=== PATIENT | female | born 2000 | race Caucasian/White ===

== ENCOUNTER → 2022-08-07 | Outpatient (CLI) | payer OTHER, SELFPAY ==
--- NOTE | 2022-08-07 11:47 | RAD_ITS ---
STUDY: X-RAY CHEST REASON FOR EXAM: Female, 22 years old. Shortness of breath. TECHNIQUE: Frontal and lateral views of the chest. COMPARISON: None. FINDINGS: The lungs are clear and expanded. There is no demonstrated pleural abnormality. Normal size heart. Normal mediastinum and gregorio. Normal visualized pulmonary arteries. Normal visualized aortic arch and descending thoracic aorta. Normal visualized thoracic spine. Normal visualized ribs, clavicles, and shoulders. There is no demonstrated abnormality of the visualized soft tissue structures of the upper abdomen. RAD/Chest PA and Lateral IMPRESSION: Normal x-ray examination of the chest. Electronically Signed: Prabhakar Bergeron, at 12:26 EST ,
[2022-08-07 15:29] LABS: Absolute Lymphocyte Count 1.36 X10^3/uL (0.83-4.51); Absolute Neutrophil Count 2.9 X10^3/uL (2.0-7.7); Basophil# 0.05 X10^3/uL; Eosinophils% 1.9 % (0-5); Hematocrit 46.9 % (37-47); Hemoglobin 15.6 g/dL (12.0-15.0); Lymphocyte # 1.36 X10^3/ul (0.83-4.51); Lymphocyte % 26.1 % (19-41); Mean Corp Hgb Conc 33.3 g/dL (32-36); Mean Corpuscular Hgb 30.6 pg (27.0-32.0); Monocyte# 0.77 X10^3/uL; Monocyte% 14.8 % (0-10); NRBC Flagged by Analyzer 0 % (0-5); Neutrophil # 2.93 X10^3/uL (2.7-7.7); Platelet Count 274 K/mm3 (150-450); RBC Distribution Width CV 12.3 % (11.6-14.6); RBC Distribution Width SD 42.1 fl (35.1-43.9); White Blood Count 5.2 K/mm3 (4.4-11.0)
[2022-08-07 15:46] LABS: Vitamin B12 961 pg/mL (211-911); Vitamin D,25 Hydroxy 38.2 ng/mL
[2022-08-07 16:02] LABS: ALB/GLOB Ratio 1.2 RATIO (0.9-2.4); AST(SGOT) 13 U/L (15-37); Alanine Aminotransfer ALT/SGPT 16 U/L (13-56); Alkaline Phosphatase 45 U/L (45-117); Anion Gap 9 (5-15); BUN 9 mg/dL (7-18); Calcium,Total 8.9 mg/dL (8.5-10.1); Chloride 104 mmol/L (98-107); Creatinine, Serum 0.75 mg/dL (0.55-1.02); EST Glomerular Filtration Rate 101 mL/min (>60); Est Glom Filt Rate - Afr Amer 122 mL/min (>60); Globulin 3.4 g/dL (2.2-4.2); Glucose 75 mg/dL (74-106); Potassium 3.4 mmol/L (3.5-5.1); Protein, Total 7.4 g/dL (6.4-8.2); Sodium Level 139 mmol/L (136-145); T4 Free Direct 0.84 ng/dL (0.76-1.46); Thyroid Stim Hormone (TSH) 3.02 uIU/mL (0.358-3.74)
[2022-08-08 10:42] LABS: Ferritin 60 ng/mL (8-252); Iron 34 ug/dL (50-170); Iron Binding Capacity,Total 363 ug/dL (250-450); PERCENT IRON SATURATION 9.4 % (15.0-55.0)
[2022-08-09 11:11] LABS: Transferrin 266 mg/dL (192-364)
== END | disposition home or self-care (01) ==
LOC: MTLAB 11:45
PROVIDERS: PCP Family Medicine; Referring Provider Family Medicine; Visit Provider Family Medicine
DX: R06.02 Shortness of breath (principal); R53.83 Other fatigue; D75.1 Secondary polycythemia
CPT/HCPCS: 36415; 71046; 80053; 82306; 82607; 82728; 83540; 83550; 84439; 84443; 84466; 85025

== ENCOUNTER → 2024-08-13 | Outpatient (CLI) | payer BC, SELFPAY ==
[2024-08-13 12:23] LABS: Basophil# 0.04 X10^3/uL; Basophil% 0.4 % (0-1); Eosinophil# 0.06 X10^3/uL; Eosinophils% 0.6 % (0-5); Hematocrit 42.5 % (37-47); Hemoglobin 15.1 g/dL (12.0-15.0); Lymphocyte % 18.8 % (19-41); Mean Corp Hgb Conc 35.5 g/dL (32-36); Mean Corpuscular Hgb 30.8 pg (27.0-32.0); Mean Corpuscular Volume 86.7 fL (81-99); Mean Platelet Vol. 9.5 fl (6.2-12.0); Monocyte# 0.64 X10^3/uL; Monocyte% 6.7 % (0-10); NRBC Flagged by Analyzer 0 % (0-5); Neutrophil # 6.97 X10^3/uL (2.7-7.7); Neutrophil % 73.1 % (47-70); Platelet Count 320 K/mm3 (150-450); RBC Distribution Width CV 11.4 % (11.6-14.6); RBC Distribution Width SD 35.9 fl (35.1-43.9); White Blood Count 9.6 K/mm3 (4.4-11.0)
[2024-08-13 13:31] LABS: HIV - WCH Non-Reactive (Nonreactive); Hepatitis B Surface Antigen Non-Reactive (Nonreactive); Hepatitis C Antibody Non-Reactive (Nonreactive); Rubella IgG Reactive (Nonreactive); Syphilis Antibodies Non-reactive
[2024-08-16 21:07] LABS: Chlamydia By Nucleic Acid AMP Negative (Negative); Gonococcus By Nucleic Acid AMP Negative (Negative)
== END | disposition home or self-care (01) ==
LOC: BWCLAB 12:07
PROVIDERS: PCP Family Medicine; Referring Provider Registered Nurse; Visit Provider Registered Nurse
DX: Z34.90 Encounter for supervision of normal pregnancy, unspecified, unspecified trimester (principal)
CPT/HCPCS: 36415; 85025; 86703; 86762; 86780; 86803; 86850; 86900; 86901; 87086; 87340; 87491; 87591

== ENCOUNTER 2024-12-23 10:08 | Emergency (ER) | payer BC, SELFPAY ==
[2024-12-23 10:09] VITALS: BP 136/91; PULSE 110; RESP 22; TEMP 36.5; O2SAT 100; BMI 25.3
--- NOTE | 2024-12-23 10:32 | VDLE_ITS ---
Reason For Study Reason For Study: Left leg pain RIGHT LEFT CFV is compressible, spontaneous, phasic, competent GSV is normal. and demonstrates normal augmentation. Acute deep vein thrombosis is noted in the EIV, CFV Procedure and ProfundaV. It is dilated and NONCOMPRESSIBLE. This is a venous duplex using B-mode, color flow and Roulex flow noted throughout the remainder of the left spectral Doppler. leg. Exam performed portable in ED. FV is compressible, spontaneous, phasic, competent and A preliminary report was called and/or faxed to . demonstrates normal augmentation. Lukas. POP V is compressible, spontaneous, phasic, competent and demonstrates normal augmentation. T/P Trunk is compressible. PTV is compressible. LT PerV is compressible. VL/Venous Duplex US, Unilateral Interpretation Summary Acute deep vein thrombosis left external iliac vein, common femoral vein, profu nda femoral vein. Slow flow visualized within other visualized veins. Ordering Physician: Stanley Gaytan Referring Physician: Wyatt Blue Performed By: Bhavani Camacho RVT
--- NOTE | 2024-12-23 10:43 | EX.ED.DYSGE1 ---
HPI History of Present Illness Chief Complaint: Lower Extremity Injury Narrative Narrative: Chief complaint and HPI: Left groin pain. 24-year-old female who is and 27 weeks presents for evaluation of left groin pain. Patient states last week she developed pain in her left groin. She states the pain worsens with ambulation. Associated symptom is occasionally numbness in the left leg with ambulation. States this started around the same time of the pain. She follows with [facility]. She states she saw them in the office in which they did a UA that was negative for UTI. She states concern was for round ligament pain versus DVT. They ordered an outpatient ultrasound for concern of DVT. They cannot perform the study until mid December therefore patient was sent to the emergency department for ultrasound. Has been taking Tylenol for the pain with little relief. She denies any fever, chills, chest pain, shortness of breath, abdominal pain, nausea, vomiting, dysuria, diarrhea, constipation, vaginal bleeding. She states that she has had good movement. Denies any back pain. Denies weakness, urinary retention, stool or urinary incontinence, saddle anesthesia. Review of systems: See HPI Medications: As listed on the chart Allergies: As listed on the chart PFSH: Per chart Vital signs: As listed on the chart. Reviewed. Physical exam: Gen: A&O x3, NAD Head: Normocephalic, atraumatic Eyes: No sclera icterus, conjunctiva clear, PERRL, EOMI ENT: Moist mucous membranes Neck: Trachea midline, No JVD, full range of motion CV: RRR, no murmurs, no peripheral edema Resp: Lungs CTA BL, no w/r/c GI: Gravid uterus, abd soft, non-tender, no r/r/g : No CVA tenderness Musc: Full ROM, no deformity, strength +5/5 in all extremities, femoral/DP/PT pulses +2 bilaterally, back nontender to palpation, negative Homans' sign, no saddle paresthesia, no signs of cellulitis or swelling Skin: Warm, dry, intact Neuro: Alert, oriented, grossly intact, sensation intact, no focal deficits Psych: Cooperative, appropriate mood and affect PFS PFS Home Medications ?Medication ?Instructions ?Recorded ?Last Taken ?Type Saccharomyces boulardii 250 mg 250 mg PO BID 08/16/22 Unknown History capsule (Daily Probiotic (S. boulardii)) diphenhydramine HCl 25 mg capsule 25 mg PO QHS PRN 07/30/24 Unknown History (Benadryl) docosahexaenoic acid 200 mg mg PO 07/30/24 Unknown History capsule ( DHA) enoxaparin 60 mg/0.6 mL 60 mg (0.6 mL) subcut Q12H 30 days 12/23/24 Unknown Rx subcutaneous syringe (Lovenox) #36 mL Allergy/AdvReac Type Severity Reaction Status Date / Time No Known Allergies Allergy Verified 12/23/24 10:09 Family History Father Hypertension Arthritis Grandfather Diabetes Grandfather Kidney disease Surgical History History of tonsillectomy Social History adopted: No household members: spouse current occupational status: employed current occupation: [employer] in [place] current occupational exposures/hazards: No pets and animals: Yes ( taking care litter box ) pets and animals: cat(s) and dog(s) history of recent travel: Yes ( - May ) out of state: Yes out of country: No sexually active: Yes Smoking Status: Never smoker alcohol intake: current alcohol intake frequency: holidays/special occasions only details: Not while substance use type: does not use well-balanced diet: daily or most days caffeine: Yes Type: coffee eating out: 1-3 times/week during the past year weight has: remained stable what type of physical activity do you participate in: walking, running and weight training frequency: 5-6 times per week duration: 30-45 minutes/day wander/orthodoxy: Yazidism seatbelt use: always do you feel safe at home: Yes additional social history: : [employer] at [employer] EXAM Physical Exam Const Vital Signs: 12/23/24 10:09 12/23/24 11:05 12/23/24 14:25 Temperature 97.7 F L 98.2 F Temperature Source Temporal Pulse Rate 110 H 97 97 Respiratory Rate 22 H 18 18 Blood Pressure 136/91 H 110/73 114/63 Blood Pressure Mean 106 85 80 Pulse Ox 100 100 98 Oxygen Delivery Method Room Air Room Air MDM MDM MDM Narrative Medical decision making narrative: 24-year-old female who is and 27 weeks presents for evaluation of left groin pain. Differential diagnosis includes but is not limited to sciatica, DVT, round ligament pain. On presentation, patient is mildly hypertensive, mildly tachycardic, and mildly tachypneic. I suspect that this is secondary to pain with the ambulation however will continue to monitor vital signs. She is denying any chest pain or shortness of breath. Tylenol ordered for pain. Ultrasound of the left lower extremity obtained. Patient has acute DVT thrombosis in the left external iliac vein, common femoral vein, and deep femoral vein. No DVT distally. Patient is therefore I am unable to obtain CT abdomen pelvis to visualize further into the iliac veins in the pelvis. Given patient's previous vitals of tachycardia and tachypnea I re-spoke to the patient about her symptoms as concern with proximal DVT are PE. She currently denies any chest pain or shortness of breath however she states that she does periodically get short of breath with ambulation. At this point in time, I cannot rule out PE. Extensive discussion was had with the patient as well as her significant other about the risks and benefits to CTA chest to assess for PE during . Patient consented to exam. NS bolus ordered to help with contrast load. Will add on laboratory workup. I currently do not have vascular on consult however I did get a hold of the vascular ICU STAFF NURSE as my concern is for proximal DVT in . Recommendation is for Lovenox weight-based 1 mg/kg twice daily however she will further discuss the patient with Dr. Saenz to make sure that further workup or management is not needed such as ECOS. CBC with mild leukocytosis of 11.3. This can be normal in . Patient has anemia of 11.2. Again this can be seen in . Platelet count unremarkable. CMP unremarkable. Troponin unremarkable. BNP unremarkable. CTA chest negative for PE. Vascular surgery recontacted me after ICU STAFF NURSE spoke with Dr. Saenz. Recommendation is still to continue Lovenox twice daily and follow-up outpatient in their office. No need for admission or further management. I spoke with SECURITY POLICE OFFICER surgeon for [facility]. She was updated of the plan and management. She agrees with Lovenox. She would like me to do weight based on her current weight here in the emergency department. Patient was given first dose of Lovenox here in the emergency department. She will be discharged home on Lovenox twice daily. Follow-up with SECURITY POLICE OFFICER and vascular surgery. heart sounds are 137. Patient is not endorsing any abdominal pain. Patient was updated on all the results and the plan. She confirmed understanding. Patient and mother had multiple questions and these were answered. Patient's grandmother arrived later in the room requesting to speak with me, she was upset that the patient is not being admitted to the hospital. I explained t her as well as the patient again that I talked to the vascular surgeon as well as the SECURITY POLICE OFFICER and that plan will be for discharge home. I again answered any questions that they had. Everyone confirmed understanding of the plan. Patient stable to discharge home. Impression: 1. Proximal left lower extremity DVT 2. Second trimester Lab Data Labs: Laboratory Results - last 24 hr 12/23/24 11:30 WBC 11.3 H RBC 3.58 L Hgb 11.2 L Hct 32.2 L MCV 89.9 MCH 31.3 MCHC 34.8 RDW Std Deviation 41.5 RDW Coeff of Robby 12.6 Plt Count 237 MPV 10.3 Immature Gran % (Auto) 0.700 Neut % (Auto) 77.8 H Lymph % (Auto) 12.8 L [place]air % (Auto) 7.8 Eos % (Auto) 0.5 Baso % (Auto) 0.4 Absolute Neuts (auto) 8.8 H Absolute Lymphs (auto) 1.45 Nucleated RBC % 0 Sodium 136 Potassium 3.8 Chloride 104 Carbon Dioxide 21.7 Anion Gap 10 BUN 6 Creatinine 0.54 L Estim Creat Clear Calc 143.02 Est GFR (MDRD) Non-Af 130 BUN/Creatinine Ratio 11.9 Glucose 82 Calcium 8.8 Total Bilirubin 0.25 AST 14 ALT 7 Alkaline Phosphatase 76 Troponin T High Sens < 6 NT pro BNP II 74 Total Protein 6.3 Albumin 3.4 L Globulin 2.9 Albumin/Globulin Ratio 1.2 Radiography Diagnostic Testing: Clinical Impression(s) from Imaging Studies Venous Doppler Study 12/23/24 10:32 Interpretation Summary Acute deep vein thrombosis left external iliac vein, common femoral vein, profunda femoral vein. Slow flow visualized within other visualized veins. Ordering Physician: Stanley Gaytan Referring Physician: Wyatt Blue Performed By: Bhavani Camacho RVT Chest CTA 12/23/24 11:35 IMPRESSION: No evidence of pulmonary embolism. Normal exam. Reading Location: [facility] Discharge Plan Triage Chief Complaint: Lower Extremity Injury ED Provider: Stanley Gaytan Dx/Rx/DC Orders Clinical Impression: Deep vein thrombosis, lower left extremity Instructions: DVT Complications, DVT Dc, DVT Tx Prescriptions: New enoxaparin [Lovenox] 60 mg/0.6 mL syringe 60 mg subcut Q12H 30 Days Qty: 36 0RF No Action Saccharomyces boulardii [Daily Probiotic (S. boulardii)] 250 mg capsule 250 mg PO BID diphenhydramine HCl [Benadryl] 25 mg capsule 25 mg PO QHS PRN DHA 200 mg capsule PO Stand Alone Forms: ED Work / School Excuse Primary Care Provider: Wyatt Blue Referrals: Vamsi Saenz MD [Med Staff - Active Staff] - 3-5 Days Kareen Sands DO [Med Staff - Active Staff] - 3-5 Days Activity Restrictions/Additional Instructions: Follow-up with your SECURITY POLICE OFFICER as well as vascular surgery. Return back to the ED if symptoms change or worsen. Lovenox is a blood thinner it increases spontaneous bleeding as well as bleeding with falls. You received your first this evening. Lovenox injection here in the emergency department. Take your next injection this evening. Print Language: Hebrew Disposition Disposition: Home, Self Care Discharge Date/Time: 12/23/24 14:36
[2024-12-23] MEDS: Acetaminophen 500 MG Tablet 1000 MG PO (10:51)
[2024-12-23 11:05] VITALS: BP 110/73; PULSE 97; RESP 18; O2SAT 100
[2024-12-23] MEDS: 0.9% Normal Saline (1000mL) 1,000 ML 1000 ML IV (11:30)
--- NOTE | 2024-12-23 11:35 | CT_ITS ---
PROCEDURE: CTA CHEST W/WO CONTRAST 12/23/2024 REASON FOR EXAM: PE, WITH KNOWN PROXIMAL LEG DVT TECHNIQUE: CTA imaging of the chest without and with intravenous contrast. Coronal and Sagittal reconstruction series were provided. 3D, 3D post processing, 3D reconstructions, Maximum intensity projection (MIPs) Volume rendering and Shaded surface rendering was provided. CONTRAST: Isovue 370 VOLUME: 75 mL IV One or more dose reduction techniques were used (e.g., Automated exposure control, adjustment of the mA and/or kV according to patient size, use of iterative reconstruction technique). RADIATION DOSE SUMMARY: CTDlvol: 9.955 mGy DLP: 247.16 mGycm COMPARISON: None FINDINGS: Heart: Normal size. No right ventricular strain. Pulmonary Vessels: Unremarkable. No pulmonary embolism. Arch Vessels: Normal configuration. Lungs are clear. No pleural effusions. Limited images of the upper abdomen demonstrate no acute process. Other Findings: CT/CTA Chest W/WO Contrast IMPRESSION: No evidence of pulmonary embolism. Normal exam. Reading Location: [facility]
[2024-12-23 12:14] LABS: Troponin T High Sensitivity < 6 ng/L (<=14)
[2024-12-23 12:20] LABS: ALB/GLOB Ratio 1.2 RATIO (0.9-2.4); AST(SGOT) 14 U/L (<=31); Alanine Aminotransfer ALT/SGPT 7 U/L (<=34); Albumin, Serum 3.4 g/dL (3.5-5.0); Alkaline Phosphatase 76 U/L (35-104); Anion Gap 10 (5-15); BUN 6 mg/dL (4-19); BUN/Creat Ratio 11.9 RATIO (10-20); Calcium,Total 8.8 mg/dL (7.6-11.0); Carbon Dioxide 21.7 mmol/L (21.0-32.0); Chloride 104 mmol/L (98-108); Creatinine, Serum 0.54 mg/dL (0.70-1.20); EST Glomerular Filtration Rate 130 (>60); Estimated Creatinine Clearance 143.02 ml/min (50-250); Globulin 2.9 g/dL (2.2-4.2); Glucose 82 mg/dL (70-99); Potassium 3.8 mmol/L (3.3-5.1); Pro- Brain NATRIURETIC PEPTIDE 74 pg/mL (<=450); Protein, Total 6.3 g/dL (5.9-8.4); Sodium Level 136 mmol/L (133-145); Total Bilirubin 0.25 mg/dL (0.00-1.30)
[2024-12-23 12:36] LABS: Absolute Lymphocyte Count 1.45 X10^3/uL (0.83-4.51); Absolute Neutrophil Count 8.8 X10^3/uL (2.0-7.7); Basophil# 0.04 X10^3/uL; Basophil% 0.4 % (0-1); Eosinophil# 0.06 X10^3/uL; Eosinophils% 0.5 % (0-5); Hematocrit 32.2 % (37-47); Hemoglobin 11.2 g/dL (12.0-15.0); Lymphocyte # 1.45 X10^3/ul (0.83-4.51); Lymphocyte % 12.8 % (19-41); Mean Corp Hgb Conc 34.8 g/dL (32-36); Mean Corpuscular Hgb 31.3 pg (27.0-32.0); Mean Corpuscular Volume 89.9 fL (81-99); Mean Platelet Vol. 10.3 fl (6.2-12.0); Monocyte# 0.88 X10^3/uL; Monocyte% 7.8 % (0-10); NRBC Flagged by Analyzer 0 % (0-5); Neutrophil % 77.8 % (47-70); Platelet Count 237 K/mm3 (150-450); RBC Distribution Width CV 12.6 % (11.6-14.6); RBC Distribution Width SD 41.5 fl (35.1-43.9); Red Blood Count 3.58 M/mm3 (4.2-5.4); White Blood Count 11.3 K/mm3 (4.4-11.0)
--- NOTE | 2024-12-23 13:46 | ED.RN ---
patients family members upset patient is not being admitted for DVT. per family patient is doing lovenox injections and would like her care to be at another hospital. Family calling multiple family members requesting their experiences at other hospitals. family upset vascular doctor or OBGYN has not seen patient in ED. Family is concerned she is not safe to go home. Dr. Johnson notified of comments made by family
[2024-12-23] MEDS: Enoxaparin 100 MG/ML Syringe 60 MG SC (13:53)
[2024-12-23 14:25] VITALS: BP 114/63; PULSE 97; RESP 18; TEMP 36.8; O2SAT 98
== END 2024-12-23 14:36 | disposition home or self-care (01) ==
PROVIDERS: Emergency Provider Surgery; PCP Family Medicine; Visit Provider Surgery
DX: O22.32 Deep phlebothrombosis in pregnancy, second trimester (principal); I82.422 Acute embolism and thrombosis of left iliac vein; I82.412 Acute embolism and thrombosis of left femoral vein; Z3A.27 27 weeks gestation of pregnancy
CPT/HCPCS: 71275; 80048; 80053; 83880; 84484; 85025; 93971; 96360; 96361; 96372; 99283; Q9967; A4216

== ENCOUNTER → 2024-12-29 | Outpatient (CLI) | payer BC, SELFPAY ==
[2024-12-29 17:11] LABS: Absolute Lymphocyte Count 1.55 X10^3/uL (0.83-4.51); Absolute Neutrophil Count 6.4 X10^3/uL (2.0-7.7); Basophil# 0.04 X10^3/uL; Basophil% 0.5 % (0-1); Eosinophil# 0.14 X10^3/uL; Eosinophils% 1.6 % (0-5); Hematocrit 34.9 % (37-47); Lymphocyte # 1.55 X10^3/ul (0.83-4.51); Lymphocyte % 17.7 % (19-41); Mean Corp Hgb Conc 34.4 g/dL (32-36); Mean Corpuscular Volume 90.2 fL (81-99); Mean Platelet Vol. 9.9 fl (6.2-12.0); Monocyte# 0.53 X10^3/uL; Monocyte% 6.1 % (0-10); NRBC Flagged by Analyzer 0 % (0-5); Neutrophil # 6.44 X10^3/uL (2.7-7.7); Neutrophil % 73.4 % (47-70); Platelet Count 393 K/mm3 (150-450); RBC Distribution Width CV 12.1 % (11.6-14.6); RBC Distribution Width SD 39.8 fl (35.1-43.9); Red Blood Count 3.87 M/mm3 (4.2-5.4); White Blood Count 8.8 K/mm3 (4.4-11.0)
[2024-12-29 18:45] LABS: Glucose Challenge Gest 1H 50g 152 mg/dL (70-140); HIV Nonreactive (Nonreactive); Syphilis Antibodies Nonreactive (Nonreactive)
== END | disposition home or self-care (01) ==
PROVIDERS: Advanced Practice Midwife; PCP Family Medicine; Referring Provider Obstetrics & Gynecology; Visit Provider Obstetrics & Gynecology
DX: Z34.90 Encounter for supervision of normal pregnancy, unspecified, unspecified trimester (principal)
CPT/HCPCS: 36415; 82950; 85025; 86703; 86780

== ENCOUNTER → 2025-01-03 | Outpatient (CLI) | payer BC, SELFPAY ==
[2025-01-03 10:20] LABS: Glucose GTT-Gestation. Fasting 80 mg/dL (<105)
[2025-01-03 13:45] LABS: Glucose GTT-Gestational 2 Hr 168 mg/dL (<165)
[2025-01-03 13:48] LABS: Glucose GTT-Gestational 1 Hr 160 mg/dL (<190)
[2025-01-03 14:24] LABS: Glucose GTT-Gestational 3 Hr 128 L (<145)
== END | disposition home or self-care (01) ==
LOC: LAB 09:49
PROVIDERS: PCP Family Medicine; Referring Provider Advanced Practice Midwife; Visit Provider Advanced Practice Midwife
DX: Z13.1 Encounter for screening for diabetes mellitus (principal)
CPT/HCPCS: 36415; 82951; 82952

== ENCOUNTER → 2025-01-25 | Outpatient (CLI) | payer BC, SELFPAY ==
--- NOTE | 2025-01-25 08:07 | VDLE_ITS ---
Reason For Study Reason For Study: left leg pain RIGHT LEFT CFV is compressible, spontaneous, phasic, competent GSV is normal. and demonstrates normal augmentation. Acute deep vein thrombosis is noted in the EIV, CFV Procedure and ProfundaV. It is partially NONCOMPRESSIBLE with This is a venous duplex using B-mode, color flow and minimal venous flow noted. spectral Doppler. FV is compressible, spontaneous, phasic, competent Exam performed in department. and demonstrates normal augmentation. Compared to 12/23/2024. POP V is compressible, spontaneous, phasic, competent A preliminary report was called and/or faxed to and demonstrates normal augmentation. Wade [employer]. T/P Trunk is compressible. PTV is compressible. LT PerV is compressible. VL/Venous Duplex US, Unilateral Interpretation Summary Acute deep vein thrombosis is noted in the left external iliac vein, common fem oral vein, profunda vein. Ordering Physician: Tara Olvera Referring Physician: Wyatt Blue Performed By: Bhavani Camacho RVT
== END | disposition home or self-care (01) ==
PROVIDERS: PCP Family Medicine; Referring Provider Nurse Practitioner Women's Health; Visit Provider Nurse Practitioner Women's Health
DX: R10.32 Left lower quadrant pain (principal); M79.605 Pain in left leg
CPT/HCPCS: 93971

== ENCOUNTER → 2025-02-02 | Outpatient (CLI) | payer BC, SELFPAY ==
--- NOTE | 2025-02-02 13:18 | US_ITS ---
PROCEDURE: OB LIMITED WITH BIOMETRICS 02/02/2025 REASON FOR EXAM: GROWTH TECHNIQUE: High resolution obstetric ultrasound performed using a 2D transducer. Standard views obtained, including biometry, anatomy survey, and Doppler studies. COMPARISON: None FINDINGS LMP: June 18, 2024. Number: 1 Position: Vertex Placental Position: Anterior and not low-lying Placental Abnormalities: None DIMENSIONS: Biparietal Diameter: 8.3 cm: 33 weeks and 2 days: 60 percentile/ Head Circumference: 30.1 cm: 33 weeks and 2 days: 29 percentile/ Abdominal Circumference: 30.3 cm: 34 weeks and 2 days: 88 percentile/ Femur Length: 6.2 cm: 32 weeks and 1 day: 24 percentile/ ESTIMATED WEIGHT: 2229 g plus/-234 g ESTIMATED WEIGHT PERCENTILE (24+ weeks): 68 ESTIMATED GESTATIONAL AGE: Baseline: 32 weeks and 5 days By Ultrasound: 33 weeks and 1 day ESTIMATED DATE OF DELIVERY: Baseline: March 25, 2025 By Ultrasound: March 22, 2024 BIOPHYSICAL ASSESSMENT: Amniotic Fluid Volume: 6.3 cm Amniotic Fluid Index: 16.9 (8-24 cm normal range) Cardiac Motion: 133 beats per minute (average) Trunk and Limb Motion: Present. MATERNAL ANATOMY: Adnexa: Neither maternal ovary is successfully identified. US/OB Limited With Biometrics IMPRESSION: Single live intrauterine gestation with a mean gestational age of 33 weeks and 1 day. Reading Location: [id number]
== END | disposition home or self-care (01) ==
PROVIDERS: PCP Family Medicine; Referring Provider Nurse Practitioner Women's Health; Visit Provider Nurse Practitioner Women's Health
DX: O22.33 Deep phlebothrombosis in pregnancy, third trimester (principal); I82.409 Acute embolism and thrombosis of unspecified deep veins of unspecified lower extremity; Z3A.33 33 weeks gestation of pregnancy
CPT/HCPCS: 76816

== ENCOUNTER → 2025-02-17 | Outpatient (CLI) | payer BC, SELFPAY ==
--- NOTE | 2025-02-17 09:37 | VDLE_ITS ---
Reason For Study Reason For Study: Right leg pain RIGHT LEFT GSV is normal. CFV is partially compressible, venous flow noted with CFV is compressible, spontaneous, phasic, competent augmentation. Compared to 01/25/2025. and demonstrates normal augmentation. FV is compressible, spontaneous, phasic, competent and demonstrates normal augmentation. POP V is compressible, spontaneous, phasic, competent and demonstrates normal augmentation. T/P Trunk is compressible. PTV is compressible. RT PerV is compressible. Procedure This is a venous duplex using B-mode, color flow and spectral Doppler. Exam performed in department. A preliminary report was called and/or faxed to Dr. Sands. VL/Venous Duplex US, Unilateral Interpretation Summary Deep veins of the right lower extremity are patent and compressible segmentally . There is no evidence of right lower extremity deep vein thrombosis. Valvular competence appears intact within the p roximal deep venous system on the right . The right great saphenous vein appears patent and compressible segmentally. The left common femoral vein is patent and compressible . Ordering Physician: Kareen Sands Referring Physician: Wyatt Blue Performed By: Bhavani Camacho RVT
== END | disposition home or self-care (01) ==
PROVIDERS: PCP Family Medicine; Referring Provider Obstetrics & Gynecology; Visit Provider Obstetrics & Gynecology
DX: M79.661 Pain in right lower leg (principal); I82.422 Acute embolism and thrombosis of left iliac vein
CPT/HCPCS: 93971

== ENCOUNTER → 2025-03-03 | Outpatient (CLI) | payer BC, SELFPAY | END | disposition home or self-care (01) | LOC: LABSPEC 11:59 | PROVIDERS: PCP Family Medicine; Visit Provider Advanced Practice Midwife | DX: O09.93 Supervision of high risk pregnancy, unspecified, third trimester (principal); Z3A.00 Weeks of gestation of pregnancy not specified | CPT/HCPCS: 87081 ==

== ENCOUNTER → 2025-03-04 | Outpatient (CLI) | payer BC, SELFPAY ==
--- NOTE | 2025-03-04 13:20 | US_ITS ---
PROCEDURE: OB LIMITED WITH BIOMETRICS 03/04/2025 REASON FOR EXAM: GROWTH TECHNIQUE: OB LIMITED WITH BIOMETRICS COMPARISON: February 02, 2025. FINDINGS Number: 1 Position: Vertex Placental Position: Anterior and not low-lying Placental Abnormalities: No evidence of previa. DIMENSIONS: Biparietal Diameter: 8.9 cm: 35 weeks and 6 days: 34 percentile/ Head Circumference: 32.2 cm: 36 weeks and 2 days: 13 percentile./ Abdominal Circumference: 33.1 cm: 37 weeks and 0 days: 64 percentile/ Femur Length: 6.9 cm: 35 weeks and 3 days: 13 percentile/ ESTIMATED WEIGHT: 2957 g plus/-444 g ESTIMATED WEIGHT PERCENTILE (24+ weeks): 43rd ESTIMATED GESTATIONAL AGE: Baseline: 37 weeks and 0 days By Ultrasound: 36 weeks and 2 days ESTIMATED DATE OF DELIVERY: Baseline: March 25, 2025 By Ultrasound: March 30, 2025 BIOPHYSICAL ASSESSMENT: Amniotic Fluid Volume: 4.9 Amniotic Fluid Index: 17.8 (8-24 cm normal range) Cardiac Motion: 133 beats per minute (average) Trunk and Limb Motion: Present. MATERNAL ANATOMY: Adnexa: Neither maternal ovary is successfully identified. US/OB Limited With Biometrics IMPRESSION: Single live intrauterine gestation with a mean gestational age of 37 weeks and 3 days. The measurements obtained today fall within the normal expected range. Reading Location: [place] [id number]
--- NOTE | 2025-03-04 13:29 | VDLE_ITS ---
Reason For Study Reason For Study: Left leg swelling RIGHT LEFT CFV is compressible, spontaneous, phasic, competent GSV is normal. and demonstrates normal augmentation. EIV normal venous flow. Procedure CFV is partially compressible with bright This is a venous duplex using B-mode, color flow and intraluminal echoes consistent with Chronic DVT. spectral Doppler. Normal venous flow. Exam performed in department. ProfundaV is partially compressible. Compared to 01/25/2025 and 02/17/2025. FV is compressible, spontaneous, phasic, competent and demonstrates normal augmentation. POP V is compressible, spontaneous, phasic, competent and demonstrates normal augmentation. T/P Trunk is compressible. PTV is compressible. LT PerV is compressible. VL/Venous Duplex US, Unilateral Interpretation Summary Chronic deep vein thrombosis noted in the left common femoral vein, profunda ve in. Ordering Physician: Mitali Joseph Referring Physician: Wyatt Blue Performed By: Bhavani Camacho RVT
== END | disposition home or self-care (01) ==
LOC: US 13:12
PROVIDERS: PCP Family Medicine; Referring Provider Physician Assistant; Visit Provider Physician Assistant
DX: O22.33 Deep phlebothrombosis in pregnancy, third trimester (principal); I82.422 Acute embolism and thrombosis of left iliac vein; Z3A.31 31 weeks gestation of pregnancy
CPT/HCPCS: 76816; 93971

== ENCOUNTER 2025-03-17 19:12 | Inpatient (IN) | payer BC, SELFPAY ==
[2025-03-17 19:09] VITALS: BMI 26.9
[2025-03-17 19:20] VITALS: BP 124/79; PULSE 92
[2025-03-17 19:21] VITALS: PULSE 92; RESP 16; TEMP 36.7; O2SAT 99
[2025-03-17 19:48] LABS: Absolute Lymphocyte Count 2.53 X10^3/uL (0.83-4.51); Absolute Neutrophil Count 7.7 X10^3/uL (2.0-7.7); Basophil# 0.05 X10^3/uL; Basophil% 0.5 % (0-1); Eosinophil# 0.08 X10^3/uL; Eosinophils% 0.7 % (0-5); Hematocrit 39.7 % (37-47); Hemoglobin 14.2 g/dL (12.0-15.0); Lymphocyte # 2.53 X10^3/ul (0.83-4.51); Lymphocyte % 22.9 % (19-41); Mean Corp Hgb Conc 35.8 g/dL (32-36); Mean Corpuscular Hgb 31.5 pg (27.0-32.0); Mean Platelet Vol. 11.4 fl (6.2-12.0); Monocyte# 0.68 X10^3/uL; Monocyte% 6.2 % (0-10); NRBC Flagged by Analyzer 0 % (0-5); Neutrophil # 7.65 X10^3/uL (2.7-7.7); Neutrophil % 69.2 % (47-70); Platelet Count 196 K/mm3 (150-450); RBC Distribution Width CV 13.1 % (11.6-14.6); RBC Distribution Width SD 41.5 fl (35.1-43.9); Red Blood Count 4.51 M/mm3 (4.2-5.4)
[2025-03-17] MEDS: Lactated Ringers 1,000 ML 50 ML IV (20:00)
[2025-03-17] MEDS: miSOPROStol 25 MCG TABLET VAGINAL (20:30)
[2025-03-17 20:33] VITALS: BP 129/76; PULSE 75; RESP 16; TEMP 36.8; O2SAT 97
[2025-03-17 20:38] LABS: Syphilis Antibodies Nonreactive (Nonreactive)
--- OUTSIDE RECORDS SUMMARY | 2025-03-17 22:11 | XMS RPT_ITS | CCD ---
Author Organization [facility] ion [facility] CliniSyne Care Team Providers Care Rfid Technician Name Role Phone Andra Adkins Unavailable Unavailable Andra Adkins Unavailable Unavailable TONE MORALES Attending UnavaANDRA Valdez Primary Care Unavailable Andra Adkins Primary Care Provider ANDRA ADKINS Primary Care Unavailable JESSICA CORTEZ Attending Unavail able ANDRA ADKINS Attending Unavailable ANDRA ADKINS Primary Care Unavailable Andra Adkins MD Primary Care Provider ALANNA BLUE Primary Care Unavailable NATHEN SPICER Attending Unavailable KAREEN HALEY Referring Unavailab Dr. Alanna Bailey MD Primary Care Provider Dr. Alanna Blue MD Referring Provider Dr. Kareen Sands DO Attending Provider Dr. Rosy Albert MD Attending Provider Sarah Blackwood CNM Attending Provider [phone] Tara Shepherd Attending Provider [phone] Dr. Stanley Gaytan DO Emergency Provider Dr. Stanley Gaytan DO Attending Provider Dr. Vamsi Saenz MD Attending Provider Dr. Stanley Gaytan DO Referring Provider Dr. Kareen Sands DO Referring Provider Sarah Blackwood CNM Referring Provider [phone] Su NAVAS, Dr. Alanna Charles Primary Care Provider [phone] Su NAVAS, Dr. Alanna Charles Referring Provider Cinda Salvador DO, Dr. Mathur Attending Provider Mitali Thomas Attending Provider 1([facility])-[phone] [employer] PROGRAMMING INSTRUCTOR-C, Tara Referring Provider Su NAVAS, Dr. Alanna Charles Primary Care Provider Su NAVAS, Dr. Alanna Charles Referring Provider Dr. Kareen Sands DO Attending Provider Amrit NAVAS, Dr. Loyd Espana Attending Provider Su NAVAS, Dr. Alanna Charles Primary Care Provider Su NAVAS, Dr. Alanna Charles Referring Provider Roosevelt NAVAS, Dr. Gallegos Attending Provider Wade PROGRAMMING INSTRUCTOR-C, Tara Other Provider Jake MARLEY, Mitali Referring Provider 1([facility])-[phone] Cinda Salvador DO, Dr. Mathur Other Provider [phone] Alanna Blue Primary Care Unavailable [employer] PROGRAMMING INSTRUCTOR, Tara Attending Unavailable [employer] PROGRAMMING INSTRUCTOR, Tara Referring Unavailable Kareen Sands Attending Unavailabl e Gitae Kareen Salvador Referring Unavailabl e Schpatricia, Alanna E Primary Care Unavailable Joseph, Mitali Attending Unavailable Joseph, Mitali Referring Unavailable SchAlanna gomez Primary Care Unavailable [employer] PROGRAMMING INSTRUCTOR, Tara Consulting Unavailable Kareen Sands Consulting Unavailabl e Stanley Gaytan Attending Unavailabl e Su, Alanna E Primary Care Unavailable Kareen Sands Referring Unavailabl e Vande Kareen Salvador Attending Unavailabl e Su, Alanna E Primary Care Unavailable VandKareen Pablo Consulting Unavailabl e Mitali Joseph Attending Unavailable Joseph, Mitali Referring Unavailable Schpatricia, Alanna E Primary Care Unavailable Schinner, Alanna E Primary Care Unavailable Wade PROGRAMMING INSTRUCTOR, Tara Attending Unavailable [employer]well PROGRAMMING INSTRUCTOR, Tara Referring Unavailable Schinner, Alanna E Primary Care Unavailable Rosy Albert Attending Unavailable Rosy Albert Referring Unavailable Rosy Albert Admitting Unavailable Schinner, Alanna E Referring Unavailable Rosy Albert Attending Unavailable Schinner, Alanna E Primary Care Unavailable Kareen Sands Attending Unavailabl e Schinner, Alanna E Referring Unavailable Schinner, Alanna E Primary Care Unavailable Schinner, Alanna E Referring Unavailable Sarah Blackwood Attending Unavailable Schinner, Alanna E Primary Care Unavailable Schinner, Alanna E Referring Unavailable Rosy Albert Attending Unavailable Schinner, Alanna E Primary Care Unavailable Schinner, Alanna E Primary Care Unavailable Schinner, Alanna E Referring Unavailable [employer] PROGRAMMING INSTRUCTOR, Tara Attending Unavailable Kareen Sands Attending Unavailabl e Schinner, Alanna E Referring Unavailable Schinner, Alanna E Primary Care Unavailable Schinner, Alanna E Referring Unavailable Sarah Blackwood Attending Unavailable Schinner, Alanna E Primary Care Unavailable Schinner, Alanna E Referring Unavailable Sarah Blackwood Attending Unavailable Schinner, Alanna E Primary Care Unavailable Kareen Sands Attending Unavailabl e Schinner, Alanna E Referring Unavailable Schinner, Alanna E Primary Care Unavailable Schinner, Alanna E Primary Care Unavailable Sarah Blackwood Attending Unavailable Sarah Blackwood Referring Unavailable Vamsi Saenz Attending Unavailable Stanley Gaytan Referring Unavailabl e Schinner, Alanna E Primary Care Unavailable Vamsi Saenz Attending Unavailable Mitali Joseph Referring Unavailable Schinner, Alanna E Primary Care Unavailable Vamsi Saenz Attending Unavailable Schinner, Alanna E Primary Care Unavailable Wade PROGRAMMING INSTRUCTORTara Referring Unavailable Mayra Martinez Attending Unavailable Schinner, Alanna E Primary Care Unavailable Sarah Blackwood Attending Unavailable Schinner, Alanna E Primary Care Unavailable Kareen Sands Attending Unavailabl e Schinner, Alanna E Referring Unavailable Schinner, Alanna E Primary Care Unavailable Jasmin Moody Attending Unavailable Jasmin Moody Referring Unavailable Schinner, Alanna E Primary Care Unavailable Schinner, Alanna E Referring Unavailable Rosy Albert Attending Unavailable Schinner, Alanna E Primary Care Unavailable Kareen Sands Attending Unavaillogan e Schinner, Alanna E Referring Unavailable Schinner, Alanna E Primary Care Unavailable Schinner, Alanna E Referring Unavailable Schinner, Alanna E Primary Care Unavailable Sarah Blackwood Attending Unavailable Jasmin Moody Attending Unavailable Schinner, Alanna E Referring Unavailable Schinner, Alanna E Primary Care Unavailable Schinner, Alanna E Referring Unavailable Schinner, Alanna E Primary Care Unavailable Mitali Joseph Attending Unavailable Rosy Albert Attending Unavailable Schinner, Alanna E Referring Unavailable Schinner, Alanna E Primary Care Unavailable Schinner, Alanna E Referring Unavailable Schinner, Alanna E Primary Care Unavailable Tara Olvera NP Attending Unavailable Schinner, Alanna E Referring Unavailable Schinner, Alanna E Primary Care Unavailable Tara Olvera NP Attending Unavailable Allergies Allergy Classification Reported Allergen(s) Allergy Type Date of Onset Reaction(s) Facility (1 source) azithromycin Drug Allergy 02-15-2012 Diarrhea [facility] Repository Medications Current Medications Medication Drug Class(es) Dates Sig (Normalized) Sig (Original) Breast Pump device (10 sources) Start: 02-03-2025 Breast Pump device Active 0 .Route 1 February 03, 2025 12:00am As directed calcium carbonate 625 mg / cholecalciferol 125 unt oral tablet (1 source) Vitamin D take 1 tablet by mouth twice daily at mealtime calcium-vitamin D (OS-DEEPA +D) 250-125 mg-unit Tab Take 1 tablet by mouth 2 (two) times a day with meals . 0 Active dextromethorphan hydrobromide 15 mg / guaiFENesin 400 mg / pseudoephedrine hydrochloride 60 mg oral tablet (1 source) alpha-Adrenergic Agonist, Uncompetitive A-kxyscm-T-aspartat e Receptor Antagonist, Sigma-1 Agonist Start: 09-06-2020 End: 09-16-2020 take 1 tablet by mouth four times daily as needed pseudoephedrine-DM- guaiFENesin 60-15-400 mg Tab Indications: COVID-19 Take 1 (one) tablet by mouth 4 (four) times a day as needed . 40 tablet 0 09/06/2020 09/16/2020 Active diphenhydrAMINE hydrochloride 25 mg oral capsule (15 sources) Histamine-1 Receptor Antagonist Start: 07-30-2024 take 1 capsule by mouth at bedtime as needed Diphenhydramine Hcl (Benadryl) 25 mg capsule Active 25 mg PO AT BEDTIME as needed July 30, 2024 1:00am docosahexaenoic acid 200 mg oral capsule (15 sources) Start: 07-30-2024 Docosahexaenoic Acid ( Dha) 200 mg capsule Active mg PO July 30, 2024 1:00am Ethinyl Estradiol / Norgestrel (1 source) Estrogen Start: 04-30-2021 End: 04-30-2022 take 1 tablet by mouth once daily norgestrel-ethinyl estradioL (LO/OVRAL) 0.3-30 mg-mcg per tablet Take 1 (one) tablet by mouth daily . 90 tablet 3 04/30/2021 04/30/2022 Active fluticasone propionate 0.05 mg/actuat metered dose nasal spray (2 sources) Corticosteroid Start: 09-06-2020 End: 09-06-2021 take 2 spray(s) nasal route once daily fluticasone propionate (FLONASE) 50 mcg/actuation nasal spray Indications: COVID-19 Instill 2 (two) sprays into each nostril daily . 16 g 0 09/06/2020 09/06/2021 Active L.acid/L.casei/B.bif/ B.jane/FOS (PROBIOTIC BLEND ORAL) (1 source) L.acid/L.casei/B .bi f/B.jane/FOS (PROBIOTIC BLEND ORAL) Take by mouth . 0 Active metroNIDAZOLE 0.0075 mg/mg vaginal gel (1 source) Nitroimidazole Antimicrobial Start: 08-11-2020 End: 08-16-2020 metroNIDAZOLE (METROGEL) 0.75 % vaginal gel Insert into the vagina nightly for 5 days . 70 g 0 08/11/2020 08/16/2020 Active saccharomyces boulardii 250 mg oral capsule (15 sources) Start: 08-16-2022 take 1 capsule by mouth twice daily Saccharomyces Boulardii (Daily Probiotic (S. Boulardii)) 250 mg capsule Active 250 mg PO TWICE A DAY August 16, 2022 1:00am zinc sulfate 220 mg oral capsule (1 source) zinc sulfate (ZINCATE) 50 mg zinc (220 mg) capsule Take 220 mg by mouth daily . 0 Active Completed/Discontinued Medications Medication Drug Class(es) Dates Sig (Normalized) Sig (Original) 0.4 ml enoxaparin sodium 100 mg/ml prefilled syringe (20 sources) Low Molecular Weight Heparin Start: 12-24-2024 End: 01-11-2025 Enoxaparin (Lovenox) 40 mg/0.4 mL syringe Discontinued 40 mg SC THREE TIMES A DAY 6 December 24, 2024 12:00am January 11, 2025 3:57pm Start: 12-23-2024 End: 12-24-2024 Enoxaparin (Lovenox) 60 mg/0 .6 mL syringe Discontinued 60 mg SC Q12H 36 30 December 23, 2024 5:41pm December 24, 2024 3:33pm Problems Active Problems Problem Classification Problem Date Documented Da te Episodic/Chronic Abdominal pain (20 sources) Left inguinal pain; Translations: [Left lower quadrant pain] Onset: 5 12-22-2024 Episodic Comment on above: doppler ordered Diabetes or abnormal glucose tolerance complicating ; childbirth; or the puerperium (20 sources) Abnormal glucose level; Translations: [Abnormal glucose complicating ] Onset: 5 01-03-2025 Episodic Comment on above: passed 3 hour Fever of unknown origin (1 source) Fever; Translations: [Fever in other diseases] Episodic Immunizations and screening for infectious disease (1 source) Encounter for immunization; Translations: [Encounter for immunization] Onset: 5 Episodic Menstrual disorders (3 sources) Dysmenorrhea; Translations: [Dysmenorrhea, unspecified] Onset: 0 08-11-2020 Chronic Nonmalignant breast conditions (1 source) Lesion of breast; Translations: [Unspecified lump in unspecified breast] Episodic Other complications of (20 sources) High risk ; Translations: [Supervision of high risk , unspecified, unspecified trimester] 12-29-2024 Episodic Comment on above: PRR , JUHI , aneesh Arango : Nabor Other complications of (1 source) Supervision of high risk , unspecified, third trimester; Translations: [Supervision of high risk , unspecified, third trimester] Onset: 5 Episodic Other complications of (1 source) Deep phlebothrombosis in , third trimester; Translations: [Deep phlebothrombosis in , third trimester] Onset: 5 Episodic Other connective tissue disease (1 source) Pain in right lower leg; Translations: [Pain in right lower leg] Onset: 5 Episodic Other connective tissue disease (1 source) Pain in left leg; Translations: [Pain in left leg] Onset: 5 Episodic Other connective tissue disease (1 source) Metatarsalgia of right foot; Translations: [Metatarsalgia of right foot] Other connective tissue disease (1 source) Pain in right foot; Translations: [Right foot pain] Other nutritional; endocrine; and metabolic disorders (2 sources) Overweight; Translations: [Overweight with body mass index (BMI) of 26 to 26.9 in adult] Onset: 0 08-11-2020 Chronic Other and delivery including normal (20 sources) Normal ; Translations: [Encounter for supervision of normal , unspecified, unspecified trimester] Onset: 5 12-22-2024 Episodic Comment on above: PRR , JUHI , boy Conchita : Nabor Discussed genetic/ca rrier testing declined genetic/car rier testing. nl anatomy. GBS neg Other screening for suspected conditions (not mental disorders or infectious disease) (1 source) Encounter for screening for diabetes mellitus; Translations: [Encounter for screening for diabetes mellitus] Onset: 5 Episodic Phlebitis; thrombophlebitis and thromboembolism (20 sources) Deep venous thrombosis of lower extremity; Translations: [Acute embolism and thrombosis of unspecified deep veins of left lower extremity] Onset: 5 12-23-2024 Episodic Comment on above: Lovenox, growth US q 4 weeks, weekly nsts after 32 delivery 39 Left groin: On loven ox. 32 & 36wk growth USWkly NST at 34wk Residual codes; unclassified (1 source) 38 weeks gestation of ; Translations: [38 weeks gestation of ] Onset: 5 Episodic Residual codes; unclassified (1 source) 35 weeks gestation of ; Translations: [35 weeks gestation of ] Onset: 5 Episodic Residual codes; unclassified (1 source) 34 weeks gestation of ; Translations: [34 weeks gestation of ] Onset: 5 Episodic Residual codes; unclassified (1 source) 31 weeks gestation of ; Translations: [31 weeks gestation of ] Onset: 5 Episodic Residual codes; unclassified (1 source) 26 weeks gestation of ; Translations: [26 weeks gestation of ] Onset: 5 Episodic Unclassified (1 source) COVID-19; Translations: [COVID-19] Past or Other Problems Problem Classification Problem Date Documented Da te Episodic/Chronic Other nutritional; endocrine; and metabolic disorders (1 source) Overweight in adulthood with body mass index of 25 or more but less than 30; Translations: [Overweight] Onset: 08-11-2020 Resolved: 04-24-2021 04-24-2021 Episodic Residual codes; unclassified (1 source) 24 weeks gestation of ; Translations: [24 weeks gestation of ] Onset: 12-03-2024 Episodic Residual codes; unclassified (1 source) 20 weeks gestation of ; Translations: [20 weeks gestation of ] Onset: 11-05-2024 Episodic Results Test Name Value Interpretation Reference Range Facility CBC W/Diff, Automatedon 06-2 Absolute Lymph 2.53 X10 3/uL Normal 0.83-4.51 [facility] Comment on above: Performed By: #### L 100.0100, BTS #### [facility] [address], [address] Absolute Neut 7.7 X10 3/uL Normal 2.0-7.7 [facility] Comment on above: Performed By: #### L 100.0100, BTS #### [facility] [address] [place], [address] Basophils/100 WBC (Bld) 0.5 % Normal 0-1 [facility] Comment on above: Performed By: #### L 100.0100, BTS #### [facility] [address] [place], [address] Eosinophils/100 WBC (Bld) 0.7 % Normal 0-5 [facility] Comment on above: Performed By: #### L 100.0100, BTS #### [facility] [address] [place], [address] Erythrocyte distribution width (RBC) [Ratio] 13.1 % Normal 11.6-14.6 [facility] Comment on above: Performed By: #### L 100.0100, BTS #### [facility] [address] [place], [address] Hematocrit (Bld) [Volume fraction] 39.7 % Normal 37-47 [facility] Comment on above: Performed By: #### L 100.0100, BTS #### [facility] [address] [place], [address] Hemoglobin (Bld) [Mass/Vol] 14.2 g/dL Normal 12.0-15.0 [facility] Comment on above: Performed By: #### L 100.0100, BTS #### [facility] [address] [place], [address] IG% 0.500 Normal 0.0-0.9 [facility] Comment on above: Result Comment: IG% - Immature Granulocytes (promyelocytes, myelocytes and metamyelocytes) > 1% indicates that a LEFT SHIFT is Present. Performed By: #### L 100.0100, BTS #### [facility] [address] [place], [address] Lymphocytes/100 WBC (Bld) 22.9 % Normal 19-41 [facility] Comment on above: Performed By: #### L 100.0100, BTS #### [facility] [address] [place], [address] MCH (RBC) [Entitic mass] 31.5 pg Normal 27.0-32.0 [facility] Comment on above: Performed By: #### L 100.0100, BTS #### [facility] [address] [place], [address] MCHC (RBC) [Mass/Vol] 35.8 g/dL Normal 32-[address] [facility] Comment on above: Performed By: #### L 100.0100, BTS #### [facility] [address] [place], [address] MCV (RBC) [Entitic vol] 88.0 fL Normal 81-99 [facility] Comment on above: Performed By: #### L 100.0100, BTS #### [facility] [address] [place], [address] Monocytes/100 WBC (Bld) 6.2 % Normal 0-10 [facility] Comment on above: Performed By: #### L 100.0100, BTS #### [facility] [address] [place], [address] Neutrophils/100 WBC (Bld) 69.2 % Normal 47-70 [facility] Comment on above: Performed By: #### L 100.0100, BTS #### [facility] [address] [place], [address] Nucleated RBC (Bld) [#/Vol] 0 10*3/uL Normal 0-5 [facility] Comment on above: Performed By: #### L 100.0100, BTS #### [facility] [address] [place], [address] Platelet mean volume (Bld) [Entitic vol] 11.4 fL Normal 6.2-12.0 [facility] Comment on above: Performed By: #### L 100.0100, BTS #### [facility] [address] [place], [address] Platelets (Bld) [#/Vol] 196 10*3/uL Normal 150-450 [facility] Comment on above: Performed By: #### L 100.0100, BTS #### [facility] [address] [place], [address] RBC (Bld) [#/Vol] 4.51 10*6/uL Normal 4.2-5.4 [facility] Comment on above: Performed By: #### L 100.0100, BTS #### [facility] [address] [place], [address] RDW SD 41.5 fl Normal 35.1-43.9 [facility] Comment on above: Performed By: #### L 100.0100, BTS #### [facility] [address] [place], [address] WBC (Bld) [#/Vol] 11.0 10*3/uL Normal 4.4-11.0 [facility] Comment on above: Performed By: #### L 100.0100, BTS #### [facility] [address] [place], [address] Actuarial Science Professor Office Visit Reporton 03-17-2025 Actuarial Science Professor Office Visit Report [facility] [address], [address] [place] [address] OFFICE VISIT Date of Service: 03/17/25 MR#: [id number] Acct: [id number] Name: ARMANDO CUENCA Rep #: [id number] : 2000 Provider: Dr. Rosy enriquez MD Age/Sex: 25/F Location: [facility] [place] Status: Signed Intake Vital Signs 12/24/24 15:07 03/10/25 10:37 03/17/25 09:52 03/17/25 09:54 Height 5 ft 3 in 5 ft 3 in 5 ft 3 in 5 ft 3 in Weight: 147 lb 8 oz BMI 26.1 BP 126/87 H Intake Visit Reasons: 39wk ob/nst Bumper Straightener Required: No Is patient in pain?: No Allergies No Known Allergies Allergy (Verified 03/17/25 09:52) Medications ???Medication ???Instructions ???Recorded ???Confirmed ???Type Saccharomyces boulardii 250 mg 250 mg PO BID 08/16/22 03/17/25 Hi story capsule (Daily Probiotic (S. boulardii)) diphenhydramine HCl 25 mg capsule 25 mg PO QHS PRN 07/30/24 5 History (Benadryl) docosahexaenoic acid 200 mg mg PO 07/30/24 03/17/25 History capsule ( DHA) enoxaparin 60 mg/0.6 mL 60 mg (0.6 mL) subcut Q12H 30 days 12/24/24 03/17/25 Rx subcutaneous syringe (Lovenox) #36 mL breast pump #1 ea 02/03/25 03/17/25 Rx Last Menstrual Period: 06/18/24 Zika: Zika virus screening: Negative : No PFSH PFSH Surgical History History of tonsillectomy Family History Father Hypertension Arthritis Grandfather Diabetes Grandfather Kidney disease Social History adopted: No household members: spouse current occupational status: employed 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 current occupational exposures/hazards: No pets and animals: Yes ( taking care litter box ) pets and animals: cat(s) and dog(s) history of recent travel: Yes ( - May ) out of state: Yes out of country: No sexually active: Yes Smoking Status: Never smoker alcohol intake: current alcohol intake frequency: holidays/special occasions only details: Not while substance use type: does not use well-balanced diet: daily or most days caffeine: Yes Type: coffee eating out: 1-3 times/week during the past year weight has: remained stable what type of physical activity do you participate in: walking, running and weight training frequency: 5-6 times per week duration: 30-45 minutes/day wander/sikh: Anglican seatbelt use: always do you feel safe at home: Yes additional social history: : [place] - 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 OB Visit JUHI Calculator Estimated Delivery Date Method Current WG Current Estimate 03/25/25 LMP (Certain) 38w 6d Expected Delivery Route/Plan Labor Preferences- CB/BF classes: yes labor support person: Nabor labor intervention preferences: [] pain management options preferred: open to epidural if requested cut cord/dad catch: cord : yes PP control planned: discussed discussed possible routes of delivery and associated risks: [] special requests: [] Specific Issue/Plans Covid status: [] Flu vaccine: declined Tdap vaccine: given Rhogam: na LARC form signed: yes Problem list reviewed and updated with the most current plan of care details and appropriate orders placed. Relevant counseling for the gestational age provided. Continue routine care and follow up unless otherwise noted in visit notes/problem list details Initial Weight: 129 lb Date -???-???-???-???-?? ?-???-???-???-???-? ??-???-???- EGA Weight BP Urine Prot -???-???-???-???-?? ?-???-???-???-???-? ??-???-???- Glucose FHR FuHt Pres Dilation -???-???-???-???-?? ?-???-???-???-???-? ??-???-???- Effaced St Visit Note 08/13/24 -???-???-???-???-?? ?-???-???-???-???-? ??-???-???- 8w 0d 129 lb 8 oz (+8 oz) 114/84 -???-???-???-???-?? ?-???-???-???-???-? ??-???-???- 175 -???-???-???-???-?? ?-???-???-???-???-? ??-???-???- LC 1.55 CRL con with LMP. declines nipt. 09/09/24 -???-???-???-???-?? ?-???-???-???-???-? ??-???-???- 11w 6d 133 lb 8 oz (+4 lb 8 oz) 119/73 Negative -???-???-???-???-?? ?-???-???-???-???-? ??-???-???- Negative 180 -???-???-???-???-?? ?-???-???-???-???-? ??-???-???- JV- no compl aints today. plan new ob labs today. bedside scan reassuring. 10/08/24 -???-???-???-???-?? ?-???-???-???-???-? ??-???-???- 16w 0d 136 lb 2 oz (+7 (more content not included)... Normal [facility] Syphilis Antibodieson 2024 Syphilis Abs Non-Reactive Normal Nonreactive [facility] Comment on above: Performed By: #### M 100.3400 #### [facility] [address] [place], [place], [address] Type AND Screenon 03-17-2025 Ab SCREEN GEL Negative Normal [facility] Comment on above: Order Comment: Labor Performed By: #### L 100.0100, BTS #### [facility] [address] [place], [place], [address] Laboratory - Chemistry and C hemistry - challengeOrdered By: Kareen Salvador on 03-10-2025 Glucose Ql (U) Negative [facility] - UrinalysisOrder ed By: Kareen Beanrosmery on 03-10-2025 Protein Ql (U) Negative [facility] Actuarial Science Professor Office Visit Reporton 03-10-2025 Actuarial Science Professor Office Visit Report [facility] [address], [address] [place] [address] OFFICE VISIT Date of Service: 03/10/25 MR#: [id number] Acct: [id number] Name: ARMANDO CUENCA Rep #: [id number] : 2000 Provider: Dr. Kareen Fowler DO Age/Sex: 25/F Location: [facility] [place] Status: Signed Intake Vital Signs 12/24/24 15:07 03/03/25 11:14 03/10/25 10:36 03/10/25 10:37 Height 5 ft 3 in 5 ft 3 in 5 ft 3 in 5 ft 3 in Weight: 147 lb 8 oz BMI 26.1 BP 129/84 H Intake Visit Reasons: 38wk ob/nst Bumper Straightener Required: No Is patient in pain?: No Allergies No Known Allergies Allergy (Verified 03/10/25 10:36) Medications ???Medication ???Instructions ???Recorded ???Confirmed ???Type Saccharomyces boulardii 250 mg 250 mg PO BID 08/16/22 03/10/25 Hi story capsule (Daily Probiotic (S. boulardii)) diphenhydramine HCl 25 mg capsule 25 mg PO QHS PRN 07/30/24 5 History (Benadryl) docosahexaenoic acid 200 mg mg PO 07/30/24 03/10/25 History capsule ( DHA) enoxaparin 60 mg/0.6 mL 60 mg (0.6 mL) subcut Q12H 30 days 12/24/24 03/10/25 Rx subcutaneous syringe (Lovenox) #36 mL breast pump #1 ea 02/03/25 03/10/25 Rx Last Menstrual Period: 06/18/24 Zika: Zika virus screening: Negative : No PFSH PFSH Surgical History History of tonsillectomy Family History Father Hypertension Arthritis Grandfather Diabetes Grandfather Kidney disease Social History adopted: No household members: spouse current occupational status: employed current occupation: [employer] current occupational exposures/hazards: No pets and animals: Yes ( taking care litter box ) pets and animals: cat(s) and dog(s) history of recent travel: Yes ( - May ) out of state: Yes out of country: No sexually active: Yes Smoking Status: Never smoker alcohol intake: current alcohol intake frequency: holidays/special occasions only details: Not while substance use type: does not use well-balanced diet: daily or most days caffeine: Yes Type: coffee eating out: 1-3 times/week during the past year weight has: remained stable what type of physical activity do you participate in: walking, running and weight training frequency: 5-6 times per week duration: 30-45 minutes/day wander/sikh: Anglican seatbelt use: always do you feel safe at home: Yes additional social history: : 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 OB Visit JUHI Calculator Estimated Delivery Date Method Current WG Current Estimate 03/25/25 LMP (Certain) 37w 6d Expected Delivery Route/Plan Labor Preferences- CB/BF classes: yes labor support person: Nabor labor intervention preferences: [] pain management options preferred: open to epidural if requested cut cord/dad catch: cord : yes PP control planned: discussed discussed possible routes of delivery and associated risks: [] special requests: [] Specific Issue/Plans Covid status: [] Flu vaccine: declined Tdap vaccine: given Rhogam: na LARC form signed: yes Problem list reviewed and updated with the most current plan of care details and appropriate orders placed. Relevant counseling for the gestational age provided. Continue routine care and follow up unless otherwise noted in visit notes/problem list details Initial Weight: 129 lb Date -???-???-???-???-?? ?-???-???-???-???-? ??-???-???- EGA Weight BP Urine Prot -???-???-???-???-?? ?-???-???-???-???-? ??-???-???- Glucose FHR FuHt Pres Dilation -???-???-???-???-?? ?-???-???-???-???-? ??-???-???- Effaced St Visit Note 08/13/24 -???-???-???-???-?? ?-???-???-???-???-? ??-???-???- 8w 0d 129 lb 8 oz (+8 oz) 114/84 -???-???-???-???-?? ?-???-???-???-???-? ??-???-???- 175 -???-???-???-???-?? ?-???-???-???-???-? ??-???-???- LC 1.55 CRL con with LMP. declines nipt. 09/09/24 -???-???-???-???-?? ?-???-???-???-???-? ??-???-???- 11w 6d 133 lb 8 oz (+4 lb 8 oz) 119/73 Negative -???-???-???-???-?? ?-???-???-???-???-? ??-???-???- Negative 180 -???-???-???-???-?? ?-???-???-???-???-? ??-???-???- JV- no compl aints today. plan new ob labs today. bedside scan reassuring. 10/08/24 -???-???-???-???-?? ?-???-???-???-???-? ??-???-???- 16w 0d 136 lb 2 oz ( (more content not included)... Normal [facility] Rule out Beta Strep (Grp. B) on 03-05-2025 DAWIT Group B Beta Streptococcus is not isolated. Normal [facility] Comment on above: Performed By: #### M [id number] #### [facility] [address]. [place], [place], [id number] OB Limited With Biometricson 03-04-2025 OB Limited With Biometrics [facility] Imaging Services [address] [place], [place] [address] OB Limited With Biometrics MR#: [id number] Acct: [id number] Name: ARMANDO CUENCA Rep #: [id number] : 2000 F 25 From: Nathan kaba MD PCP: Dr. Alanna Blue MD Status: [facility] Study: OB Limited With Biometrics Date of Exam: 03/04 Exam# [id number] Ordering Dr: Tara Olvera PROGRAMMING INSTRUCTOR PROGRAMMING INSTRUCTOR -C PROCEDURE: OB LIMITED WITH BIOMETRICS 03/04/2025 REASON FOR EXAM: GROWTH TECHNIQUE: OB LIMITED WITH BIOMETRICS COMPARISON: February 02, 2025. FINDINGS Number: 1 Position: Vertex Placental Position: Anterior and not low-lying Placental Abnormalities: No evidence of previa. DIMENSIONS: Biparietal Diameter: 8.9 cm: 35 weeks and 6 days: 34 percentile/ Head Circumference: 32.2 cm: 36 weeks and 2 days: 13 percentile./ Abdominal Circumference: 33.1 cm: 37 weeks and 0 days: 64 percentile/ Femur Length: 6.9 cm: 35 weeks and 3 days: 13 percentile/ ESTIMATED WEIGHT: 2957 g plus/-444 g ESTIMATED WEIGHT PERCENTILE (24+ weeks): 43rd ESTIMATED GESTATIONAL AGE: Baseline: 37 weeks and 0 days By Ultrasound: 36 weeks and 2 days ESTIMATED DATE OF DELIVERY: Baseline: March 25, 2025 By Ultrasound: March 30, 2025 BIOPHYSICAL ASSESSMENT: Amniotic Fluid Volume: 4.9 Amniotic Fluid Index: 17.8 (8-24 cm normal range) Cardiac Motion: 133 beats per minute (average) Trunk and Limb Motion: Present. MATERNAL ANATOMY: Adnexa: Neither maternal ovary is successfully identified. US/OB Limited With Biometrics IMPRESSION: Single live intrauterine gestation with a mean gestational age of 37 weeks and 3 days. The measurements obtained today fall within the normal expected range. Reading Location: [place] [address] CC: SARABJIT Olvera; Dr. Alanna Blue MD Milk Route Supervisor: Signed Normal [facility] Venous Duplex US, Unilateral on 03-04-2025 Venous Duplex US, Unilateral [facility] Cardi[facility] Services [address] [address] Venous Duplex US, Unilateral 03/04/25 1356 MR#: [id number] Acct: [id number] Name: ARMANDO CUENCA Rep #: [id number] : 2000 25 From: Vamsi Saenz MD Attending Dr: DONELL Gagnon Status: DEP CLI Ordering Dr: Mitali Joseph Date: 03/04/25 Location: US Sex: F C Admitted: Reason For Study Reason For Study: Left leg swelling RIGHT LEFT CFV is compressible, spontaneous, phasic, competent GSV is normal. and demonstrates normal augmentation. EIV normal venous flow. Procedure CFV is partially compressible with bright This is a venous duplex using B-mode, color flow and intraluminal echoes consistent with Chronic DVT. spectral Doppler. Normal venous flow. Exam performed in department. ProfundaV is partially compressible. Compared to 01/25/2025 and 02/17/2025. FV is compressible, spontaneous, phasic, competent and demonstrates normal augmentation. POP V is compressible, spontaneous, phasic, competent and demonstrates normal augmentation. T/P Trunk is compressible. PTV is compressible. LT PerV is compressible. VL/Venous Duplex US, Unilateral Interpretation Summary Chronic deep vein thrombosis noted in the left common femoral vein, profunda vein. __ Ordering Physician: Mitali Joseph Referring Physician: Alanna Blue Performed By: Bhavani Camacho RVT 03/14/25 1324 Date Vamsi Saenz MD CC: DONELL Gagnon; Dr. Alanna Blue MD Date Dictated: 03/04/25 1356 Date Transcribed: 03/14/25 1324 Milk Route Supervisor: Signed Normal [facility] - Chemistry and C hemistry - challengeOrdered By: Sarah Blackwood on 03-03-2025 Glucose Ql (U) Negative [facility] - UrinalysisOrder ed By: Sarah Blackwood on 03-03-2025 Protein Ql (U) Negative [facility] Screening beta-hemolytic Str eptococcus cultureOrdered By: Sarah Blackwood on 03-03-2025 Beta-hemolytic Streptococcus culture Group B Beta Streptococcus is not isolated. [facility] - Chemistry and C hemistry - challengeOrdered By: Rosy Albert on 02-24-2025 Glucose Ql (U) Negative [facility] - UrinalysisOrder ed By: Rosy Albert on 02-24-2025 Protein Ql (U) Negative [facility] Actuarial Science Professor Office Visit Reporton 02-24-2025 Actuarial Science Professor Office Visit Report [address], [address] [place] [address] OFFICE VISIT Date of Service: 02/24/25 MR#: [id number] Acct: [id number] Name: ARMANDO CUENCA Rep #: [id number] : 2000 Provider: Dr. Rosy enriquez MD Age/Sex: 24/F Location: [facility] [place] Status: Signed Intake Vital Signs 12/24/24 15:07 02/17/25 08:39 02/24/25 14:05 02/24/25 14:06 Height 5 ft 3 in 5 ft 3 in 5 ft 3 in 5 ft 3 in Weight: 146 lb BMI 25.8 BP 128/88 H Intake Visit Reasons: 36wk ob/nst Bumper Straightener Required: No Is patient in pain?: No Allergies No Known Allergies Allergy (Verified 02/24/25 14:04) Medications ???Medication ???Instructions ???Recorded ???Confirmed ???Type Saccharomyces boulardii 250 mg 250 mg PO BID 08/16/22 02/24/25 Hi story capsule (Daily Probiotic (S. boulardii)) diphenhydramine HCl 25 mg capsule 25 mg PO QHS PRN 07/30/24 5 History (Benadryl) docosahexaenoic acid 200 mg mg PO 07/30/24 02/24/25 History capsule ( DHA) enoxaparin 60 mg/0.6 mL 60 mg (0.6 mL) subcut Q12H 30 days 12/24/24 02/24/25 Rx subcutaneous syringe (Lovenox) #36 mL breast pump #1 ea 02/03/25 02/24/25 Rx Last Menstrual Period: 06/18/24 Zika: Zika virus screening: Negative : No PFSH PFSH Surgical History History of tonsillectomy Family History Father Hypertension Arthritis Grandfather Diabetes Grandfather Kidney disease Social History adopted: No household members: spouse current occupational status: employed 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 current occupational exposures/hazards: No pets and animals: Yes ( taking care litter box ) pets and animals: cat(s) and dog(s) history of recent travel: Yes ( - May ) out of state: Yes out of country: No sexually active: Yes Smoking Status: Never smoker alcohol intake: current alcohol intake frequency: holidays/special occasions only details: Not while substance use type: does not use well-balanced diet: daily or most days caffeine: Yes Type: coffee eating out: 1-3 times/week during the past year weight has: remained stable what type of physical activity do you participate in: walking, running and weight training frequency: 5-6 times per week duration: 30-45 minutes/day wander/sikh: Anglican seatbelt use: always do you feel safe at home: Yes additional social history: : 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 OB Visit JUHI Calculator Estimated Delivery Date Method Current WG Current Estimate 03/25/25 LMP (Certain) 35w 6d Expected Delivery Route/Plan Labor Preferences- CB/BF classes: yes labor support person: Nabor labor intervention preferences: [] pain management options preferred: open to epidural if requested cut cord/dad catch: cord : yes PP control planned: discussed discussed possible routes of delivery and associated risks: [] special requests: [] Specific Issue/Plans Covid status: [] Flu vaccine: declined Tdap vaccine: given Rhogam: na LARC form signed: yes Problem list reviewed and updated with the most current plan of care details and appropriate orders placed. Relevant counseling for the gestational age provided. Continue routine care and follow up unless otherwise noted in visit notes/problem list details Initial Weight: 129 lb Date -???-???-???-???-?? ?-???-???-???-???-? ??-???-???- EGA Weight BP Urine Prot -???-???-???-???-?? ?-???-???-???-???-? ??-???-???- Glucose FHR FuHt Pres Dilation -???-???-???-???-?? ?-???-???-???-???-? ??-???-???- Effaced St Visit Note 08/13/24 -???-???-???-???-?? ?-???-???-???-???-? ??-???-???- 8w 0d 129 lb 8 oz (+8 oz) 114/84 -???-???-???-???-?? ?-???-???-???-???-? ??-???-???- 175 -???-???-???-???-?? ?-???-???-???-???-? ??-???-???- LC 1.55 CRL con with LMP. declines nipt. 09/09/24 -???-???-???-???-?? ?-???-???-???-???-? ??-???-???- 11w 6d 133 lb 8 oz (+4 lb 8 oz) 119/73 Negative -???-???-???-???-?? ?-???-???-???-???-? ??-???-???- Negative 180 -???-???-???-???-?? ?-???-???-???-???-? ??-???-???- JV- no compl aints today. plan new ob labs today. bedside scan reassuring. 10/08/24 -???-???-???-???-?? ?-???-???-???-???-? ??-???-???- 16w 0d 136 lb 2 oz (+7 lb 2 (more content not included)... Normal [facility] - Chemistry and C hemistry - challengeOrdered By: Sarah Blackwood on 02-17-2025 Glucose Ql (U) Negative [facility] - UrinalysisOrder ed By: Sarah Blackwood on 02-17-2025 Protein Ql (U) Negative [facility] Actuarial Science Professor Office Visit Reporton 02-17-2025 Actuarial Science Professor Office Visit Report [facility] [address], [address] [place] [address] OFFICE VISIT Date of Service: 02/17/25 MR#: [id number] Acct: [id number] Name: ARMANDO CUENCA Rep #: [id number] : 2000 Provider: WILLY Haynes ams Age/Sex: 24/F Location: [facility] Status: Signed Intake Vital Signs 12/24/24 15:07 02/09/25 09:46 02/17/25 08:39 02/17/25 08:39 Height 5 ft 3 in 5 ft 3 in 5 ft 3 in 5 ft 3 in Weight: 145 lb 4 oz BMI 25.7 BP 125/79 H Intake Visit Reasons: 35wk NST ONLY Bumper Straightener Required: No Is patient in pain?: No Allergies No Known Allergies Allergy (Verified 02/17/25 08:39) Medications ???Medication ???Instructions ???Recorded ???Confirmed ???Type Saccharomyces boulardii 250 mg 250 mg PO BID 08/16/22 02/17/25 Hi story capsule (Daily Probiotic (S. boulardii)) diphenhydramine HCl 25 mg capsule 25 mg PO QHS PRN 07/30/24 5 History (Benadryl) docosahexaenoic acid 200 mg mg PO 07/30/24 02/17/25 History capsule ( DHA) enoxaparin 60 mg/0.6 mL 60 mg (0.6 mL) subcut Q12H 30 days 12/24/24 02/17/25 Rx subcutaneous syringe (Lovenox) #36 mL breast pump #1 ea 02/03/25 02/17/25 Rx Last Menstrual Period: 06/18/24 Zika: Zika virus screening: Negative : No PFSH PFSH Surgical History History of tonsillectomy Family History Father Hypertension Arthritis Grandfather Diabetes Grandfather Kidney disease Social History adopted: No household members: spouse current occupational status: employed current occupation: [employer] in [employer] current occupational exposures/hazards: No pets and animals: Yes ( taking care litter box ) pets and animals: cat(s) and dog(s) history of recent travel: Yes ( - May ) out of state: Yes out of country: No sexually active: Yes Smoking Status: Never smoker alcohol intake: current alcohol intake frequency: holidays/special occasions only details: Not while substance use type: does not use well-balanced diet: daily or most days caffeine: Yes Type: coffee eating out: 1-3 times/week during the past year weight has: remained stable what type of physical activity do you participate in: walking, running and weight training frequency: 5-6 times per week duration: 30-45 minutes/day wander/sikh: Anglican seatbelt use: always do you feel safe at home: Yes 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 OB Visit JUHI Calculator Estimated Delivery Date Method Current WG Current Estimate 03/25/25 LMP (Certain) 34w 6d Expected Delivery Route/Plan Labor Preferences- CB/BF classes: yes labor support person: Nabor labor intervention preferences: [] pain management options preferred: open to epidural if requested cut cord/dad catch: cord : yes PP control planned: discussed discussed possible routes of delivery and associated risks: [] special requests: [] Specific Issue/Plans Covid status: [] Flu vaccine: declined Tdap vaccine: given Rhogam: na LARC form signed: yes Problem list reviewed and updated with the most current plan of care details and appropriate orders placed. Relevant counseling for the gestational age provided. Continue routine care and follow up unless otherwise noted in visit notes/problem list details Initial Weight: 129 lb Date -???-???-???-???-?? ?-???-???-???-???-? ??-???-???- EGA Weight BP Urine Prot -???-???-???-???-?? ?-???-???-???-???-? ??-???-???- Glucose FHR FuHt Pres Dilation -???-???-???-???-?? ?-???-???-???-???-? ??-???-???- Effaced St Visit Note 08/13/24 -???-???-???-???-?? ?-???-???-???-???-? ??-???-???- 8w 0d 129 lb 8 oz (+8 oz) 114/84 -???-???-???-???-?? ?-???-???-???-???-? ??-???-???- 175 -???-???-???-???-?? ?-???-???-???-???-? ??-???-???- LC 1.55 CRL con with LMP. declines nipt. 09/09/24 -???-???-???-???-?? ?-???-???-???-???-? ??-???-???- 11w 6d 133 lb 8 oz (+4 lb 8 oz) 119/73 Negative -???-???-???-???-?? ?-???-???-???-???-? ??-???-???- Negative 180 -???-???-???-???-?? ?-???-???-???-???-? ??-???-???- JV- no compl aints today. plan new ob labs today. bedside scan reassuring. 10/08/24 -???-???-???-???-?? ?-???-???-???-???-? ??-???-???- 16w 0d 136 lb 2 oz (+7 lb (more content not included)... Normal [facility] Venous Duplex US, Unilateral on 02-17-2025 Venous Duplex US, Unilateral [facility] Cardiovascular Services [address] [place] [address] Venous Duplex US, Unilateral 02/17/25 0946 MR#: [id number] Acct: [id number] Name: ARMANDO CUENCA Rep #: [id number] : 2000 24 From: Loyd Marcus MD Attending Dr: Dr. Kareen Sands DO Statu s: REG CLI Ordering Dr: Kareen Sands DO Date: 5 Location: [facility] Sex: F C Admitted: Reason For Study Reason For Study: Right leg pain RIGHT LEFT GSV is normal. CFV is partially compressible, venous flow noted with CFV is compressible, spontaneous, phasic, competent augmentation. Compared to 01/25/2025. and demonstrates normal augmentation. FV is compressible, spontaneous, phasic, competent and demonstrates normal augmentation. POP V is compressible, spontaneous, phasic, competent and demonstrates normal augmentation. T/P Trunk is compressible. PTV is compressible. RT PerV is compressible. Procedure This is a venous duplex using B-mode, color flow and spectral Doppler. Exam performed in department. A preliminary report was called and/or faxed to Dr. Sands. VL/Venous Duplex US, Unilateral Interpretation Summary Deep veins of the right lower extremity are patent and compressible segmentally. There is no evidence of right lower extremity deep vein thrombosis. Valvular competence appears intact within the proximal deep venous system on the right . The right great saphenous vein appears patent and compressible segmentally. The left common femoral vein is patent and compressible . __ Ordering Physician: Kareen Sands Referring Physician: Alanna Blue Performed By: Bhavani Camacho RVT 02/17/252154 Date Loyd Marcus MD CC: Dr. Kareen Sands DO; Dr. Alanna Blue MD Date Dictated: 02/17/25945 Date Transcribed: 02/17/252154 Milk Route Supervisor: Signed Normal [facility] Venous duplex ultrasound rep ortOrdered By: Loyd Marcus on 02-17-2025 US Ve[facility] Cardiovascular Services [address] [place] [address] Venous Duplex US, Unilateral 02/17/25945 MR#: [id number] Acct: [id number] Name: ARMANDO CUENCA Rep #:[id number] : 2000 24 From: Loyd Marcus MD Attending Dr: Dr. Kareen Sands DO Status: REG CLI Ordering Dr: Kareen Sands DO D ate: 02/17/25 Location: [facility] Sex: F C Admitted: Reason For Study Reason For Study: Right leg pain RIGHT LEFT GSV is normal. CFV is partially compressible, venous flow noted with CFV is compressible, spontaneous, phasic, competent augmentation. Compared to 01/25/2025. and demonstrates normal augmentation. FV is compressible, spontaneous, phasic, competent and demonstrates normal augmentation. POP V is compressible, spontaneous, phasic, competent and demonstrates normal augmentation. T/P Trunk is compressible. PTV is compressible. RT PerV is compressible. Procedure This is a venous duplex using B-mode, color flow and spectral Doppler. Exam performed in department. A preliminary report was called and/or faxed to Dr. Sands. VL/Venous Duplex US, Unilateral Interpretation Summary Deep veins of the right lower extremity are patent and compressible segmentally.There is no evidence of right lower extremity deep vein thrombosis. Valvular competence appears intact within the proximal deep venous system on the right . The right great saphenous vein appears patent and compressible segmentally. The left common femoral vein is patent and compressible . __ Ordering Physician: Kareen Sands Referring Physician: Alanna Blue Performed By: Bhavani Camacho RVT 02/17/252154 Date _ Loyd Marcus MD CC: Dr. Kareen Sands, DO; Dr. Alanna Blue MD ~ Date Dictated: 02/17/25945 Date Transcribed: 02/17/252154 Milk Route Supervisor: Signed [facility] Other Laboratory - Chemistry and C hemistry - challengeOrdered By: Kareen Salvador on 02-09-2025 Glucose Ql (U) Negative [facility] - UrinalysisOrder ed By: Kareen Salvador on 02-09-2025 Protein Ql (U) Negative [facility] Actuarial Science Professor Office Visit Reporton 02-09-2025 Actuarial Science Professor Office Visit Report [facility] [address] [place] [address], [address] [place] [address] OFFICE VISIT Date of Service: 02/09/25 MR#: [id number] Acct: [id number] Name: ARMANDO CUENCA Rep #: [id number] : 2000 Provider: Dr. Kareen Fowler DO Age/Sex: 24/F Location: [facility] [place] Status: Signed Intake Vital Signs 12/24/24 15:07 02/03/25 08:37 02/09/25 09:46 02/09/25 09:46 Height 5 ft 3 in 5 ft 3 in 5 ft 3 in 5 ft 3 in Weight: 145 lb 2 oz 146 lb BMI 25.7 25.8 BP 109/73 132/80 H Intake Visit Reasons: 34wk ob/nst Bumper Straightener Required: No Is patient in pain?: No Allergies No Known Allergies Allergy (Verified 02/09/25 09:46) Medications ???Medication ???Instructions ???Recorded ???Confirmed ???Type Saccharomyces boulardii 250 mg 250 mg PO BID 08/16/22 02/09/25 Hi story capsule (Daily Probiotic (S. boulardii)) diphenhydramine HCl 25 mg capsule 25 mg PO QHS PRN 07/30/24 5 History (Benadryl) docosahexaenoic acid 200 mg mg PO 07/30/24 02/09/25 History capsule ( DHA) enoxaparin 60 mg/0.6 mL 60 mg (0.6 mL) subcut Q12H 30 days 12/24/24 02/09/25 Rx subcutaneous syringe (Lovenox) #36 mL breast pump #1 ea 02/03/25 02/09/25 Rx Last Menstrual Period: 06/18/24 Zika: Zika virus screening: Negative : No PFSH PFSH Surgical History History of tonsillectomy Family History Father Hypertension Arthritis Grandfather Diabetes Grandfather Kidney disease Social History adopted: No household members: spouse current occupational status: employed current occupation: [employer] current occupational exposures/hazards: No pets and animals: Yes ( taking care litter box ) pets and animals: cat(s) and dog(s) history of recent travel: Yes ( - May ) out of state: Yes out of country: No sexually active: Yes Smoking Status: Never smoker alcohol intake: current alcohol intake frequency: holidays/special occasions only details: Not while substance use type: does not use well-balanced diet: daily or most days caffeine: Yes Type: coffee eating out: 1-3 times/week during the past year weight has: remained stable what type of physical activity do you participate in: walking, running and weight training frequency: 5-6 times per week duration: 30-45 minutes/day wander/sikh: Anglican seatbelt use: always do you feel safe at home: Yes 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 OB Visit JUHI Calculator Estimated Delivery Date Method Current Current Estimate 03/25/25 LMP (Certain) 33w 5d Expected Delivery Route/Plan Labor Preferences- CB/BF classes: yes labor support person: Nabor labor intervention preferences: [] pain management options preferred: open to epidural if requested cut cord/dad catch: cord : yes PP control planned: discussed discussed possible routes of delivery and associated risks: [] special requests: [] Specific Issue/Plans Covid status: [] Flu vaccine: declined Tdap vaccine: given Rhogam: na LARC form signed: yes Problem list reviewed and updated with the most current plan of care details and appropriate orders placed. Relevant counseling for the gestational age provided. Continue routine care and follow up unless otherwise noted in visit notes/problem list details Initial Weight: 129 lb Date -???-???-???-???-?? ?-???-???-???-???-? ??-???-???- EGA Weight BP Urine Prot -???-???-???-???-?? ?-???-???-???-???-? ??-???-???- Glucose FHR FuHt Pres Dilation -???-???-???-???-?? ?-???-???-???-???-? ??-???-???- Effaced St Visit Note 08/13/24 -???-???-???-???-?? ?-???-???-???-???-? ??-???-???- 8w 0d 129 lb 8 oz (+8 oz) 114/84 -???-???-???-???-?? ?-???-???-???-???-? ??-???-???- 175 -???-???-???-???-?? ?-???-???-???-???-? ??-???-???- LC 1.55 CRL con with LMP. declines nipt. 09/09/24 -???-???-???-???-?? ?-???-???-???-???-? ??-???-???- 11w 6d 133 lb 8 oz (+4 lb 8 oz) 119/73 Negative -???-???-???-???-?? ?-???-???-???-???-? ??-???-???- Negative 180 -???-???-???-???-?? ?-???-???-???-???-? ??-???-???- JV- no compl aints today. plan new ob labs today. bedside scan reassuring. 10/08/24 -???-???-???-???-?? ?-???-???-???-???-? ??-???-???- 16w (more content not included)... Normal [facility] Laboratory - Chemistry and C hemistry - challengeOrdered By: Sarah Blackwood on 02-03-2025 Glucose Ql (U) Negative [facility] Laboratory - UrinalysisOrder ed By: Sarah Blackwood on 02-03-2025 Protein Ql (U) Negative [facility] Actuarial Science Professor Office Visit Reporton 02-03-2025 Actuarial Science Professor Office Visit Report [facility] [address], [address] [place] [address] OFFICE VISIT Date of Service: 02/03/25 MR#: [id number] Acct: [id number] Name: ARMANDO CUENCA Rep #: [id number] : 2000 Provider: WILLY Haynes ams Age/Sex: 24/F Location: [facility] [place] Status: Signed Intake Vital Signs 12/24/24 15:07 01/24/25 10:23 02/03/25 08:37 Height 5 ft 3 in 5 ft 3 in 5 ft 3 in Weight: 145 lb 2 oz BMI 25.7 BP 109/73 Intake Visit Reasons: 33wk NST ONLY Chief Complaint: 33 Week NST only Bumper Straightener Required: No Is patient in pain?: No Allergies No Known Allergies Allergy (Verified 02/03/25 08:36) Medications ???Medication ???Instructions ???Recorded ???Confirmed ???Type Saccharomyces boulardii 250 mg 250 mg PO BID 08/16/22 02/03/25 Hi story capsule (Daily Probiotic (S. boulardii)) diphenhydramine HCl 25 mg capsule 25 mg PO QHS PRN 07/30/24 5 History (Benadryl) docosahexaenoic acid 200 mg mg PO 07/30/24 02/03/25 History capsule ( DHA) enoxaparin 60 mg/0.6 mL 60 mg (0.6 mL) subcut Q12H 30 days 12/24/24 02/03/25 Rx subcutaneous syringe (Lovenox) #36 mL Last Menstrual Period: 06/18/24 Zika: Zika virus screening: Negative : No PFSH PFSH Surgical History History of tonsillectomy Family History Father Hypertension Arthritis Grandfather Diabetes Grandfather Kidney disease Social History adopted: No household members: spouse current occupational status: employed 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 current occupational exposures/hazards: No pets and animals: Yes ( taking care litter box ) pets and animals: cat(s) and dog(s) history of recent travel: Yes ( - May ) out of state: Yes out of country: No sexually active: Yes Smoking Status: Never smoker alcohol intake: current alcohol intake frequency: holidays/special occasions only details: Not while substance use type: does not use well-balanced diet: daily or most days caffeine: Yes Type: coffee eating out: 1-3 times/week during the past year weight has: remained stable what type of physical activity do you participate in: walking, running and weight training frequency: 5-6 times per week duration: 30-45 minutes/day wander/sikh: Anglican seatbelt use: always do you feel safe at home: Yes additional 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 OB Visit JUHI Calculator Estimated Delivery Date Method Current WG Current Estimate 03/25/25 LMP (Certain) 32w 6d Expected Delivery Route/Plan Labor Preferences- CB/BF classes: yes labor support person: Nabor labor intervention preferences: [] pain management options preferred: open to epidural if requested cut cord/dad catch: cord : yes PP control planned: discussed discussed possible routes of delivery and associated risks: [] special requests: [] Specific Issue/Plans Covid status: [] Flu vaccine: declined Tdap vaccine: given Rhogam: na LARC form signed: yes Problem list reviewed and updated with the most current plan of care details and appropriate orders placed. Relevant counseling for the gestational age provided. Continue routine care and follow up unless otherwise noted in visit notes/problem list details Initial Weight: 129 lb Date -???-???-???-???-?? ?-???-???-???-???-? ??-???-???- EGA Weight BP Urine Prot -???-???-???-???-?? ?-???-???-???-???-? ??-???-???- Glucose FHR FuHt Pres Dilation -???-???-???-???-?? ?-???-???-???-???-? ??-???-???- Effaced St Visit Note 08/13/24 -???-???-???-???-?? ?-???-???-???-???-? ??-???-???- 8w 0d 129 lb 8 oz (+8 oz) 114/84 -???-???-???-???-?? ?-???-???-???-???-? ??-???-???- 175 -???-???-???-???-?? ?-???-???-???-???-? ??-???-???- LC 1.55 CRL con with LMP. declines nipt. 09/09/24 -???-???-???-???-?? ?-???-???-???-???-? ??-???-???- 11w 6d 133 lb 8 oz (+4 lb 8 oz) 119/73 Negative -???-???-???-???-?? ?-???-???-???-???-? ??-???-???- Negative 180 -???-???-???-???-?? ?-???-???-???-???-? ??-???-???- JV- no compl aints today. plan new ob labs today. bedside scan reassuring. 10/08/24 -???-???-???-???-?? ?-???-???-???-???-? ??-???-???- 16w 0d 136 lb 2 oz (+7 lb 2 oz) 124/84 Negative -???-???- (more content not included)... Normal [facility] OB Limited With Biometricson 02-02-2025 OB Limited With Biometrics [facility] [address] [place] [id number] OB Limited With Biometrics MR#: [id number] Acct: [id number] Name: ARMANDO CUENCA Rep #: [id number] : 2000 F 24 From: Nathan kaba MD PCP: Dr. Alanna Blue MD Status: REG CLI Study: OB Limited With Biometrics Date of Exam: 02/02 Exam# [id number] Ordering Dr: Tara Olvera PROGRAMMING INSTRUCTOR PROGRAMMING INSTRUCTOR -C PROCEDURE: OB LIMITED WITH BIOMETRICS 02/02/2025 REASON FOR EXAM: GROWTH TECHNIQUE: High resolution obstetric ultrasound performed using a 2D transducer. Standard views obtained, including biometry, anatomy survey, and Doppler studies. COMPARISON: None FINDINGS LMP: June 18, 2024. Number: 1 Position: Vertex Placental Position: Anterior and not low-lying Placental Abnormalities: None DIMENSIONS: Biparietal Diameter: 8.3 cm: 33 weeks and 2 days: 60 percentile/ Head Circumference: 30.1 cm: 33 weeks and 2 days: 29 percentile/ Abdominal Circumference: 30.3 cm: 34 weeks and 2 days: 88 percentile/ Femur Length: 6.2 cm: 32 weeks and 1 day: 24 percentile/ ESTIMATED WEIGHT: 2229 g plus/-234 g ESTIMATED WEIGHT PERCENTILE (24+ weeks): 68 ESTIMATED GESTATIONAL AGE: Baseline: 32 weeks and 5 days By Ultrasound: 33 weeks and 1 day ESTIMATED DATE OF DELIVERY: Baseline: March 25, 2025 By Ultrasound: March 22, 2024 BIOPHYSICAL ASSESSMENT: Amniotic Fluid Volume: 6.3 cm Amniotic Fluid Index: 16.9 (8-24 cm normal range) Cardiac Motion: 133 beats per minute (average) Trunk and Limb Motion: Present. MATERNAL ANATOMY: Adnexa: Neither maternal ovary is successfully identified. US/OB Limited With Biometrics IMPRESSION: Single live intrauterine gestation with a mean gestational age of 33 weeks and 1 day. Reading Location: [id number] CC: SARABJIT Olvera; Dr. Alanna Blue MD Milk Route Supervisor: Signed Normal [facility] Venous Duplex US, Unilateral on 01-25-2025 Venous Duplex US, Unilateral [facility] [address] [place] [address] Venous Duplex US, Unilateral 01/25/25 0812 MR#: [id number] Acct: [id number] Name: ARMANDO CUENCA Rep #: [id number] : 2000 24 From: Vamsi Saenz MD Attending Dr: SARABJIT Richards Status: REG CLI Ordering Dr: Tara Olvera NP Date: 01/25/25 Location: [facility] Sex: F C Admitted: Reason For Study Reason For Study: left leg pain RIGHT LEFT CFV is compressible, spontaneous, phasic, competent GSV is normal. and demonstrates normal augmentation. Acute deep vein thrombosis is noted in the EIV, CFV Procedure and ProfundaV. It is partially NONCOMPRESSIBLE with This is a venous duplex using B-mode, color flow and minimal venous flow noted. spectral Doppler. FV is compressible, spontaneous, phasic, competent Exam performed in department. and demonstrates normal augmentation. Compared to 12/23/2024. POP V is compressible, spontaneous, phasic, competent A preliminary report was called and/or faxed to and demonstrates normal augmentation. Wade WHIPPLE. T/P Trunk is compressible. PTV is compressible. LT PerV is compressible. VL/Venous Duplex US, Unilateral Interpretation Summary Acute deep vein thrombosis is noted in the left external iliac vein, common femoral vein, profunda vein. __ Ordering Physician: Tara Olvera Referring Physician: Alanna Blue Performed By: Bhavani Camacho RVT 01/25/25 1010 Date Vamsi Saenz MD CC: PROGRAMMING INSTRUCTOR-C Tara Olvera; Dr. Alanna Blue MD Date Dictated: 01/25/25 0812 Date Transcribed: 01/25/25 1010 Milk Route Supervisor: Signed Normal [facility] Venous duplex ultrasound rep ortOrdered By: Vamsi Saenz on 01-25-2025 US Vein [facility] [address] [place] [address] Venous Duplex US, Unilateral 01/25/25 0812 MR#: [id number] Acct: [id number] Name: ARMANDO CUENCA Rep #:[id number] : 2000 24 From: Vamsi Thompson Attending Dr: SARABJIT Richards Status: REG CLI Ordering Dr: Tara Olvera NP PROGRAMMING INSTRUCTOR-C Da te: 01/25/25 Location: [facility] Sex: F C Admitted: Reason For Study Reason For Study: left leg pain RIGHT LEFT CFV is compressible, spontaneous, phasic, competent GSV is normal. and demonstrates normal augmentation. Acute deep vein thrombosis is noted in the EIV, CFV Procedure and ProfundaV.It is partially NONCOMPRESSIBLE with This is a venous duplex using B-mode, color flow and minimal venousflow noted. spectral Doppler. FV is compressible, spontaneous, phasic, competent Exam performed in department. and demonstrates normal augmentation. Compared to 12/23/2024. POP V is compressible, spontaneous, phasic, competent A preliminary report was called and/or faxed to and demonstrates normal augmentation. Wade WHIPPLE. T/P Trunk is compressible. PTV is compressible. LT PerV is compressible. VL/Venous Duplex US, Unilateral Interpretation Summary Acute deep vein thrombosis is noted in the left external iliac vein, common femoral vein, profunda vein. __ Ordering Physician: Tara Olvera Referring Physician: Alanna Blue Performed By: Bhavani Camacho RVT 01/25/25 1010 Date _ Vamsi Saenz MD CC: SARABJIT Olvera; Dr. Alanna Blue MD ~ Date Dictated: 01/25/25 0812 Date Transcribed: 01/25/25 1010 Milk Route Supervisor: Signed [facility] Work Phone: Laboratory - Chemistry and C hemistry - challengeOrdered By: Kareen Salvador on 01-24-2025 Glucose Ql (U) Negative [facility] Laboratory - UrinalysisOrder ed By: Kareen Salvador on 01-24-2025 Protein Ql (U) Negative [facility] Actuarial Science Professor Office Visit Reporton 01-24-2025 Actuarial Science Professor Office Visit Report [facility], [address] [place] [address] OFFICE VISIT Date of Service: 01/24/25 MR#: [id number] Acct: [id number] Name: ARMANDO CUENCA Rep #: [id number] : 2000 Provider: Dr. Kareen Fowler DO Age/Sex: 24/F Location: [facility] [place] Status: Signed Intake Vital Signs 12/03/24 15:56 12/24/24 15:07 01/11/25 15:43 01/24/25 10:20 01/24/25 10:23 Height 5 ft 3 in 5 ft 3 in 5 ft 3 in 5 ft 3 in 5 ft 3 in Weight: 143 lb 4 oz BMI 25.3 BP 132/78 H Intake Visit Reasons: 32wk ob/nst Bumper Straightener Required: No Is patient in pain?: No Allergies No Known Allergies Allergy (Verified 01/24/25 10:20) Medications ???Medication ???Instructions ???Recorded ???Confirmed ???Type Saccharomyces boulardii 250 mg 250 mg PO BID 08/16/22 01/24/25 Hi story capsule (Daily Probiotic (S. boulardii)) diphenhydramine HCl 25 mg capsule 25 mg PO QHS PRN 07/30/24 5 History (Benadryl) docosahexaenoic acid 200 mg mg PO 07/30/24 01/24/25 History capsule ( DHA) enoxaparin 60 mg/0.6 mL 60 mg (0.6 mL) subcut Q12H 30 days 12/24/24 01/24/25 Rx subcutaneous syringe (Lovenox) #36 mL Last Menstrual Period: 06/18/24 Zika: Zika virus screening: Negative : No PFSH PFSH Surgical History History of tonsillectomy Family History Father Hypertension Arthritis Grandfather Diabetes Grandfather Kidney disease Social History adopted: No household members: spouse current occupational status: employed current occupation: [employer] current occupational exposures/hazards: No pets and animals: Yes ( taking care litter box ) pets and animals: cat(s) and dog(s) history of recent travel: Yes ( - May ) out of state: Yes out of country: No sexually active: Yes Smoking Status: Never smoker alcohol intake: current alcohol intake frequency: holidays/special occasions only details: Not while substance use type: does not use well-balanced diet: daily or most days caffeine: Yes Type: coffee eating out: 1-3 times/week during the past year weight has: remained stable what type of physical activity do you participate in: walking, running and weight training frequency: 5-6 times per week duration: 30-45 minutes/day wander/sikh: Anglican seatbelt use: always do you feel safe at home: Yes 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 OB Visit JUHI Calculator Estimated Delivery Date Method Current WG Current Estimate 03/25/25 LMP (Certain) 31w 3d Expected Delivery Route/Plan Labor Preferences- CB/BF classes: yes labor support person: Nabor labor intervention preferences: [] pain management options preferred: open to epidural if requested cut cord/dad catch: cord : yes PP control planned: discussed discussed possible routes of delivery and associated risks: [] special requests: [] Specific Issue/Plans Covid status: [] Flu vaccine: declined Tdap vaccine: given Rhogam: na LARC form signed: yes Problem list reviewed and updated with the most current plan of care details and appropriate orders placed. Relevant counseling for the gestational age provided. Continue routine care and follow up unless otherwise noted in visit notes/problem list details Initial Weight: 129 lb Date -???-???-???-???-?? ?-???-???-???-???-? ??-???-???- EGA Weight BP Urine Prot -???-???-???-???-?? ?-???-???-???-???-? ??-???-???- Glucose FHR FuHt Pres Dilation -???-???-???-???-?? ?-???-???-???-???-? ??-???-???- Effaced St Visit Note 08/13/24 -???-???-???-???-?? ?-???-???-???-???-? ??-???-???- 8w 0d 129 lb 8 oz (+8 oz) 114/84 -???-???-???-???-?? ?-???-???-???-???-? ??-???-???- 175 -???-???-???-???-?? ?-???-???-???-???-? ??-???-???- LC 1.55 CRL con with LMP. declines nipt. 09/09/24 -???-???-???-???-?? ?-???-???-???-???-? ??-???-???- 11w 6d 133 lb 8 oz (+4 lb 8 oz) 119/73 Negative -???-???-???-???-?? ?-???-???-???-???-? ??-???-???- Negative 180 -???-???-???-???-?? ?-???-???-???-???-? ??-???-???- JV- no compl aints today. plan new ob labs today. bedside scan reassuring. 10/08/24 -???-???-???-???-?? ?-???-???-???-???-? ??-???-???- 16w 0d 136 lb 2 oz (+7 lb 2 oz) 124/ (more content not included)... Normal [facility] Laboratory - Chemistry and C hemistry - challengeOrdered By: Tara Olvera on 01-11-2025 Glucose Ql (U) Negative [facility] Laboratory - UrinalysisOrder ed By: Tara Olvera on 01-11-2025 Protein Ql (U) Negative [facility] Actuarial Science Professor Office Visit Reporton 01-11-2025 Actuarial Science Professor Office Visit Report [facility] [address], [address] [place] [address] OFFICE VISIT Date of Service: 01/11/25 MR#: [id number] Acct: [id number] Name: ARMANDO CUENCA Rep #: [id number] : 2000 Provider: SARABJIT whyte Age/Sex: 24/F Location: [facility] Status: Signed Intake Vital Signs 12/03/24 15:56 12/29/24 15:29 01/11/25 15:43 Height 5 ft 3 in 5 ft 3 in 5 ft 3 in Weight: 144 lb 6 oz BMI 25.5 BP 118/74 Intake Visit Reasons: 30 WK OB Chief Complaint: 30 Week OB Bumper Straightener Required: No Is patient in pain?: No Allergies No Known Allergies Allergy (Verified 01/11/25 15:44) Medications ???Medication ???Instructions ???Recorded ???Confirmed ???Type Saccharomyces boulardii 250 mg 250 mg PO BID 08/16/22 01/11/25 Hi story capsule (Daily Probiotic (S. boulardii)) diphenhydramine HCl 25 mg capsule 25 mg PO QHS PRN 07/30/24 5 History (Benadryl) docosahexaenoic acid 200 mg mg PO 07/30/24 01/11/25 History capsule ( DHA) enoxaparin 60 mg/0.6 mL 60 mg (0.6 mL) subcut Q12H 30 days 12/24/24 01/11/25 Rx subcutaneous syringe (Lovenox) #36 mL Last Menstrual Period: 06/18/24 Zika: Zika virus screening: Negative : Yes PFSH PFSH Surgical History History of tonsillectomy Family History Father Hypertension Arthritis Grandfather Diabetes Grandfather Kidney disease Social History adopted: No household members: spouse current occupational status: employed current occupation: [employer] current occupational exposures/hazards: No pets and animals: Yes ( taking care litter box ) pets and animals: cat(s) and dog(s) history of recent travel: Yes ( - May ) out of state: Yes out of country: No sexually active: Yes Smoking Status: Never smoker alcohol intake: current alcohol intake frequency: holidays/special occasions only details: Not while substance use type: does not use well-balanced diet: daily or most days caffeine: Yes Type: coffee eating out: 1-3 times/week during the past year weight has: remained stable what type of physical activity do you participate in: walking, running and weight training frequency: 5-6 times per week duration: 30-45 minutes/day wander/sikh: Anglican seatbelt use: always do you feel safe at home: Yes 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 OB Visit JUHI Calculator Estimated Delivery Date Method Current WG Current Estimate 03/25/25 LMP (Certain) 29w 4d Expected Delivery Route/Plan Labor Preferences- CB/BF classes: yes labor support person: Nabor labor intervention preferences: [] pain management options preferred: open to epidural if requested cut cord/dad catch: cord : yes PP control planned: discussed discussed possible routes of delivery and associated risks: [] special requests: [] Specific Issue/Plans Covid status: [] Flu vaccine: declined Tdap vaccine: given Rhogam: na LARC form signed: yes Problem list reviewed and updated with the most current plan of care details and appropriate orders placed. Relevant counseling for the gestational age provided. Continue routine care and follow up unless otherwise noted in visit notes/problem list details Initial Weight: 129 lb Date -???-???-???-???-?? ?-???-???-???-???-? ??-???-???- EGA Weight BP Urine Prot -???-???-???-???-?? ?-???-???-???-???-? ??-???-???- Glucose FHR FuHt Pres Dilation -???-???-???-???-?? ?-???-???-???-???-? ??-???-???- Effaced St Visit Note 08/13/24 -???-???-???-???-?? ?-???-???-???-???-? ??-???-???- 8w 0d 129 lb 8 oz (+8 oz) 114/84 -???-???-???-???-?? ?-???-???-???-???-? ??-???-???- 175 -???-???-???-???-?? ?-???-???-???-???-? ??-???-???- LC 1.55 CRL con with LMP. declines nipt. 09/09/24 -???-???-???-???-?? ?-???-???-???-???-? ??-???-???- 11w 6d 133 lb 8 oz (+4 lb 8 oz) 119/73 Negative -???-???-???-???-?? ?-???-???-???-???-? ??-???-???- Negative 180 -???-???-???-???-?? ?-???-???-???-???-? ??-???-???- JV- no compl aints today. plan new ob labs today. bedside scan reassuring. 10/08/24 -???-???-???-???-?? ?-???-???-???-???-? ??-???-???- 16w 0d 136 lb 2 oz (+7 lb 2 oz) 124/84 Negative -???-???-???-???-?? ?-?? (more content not included)... Normal [facility] MR/BMS.BVSon 01-07-2025 MR/BMS.BVS [facility] Surgery [address] [place], [place] [address] OFFICE VISIT Date of Service: 01/07/25 MR#: [id number] Acct: [id number] Name: ARMANDO CUENCA Rep #: [id number] : 2000 Provider: DONELL Gagnon Age/Sex: 24/F Location: BMS.BVS Status: Signed Intake Vital Signs 12/23/24 10:09 12/29/24 15:29 01/07/25 15:31 Height 5 ft 3 in 5 ft 3 in Weight: 142 lb BP 107/65 Blood Pressure Location Lt brachial Position Sitting Respiration 16 Pulse 78 Pulse Source Monitor Temp 98.6 F Temp Source Temporal Pulse Oximetry (%) 100 Oxygen Delivery Method room air Intake Visit Reasons: DVT in groin Is patient in pain?: No Allergies No Known Allergies Allergy (Verified 01/07/25 15:34) Medications ???Medication ???Instructions ???Recorded ???Confirmed ???Type Saccharomyces boulardii 250 mg 250 mg PO BID 08/16/22 01/07/25 Hi story capsule (Daily Probiotic (S. boulardii)) diphenhydramine HCl 25 mg capsule 25 mg PO QHS PRN 07/30/24 5 History (Benadryl) docosahexaenoic acid 200 mg mg PO 07/30/24 01/07/25 History capsule ( DHA) enoxaparin 40 mg/0.4 mL 40 mg (0.4 mL) subcut TID 5 days 0 12/24/24 01/07/25 Rx subcutaneous syringe (Lovenox) #6 mL enoxaparin 60 mg/0.6 mL 60 mg (0.6 mL) subcut Q12H 30 days 12/24/24 01/07/25 Rx subcutaneous syringe (Lovenox) #36 mL Is last menstrual period known: Yes Post menopausal: No Patient : Yes Have you fallen in the past year?: No PFSH Surgical History History of tonsillectomy Family History Father Hypertension Arthritis Grandfather Diabetes Grandfather Kidney disease Social History adopted: No household members: spouse current occupational status: employed current occupation: [employer] current occupational exposures/hazards: No pets and animals: Yes ( taking care litter box ) pets and animals: cat(s) and dog(s) history of recent travel: Yes ( - May ) out of state: Yes out of country: No sexually active: Yes Smoking Status: Never smoker alcohol intake: current alcohol intake frequency: holidays/special occasions only details: Not while substance use type: does not use well-balanced diet: daily or most days caffeine: Yes Type: coffee eating out: 1-3 times/week during the past year weight has: remained stable what type of physical activity do you participate in: walking, running and weight training frequency: 5-6 times per week duration: 30-45 minutes/day wander/sikh: Anglican seatbelt use: always do you feel safe at home: Yes 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 She is 29 weeks ; this is her first . Around the end of November she began to notice increased L groin pain with activity then subsequently developed L calf tightness and tingling with exercise then LLE swelling and discoloration which prompted ER evaluate on 12/23/24. In the ER, she had a venous duplex which demonstrated acute L EIV, CFV, and PFV DVT. She was initiated on weight- based lovenox BID. She has been administering lovenox as directed, she is tolerating this well so far. She has noticed significant improvement in her groin pain and discoloration resolved. She does still get some tightness and swelling into her L calf with prolonged activity. She has noticed more prominent varicosities around her L groin/thigh. She is not currently wearing compression. She generally stays quite active, works out several times a week and walks regularly. She denies any prior history of VTE or varicose veins. There is a history of varicose veins on her paternal side and 1 paternal uncle with history of DVT. To her knowledge, no family history of clotting disorders. ROS General General: No weight change, appetite, fatigue, colon cancer, breast cancer or weakness HEENT HEENT: No difficulty swallowing, eye injury, eye surgery, swollen glands or hoarseness Endo Endocrine: No thyroid disease, diabetes mellitus, thyroid cancer, Hair loss, heat intolerance or cold intolerance Skin Skin: No rash or changing moles Musc Musculoskeletal: No back problems, arthritis, rheumatoid arthritis, gout or joint pain Cardio Cardiovascular: No murmur, pacemaker, heart disease, atrial fibrillation, high blood pressure, heart attack, heart stent, palpitations, shortness of breath with exertion or chest pain Psych Psychiatric: No depression, anxiety or hearing vo (more content not included)... Normal [facility] Gestational GTT 3HR 100gon 0 01-03-2025 3HR GTT- GEST. High [facility] Comment on above: Order Comment: Y Result Comment: FAST ING 80 Col: 01/03/25 0958 GLUCOSE TOLERANCE TEST FOR Reference Interval GESTATIONAL DIABETES Fasting <105 mg/dL 1 hour <190 mg/dl 2 hour <165 mg/dl 3 hour <145 mg/dl 1 HR GLU 160 Col: 01/03/25 1125 2 HR GLU 168 H Col: 01/03/25 1223 3 HR GLU 128 Col: 01/03/25 1324 Performed By: #### L 500.4710 ####[facility] [address] [place], [address] Glucose tolerance 3 hours ge stational panelOrdered By: Sarah Blackwood on 01-03-2025 Gestational Glucose Tolerance Test See comment [facility] Comment on above: FASTING 80 Col: 12/21 01/14 0958GLUCOSE TOLERANCE TEST FOR Reference Interval GESTATIONAL DIABETES Fasting <105 mg/dL 1 hour <190 mg/dl 2 hour <165 mg/dl 3 hour <145 mg/dl 1 HR GLU 160 Col: 01/03/25 1125 2 HR GLU 168 H Col: 01/03/25 1223 3 HR GLU 128 Col: 01/03/25 1324 Quantitative serum or plasma 3 hour gestational glucose tolerance panelOrdered By: Sarah Blackwood on 01-03-2025 Glucose tolerance 3 hours gestational panel See comment [facility] Comment on above: FASTING 80 Col: 12/21 01/14 0958GLUCOSE TOLERANCE TEST FOR Reference Interval GESTATIONAL DIABETES Fasting <105 mg/dL 1 hour <190 mg/dl 2 hour <165 mg/dl 3 hour <145 mg/dl 1 HR GLU 160 Col: 01/03/25 1125 2 HR GLU 168 H Col: 01/03/25 1223 3 HR GLU 128 Col: 01/03/25 1324 Absolute lymphocyte countOrd ered By: Sarah Blackwood on 12-29-2024 Lymphocytes Auto (Unsp spec) [#/Vol] 1.55 10*3/uL 0.83-4.51 [facility] Absolute neutrophil countOrd ered By: Sarah Blackwood on 12-29-2024 Neutrophils (Bld) [#/Vol] 6.4 10*3/uL 2.0-7.7 [facility] Automated lymphocyte count a s percentage of total leukocytesOrdered By: Sarah Blackwood on 12-29-2024 Lymphocytes/100 WBC Auto (Unsp spec) 17.7 % Low 19-41 [facility] Basophil percentageOrdered B y: Sarah Blackwood on 12-29-2024 Basophils/100 WBC (Bld) 0.5 % 0-1 [facility] CBC W/Diff, Automatedon Absolute Lymph 1.55 X10 3/uL Normal 0.83-4.51 [facility] Comment on above: Performed By: #### L 100.0100, L509.8002, L501.0250, L3890.6006 #### [facility] [address] [place], [address] Absolute Neut 6.4 X10 3/uL Normal 2.0-7.7 [facility] Comment on above: Performed By: #### L 100.0100, L509.8002, L501.0250, L3890.6006 #### [facility] [address] [place], [address] Basophils/100 WBC (Bld) 0.5 % Normal 0-1 [facility] Comment on above: Performed By: #### L 100.0100, L509.8002, L501.0250, L3890.6006 #### [facility] [address] [place], [address] Eosinophils/100 WBC (Bld) 1.6 % Normal 0-5 [facility] Comment on above: Performed By: #### L 100.0100, L509.8002, L501.0250, L3890.6006 #### [facility] [address] [place], [address] Erythrocyte distribution width (RBC) [Ratio] 12.1 % Normal 11.6-14.6 [facility] Comment on above: Performed By: #### L 100.0100, L509.8002, L501.0250, L3890.6006 #### [facility] [address] [place], [address] Hematocrit (Bld) [Volume fraction] 34.9 % Low 37-47 [facility] Comment on above: Performed By: #### L 100.0100, L509.8002, L501.0250, L3890.6006 #### [facility] [address] [place], [address] Hemoglobin (Bld) [Mass/Vol] 12.0 g/dL Normal 12.0-15.0 [facility] Comment on above: Performed By: #### L 100.0100, L509.8002, L501.0250, L3890.6006 #### [facility] [address] [place], [address] IG% 0.700 Normal 0.0-0.9 [facility] Comment on above: Result Comment: IG% - Immature Granulocytes (promyelocytes, myelocytes and metamyelocytes) > 1% indicates that a LEFT SHIFT is Present. Performed By: #### L 100.0100, L509.8002, L501.0250, L3890.6006 #### [facility] [address] [place], [address] Lymphocytes/100 WBC (Bld) 17.7 % Low 19-41 [facility] Comment on above: Performed By: #### L 100.0100, L509.8002, L501.0250, L3890.6006 #### [facility] [address] [place], [address] MCH (RBC) [Entitic mass] 31.0 pg Normal 27.0-32.0 [facility] Comment on above: Performed By: #### L 100.0100, L509.8002, L501.0250, L3890.6006 #### [facility] [address] [place], [address] MCHC (RBC) [Mass/Vol] 34.4 g/dL Normal 32-[address] [facility] Comment on above: Performed By: #### L 100.0100, L509.8002, L501.0250, L3890.6006 #### [facility] [address] [place], [address] MCV (RBC) [Entitic vol] 90.2 fL Normal 81-99 [facility] Comment on above: Performed By: #### L 100.0100, L509.8002, L501.0250, L3890.6006 #### [facility] [address] [place], [address] Monocytes/100 WBC (Bld) 6.1 % Normal 0-10 [facility] Comment on above: Performed By: #### L 100.0100, L509.8002, L501.0250, L3890.6006 #### [facility] [address] [place], [address] Neutrophils/100 WBC (Bld) 73.4 % High 47-70 [facility] Comment on above: Performed By: #### L 100.0100, L509.8002, L501.0250, L3890.6006 #### [facility] [address] [place], [address] Nucleated RBC (Bld) [#/Vol] 0 10*3/uL Normal 0-5 [facility] Comment on above: Performed By: #### L 100.0100, L509.8002, L501.0250, L3890.6006 #### [facility] [address] [place], [address] Platelet mean volume (Bld) [Entitic vol] 9.9 fL Normal 6.2-12.0 [facility] Comment on above: Performed By: #### L 100.0100, L509.8002, L501.0250, L3890.6006 #### [facility] [address] [place], [address] Platelets (Bld) [#/Vol] 393 10*3/uL Normal 150-450 [facility] Comment on above: Performed By: #### L 100.0100, L509.8002, L501.0250, L3890.6006 #### [facility] [address] [place], [address] RBC (Bld) [#/Vol] 3.87 10*6/uL Low 4.2-5.4 [facility] Comment on above: Performed By: #### L 100.0100, L509.8002, L501.0250, L3890.6006 #### [facility] [address] [place], [address] RDW SD 39.8 fl Normal 35.1-43.9 [facility] Comment on above: Performed By: #### L 100.0100, L509.8002, L501.0250, L3890.6006 #### [facility] [address] [place], [address] WBC (Bld) [#/Vol] 8.8 10*3/uL Normal 4.4-11.0 [facility] Comment on above: Performed By: #### L 100.0100, L509.8002, L501.0250, L3890.6006 #### [facility] [address] [place], [address] Eosinophil percentageOrdered By: Sarah Blackwood on 12-29-2024 Eosinophils/100 WBC (Bld) 1.6 % 0-5 [facility] Erythrocyte distribution wid th (RBC) [Ratio]Ordered By: Sarah Blackwood on 12-29-2024 Erythrocyte distribution width (RBC) [Entitic vol] 39.8 fL 35.1-43.9 [facility] Erythrocyte distribution wid th ratioOrdered By: Sarah Blackwood on 12-29-2024 Erythrocyte distribution width (RBC) [Ratio] 12.1 % 11.6-14.6 [facility] Erythrocyte distribution wid th standard deviationOrdered By: Sarah Blackwood on 12-29-2024 Erythrocyte distribution width (RBC) [Ratio] 39.8 fl 35.1-43.9 [facility] Glucose Challenge Gest 1H 50 jessica 12-29-2024 GLU GEST 50g 1H 152 mg/dL High 70-140 [facility] Comment on above: Performed By: #### L 100.0100, L509.8002, L501.0250, L3890.6006 #### [facility] [address] [place], [place], [id number] Glucose measurement at 2 liz rs post-dose gestational glucose tolerance testOrdered By: Sarah Blackwood on 12-29-2024 Glucose [Mass/Vol] 152 mg/dL High 70-140 [facility] HIVon 12-29-2024 HIV Non-Reactive Normal Nonreactive [facility] Comment on above: Result Comment: Non- Reactive Reactive Repeatedly reactive samples must be confirmed according to CDC recommended confirmatory algorithms. The subresults for either HIVAG or AHIV can be used as an aid in the selection of the confirmation algorithm for reactive samples. Send out specimens with Reactive results to [facility] for confirmation. Order the HIV antibody detection and differentiation: lc#[id number] Performed By: #### L 100.0100, L509.8002, L501.0250, L3890.6006 #### [facility] [address] [place], [place], [id number] Hematocrit Auto (Bld) [Volum e fraction]Ordered By: Sarah Blackwood on 12-29-2024 Hematocrit (Bld) [Volume fraction] 34.9 % Low 37-47 [facility] Hemoglobin measurementOrdere d By: Sarah Blackwood on 12-29-2024 Hemoglobin (Bld) [Mass/Vol] 12.0 g/dL 12.0-15.0 [facility] Immature granulocytes/100 WB C Auto (Bld)Ordered By: Sarah Blackwood on 12-29-2024 Immature granulocytes/100 WBC (Bld) 0.700 % 0.0-0.9 [facility] Comment on above: IG% - Immature Granu locytes (promyelocytes, myelocytes and metamyelocytes) > 1% indicates that a LEFT SHIFT is Present. Laboratory - Chemistry and C hemistry - challengeOrdered By: Tara Olvera on 12-29-2024 Glucose Ql (U) Negative [facility] - UrinalysisOrder ed By: Tara Olvera on 12-29-2024 Protein Ql (U) Negative [facility] Lymphocytes Auto (Unsp spec) [#/Vol]Ordered By: Sarah Blackwood on 12-29-2024 Lymphocytes (Bld) [#/Vol] 1.55 10*3/uL 0.83-4.51 [facility] Lymphocytes/100 WBC Auto (Un sp spec)Ordered By: Sarah Blackwood on 12-29-2024 Lymphocytes/100 WBC (Bld) 17.7 % Low 19-41 [facility] MCV (mean corpuscular volume ) determinationOrdered By: Sarah Blackwood on 12-29-2024 MCV (RBC) [Entitic vol] 90.2 fL 81-99 [facility] Mean corpuscular hemoglobin (MCH) determinationOrdered By: Sarah Blackwood on 12-29-2024 MCH (RBC) [Entitic mass] 31.0 pg 27.0-32.0 [facility] Mean corpuscular hemoglobin concentration (MCHC) determinationOrdered By: Sarah Blackwood on 12-29-2024 MCHC (RBC) [Mass/Vol] 34.4 g/dL 32-[address] [facility] Mean platelet volume determi nationOrdered By: Sarah Blackwood on 12-29-2024 Platelet mean volume (Bld) [Entitic vol] 9.9 fL 6.2-12.0 [facility] Monocyte percentageOrdered B y: Sarah Blackwood on 12-29-2024 Monocytes/100 WBC (Bld) 6.1 % 0-10 [facility] Neutrophil percentageOrdered By: Sarah Blackwood on 12-29-2024 Neutrophils/100 WBC (Bld) 73.4 % High 47-70 [facility] No Panel InformationOrdered By: Sarah Blackwood on 12-29-2024 HIV (1&2) Antibody Non-Reactive Nonreactive [facility] Comment on above: Non-ReactiveReactive Repeatedly reactive samples must be confirmed according to CDC recommended confirmatory algorithms. The subresults for either HIVAG or AHIV can be used as an aid in the selection of the confirmation algorithm for reactive samples.Send out specimens with Reactive results to [facility] for confirmation.Order the HIV antibody detection and differentiation: #[id number] Nucleated red blood cell per centageOrdered By: Sarah Blackwood on 12-29-2024 Nucleated RBC/100 WBC (Bld) [Ratio] 0 % 0-5 [facility] Actuarial Science Professor Office Visit Reporton 12-29-2024 Actuarial Science Professor Office Visit Report [facility]'[address], [address] [place] [address] OFFICE VISIT Date of Service: 12/29/24 MR#: [id number] Acct: [id number] Name: ARMANDO CUENCA Rep #: [id number] : 2000 Provider: SARABJIT whyte Age/Sex: 24/F Location: [facility] Status: Signed Intake Vital Signs 09/09/24 15:06 12/24/24 15:07 12/29/24 15:29 Height 5 ft 3 in 5 ft 3 in 5 ft 3 in Weight: 142 lb 6 oz BMI 25.2 BP 118/68 Intake Visit Reasons: 28 wk ob/glucose Chief Complaint: 28 Week OB/Glucose Bumper Straightener Required: No Is patient in pain?: No Allergies No Known Allergies Allergy (Verified 12/29/24 15:28) Medications ???Medication ???Instructions ???Recorded ???Confirmed ???Type Saccharomyces boulardii 250 mg 250 mg PO BID 08/16/22 12/29/24 Hi story capsule (Daily Probiotic (S. boulardii)) diphenhydramine HCl 25 mg capsule 25 mg PO QHS PRN 07/30/24 5 History (Benadryl) docosahexaenoic acid 200 mg mg PO 07/30/24 12/29/24 History capsule ( DHA) enoxaparin 40 mg/0.4 mL 40 mg (0.4 mL) subcut TID 5 days 0 12/24/24 12/29/24 Rx subcutaneous syringe (Lovenox) #6 mL enoxaparin 60 mg/0.6 mL 60 mg (0.6 mL) subcut Q12H 30 days 12/24/24 12/29/24 Rx subcutaneous syringe (Lovenox) #36 mL Last Menstrual Period: 06/18/24 Zika: Zika virus screening: Negative : Yes PFSH PFSH Surgical History History of tonsillectomy Family History Father Hypertension Arthritis Grandfather Diabetes Grandfather Kidney disease Social History adopted: No household members: spouse current occupational status: employed current occupation: [employer] current occupational exposures/hazards: No pets and animals: Yes ( taking care litter box ) pets and animals: cat(s) and dog(s) history of recent travel: Yes ( - May ) out of state: Yes out of country: No sexually active: Yes Smoking Status: Never smoker alcohol intake: current alcohol intake frequency: holidays/special occasions only details: Not while substance use type: does not use well-balanced diet: daily or most days caffeine: Yes Type: coffee eating out: 1-3 times/week during the past year weight has: remained stable what type of physical activity do you participate in: walking, running and weight training frequency: 5-6 times per week duration: 30-45 minutes/day wander/sikh: Anglican seatbelt use: always do you feel safe at home: Yes additional 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 OB Visit JUHI Calculator Estimated Delivery Date Method Current Current Estimate 03/25/25 LMP (Certain) 27w 5d Expected Delivery Route/Plan Labor Preferences- CB/BF classes: yes labor support person: Nabor labor intervention preferences: [] pain management options preferred: open to epidural if requested cut cord/dad catch: cord : yes PP control planned: discussed discussed possible routes of delivery and associated risks: [] special requests: [] Specific Issue/Plans Covid status: [] Flu vaccine: declined Tdap vaccine: [] Rhogam: na LARC form signed: yes Problem list reviewed and updated with the most current plan of care details and appropriate orders placed. Relevant counseling for the gestational age provided. Continue routine care and follow up unless otherwise noted in visit notes/problem list details Initial Weight: 129 lb Date -???-???-???-???-?? ?-???-???-???-???-? ??-???-???- EGA Weight BP Urine Prot -???-???-???-???-?? ?-???-???-???-???-? ??-???-???- Glucose FHR FuHt Pres Dilation -???-???-???-???-?? ?-???-???-???-???-? ??-???-???- Effaced St Visit Note 08/13/24 -???-???-???-???-?? ?-???-???-???-???-? ??-???-???- 8w 0d 129 lb 8 oz (+8 oz) 114/84 -???-???-???-???-?? ?-???-???-???-???-? ??-???-???- 175 -???-???-???-???-?? ?-???-???-???-???-? ??-???-???- LC 1.55 CRL con with LMP. declines nipt. 09/09/24 -???-???-???-???-?? ?-???-???-???-???-? ??-???-???- 11w 6d 133 lb 8 oz (+4 lb 8 oz) 119/73 Negative -???-???-???-???-?? ?-???-???-???-???-? ??-???-???- Negative 180 -???-???-???-???-?? ?-???-???-???-???-? ??-???-???- JV- no compl aints today. plan new ob labs today. bedside scan reassur (more content not included)... Normal [facility] Platelet countOrdered By: William Blackwood on 12-29-2024 Platelets (Bld) [#/Vol] 393 10*3/uL 150-450 [facility] RBC Auto (Bld) [#/Vol]Ordere d By: Sarah Blackwood on 12-29-2024 RBC (Bld) [#/Vol] 3.87 10*6/uL Low 4.2-5.4 [facility] Syphilis Antibodieson 2024 Syphilis Abs Non-Reactive Normal Nonreactive [facility] Comment on above: Performed By: #### L 100.0100, L509.8002, L501.0250, L3890.6006 #### [facility] [address] [place], [address] T. pallidum abOrdered By: William Blackwood on 12-29-2024 Syphilis Total Antibody Non-Reactive Nonreactiv e [facility] White blood cell (WBC) count Ordered By: Sarah Blackwood on 12-29-2024 WBC (Bld) [#/Vol] 8.8 10*3/uL 4.4-11.0 [facility] - Chemistry and C hemistry - challengeOrdered By: Kareen Salvador on 12-24-2024 Glucose Ql (U) Negative [facility] - UrinalysisOrder ed By: Kareen Salvador on 12-24-2024 Protein Ql (U) Negative [facility] Actuarial Science Professor Office Visit Reporton 12-24-2024 Actuarial Science Professor Office Visit Report [facility] [address], [address] [place] [address] OFFICE VISIT Date of Service: 12/24/24 MR#: [id number] Acct: [id number] Name: ARMANDO CUENCA Rep #: [id number] : 2000 Provider: Dr. Rosy enriquez MD Age/Sex: 24/F Location: [facility] [place] Status: Signed Intake Vital Signs 12/23/24 10:09 12/24/24 15:06 12/24/24 15:07 Height 5 ft 3 in 5 ft 3 in 5 ft 3 in Weight: 144 lb BMI 25.4 BP 128/74 H Intake Visit Reasons: ER fu for blood clots Bumper Straightener Required: No Is patient in pain?: No Allergies No Known Allergies Allergy (Verified 12/24/24 15:06) Medications ???Medication ???Instructions ???Recorded ???Confirmed ???Type Saccharomyces boulardii 250 mg 250 mg PO BID 08/16/22 12/24/24 Hi story capsule (Daily Probiotic (S. boulardii)) diphenhydramine HCl 25 mg capsule 25 mg PO QHS PRN 07/30/24 5 History (Benadryl) docosahexaenoic acid 200 mg mg PO 07/30/24 12/24/24 History capsule ( DHA) enoxaparin 40 mg/0.4 mL 40 mg (0.4 mL) subcut TID 5 days 0 12/24/24 12/24/24 Rx subcutaneous syringe (Lovenox) #6 mL enoxaparin 60 mg/0.6 mL 60 mg (0.6 mL) subcut Q12H 30 days 12/24/24 12/24/24 Rx subcutaneous syringe (Lovenox) #36 mL Last Menstrual Period: 06/18/24 Zika: Zika virus screening: Negative : No PFSH PFSH Surgical History History of tonsillectomy Family History Father Hypertension Arthritis Grandfather Diabetes Grandfather Kidney disease Social History adopted: No household members: spouse current occupational status: employed 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 current occupational exposures/hazards: No pets and animals: Yes ( taking care litter box ) pets and animals: cat(s) and dog(s) history of recent travel: Yes ( - May ) out of state: Yes out of country: No sexually active: Yes Smoking Status: Never smoker alcohol intake: current alcohol intake frequency: holidays/special occasions only details: Not while substance use type: does not use well-balanced diet: daily or most days caffeine: Yes Type: coffee eating out: 1-3 times/week during the past year weight has: remained stable what type of physical activity do you participate in: walking, running and weight training frequency: 5-6 times per week duration: 30-45 minutes/day wander/sikh: Anglican seatbelt use: always do you feel safe at home: Yes 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 OB Visit JUHI Calculator Estimated Delivery Date Method Current WG Current Estimate 03/25/25 LMP (Certain) 27w 3d Expected Delivery Route/Plan Labor Preferences- CB/BF classes: [] labor support person: [] labor intervention preferences: [] pain management options preferred: [] cut cord/dad catch: [] : [] PP control planned: [] discussed possible routes of delivery and associated risks: [] special requests: [] Specific Issue/Plans Covid status: [] Flu vaccine: declined Tdap vaccine: [] Rhogam: [] LARC form signed: [] Problem list reviewed and updated with the most current plan of care details and appropriate orders placed. Relevant counseling for the gestational age provided. Continue routine care and follow up unless otherwise noted in visit notes/problem list details Initial Weight: 129 lb Date -???-???-???-???-?? ?-???-???-???-???-? ??-???-???- EGA Weight BP Urine Prot -???-???-???-???-?? ?-???-???-???-???-? ??-???-???- Glucose FHR FuHt Pres Dilation -???-???-???-???-?? ?-???-???-???-???-? ??-???-???- Effaced St Visit Note 08/13/24 -???-???-???-???-?? ?-???-???-???-???-? ??-???-???- 8w 0d 129 lb 8 oz (+8 oz) 114/84 -???-???-???-???-?? ?-???-???-???-???-? ??-???-???- 175 -???-???-???-???-?? ?-???-???-???-???-? ??-???-???- LC 1.55 CRL con with LMP. declines nipt. 09/09/24 -???-???-???-???-?? ?-???-???-???-???-? ??-???-???- 11w 6d 133 lb 8 oz (+4 lb 8 oz) 119/73 Negative -???-???-???-???-?? ?-???-???-???-???-? ??-???-???- Negative 180 -???-???-???-???-?? ?-???-???-???-???-? ??-???-???- JV- no compl aints today. plan new ob labs today. bedside scan reassuring. 10/08/24 -???-???-???-???-?? ?-???-???-???-???-? ??-???-???- (more content not included)... Normal [facility] Absolute lymphocyte countOrd ered By: Stanley Gaytan on 12-23-2024 Lymphocytes Auto (Unsp spec) [#/Vol] 1.45 10*3/uL 0.83-4.51 [facility] Absolute neutrophil countOrd ered By: Stanley Gaytan on 12-23-2024 Neutrophils (Bld) [#/Vol] 8.8 10*3/uL High 2.0-7.7 [facility] Anion gap in Serum or Plasma Ordered By: Stanley Gaytan on 12-23-2024 Anion gap [Moles/Vol] 10 mmol/L 5-[address] [facility] Automated lymphocyte count a s percentage of total leukocytesOrdered By: Stanley Gaytan on 12-23-2024 Lymphocytes/100 WBC Auto (Unsp spec) 12.8 % Low 19-41 [facility] BUN/creatinine ratioOrdered By: [facility]aim[facility] on 12-23-2024 Urea nitrogen/Creatinine [Mass ratio] 11.9 mg/mg 10- [facility] [facility] Basic Metabolic Profile (BMP )on 12-23-2024 BUN/CRE 11.9 RATIO Normal - [facility] Comment on above: Performed By: #### L 500.4050, L500.2500, L503.7505 ####[facility] [address] [place], [address] Calcium [Mass/Vol] 8.8 mg/dL Normal 7.6-11.0 [facility] Comment on above: Performed By: #### L 500.4050, L500.2500, L503.7505 ####[facility] [address] [place], [address] Chloride [Moles/Vol] 104 mmol/L Normal 98-108 [facility] Comment on above: Performed By: #### L 500.4050, L500.2500, L503.7505 ####[facility] [address] [place], [address] CO2 [Moles/Vol] 21.7 mmol/L Normal 21.0-32.0 [facility] Comment on above: Performed By: #### L 500.4050, L500.2500, L503.7505 ####[facility] [address] [place], [address] Creatinine [Mass/Vol] 0.54 mg/dL Low 0.70-1.[address] [facility] Comment on above: Performed By: #### L 500.4050, L500.2500, L503.7505 ####[facility] [address] [place], [address] ECRCL 143.02 ml/min Normal 50-250 [facility] Comment on above: Performed By: #### L 500.4050, L500.2500, L503.7505 ####[facility] [address] [place], [address] GAP 10 Normal 5-15 [facility] Comment on above: Performed By: #### L 500.4050, L500.2500, L503.7505 ####[facility] [address] [place], [address] GFR/1.73 sq M.predicted among non-blacks MDRD (S/P/Bld) [Vol rate/Area] 130 mL/min/{1.73_m2} Normal >60 [facility] Comment on above: Result Comment: mL/m in/1.73m2 CKD-EPI Creatinine Equation (2020) Performed By: #### L 500.4050, L500.2500, L503.7505 ####[facility] [address] [place], [address] Glucose [Mass/Vol] 82 mg/dL Normal 70-99 [facility] Comment on above: Performed By: #### L 500.4050, L500.2500, L503.7505 ####[facility] [address] [place], [address] Potassium [Moles/Vol] 3.8 mmol/L Normal 3.3-5.[address] [facility] Comment on above: Performed By: #### L 500.4050, L500.2500, L503.7505 ####[facility] [address] [place], [address] Sodium [Moles/Vol] 136 mmol/L Normal 133-145 [facility] Comment on above: Performed By: #### L 500.4050, L500.2500, L503.7505 ####[facility] [address] [place], [address] Urea nitrogen [Mass/Vol] 6 mg/dL Normal 4-19 [facility] Comment on above: Performed By: #### L 500.4050, L500.2500, L503.7505 ####[facility] [address] [place], [address] Basophil percentageOrdered B y: Stanley Gaytan on 12-23-2024 Basophils/100 WBC (Bld) 0.4 % 0-1 [facility] Bilirubin, totalOrdered By: Stanley Gaytan on 12-23-2024 Bilirubin [Mass/Vol] 0.25 mg/dL 0.00-1.30 [facility] CBC W/Diff, Automatedon 04-0 -2024 Absolute Lymph 1.45 X10 3/uL Normal 0.83-4.51 [facility] Comment on above: Performed By: #### L 100.0100 #### [facility] [address] [place], [address] Absolute Neut 8.8 X10 3/uL High 2.0-7.7 [facility] Comment on above: Performed By: #### L 100.0100 #### [facility] [address] [place], [address] Basophils/100 WBC (Bld) 0.4 % Normal 0-1 [facility] Comment on above: Performed By: #### L 100.0100 #### [facility] [address] [place], [address] Eosinophils/100 WBC (Bld) 0.5 % Normal 0-5 [facility] Comment on above: Performed By: #### L 100.0100 #### [facility] [address] [place], [address] Erythrocyte distribution width (RBC) [Ratio] 12.6 % Normal 11.6-14.6 [facility] Comment on above: Performed By: #### L 100.0100 #### [facility] [address] [place], [address] Hematocrit (Bld) [Volume fraction] 32.2 % Low 37-47 [facility] Comment on above: Performed By: #### L 100.0100 #### [facility] [address] [place], [address] Hemoglobin (Bld) [Mass/Vol] 11.2 g/dL Low 12.0-15.0 [facility] Comment on above: Performed By: #### L 100.0100 #### [facility] [address] [place], [address] IG% 0.700 Normal 0.0-0.9 [facility] Comment on above: Result Comment: IG% - Immature Granulocytes (promyelocytes, myelocytes and metamyelocytes) > 1% indicates that a LEFT SHIFT is Present. Performed By: #### L 100.0100 #### [facility] [address] [place], [address] Lymphocytes/100 WBC (Bld) 12.8 % Low 19-41 [facility] Comment on above: Performed By: #### L 100.0100 #### [facility] [address] [place], [address] MCH (RBC) [Entitic mass] 31.3 pg Normal 27.0-32.0 [facility] Comment on above: Performed By: #### L 100.0100 #### [facility] [address] [place], [address] MCHC (RBC) [Mass/Vol] 34.8 g/dL Normal 32-[address] [facility] Comment on above: Performed By: #### L 100.0100 #### [facility] [address] [place], [address] MCV (RBC) [Entitic vol] 89.9 fL Normal 81-99 [facility] Comment on above: Performed By: #### L 100.0100 #### [facility] [address] [place], [address] Monocytes/100 WBC (Bld) 7.8 % Normal 0-10 [facility] Comment on above: Performed By: #### L 100.0100 #### [facility] [address] [place], [address] Neutrophils/100 WBC (Bld) 77.8 % High 47-70 [facility] Comment on above: Performed By: #### L 100.0100 #### [facility] [address] [place], [address] Nucleated RBC (Bld) [#/Vol] 0 10*3/uL Normal 0-5 [facility] Comment on above: Performed By: #### L 100.0100 #### [facility] [address] [place], [address] Platelet mean volume (Bld) [Entitic vol] 10.3 fL Normal 6.2-12.0 [facility] Comment on above: Performed By: #### L 100.0100 #### [facility] [address] [place], [address] Platelets (Bld) [#/Vol] 237 10*3/uL Normal 150-450 [facility] Comment on above: Performed By: #### L 100.0100 #### [facility] [address] [place], [address] RBC (Bld) [#/Vol] 3.58 10*6/uL Low 4.2-5.4 [facility] Comment on above: Performed By: #### L 100.0100 #### [facility] [address] [place], [address] RDW SD 41.5 fl Normal 35.1-43.9 [facility] Comment on above: Performed By: #### L 100.0100 #### [facility] [address] [place], [address] WBC (Bld) [#/Vol] 11.3 10*3/uL High 4.4-11.0 [facility] Comment on above: Performed By: #### L 100.0100 #### [facility] [address] [place], [address] CTA Chest W/WO Contraston CTA Chest W/WO Contrast [facility] Imaging Services [address] [place] [address] CTA Chest W/WO Contrast MR#: [id number] Acct: [id number] Name: ARMANDO CUENCA Rep #: [id number] : 2000 F 24 From: Satya Hurd DO PCP: Dr. Alanna Blue MD Status: [facility] ER Study: CTA Chest W/WO Contrast Date of Exam: 12/23/24 Exam# [id number] Ordering Dr: Rolando Gaytan DO PROCEDURE: CTA CHEST W/WO CONTRAST 12/23/2024 REASON FOR EXAM: PE, WITH KNOWN PROXIMAL LEG DVT TECHNIQUE: CTA imaging of the chest without and with intravenous contrast. Coronal and Sagittal reconstruction series were provided. 3D, 3D post processing, 3D reconstructions, Maximum intensity projection (MIPs) Volume rendering and Shaded surface rendering was provided. CONTRAST: Isovue 370 VOLUME: 75 mL IV One or more dose reduction techniques were used (e.g., Automated exposure control, adjustment of the mA and/or kV according to patient size, use of iterative reconstruction technique). RADIATION DOSE SUMMARY: CTDlvol: 9.955 mGy DLP: 247.16 mGycm COMPARISON: None FINDINGS: Heart: Normal size. No right ventricular strain. Pulmonary Vessels: Unremarkable. No pulmonary embolism. Arch Vessels: Normal configuration. Lungs are clear. No pleural effusions. Limited images of the upper abdomen demonstrate no acute process. Other Findings: CT/CTA Chest W/WO Contrast IMPRESSION: No evidence of pulmonary embolism. Normal exam. Reading Location: [facility] CC: Dr. Stanley Gaytan, ; Dr. Alanna Blue MD Milk Route Supervisor: Signed Normal [facility] Carbon dioxide, total [Moles /volume] in Central venous bloodOrdered By: Stanley Gaytan on 12-23-2024 CO2 [Moles/Vol] 21.7 mmol/L 21.0-32.0 [facility] Chloride assayOrdered By: Kelvin Gaytan on 12-23-2024 Chloride [Moles/Vol] 104 mmol/L 98-108 [facility] Comprehensive Metabolic Prof ilon 12-23-2024 Albumin [Mass/Vol] 3.4 g/dL Low 3.5-5.0 [facility] Comment on above: Performed By: #### M 100.3400 #### [facility] [address] [facility], [address] Albumin/Globulin [Mass ratio] 1.2 {ratio} Normal 0.9-2.4 [facility] Comment on above: Performed By: #### M 100.3400 #### [facility] [address] [place], [address] ALK PHOS 76 U/L Normal 35-104 [facility] Comment on above: Performed By: #### M 100.3400 #### [facility] [address] [place], [address] ALT [Catalytic activity/Vol] 7 U/L Normal <=34 [facility] Comment on above: Performed By: #### M 100.3400 #### [facility] [address] [place], [address] AST [Catalytic activity/Vol] 14 U/L Normal <=31 [facility] Comment on above: Performed By: #### M 100.3400 #### [facility] [address] [place], [address] Bilirubin [Mass/Vol] 0.25 mg/dL Normal 0.00-1.30 [facility] Comment on above: Performed By: #### M 100.3400 #### [facility] [address] [place], [address] Globulin (S) [Mass/Vol] 2.9 g/dL Normal 2.2-4.2 [facility] Comment on above: Performed By: #### M 100.3400 #### [facility] [address] [place], [address] T PROT 6.3 g/dL Normal 5.9-8.4 [facility] Comment on above: Performed By: #### M 100.3400 #### [facility] [address] [place], [address] Emergency Department Summary on 12-23-2024 Emergency Department Summary [facility] Medical Records Department [address] [place] [address] Emergency Department Summary 12/23/24 MR#: [id number] Acct: [id number] Name: ARMANDO CUENCA Rep #: [id number] : 2000 24 From: Stanley Gaytan DO PCP: Dr. Alanna Blue MD Status:DEP ER Location: ED HPI History of Present Illness Chief Complaint: Lower Extremity Injury Narrative Narrative: Chief complaint and HPI: Left groin pain. 24-year-old female who is and 27 weeks presents for evaluation of left groin pain. Patient states last week she developed pain in her left groin. She states the pain worsens with ambulation. Associated symptom is occasionally numbness in the left leg with ambulation. States this started around the same time of the pain. She follows with [facility]. She states she saw them in the office in which they did a UA that was negative for UTI. She states concern was for round ligament pain versus DVT. They ordered an outpatient ultrasound for concern of DVT. They cannot perform the study until mid December therefore patient was sent to the emergency department for ultrasound. Has been taking Tylenol for the pain with little relief. She denies any fever, chills, chest pain, shortness of breath, abdominal pain, nausea, vomiting, dysuria, diarrhea, constipation, vaginal bleeding. She states that she has had good movement. Denies any back pain. Denies weakness, urinary retention, stool or urinary incontinence, saddle anesthesia. Review of systems: See HPI Medications: As listed on the chart Allergies: As listed on the chart PFSH: Per chart Vital signs: As listed on the chart. Reviewed. Physical exam: Gen: A O x3, NAD Head: Normocephalic, atraumatic Eyes: No sclera icterus, conjunctiva clear, PERRL, EOMI ENT: Moist mucous membranes Neck: Trachea midline, No JVD, full range of motion CV: RRR, no murmurs, no peripheral edema Resp: Lungs CTA BL, no w/r/c GI: Gravid uterus, abd soft, non-tender, no r/r/g : No CVA tenderness Musc: Full ROM, no deformity, strength +5/5 in all extremities, femoral/DP/PT pulses +2 bilaterally, back nontender to palpation, negative Homans' sign, no saddle paresthesia, no signs of cellulitis or swelling Skin: Warm, dry, intact Neuro: Alert, oriented, grossly intact, sensation intact, no focal deficits Psych: Cooperative, appropriate mood and affect [facility] Home Medications ???Medication ???Instructions ???Recorded ???Last Taken ???Type Saccharomyces boulardii 250 mg 250 mg PO BID 08/16/22 Unknown His tory capsule (Daily Probiotic (S. boulardii)) diphenhydramine HCl 25 mg capsule 25 mg PO QHS PRN 07/30/24 Unknown History (Benadryl) docosahexaenoic acid 200 mg mg PO 07/30/24 Unknown History capsule ( DHA) enoxaparin 60 mg/0.6 mL 60 mg (0.6 mL) subcut Q12H 30 days 12/23/24 Unknown Rx subcutaneous syringe (Lovenox) #36 mL Allergy/AdvReac Type Severity Reaction Status Date / Time No Known Allergies Allergy Verified 12/23/24 10:09 Family History Father Hypertension Arthritis Grandfather Diabetes Grandfather Kidney disease Surgical History History of tonsillectomy Social History adopted: No household members: spouse current occupational status: employed current occupation: [employer] current occupational exposures/hazards: No pets and animals: Yes ( taking care litter box ) pets and animals: cat(s) and dog(s) history of recent travel: Yes ( - May ) out of state: Yes out of country: No sexually active: Yes Smoking Status: Never smoker alcohol intake: current alcohol intake frequency: holidays/special occasions only details: Not while substance use type: does not use well-balanced diet: daily or most days caffeine: Yes Type: coffee eating out: 1-3 times/week during the past year weight has: remained stable what type of physical activity do you participate in: walking, running and weight training frequency: 5-6 times per week duration: 30-45 minutes/day wander/sikh: Anglican seatbelt use: always do you feel safe at home: Yes additional social history: : [employer] at [employer] EXAM Physical Exam Const Vital Signs: 12/23/24 10:09 12/23/24 11:05 12/23/24 14:25 Temperature 97.7 F L 98.2 F Temperature Source Temporal Pulse Rate 110 H 97 97 Respiratory Rate 22 H 18 18 Blood Pressure 136/91 H 110/73 114/63 Blood Pressure Mean 106 85 80 Pulse Ox 100 100 98 Oxygen Delivery Method Room Air Room Air MDM MDM MDM Narrative Medical decision making natalia (more content not included)... Normal [facility] Eosinophil percentageOrdered By: Stanley Gaytan on 12-23-2024 Eosinophils/100 WBC (Bld) 0.5 % 0-5 [facility] Erythrocyte distribution wid th (RBC) [Ratio]Ordered By: Stanley Gaytan on 12-23-2024 Erythrocyte distribution width (RBC) [Entitic vol] 41.5 fL 35.1-43.9 [facility] Erythrocyte distribution wid th ratioOrdered By: Palo Lukas on 12-23-2024 Erythrocyte distribution width (RBC) [Ratio] 12.6 % 11.6-14.6 [facility] Erythrocyte distribution wid th standard deviationOrdered By: Palo Zahida Meredith on 12-23-2024 Erythrocyte distribution width (RBC) [Ratio] 41.5 fl 35.1-43.9 [facility] Estimation of creatinine cait aranceOrdered By: Stanley Gaytan on 12-23-2024 Estimated Creatinine Clearance Calc 143.02 ml/min 50-250 [facility] GFR/1.73 sq M.predicted kaylee g non-blacks MDRD (S/P/Bld) [Vol rate/Area]Ordered By: Stanley Gaytan on 12-23-2024 Estimated GFR (MDRD) Non-Af Amer 130 >60 [facility] Comment on above: mL/min/1.73m2 CKD-EP I Creatinine Equation (2020) Glomerular filtration rate ( GFR) estimation/1.73 sq m using serum, plasma, or whole bOrdered By: Stanleysolomon Gaytan on 12-23-2024 GFR/1.73 sq M.predicted among non-blacks MDRD (S/P/Bld) [Vol rate/Area] 130 mL/min/{1.73_m2} >60 [facility] Comment on above: mL/min/1.73m2 CKD-EP I Creatinine Equation (2020) Hematocrit Auto (Bld) [Volum e fraction]Ordered By: Stanley Gaytan on 12-23-2024 Hematocrit (Bld) [Volume fraction] 32.2 % Low 37-47 [facility] Hemoglobin measurementOrdere d By: Stanley Gaytan on 12-23-2024 Hemoglobin (Bld) [Mass/Vol] 11.2 g/dL Low 12.0-15.0 [facility] Immature granulocytes/100 WB C Auto (Bld)Ordered By: Stanley Gaytan on 12-23-2024 Immature granulocytes/100 WBC (Bld) 0.700 % 0.0-0.9 [facility] Comment on above: IG% - Immature Granu locytes (promyelocytes, myelocytes and metamyelocytes) > 1% indicates that a LEFT SHIFT is Present. L501.4021on 12-23-2024 Trop T High Sen < 6 Normal <=14 [facility] Comment on above: Performed By: #### L 501.4021 ####[facility] [address] [facility] [place], [place], [address] L503.7505on 12-23-2024 Natriuretic peptide B (Bld) [Mass/Vol] 74 pg/mL Normal <=450 [facility] Comment on above: Result Comment: Hear t Failure Unlikely: < 300 pg/mL Heart Failure Likely < 50 Years: > 450 pg/mL 50-75 Years: > 900 pg/mL >75 Years: > 1800 pg/mL Performed By: #### M 100.3400 #### [facility] [address] [facility] [place], [place], [address] Laboratory - Chemistry and C hemistry - challengeOrdered By: Stanley JohnsonMasoud on 12-23-2024 AST [Catalytic activity/Vol] 14 U/L <32 [facility] Natriuretic peptide B (Bld) [Mass/Vol] 74 pg/mL <450 [facility] Comment on above: Heart Failure Unlike ly: < 300 pg/mLHeart Failure Likely< 50 Years: > 450 pg/mL50-75 Years: > 900 pg/mL>75 Years: > 1800 pg/mL Lymphocytes Auto (Unsp spec) [#/Vol]Ordered By: Stanley Gaytan on 12-23-2024 Lymphocytes (Bld) [#/Vol] 1.45 10*3/uL 0.83-4.51 [facility] Lymphocytes/100 WBC Auto (Un sp spec)Ordered By: Stanley Gaytan on 12-23-2024 Lymphocytes/100 WBC (Bld) 12.8 % Low 19-41 [facility] MCV (mean corpuscular volume ) determinationOrdered By: Stanley Gaytan on 12-23-2024 MCV (RBC) [Entitic vol] 89.9 fL 81-99 [facility] Mean corpuscular hemoglobin (MCH) determinationOrdered By: Stanley Gaytan on 12-23-2024 MCH (RBC) [Entitic mass] 31.3 pg 27.0-32.0 [facility] Mean corpuscular hemoglobin concentration (MCHC) determinationOrdered By: Stanley Gaytan on 12-23-2024 MCHC (RBC) [Mass/Vol] 34.8 g/dL 32-[address] [facility] Mean platelet volume determi nationOrdered By: Stanley Gaytan on 12-23-2024 Platelet mean volume (Bld) [Entitic vol] 10.3 fL 6.2-12.0 [facility] Monocyte percentageOrdered B y: Stanley Gaytan on 12-23-2024 Monocytes/100 WBC (Bld) 7.8 % 0-10 [facility] Neutrophil percentageOrdered By: Stanley Gaytan on 12-23-2024 Neutrophils/100 WBC (Bld) 77.8 % High 47-70 [facility] Nucleated red blood cell per centageOrdered By: Stanley Gaytan on 12-23-2024 Nucleated RBC/100 WBC (Bld) [Ratio] 0 % 0-5 [facility] Platelet countOrdered By: Kelvin Gaytan on 12-23-2024 Platelets (Bld) [#/Vol] 237 10*3/uL 150-450 [facility] Potassium (Unsp spec) [Mass/ Vol]Ordered By: Stanley Gaytan on 12-23-2024 Potassium [Moles/Vol] 3.8 mmol/L 3.3-5.[address] [facility] Potassium measurement (mass/ volume)Ordered By: Stanley Gaytan on 04-03-2025 Potassium (Unsp spec) [Mass/Vol] 3.8 mmol/L 3.3-5.1 [facility] RBC Auto (Bld) [#/Vol]Ordere d By: Stanley Gaytan on 12-23-2024 RBC (Bld) [#/Vol] 3.58 10*6/uL Low 4.2-5.4 [facility] Serum creatinine measurement (mass/volume)Ordered By: Stanley Gaytan on 12-23-2024 Creatinine [Mass/Vol] 0.54 mg/dL Low 0.70-1.[address] [facility] Serum globulin measurementOr dered By: Stanley Gaytan on 12-23-2024 Globulin (S) [Mass/Vol] 2.9 g/dL 2.2-4.2 [facility] Serum glucose measurement (m ass/volume)Ordered By: Stanley Gaytan on 12-23-2024 Glucose [Mass/Vol] 82 mg/dL 70-99 [facility] Serum or plasma alanine chin otransferase (ALT) measurementOrdered By: Stanley Gaytan on 12-23-2024 ALT [Catalytic activity/Vol] 7 U/L <35 [facility] Serum or plasma albumin thomas urement (mass/volume)Ordered By: Stanley Meredith on 12-23-2024 Albumin [Mass/Vol] 3.4 g/dL Low 3.5-5.0 [facility] Serum or plasma albumin/glob ulin mass ratioOrdered By: Stanley Gaytan on 12-23-2024 Albumin/Globulin [Mass ratio] 1.2 {ratio} 0.9-2.4 [facility] Serum or plasma alkaline chris sphatase measurementOrdered By: Stanley Gaytan on 12-23-2024 ALP [Catalytic activity/Vol] 76 U/L 35-104 [facility] Serum or plasma calcium thomas urement (mass/volume)Ordered By: Stanley Meredith on 12-23-2024 Calcium [Mass/Vol] 8.8 mg/dL 7.6-11.0 [facility] Serum or plasma urea nitroge n measurement (mass/volume)Ordered By: Stanley Gaytan on 12-23-2024 Urea nitrogen [Mass/Vol] 6 mg/dL 4-19 [facility] Sodium levelOrdered By: Rolando Gaytan on 12-23-2024 Sodium [Moles/Vol] 136 mmol/L 133-145 [facility] Total proteinOrdered By: Nir Gaytan on 12-23-2024 Protein [Mass/Vol] 6.3 g/dL 5.9-8.4 [facility] Troponin T.cardiac High sens itivity method [Mass/Vol]Ordered By: Stanley Meredith on 12-23-2024 Troponin T High Sensitivity < 6 ng/L <14 [facility] Troponin T.cardiac [Mass/vol ume] in Serum or Plasma by High sensitivity methodOrdered By: Stanley Gaytan on 12-23-2024 Troponin T.cardiac High sensitivity method [Mass/Vol] < 6 ng/L <14 [facility] Venous Duplex US, Unilateral on 12-23-2024 Venous Duplex US, Unilateral [facility] [address] [place] [address] Venous Duplex US, Unilateral 12/23/24 1035 MR#: [id number] Acct: [id number] Name: ARMANDO CUENCA Rep #: [id number] : 2000 24 From: Vamsi Saenz MD Attending Dr: Status: DEP ER Ordering Dr: Rolando Gaytan DO Date: 5 Location: ED Sex: F C Admitted: Reason For Study Reason For Study: Left leg pain RIGHT LEFT CFV is compressible, spontaneous, phasic, competent GSV is normal. and demonstrates normal augmentation. Acute deep vein thrombosis is noted in the EIV, CFV Procedure and ProfundaV. It is dilated and NONCOMPRESSIBLE. This is a venous duplex using B-mode, color flow and Roulex flow noted throughout the remainder of the left spectral Doppler. leg. Exam performed portable in ED. FV is compressible, spontaneous, phasic, competent and A preliminary report was called and/or faxed to Dr. demonstrates normal augmentation. Lukas. POP V is compressible, spontaneous, phasic, competent and demonstrates normal augmentation. T/P Trunk is compressible. PTV is compressible. LT PerV is compressible. VL/Venous Duplex US, Unilateral Interpretation Summary Acute deep vein thrombosis left external iliac vein, common femoral vein, profunda femoral vein. Slow flow visualized within other visualized veins. __ Ordering Physician: Stanley Gaytan Referring Physician: Alanna Blue Performed By: Bhavani Camacho Edwin 12/23/24 1630 Date Vamsi Saenz MD CC: Dr. Stanley Gaytan, DO; Dr. Alanna Blue MD Date Dictated: 12/23/24 1035 Date Transcribed: 12/23/241629 Milk Route Supervisor: Signed Normal [facility] White blood cell (WBC) count Ordered By: Stanley Gaytan on 12-23-2024 WBC (Bld) [#/Vol] 11.3 10*3/uL High 4.4-11.0 [facility] Laboratory - Chemistry and C hemistry - challengeOrdered By: Tara Olvera on 12-22-2024 Bilirubin Ql (U) Negative [facility] Glucose Ql (U) Negative [facility] Ketones Ql (U) Large (80+) [facility] pH (U) 5.0 [pH] [facility] Specific gravity (U) [Rel density] 1.015 [facility] Urobilinogen (U) [Mass/Vol] Negative [facility] Laboratory - Hematology and Cell countsOrdered By: Tara Olvera on 12-22-2024 Hemoglobin Ql (U) Negative [facility] Laboratory - Specimen inform ationOrdered By: Tara Olvera on 12-22-2024 Clarity (U) Clear [facility] Color (U) Yellow [facility] Laboratory - UrinalysisOrder ed By: Tara Olvera on 12-22-2024 Nitrite Ql (U) Negative [facility] Protein Ql (U) Negative [facility] No Panel InformationOrdered By: Tara Olvera on 12-22-2024 Urine Leukocytes Negatve [facility] Urine Non-Hemolyzed Blood Negative [facility] Actuarial Science Professor Office Visit Reporton 12-22-2024 Actuarial Science Professor Office Visit Report [facility]'[address], [address] [place] [id number] OFFICE VISIT Date of Service: 12/22/24 MR#: [id number] Acct: [id number] Name: ARMANDO CUENCA Rep #: [id number] : 2000 Provider: SARABJIT whyte Age/Sex: 24/F Location: [facility] [place] Status: Signed Intake Vital Signs 12/03/24 15:56 12/22/24 08:04 12/22/24 14:42 Height 5 ft 3 in 5 ft 3 in 5 ft 3 in Weight: 144 lb 8 oz BMI 25.6 BP 122/70 H Intake Visit Reasons: OB, low abd pain/upper thigh pain with walking Chief Complaint: 26 Week OB/ abd. pain- upper thigh pain when walking Bumper Straightener Required: No Is patient in pain?: No Allergies No Known Allergies Allergy (Verified 12/22/24 14:44) Medications ???Medication ???Instructions ???Recorded ???Confirmed ???Type Saccharomyces boulardii 250 mg 250 mg PO BID 08/16/22 12/22/24 Hi story capsule (Daily Probiotic (S. boulardii)) diphenhydramine HCl 25 mg capsule 25 mg PO QHS PRN 07/30/24 5 History (Benadryl) docosahexaenoic acid 200 mg mg PO 07/30/24 12/22/24 History capsule ( DHA) Last Menstrual Period: 06/18/24 Zika: Zika virus screening: Negative : No PFSH PFSH Surgical History History of tonsillectomy Family History Father Hypertension Arthritis Grandfather Diabetes Grandfather Kidney disease Social History adopted: No household members: spouse current occupational status: employed 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 current occupational exposures/hazards: No pets and animals: Yes ( taking care litter box ) pets and animals: cat(s) and dog(s) history of recent travel: Yes ( - May ) out of state: Yes out of country: No sexually active: Yes Smoking Status: Never smoker alcohol intake: current alcohol intake frequency: holidays/special occasions only details: Not while substance use type: does not use well-balanced diet: daily or most days caffeine: Yes Type: coffee eating out: 1-3 times/week during the past year weight has: remained stable what type of physical activity do you participate in: walking, running and weight training frequency: 5-6 times per week duration: 30-45 minutes/day wander/sikh: Anglican seatbelt use: always do you feel safe at home: Yes 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 OB Visit JUHI Calculator Estimated Delivery Date Method Current WG Current Estimate 03/25/25 LMP (Certain) 26w 5d Expected Delivery Route/Plan Labor Preferences- CB/BF classes: [] labor support person: [] labor intervention preferences: [] pain management options preferred: [] cut cord/dad catch: [] : [] PP control planned: [] discussed possible routes of delivery and associated risks: [] special requests: [] Specific Issue/Plans Covid status: [] Flu vaccine: declined Tdap vaccine: [] Rhogam: [] LARC form signed: [] Problem list reviewed and updated with the most current plan of care details and appropriate orders placed. Relevant counseling for the gestational age provided. Continue routine care and follow up unless otherwise noted in visit notes/problem list details Initial Weight: 129 lb Date -???-???-???-???-?? ?-???-???-???-???-? ??-???-???- EGA Weight BP Urine Prot -???-???-???-???-?? ?-???-???-???-???-? ??-???-???- Glucose FHR FuHt Pres Dilation -???-???-???-???-?? ?-???-???-???-???-? ??-???-???- Effaced St Visit Note 08/13/24 -???-???-???-???-?? ?-???-???-???-???-? ??-???-???- 8w 0d 129 lb 8 oz (+8 oz) 114/84 -???-???-???-???-?? ?-???-???-???-???-? ??-???-???- 175 -???-???-???-???-?? ?-???-???-???-???-? ??-???-???- LC 1.55 CRL con with LMP. declines nipt. 09/09/24 -???-???-???-???-?? ?-???-???-???-???-? ??-???-???- 11w 6d 133 lb 8 oz (+4 lb 8 oz) 119/73 Negative -???-???-???-???-?? ?-???-???-???-???-? ??-???-???- Negative 180 -???-???-???-???-?? ?-???-???-???-???-? ??-???-???- JV- no compl aints today. plan new ob labs today. bedside scan reassuring. 10/08/24 -???-???-???-???-?? ?-???-???-???-???-? ??-???-???- 16w 0d 136 lb 2 oz (+7 lb 2 oz) 124/84 Negative -???-???-???-???-?? ?-???-???-???-???-? ??-???-???- Negative 145 -???-???- (more content not included)... Normal [facility] Laboratory - Chemistry and C hemistry - challengeOrdered By: Sarah Blackwood on 12-03-2024 Glucose Ql (U) Negative [facility] Laboratory - UrinalysisOrder ed By: Sarah Blackwood on 12-03-2024 Protein Ql (U) Negative [facility] Actuarial Science Professor Office Visit Reporton 12-03-2024 Actuarial Science Professor Office Visit Report [facility]'s [address], [address] [place] [address] OFFICE VISIT Date of Service: 12/03/24 MR#: [id number] Acct: [id number] Name: ARMANDO CUENCA Rep #: [id number] : 2000 Provider: WILLY Haynes ams Age/Sex: 24/F Location: [facility] Status: Signed Intake Vital Signs 09/09/24 15:06 11/05/24 15:45 12/03/24 15:56 Height 5 ft 3 in 5 ft 3 in 5 ft 3 in Weight: 139 lb 2 oz BMI 24.6 BP 120/71 Intake Visit Reasons: 24 wk ob Chief Complaint: 24wk ob Is patient in pain?: No Allergies No Known Allergies Allergy (Verified 12/03/24 15:57) Medications ???Medication ???Instructions ???Recorded ???Confirmed ???Type Saccharomyces boulardii 250 mg 250 mg PO BID 08/16/22 12/03/24 Hi story capsule (Daily Probiotic (S. boulardii)) diphenhydramine HCl 25 mg capsule 25 mg PO QHS PRN 07/30/24 5 History (Benadryl) docosahexaenoic acid 200 mg mg PO 07/30/24 12/03/24 History capsule ( DHA) Last Menstrual Period: 06/18/24 : No PFSH PFSH Surgical History History of tonsillectomy Family History Father Hypertension Arthritis Grandfather Diabetes Grandfather Kidney disease Social History adopted: No household members: spouse current occupational status: employed current occupation: [employer] current occupational exposures/hazards: No pets and animals: Yes ( taking care litter box ) pets and animals: cat(s) and dog(s) history of recent travel: Yes ( - May ) out of state: Yes out of country: No sexually active: Yes Smoking Status: Never smoker alcohol intake: current alcohol intake frequency: holidays/special occasions only details: Not while substance use type: does not use well-balanced diet: daily or most days caffeine: Yes Type: coffee eating out: 1-3 times/week during the past year weight has: remained stable what type of physical activity do you participate in: walking, running and weight training frequency: 5-6 times per week duration: 30-45 minutes/day wander/sikh: Anglican seatbelt use: always do you feel safe at home: Yes 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 OB Visit JUHI Calculator Estimated Delivery Date Method Current WG Current Estimate 03/25/25 LMP (Certain) 24w 0d Expected Delivery Route/Plan Labor Preferences- CB/BF classes: [] labor support person: [] labor intervention preferences: [] pain management options preferred: [] cut cord/dad catch: [] : [] PP control planned: [] discussed possible routes of delivery and associated risks: [] special requests: [] Specific Issue/Plans Covid status: [] Flu vaccine: declined Tdap vaccine: [] Rhogam: [] LARC form signed: [] Problem list reviewed and updated with the most current plan of care details and appropriate orders placed. Relevant counseling for the gestational age provided. Continue routine care and follow up unless otherwise noted in visit notes/problem list details Initial Weight: 129 lb Date -???-???-???-???-?? ?-???-???-???-???-? ??-???-???- EGA Weight BP Urine Prot -???-???-???-???-?? ?-???-???-???-???-? ??-???-???- Glucose FHR FuHt Pres Dilation -???-???-???-???-?? ?-???-???-???-???-? ??-???-???- Effaced St Visit Note 08/13/24 -???-???-???-???-?? ?-???-???-???-???-? ??-???-???- 8w 0d 129 lb 8 oz (+8 oz) 114/84 -???-???-???-???-?? ?-???-???-???-???-? ??-???-???- 175 -???-???-???-???-?? ?-???-???-???-???-? ??-???-???- LC 1.55 CRL con with LMP. declines nipt. 09/09/24 -???-???-???-???-?? ?-???-???-???-???-? ??-???-???- 11w 6d 133 lb 8 oz (+4 lb 8 oz) 119/73 Negative -???-???-???-???-?? ?-???-???-???-???-? ??-???-???- Negative 180 -???-???-???-???-?? ?-???-???-???-???-? ??-???-???- JV- no compl aints today. plan new ob labs today. bedside scan reassuring. 10/08/24 -???-???-???-???-?? ?-???-???-???-???-? ??-???-???- 16w 0d 136 lb 2 oz (+7 lb 2 oz) 124/84 Negative -???-???-???-???-?? ?-???-???-???-???-? ??-???-???- Negative 145 -???-???-???-???-?? ?-???-???-???-???-? ??-???-???- JV- no lof, vaginal bleeding, or cramping. anatomy scan scheduled. no complaints today. 11/05/24 -???-???-???-???-?? ?-???-???-???-???-? ??-???-???- 20w 0d 1 (more content not included)... Normal [facility] - Chemistry and C hemistry - challengeOrdered By: Rosy Albert on 11-05-2024 Glucose Ql (U) Negative [facility] - UrinalysisOrder ed By: Rosy Albert on 11-05-2024 Protein Ql (U) Negative [facility] Actuarial Science Professor Office Visit Reporton 11-05-2024 Actuarial Science Professor Office Visit Report [facility]'s [address], [address] [place] [address] OFFICE VISIT Date of Service: 11/05/24 MR#: [id number] Acct: [id number] Name: ARMANDO CUENCA Rep #: [id number] : 2000 Provider: Dr. Rosy enriquez MD Age/Sex: 24/F Location: [facility] [place] Status: Signed Intake Vital Signs 08/13/24 11:21 10/08/24 13:46 11/05/24 15:44 11/05/24 15:45 Height 5 ft 3 in 5 ft 3 in 5 ft 3 in 5 ft 3 in Weight: 139 lb 6 oz BMI 24.7 BP 131/81 H Intake Visit Reasons: 20 wk ob Bumper Straightener Required: No Is patient in pain?: No Feel stressed/tense/nerv ous/anxious/difficu lty sleeping: not at all Allergies No Known Allergies Allergy (Verified 11/05/24 15:45) Medications ???Medication ???Instructions ???Recorded ???Confirmed ???Type Saccharomyces boulardii 250 mg 250 mg PO BID 08/16/22 11/05/24 Hi story capsule (Daily Probiotic (S. boulardii)) diphenhydramine HCl 25 mg capsule 25 mg PO QHS PRN 07/30/24 5 History (Benadryl) docosahexaenoic acid 200 mg mg PO 07/30/24 11/05/24 History capsule ( DHA) Last Menstrual Period: 06/18/24 Zika: Zika virus screening: Negative : No Have you fallen in the past year?: No PFSH PFSH Surgical History History of tonsillectomy Family History Father Hypertension Arthritis Grandfather Diabetes Grandfather Kidney disease Social History adopted: No household members: spouse current occupational status: employed current occupation: [employer] current occupational exposures/hazards: No pets and animals: Yes ( taking care litter box ) pets and animals: cat(s) and dog(s) history of recent travel: Yes ( - May ) out of state: Yes out of country: No sexually active: Yes Smoking Status: Never smoker alcohol intake: current alcohol intake frequency: holidays/special occasions only details: Not while substance use type: does not use well-balanced diet: daily or most days caffeine: Yes Type: coffee eating out: 1-3 times/week during the past year weight has: remained stable what type of physical activity do you participate in: walking, running and weight training frequency: 5-6 times per week duration: 30-45 minutes/day wander/sikh: Anglican seatbelt use: always do you feel safe at home: Yes 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 OB Visit JUHI Calculator Estimated Delivery Date Method Current WG Current Estimate 03/25/25 LMP (Certain) 20w 0d Expected Delivery Route/Plan Labor Preferences- CB/BF classes: [] labor support person: [] labor intervention preferences: [] pain management options preferred: [] cut cord/dad catch: [] : [] PP control planned: [] discussed possible routes of delivery and associated risks: [] special requests: [] Specific Issue/Plans Covid status: [] Flu vaccine: declined Tdap vaccine: [] Rhogam: [] LARC form signed: [] Problem list reviewed and updated with the most current plan of care details and appropriate orders placed. Relevant counseling for the gestational age provided. Continue routine care and follow up unless otherwise noted in visit notes/problem list details Initial Weight: 129 lb Date -???-???-???-???-?? ?-???-???-???-???-? ??-???-???- EGA Weight BP Urine Prot -???-???-???-???-?? ?-???-???-???-???-? ??-???-???- Glucose FHR FuHt Pres Dilation -???-???-???-???-?? ?-???-???-???-???-? ??-???-???- Effaced St Visit Note 08/13/24 -???-???-???-???-?? ?-???-???-???-???-? ??-???-???- 8w 0d 129 lb 8 oz (+8 oz) 114/84 -???-???-???-???-?? ?-???-???-???-???-? ??-???-???- 175 -???-???-???-???-?? ?-???-???-???-???-? ??-???-???- LC 1.55 CRL con with LMP. declines nipt. 09/09/24 -???-???-???-???-?? ?-???-???-???-???-? ??-???-???- 11w 6d 133 lb 8 oz (+4 lb 8 oz) 119/73 Negative -???-???-???-???-?? ?-???-???-???-???-? ??-???-???- Negative 180 -???-???-???-???-?? ?-???-???-???-???-? ??-???-???- JV- no compl aints today. plan new ob labs today. bedside scan reassuring. 10/08/24 -???-???-???-???-?? ?-???-???-???-???-? ??-???-???- 16w 0d 136 lb 2 oz (+7 lb 2 oz) 124/84 Negative -???-???-???-???-?? ?-???-???-???-???-? ??-???-???- Negative 145 -???-???-???-???-?? ?-? (more content not included)... Normal [facility] - Chemistry and C hemistry - challengeon 10-08-2024 Glucose Ql (U) Negative [facility] - Urinalysison Protein Ql (U) Negative [facility] Actuarial Science Professor Office Visit Reporton 10-08-2024 Actuarial Science Professor Office Visit Report [facility]'[address], [address] [place] [address] OFFICE VISIT Date of Service: 10/08/24 MR#: [id number] Acct: [id number] Name: ARMANDO CUENCA Rep #: [id number] : 2000 Provider: Dr. Kareen Fowler DO Age/Sex: 24/F Location: [facility] [place] Status: Signed Intake Vital Signs 08/13/24 11:21 09/09/24 15:06 10/08/24 13:46 10/08/24 13:46 Height 5 ft 3 in 5 ft 3 in 5 ft 3 in 5 ft 3 in Weight: 136 lb 2 oz BMI 24.0 BP 124/84 H Intake Visit Reasons: 16 wk ob Bumper Straightener Required: No Is patient in pain?: No Allergies No Known Allergies Allergy (Verified 10/08/24 13:46) Medications ???Medication ???Instructions ???Recorded ???Confirmed ???Type Saccharomyces boulardii 250 mg 250 mg PO BID 08/16/22 10/08/24 History capsule (Daily Probiotic (S. boulardii)) diphenhydramine HCl 25 mg capsule 25 mg PO QHS PRN 07/30/24 10/08/24 History (Benadryl) docosahexaenoic acid 200 mg mg PO 07/30/24 10/08/24 History capsule ( DHA) Last Menstrual Period: 06/18/24 Zika: Zika virus screening: Negative : No PFSH PFSH Surgical History History of tonsillectomy Family History Father Hypertension Arthritis Grandfather Diabetes Grandfather Kidney disease Social History adopted: No household members: spouse current occupational status: employed current occupation: [employer] current occupational exposures/hazards: No pets and animals: Yes ( taking care litter box ) pets and animals: cat(s) and dog(s) history of recent travel: Yes ( - May ) out of state: Yes out of country: No sexually active: Yes Smoking Status: Never smoker alcohol intake: current alcohol intake frequency: holidays/special occasions only details: Not while substance use type: does not use well-balanced diet: daily or most days caffeine: Yes Type: coffee eating out: 1-3 times/week during the past year weight has: remained stable what type of physical activity do you participate in: walking, running and weight training frequency: 5-6 times per week duration: 30-45 minutes/day wander/sikh: Anglican seatbelt use: always do you feel safe at home: Yes 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 OB Visit JUHI Calculator Estimated Delivery Date Method Current WG Current Estimate 03/25/25 LMP (Certain) 16w 0d Expected Delivery Route/Plan Labor Preferences- CB/BF classes: [] labor support person: [] labor intervention preferences: [] pain management options preferred: [] cut cord/dad catch: [] : [] PP control planned: [] discussed possible routes of delivery and associated risks: [] special requests: [] Specific Issue/Plans Covid status: [] Flu vaccine: [] Tdap vaccine: [] Rhogam: [] LARC form signed: [] Problem list reviewed and updated with the most current plan of care details and appropriate orders placed. Relevant counseling for the gestational age provided. Continue routine care and follow up unless otherwise noted in visit notes/problem list details Initial Weight: 129 lb Date -???-???-???-???-?? ?-???-???-???-???-? ??-???-???- EGA Weight BP Urine Prot -???-???-???-???-?? ?-???-???-???-???-? ??-???-???- Glucose FHR FuHt Pres Dilation -???-???-???-???-?? ?-???-???-???-???-? ??-???-???- Effaced St Visit Note 08/13/24 -???-???-???-???-?? ?-???-???-???-???-? ??-???-???- 8w 0d 129 lb 8 oz (+8 oz) 114/84 -???-???-???-???-?? ?-???-???-???-???-? ??-???-???- 175 -???-???-???-???-?? ?-???-???-???-???-? ??-???-???- LC 1.55 CRL con with LMP. declines nipt. 09/09/24 -???-???-???-???-?? ?-???-???-???-???-? ??-???-???- 11w 6d 133 lb 8 oz (+4 lb 8 oz) 119/73 Negative -???-???-???-???-?? ?-???-???-???-???-? ??-???-???- Negative 180 -???-???-???-???-?? ?-???-???-???-???-? ??-???-???- JV- no compl aints today. plan new ob labs today. bedside scan reassuring. 10/08/24 -???-???-???-???-?? ?-???-???-???-???-? ??-???-???- 16w 0d 136 lb 2 oz (+7 lb 2 oz) 124/84 Negative -???-???-???-???-?? ?-???-???-???-???-? ??-???-???- Negative 145 -???-???-???-???-?? ?-???-???-???-???-? ??-???-???- JV- no lof, vaginal bleeding, or cramping. anatomy scan scheduled. no complaints t (more content not included)... Normal [facility] - Chemistry and C hemistry - challengeon 09-09-2024 Glucose Ql (U) Negative [facility] - Urinalysison Protein Ql (U) Negative [facility] Actuarial Science Professor Office Visit Reporton 09-09-2024 Actuarial Science Professor Office Visit Report [facility] [address] [place] [address], [address] [place] [address] OFFICE VISIT Date of Service: 09/09/24 MR#: [id number] Acct: [id number] Name: JOELLENARMANDO ARIELLE Rep #: [id number] : 2000 Provider: Dr. Kareen Fowler DO Age/Sex: 24/F Location: [facility] [place] Status: Signed Intake Vital Signs 08/13/24 11:21 09/09/24 15:04 09/09/24 15:06 Height 5 ft 3 in 5 ft 3 in 5 ft 3 in Weight: 133 lb 8 oz BMI 23.6 BP 119/73 Intake Visit Reasons: 12wk OB Bumper Straightener Required: No Is patient in pain?: No Allergies No Known Allergies Allergy (Verified 09/09/24 15:04) Medications ???Medication ???Instructions ???Recorded ???Confirmed ???Type Saccharomyces boulardii 250 mg 250 mg PO BID 08/16/22 09/09/24 History capsule (Daily Probiotic (S. boulardii)) diphenhydramine HCl 25 mg capsule 25 mg PO QHS PRN 07/30/24 09/09/24 History (Benadryl) docosahexaenoic acid 200 mg mg PO 07/30/24 09/09/24 History capsule ( DHA) Last Menstrual Period: 06/18/24 Zika: Zika virus screening: Negative : No PFSH PFSH Surgical History History of tonsillectomy Family History Father Hypertension Arthritis Grandfather Diabetes Grandfather Kidney disease Social History adopted: No household members: spouse current occupational status: employed current occupation: [employer] current occupational exposures/hazards: No pets and animals: Yes ( taking care litter box ) pets and animals: cat(s) and dog(s) history of recent travel: Yes ( - May ) out of state: Yes out of country: No sexually active: Yes Smoking Status: Never smoker alcohol intake: current alcohol intake frequency: holidays/special occasions only details: Not while substance use type: does not use well-balanced diet: daily or most days caffeine: Yes Type: coffee eating out: 1-3 times/week during the past year weight has: remained stable what type of physical activity do you participate in: walking, running and weight training frequency: 5-6 times per week duration: 30-45 minutes/day wander/sikh: Anglican seatbelt use: always do you feel safe at home: Yes 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 OB Visit JUHI Calculator Estimated Delivery Date Method Current WG Current Estimate 03/25/25 LMP (Certain) 11w 6d Expected Delivery Route/Plan Labor Preferences- CB/BF classes: [] labor support person: [] labor intervention preferences: [] pain management options preferred: [] cut cord/dad catch: [] : [] PP control planned: [] discussed possible routes of delivery and associated risks: [] special requests: [] Specific Issue/Plans Covid status: [] Flu vaccine: [] Tdap vaccine: [] Rhogam: [] LARC form signed: [] Problem list reviewed and updated with the most current plan of care details and appropriate orders placed. Relevant counseling for the gestational age provided. Continue routine care and follow up unless otherwise noted in visit notes/problem list details Initial Weight: 129 lb Date -???-???-???-???-?? ?-???-???-???-???-? ??-???-???- EGA Weight BP Urine Prot -???-???-???-???-?? ?-???-???-???-???-? ??-???-???- Glucose FHR FuHt Pres Dilation -???-???-???-???-?? ?-???-???-???-???-? ??-???-???- Effaced St Visit Note 08/13/24 -???-???-???-???-?? ?-???-???-???-???-? ??-???-???- 8w 0d 129 lb 8 oz (+8 oz) 114/84 -???-???-???-???-?? ?-???-???-???-???-? ??-???-???- 175 -???-???-???-???-?? ?-???-???-???-???-? ??-???-???- LC 1.55 CRL con with LMP. declines nipt. 09/09/24 -???-???-???-???-?? ?-???-???-???-???-? ??-???-???- 11w 6d 133 lb 8 oz (+4 lb 8 oz) 119/73 Negative -???-???-???-???-?? ?-???-???-???-???-? ??-???-???- Negative 180 -???-???-???-???-?? ?-???-???-???-???-? ??-???-???- JV- no compl aints today. plan new ob labs today. bedside scan reassuring. [facility] First Trimester First Trimester: Discussed Results POC Urinalysis 2 Dip (Clinic) Office Urine Glucose Negative Last Edit by Rukhsana Pugh on 09/09/24 15:27 Office Urine Protein Negative Last Edit by Rukhsana Pugh on 09/09/24 15:27 Coding Level of Care Code OB Routine Diagnoses Supe (more content not included)... Normal [facility] Chlamydia/GC JIHAN aptimaon CHLAMY,NUC ACID Negative Normal Negative [facility] Comment on above: Performed By: #### M [id number] #### [facility] [address] [place], [place], [id number] GC BY NUC ACID Negative Normal Negative [facility] Comment on above: Result Comment: Perf ormed at: =G - [facility] [address]ontae jennings, Nat[place] [id number] Residential Energy Auditor: Glory Kong MD, Phone: [phone] Performed By: #### M 100.3400 #### [facility] [address] [place], [address] Urine Cultureon 08-14-2024 URC Culture exhibits no growth. Normal [facility] Comment on above: Performed By: #### M 100.3400 #### [facility] [address] [place], [address] CBC W/Diff, Automatedon 07-24 Absolute Lymph 1.80 X10 3/uL Normal 0.83-4.51 [facility] Comment on above: Performed By: #### L 100.0100, L509.4005, L3890.6005, BTS, L3890.6100, L509.8000, L3890.6300 ####[facility] [address] [place], [address] Absolute Neut 7.0 X10 3/uL Normal 2.0-7.7 [facility] Comment on above: Performed By: #### L 100.0100, L509.4005, L3890.6005, BTS, L3890.6100, L509.8000, L3890.6300 ####[facility] [address] [place], [address] Basophils/100 WBC (Bld) 0.4 % Normal 0-1 [facility] Comment on above: Performed By: #### L 100.0100, L509.4005, L3890.6005, BTS, L3890.6100, L509.8000, L3890.6300 ####[facility] [address] [place], [address] Eosinophils/100 WBC (Bld) 0.6 % Normal 0-5 [facility] Comment on above: Performed By: #### L 100.0100, L509.4005, L3890.6005, BTS, L3890.6100, L509.8000, L3890.6300 ####[facility] [address] [place], [address] Erythrocyte distribution width (RBC) [Ratio] 11.4 % Low 11.6-14.6 [facility] Comment on above: Performed By: #### L 100.0100, L509.4005, L3890.6005, BTS, L3890.6100, L509.8000, L3890.6300 ####[facility] [address] [place], [address] Hematocrit (Bld) [Volume fraction] 42.5 % Normal 37-47 [facility] Comment on above: Performed By: #### L 100.0100, L509.4005, L3890.6005, BTS, L3890.6100, L509.8000, L3890.6300 ####[facility] [address] [place], [address] Hemoglobin (Bld) [Mass/Vol] 15.1 g/dL High 12.0-15.0 [facility] Comment on above: Performed By: #### L 100.0100, L509.4005, L3890.6005, BTS, L3890.6100, L509.8000, L3890.6300 ####[facility] [address] [place], [address] IG% 0.400 Normal 0.0-0.9 [facility] Comment on above: Result Comment: IG% - Immature Granulocytes (promyelocytes, myelocytes and metamyelocytes) > 1% indicates that a LEFT SHIFT is Present. Performed By: #### L 100.0100, L509.4005, L3890.6005, BTS, L3890.6100, L509.8000, L3890.6300 ####[facility] [address] [place], [address] Lymphocytes/100 WBC (Bld) 18.8 % Low 19-41 [facility] Comment on above: Performed By: #### L 100.0100, L509.4005, L3890.6005, BTS, L3890.6100, L509.8000, L3890.6300 ####[facility] [address] [place], [address] MCH (RBC) [Entitic mass] 30.8 pg Normal 27.0-32.0 [facility] Comment on above: Performed By: #### L 100.0100, L509.4005, L3890.6005, BTS, L3890.6100, L509.8000, L3890.6300 ####[facility] [address] [place], [address] MCHC (RBC) [Mass/Vol] 35.5 g/dL Normal 32-[address] [facility] Comment on above: Performed By: #### L 100.0100, L509.4005, L3890.6005, BTS, L3890.6100, L509.8000, L3890.6300 ####[facility] [address] [place], [address] MCV (RBC) [Entitic vol] 86.7 fL Normal 81-99 [facility] Comment on above: Performed By: #### L 100.0100, L509.4005, L3890.6005, BTS, L3890.6100, L509.8000, L3890.6300 ####[facility] [address] [place], [address] Monocytes/100 WBC (Bld) 6.7 % Normal 0-10 [facility] Comment on above: Performed By: #### L 100.0100, L509.4005, L3890.6005, BTS, L3890.6100, L509.8000, L3890.6300 ####[facility] [address] [place], [address] Neutrophils/100 WBC (Bld) 73.1 % High 47-70 [facility] Comment on above: Performed By: #### L 100.0100, L509.4005, L3890.6005, BTS, L3890.6100, L509.8000, L3890.6300 ####[facility] [address] [place], [address] Nucleated RBC (Bld) [#/Vol] 0 10*3/uL Normal 0-5 [facility] Comment on above: Performed By: #### L 100.0100, L509.4005, L3890.6005, BTS, L3890.6100, L509.8000, L3890.6300 ####[facility] [address] [place], [address] Platelet mean volume (Bld) [Entitic vol] 9.5 fL Normal 6.2-12.0 [facility] Comment on above: Performed By: #### L 100.0100, L509.4005, L3890.6005, BTS, L3890.6100, L509.8000, L3890.6300 ####[facility] [address] [place], [address] Platelets (Bld) [#/Vol] 320 10*3/uL Normal 150-450 [facility] Comment on above: Performed By: #### L 100.0100, L509.4005, L3890.6005, BTS, L3890.6100, L509.8000, L3890.6300 ####[facility] [address] [place], [address] RBC (Bld) [#/Vol] 4.90 10*6/uL Normal 4.2-5.4 [facility] Comment on above: Performed By: #### L 100.0100, L509.4005, L3890.6005, BTS, L3890.6100, L509.8000, L3890.6300 ####[facility] [address] [place], [place], [phone](056) RDW SD 35.9 fl Normal 35.1-43.9 [facility] Comment on above: Performed By: #### L 100.0100, L509.4005, L3890.6005, BTS, L3890.6100, L509.8000, L3890.6300 ####[facility] [address] [place], [place], [address] WBC (Bld) [#/Vol] 9.6 10*3/uL Normal 4.4-11.0 [facility] Comment on above: Performed By: #### L 100.0100, L509.4005, L3890.6005, BTS, L3890.6100, L509.8000, L3890.6300 ####[facility] [address] [place], [place], [address] HIV - WCHon 08-13-2024 [facility] Comment on above: Order Comment: Reaso n for Exam: Performed By: #### L 100.0100, L509.4005, L3890.6005, BTS, L3890.6100, L509.8000, L3890.6300 ####[facility] [address] [place], [address] Hepatitis B Surface Antigeno n 08-13-2024 HEP B Surf Ag Non-Reactive [facility] Comment on above: Order Comment: Reaso n for Exam: Performed By: #### L 100.0100, L509.4005, L3890.6005, BTS, L3890.6100, L509.8000, L3890.6300 ####[facility] [address] [place], [place], [id number] Hepatitis C Antibodyon 08-13 Hepatitis C AB Non-Reactive Normal Nonreactive [facility] Comment on above: Order Comment: Reaso n for Exam: Result Comment: Non Reactive: < 0.8 Equivocal: >/= 0.8 to < 1.0 Reactive: >/= 1.0 The [facility] requires that a reactive/equivocal HCV antibody result be sent out for confirmation. HCV Quant by PCR testing. Performed By: #### L 100.0100, L509.4005, L3890.6005, BTS, L3890.6100, L509.8000, L3890.6300 ####[facility] [address] [place], [place], [address] L509.8000on 08-13-2024 Syphilis Abs Non-Reactive Normal [facility] Comment on above: Order Comment: Reaso n for Exam: Performed By: #### L 100.0100, L509.4005, L3890.6005, BTS, L3890.6100, L509.8000, L3890.6300 ####[facility] [address] [place], [place], [address] Actuarial Science Professor Office Visit Reporton 08-13-2024 Actuarial Science Professor Office Visit Report [facility] [address], [address] [place] [address] OFFICE VISIT Date of Service: 08/13/24 MR#: [id number] Acct: [id number] Name: ARMANDO CUENCA Rep #: [id number] : 2000 Provider: WILLY roche Age/Sex: 24/F Location: [facility] [place] Status: Signed Intake Vital Signs 08/13/24 11:21 Height 5 ft 3 in Weight: 129 lb 8 oz BMI 22.9 BP 114/84 H Intake Visit Reasons: New OB, LMP 06/18, JUHI 03/25/25 Chief Complaint: NOB Bumper Straightener Required: No Is patient in pain?: No Allergies No Known Allergies Allergy (Unverified 08/13/24 11:18) Medications ???Medication ???Instructions ???Recorded ???Confirmed ???Type Saccharomyces boulardii 250 mg 250 mg PO BID 08/16/22 08/13/24 History capsule (Daily Probiotic (S. boulardii)) diphenhydramine HCl 25 mg capsule 25 mg PO QHS PRN 07/30/24 08/13/24 History (Benadryl) docosahexaenoic acid 200 mg mg PO 07/30/24 08/13/24 History capsule ( DHA) Last Menstrual Period: 06/18/24 Zika: Zika virus screening: Negative : No PFSH PFSH Surgical History History of tonsillectomy Family History Father Hypertension Arthritis Grandfather Diabetes Grandfather Kidney disease Social History adopted: No household members: spouse service: No current occupational status: employed current occupation: [employer] current occupational exposures/hazards: No pets and animals: Yes ( taking care litter box ) pets and animals: cat(s) and dog(s) history of recent travel: Yes ( - May ) out of state: Yes out of country: No sexually active: Yes Smoking Status: Never smoker alcohol intake: current alcohol intake frequency: holidays/special occasions only details: Not while substance use type: does not use well-balanced diet: daily or most days caffeine: Yes Type: coffee eating out: 1-3 times/week during the past year weight has: remained stable what type of physical activity do you participate in: walking, running and weight training frequency: 5-6 times per week duration: 30-45 minutes/day wander/sikh: Anglican seatbelt use: always do you feel safe at home: Yes additional social history: : [employer] - 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 OB Visit JUHI Calculator Estimated Delivery Date Method Current WG Current Estimate 03/25/25 LMP (Certain) 8w 0d Estimated Due Date: 03/25/25 Expected Delivery Route/Plan Labor Preferences- CB/BF classes: [] labor support person: [] labor intervention preferences: [] pain management options preferred: [] cut cord/dad catch: [] : [] PP control planned: [] discussed possible routes of delivery and associated risks: [] special requests: [] Specific Issue/Plans Covid status: [] Flu vaccine: [] Tdap vaccine: [] Rhogam: [] LARC form signed: [] Problem list reviewed and updated with the most current plan of care details and appropriate orders placed. Relevant counseling for the gestational age provided. Continue routine care and follow up unless otherwise noted in visit notes/problem list details Initial Weight: 129 lb Date -???-???-???-???-?? ?-???-???-???-???-? ??-???-???- EGA Weight BP Urine Prot -???-???-???-???-?? ?-???-???-???-???-? ??-???-???- Glucose FHR FuHt Pres Dilation -???-???-???-???-?? ?-???-???-???-???-? ??-???-???- Effaced St Visit Note 08/13/24 -???-???-???-???-?? ?-???-???-???-???-? ??-???-???- 8w 0d 129 lb 8 oz (+8 oz) 114/84 -???-???-???-???-?? ?-???-???-???-???-? ??-???-???- 175 -???-???-???-???-?? ?-???-???-???-???-? ??-???-???- LC 1.55 CRL con with LMP. declines nipt. Menstrual History Last Menstrual Period: 06/18/24 Reported LMP: definite Antepartum Record Genetic Screening: Congenital Heart Defect: Other, Neural Tube Defect: Other, Hemoglobinopathy Or Carrier: Other, Cystic Fibrosis: Other, Chromosome Abnormality: Other, Jean-Claude-Sachs: Other, Hemophilia: Other, Intellectual Disability/Autism: Other, Recurrent Loss/Stillbirth: Other, Other Structural Defect: Other, Other Genetic Disease: Other and Maternal Metabolic Disorder: Other Infection History: Live with someone with TB or Exposed to TB: No, Patient or Partner has history of (more content not included)... Normal [facility] Rubella IgGon 08-13-2024 Rubella IgG Reactive Normal Nonreactive [facility] Comment on above: Order Comment: Reaso n for Exam: Result Comment: Anti body Results Interpretation of Immune Status Non Reactive Presumed Non-Immune Equivocal Equivocal Reactive Presumed Immune Performed By: #### L 100.0100, L509.4005, L3890.6005, BTS, L3890.6100, L509.8000, L3890.6300 ####[facility] [address] [place], [place], [phone] Type AND Screenon 08-13-2024 Ab SCREEN GEL Negative [facility] Comment on above: Order Comment: PN Performed By: #### L 100.0100, L509.4005, L3890.6005, BTS, L3890.6100, L509.8000, L3890.6300 ####[facility] [address] [place], [place], [id number] ABO and Rh group Nom (Bld) Blood group A Rh(D) positive Normal [facility] Comment on above: Order Comment: PN Performed By: #### L 100.0100, L509.4005, L3890.6005, BTS, L3890.6100, L509.8000, L3890.6300 ####[facility] [address] [place], [place], [phone] Absolute lymphocyte counton 08-07-2022 Lymphocytes Auto (Unsp spec) [#/Vol] 1.36 10*3/uL 0.83-4.51 [facility] Work Phone: Basophil percentageon 2021 Basophils/100 WBC (Bld) 1.0 % 0-1 [facility] Work Phone: Bilirubin [Mass/Vol] 0.40 mg/dL 0.20-1.00 [facility] Work Phone: Comment on above: For patients on eltr ombopag therapy, use of Dimension [place] TBIL is not recommended. Chloride [Moles/Vol] 104 mmol/L 98-107 [facility] Work Phone: Eosinophils/100 WBC (Bld) 1.9 % 0-5 [facility] Work Phone: Glucose [Mass/Vol] 75 mg/dL 74-106 [facility] Work Phone: Neutrophils (Bld) [#/Vol] 2.9 10*3/uL 2.0-7.7 [facility] Work Phone: Neutrophils/100 WBC (Bld) 56.0 % 47-70 [facility] Work Phone: Potassium [Moles/Vol] 3.4 mmol/L 3.5-5.[address] [facility] Work Phone: Protein [Mass/Vol] 7.4 g/dL 6.4-8.2 [facility] Work Phone: Sodium [Moles/Vol] 139 mmol/L 136-145 [facility] Work Phone: WBC (Bld) [#/Vol] 5.2 10*3/uL 4.4-11.0 [facility] Work Phone: Blood erythrocytes count (nu mber/volume)on 08-07-2022 RBC (Bld) [#/Vol] 5.10 10*6/uL 4.2-5.4 [facility]: Blood hemoglobin measurement (mass/volume)on 08-07-2022 Hemoglobin (Bld) [Mass/Vol] 15.6 g/dL 12.0-15.0 [facility] Work Phone: Blood lymphocytes/100 leukoc yteson 08-07-2022 Lymphocytes/100 WBC (Bld) 26.1 % 19-41 [facility] Work Phone: Blood monocytes/100 leukocyt eson 08-07-2022 Monocytes/100 WBC (Bld) 14.8 % 0-10 [facility] Work Phone: Blood platelet mean volumeon 08-07-2022 Platelet mean volume (Bld) [Entitic vol] 11.0 fL 6.2-12.0 [facility] Work Phone: Determination of erythrocyte mean corpuscular volume (MCV)on 08-07-2022 MCV (RBC) [Entitic vol] 92.0 fL 81-99 [facility] Work Phone: Hematocrit Auto (Bld) [Volum e fraction]on 08-07-2022 Hematocrit (Bld) [Volume fraction] 46.9 % 37-47 [facility] Work Phone: Iron measurement (mass/mass) on 08-07-2022 Iron (Unsp spec) [Mass/Mass] 34 ug/dL 50-170 [facility] Work Phone: Laboratory - Chemistry and C hemistry - challengeon 08-07-2022 ALP [Catalytic activity/Vol] 45 U/L 45-117 [facility] Work Phone: ALT [Catalytic activity/Vol] 16 U/L 13-56 [facility] Work Phone: CO2 [Moles/Vol] 26.0 mmol/L 21.0-32.0 [facility] Work Phone: Cobalamin (Vitamin B12) [Mass/Vol] 961 pg/mL 211-911 [facility] Work Phone: Free T4 [Mass/Vol] 0.84 ng/dL 0.76-1.46 [facility] Work Phone: Globulin (S) [Mass/Vol] 3.4 g/dL 2.2-4.2 [facility] Work Phone: Transferrin [Mass/Vol] 266 mg/dL 192-364 [facility] Work Phone: Comment on above: Performed at: [address] [id number] Director: Lan Soto PhD, Phone: [phone] Urea nitrogen/Creatinine [Mass ratio] 12.0 mg/mg 10-20 [facility] Work Phone: Laboratory - Hematology and Cell countson 08-07-2022 Erythrocyte distribution width (RBC) [Entitic vol] 42.1 fL 35.1-43.9 [facility] Work Phone: Erythrocyte distribution width (RBC) [Ratio] 12.3 % 11.6-14.6 [facility] Work Phone: Immature granulocytes/100 WBC (Bld) 0.200 % 0.0-0.9 [facility] Work Phone: Comment on above: IG% - Immature Granu locytes (promyelocytes, myelocytes and metamyelocytes) > 1% indicates that a LEFT SHIFT is Present. MCH (RBC) [Entitic mass] 30.6 pg 27.0-32.0 [facility] Work Phone: Nucleated RBC/100 WBC (Bld) [Ratio] 0 % 0-5 [facility] Work Phone: MCHC Auto (RBC) [Mass/Vol]on 08-07-2022 MCHC (RBC) [Mass/Vol] 33.3 g/dL 32-[address] [facility] Work Phone: No Panel Informationon 08-07 Estimated GFR (MDRD) Amer 122 mL/min >60 [facility] Work Phone: Comment on above: GFR Calc Estimated GFR (MDRD) Non-Af Amer 101 mL/min >60 [facility] Work Phone: Comment on above: Non- GFR Calc Thyroid Stimulating Hormone (TSH) 3.02 uIU/mL 0.358-3.74 [facility] Work Phone: Total Iron Binding Capacity 363 ug/dL 250-450 [facility] Work Phone: Vitamin D 25-Hydroxy 38.2 ng/mL [facility] Work Phone: Comment on above: Vitamin D 25(OH) Sta tus Range Deficiency <20 ng/mL (50nmol/L) Insufficiency 20 - 30 ng/mL (50 - 75 nmol/L) Sufficiency 30 - 100 ng/mL (75 - 250 nmol/L) Toxicity >100 ng/mL (>250 nmol/L) Platelets bldon 08-07-2022 Platelets (Bld) [#/Vol] 274 10*3/uL 150-450 [facility] Work Phone: Serum or plasma albumin thomas urement (mass/volume)on 08-07-2022 Albumin [Mass/Vol] 4.0 g/dL 3.2-5.0 [facility] Work Phone: Serum or plasma albumin/glob ulin mass ratioon 08-07-2022 Albumin/Globulin [Mass ratio] 1.2 {ratio} 0.9-2.4 [facility] Work Phone: Serum or plasma calcium thomas urement (mass/volume)on 08-07-2022 Calcium [Mass/Vol] 8.9 mg/dL 8.5-10.1 [facility] Work Phone: Serum or plasma creatinine m easurement (mass/volume)on 08-07-2022 Creatinine [Mass/Vol] 0.75 mg/dL 0.55-1.[address] [facility] Work Phone: Comment on above: The validity of the calculated GFR & GFRAA in patients over 70 years has not been determined. Clinical correlation is essential. Serum or plasma ferritin kristan surement (mass/volume)on 08-07-2022 Ferritin [Mass/Vol] 60 ng/mL 8-252 [facility] Work Phone: Serum or plasma iron saturat ion measurement (mass fraction)on 08-07-2022 Iron saturation [Mass fraction] 9.4 % 15.0-55.0 [facility] Work Phone: Serum or plasma urea nitroge n measurement (mass/volume)on 08-07-2022 Urea nitrogen [Mass/Vol] 9 mg/dL 7-18 [facility] Work Phone: Thin prep Papanicolaou smear with manual screeningon 08-07-2022 Thin prep Papanicolaou smear with manual screening 13 U/L 15-37 [facility] Work Phone: Thin prep Papanicolaou smear with manual screening 9 5-15 [facility] Work Phone: COVID-19, MOLECULARon 2019 SARS-COV-2 (GUTIERREZ ID) Detected Abnormal Not Detected [facility] Comment on above: Result Comment: This test was performed under the FDA's Emergency Use Authorization (EUA). Testing was performed using the Gutierrez ID NOW COVID-19 assay on the ID NOW platform. This test has not been approved for use in asymptomatic patients and its performance in this patient population has not been evaluated. Negative results do not rule out the presence of SARS-CoV-2/COVID-19. Fact sheets for the EUA can be found at the following links: For Healthcare Providers: https://www.fda.gov/media/262317/download For Patients: https://www.fda.gov/media/314693/download COVID-19, Molecularon 2019 Interpretation and review of laboratory results Abnormal [facility] SARS-CoV-2 Detected Abnormal Not Detected [facility] Comment on above: This test was perfor med under the FDA's Emergency Use Authorization (EUA). Testing was performed using the Gutierrez ID NOW COVID-19 assay on the ID NOW platform. This test has not been approved for use in asymptomatic patients and its performance in this patient population has not been evaluated. Negative results do not rule out the presence of SARS-CoV-2/COVID-19. Fact sheets for the EUA can be found at the following links: For Healthcare Providers: https://www.fda.gov/media/497069/download For Patients: https://www.fda.gov/media/411200/download FOOT RT 3 VIEWSon 02-03-2018 FOOT RT 3 VIEWS [facility] Patient: ARMANDO APONTE Rodrigo. . JULIAN Hoang [address] Admit Date: 02/03/18 /Age: 4 2000 ED Physician:MARIIA Guillory RADIOLOGY REQUISITION Attending Physician: Andra Adkins MD [facility] Rec #: [id number] RIGHT FOOT X-RAYS 02/03/2018 CLINICAL DATA: Injured foot 3 weeks ago with pain and fullness fourth distalmeatarsal. Concernfor Lisfranc injury. FINDINGS: Upright 3-view series. No comparisons. Lisfranc joint is normallyalined. The plantararch is preserved. There is no stress reaction or fracture in the foot. IMPRESSION: Negative x-rays of the right foot with preserved Lisfranc joint and plantararc. Authenticated on: 02/03/18 [id number]: 02/03/18 1445T: 02/03/18Job ID# [id number]: Andra Adkins MD Normal [facility] Vital Signs Date Time Vital Sign Value Performing Clinician Facility 03-17-2025 09:54-0400 Body height 160.[address] Alanna Blue MD Work Phone: [facility] 03-17-2025 09:52-0400 Body mass index (BMI) [Ratio] 26.1 kg/m2 Dr. Alanna Blue MD Work Phone: 6(537)[phone] [place] [address] 03-17-2025 09:52-0400 Body weight 66.[address] Alanna Blue MD Work Phone: 7(946)472-515465 [place] [address] 03-17-2025 09:52-0400 Diastolic blood pressure 87 mm[Hg] Dr. Alanna Blue MD Work Phone: 8(097)696-534464 [place] [address] 03-17-2025 09:52-0400 Systolic blood pressure 126 mm[Hg] Dr. Alanna Blue MD Work Phone: 0(412)[phone] [place] [address] 03-10-2025 10:37-0400 Body height 160.[address] Alanna Blue MD Work Phone: 6(166)940-503464 [place] [address] 03-10-2025 10:36-0400 Body mass index (BMI) [Ratio] 26.1 kg/m2 Dr. Alanna Blue MD Work Phone: 3(078)368-661064 [place] [address] 03-10-2025 10:36-0400 Body weight 66.[address] Alanna Blue MD Work Phone: 7(262)739-636064 [place] [address] 03-10-2025 10:36-0400 Diastolic blood pressure 84 mm[Hg] Dr. Alanna Blue MD Work Phone: 9(809)981-130964 [place] [address] 03-10-2025 10:36-0400 Systolic blood pressure 129 mm[Hg] Dr. Alanna Blue MD Work Phone: 5(796)511-012164 [place] [address] 03-03-2025 11:14-0400 Body height 160.[address] Alanna Blue MD Work Phone: 5(798)903-371664 [place] [address] 03-03-2025 11:11-0400 Body mass index (BMI) [Ratio] 26.2 kg/m2 Dr. Alanna Blue MD Work Phone: 2(753)688-055264 [place] [address] 03-03-2025 11:11-0400 Body weight 67.[address] Alanna Blue MD Work Phone: 1(391)623-215764 [place] [address] 03-03-2025 11:11-0400 Diastolic blood pressure 76 mm[Hg] Dr. Alanna Blue MD Work Phone: [facility] 03-03-2025 11:11-0400 Systolic blood pressure 129 mm[Hg] Dr. Alanna Blue MD Work Phone: [facility] 02-24-2025 14:06-0400 Body height 160.[address] Alanna Blue MD Work Phone: [facility] 02-24-2025 14:05-0400 Body mass index (BMI) [Ratio] 25.8 kg/m2 Dr. Alanna Blue MD Work Phone: 2(756)256-629165 [place] [address] 02-24-2025 14:05-0400 Body weight 66.[address] Alanna Blue MD Work Phone: 8(192)464-190965 [place] [address] 02-24-2025 14:05-0400 Diastolic blood pressure 88 mm[Hg] Dr. Alanna Blue MD Work Phone: 3(641)335-101665 [place] [address] 02-24-2025 14:05-0400 Systolic blood pressure 128 mm[Hg] Dr. Alanna Blue MD Work Phone: 2(065)976-424565 [place] [address] 02-17-2025 08:39-0400 Body height 160.[address] Alanna Blue MD Work Phone: 0(387)694-122665 [place] [address] 02-17-2025 08:39-0400 Body mass index (BMI) [Ratio] 25.7 kg/m2 Dr. Alanna Blue MD Work Phone: [facility] 02-17-2025 08:39-0400 Body weight 65.[address] Alanna Blue MD Work Phone: [facility] 02-17-2025 08:39-0400 Diastolic blood pressure 79 mm[Hg] Dr. Alanna Blue MD Work Phone: [facility] 02-17-2025 08:39-0400 Systolic blood pressure 125 mm[Hg] Dr. Alanna Blue MD Work Phone: 8(891)400-111565 [place] [address] 02-09-2025 09:46-0400 Body height 160.[address] Alanna Blue MD Work Phone: 6(093)879-796264 [place] [address] 02-09-2025 09:46-0400 Body mass index (BMI) [Ratio] 25.8 kg/m2 Dr. Alanna Blue MD Work Phone: 4(564)076-972964 [place] [address] 02-09-2025 09:46-0400 Body weight 66.[address] Alanna Blue MD Work Phone: 9(194)605-841064 [place] [address] 02-09-2025 09:46-0400 Diastolic blood pressure 80 mm[Hg] Dr. Alanna Blue MD Work Phone: 8(260)705-891664 [place] [address] 02-09-2025 09:46-0400 Systolic blood pressure 132 mm[Hg] Dr. Alanna Blue MD Work Phone: 2(328)236-991364 [place] [address] 02-03-2025 08:37-0400 Body height 160.[address] Alanna Blue MD Work Phone: 9(105)556-896064 [place] [address] 02-03-2025 08:37-0400 Body mass index (BMI) [Ratio] 25.7 kg/m2 Dr. Alanna Blue MD Work Phone: 3(120)728-270864 [place] [address] 02-03-2025 08:37-0400 Body weight 65.[address] Alanna Blue MD Work Phone: 9(382)449-043464 [place] [address] 02-03-2025 08:37-0400 Diastolic blood pressure 73 mm[Hg] Dr. Alanna Blue MD Work Phone: 4(003)667-318764 [place] [address] 02-03-2025 08:37-0400 Systolic blood pressure 109 mm[Hg] Dr. Alanna Blue MD Work Phone: 0(026)267-689564 [place] [address] 01-24-2025 10:23-0400 Body height 160.[address] Alanna Blue MD Work Phone: 5(571)557-456864 [place] [address] 01-24-2025 10:20-0400 Body mass index (BMI) [Ratio] 25.3 kg/m2 Dr. Alanna Blue MD Work Phone: [facility] 01-24-2025 10:20-0400 Body weight 64.[address] Alanna Blue MD Work Phone: [facility] 01-24-2025 10:20-0400 Diastolic blood pressure 78 mm[Hg] Dr. Alanna Blue MD Work Phone: [facility] 01-24-2025 10:20-0400 Systolic blood pressure 132 mm[Hg] Dr. Alanna Bleu MD Work Phone: [facility] 01-11-2025 15:43-0400 Body mass index (BMI) [Ratio] 25.5 kg/m2 Dr. Alanna Blue MD Work Phone: 9(258)954-411265 [place] [address] 01-11-2025 15:43-0400 Body weight 65.[address] Alanna Blue MD Work Phone: 4(771)141-570065 [place] [address] 01-11-2025 15:43-0400 Diastolic blood pressure 74 mm[Hg] Dr. Alanna Blue MD Work Phone: [facility] 01-11-2025 15:43-0400 Systolic blood pressure 118 mm[Hg] Dr. Alanna Blue MD Work Phone: [facility] 01-07-2025 15:31-0400 Body temperature 98.6 [degF] Dr. Alanna Blue MD Work Phone: [facility] 01-07-2025 15:31-0400 Body weight 64.[address] Alanna Blue MD Work Phone: [facility] 01-07-2025 15:31-0400 Diastolic blood pressure 65 mm[Hg] Dr. Alanna Blue MD Work Phone: [facility] 01-07-2025 15:31-0400 Heart rate 78 /min Dr. Alanna Blue MD Work Phone: [facility] 01-07-2025 15:31-0400 Respiratory rate 16 /min Dr. Alanna Blue MD Work Phone: [facility] 01-07-2025 15:31-0400 SaO2% (BldA) [Mass fraction] 100 % Dr. Alanna Blue MD Work Phone: 3(499)012-918165 [place] [address] 01-07-2025 15:31-0400 Systolic blood pressure 107 mm[Hg] Dr. Alanna Blue MD Work Phone: 1(790)034-880664 [place] [address] 12-29-2024 15:29-0400 Body height 160.[address] Alanna Blue MD Work Phone: 8(606)361-061064 [place] [address] 12-29-2024 15:29-0400 Body mass index (BMI) [Ratio] 25.2 kg/m2 Dr. Alanna lBue MD Work Phone: 1(836)725-100564 [place] [address] 12-29-2024 15:29-0400 Body weight 64.[address] Alanna Blue MD Work Phone: 3(783)220-358464 [place] [address] 12-29-2024 15:29-0400 Diastolic blood pressure 68 mm[Hg] Dr. Alanna Blue MD Work Phone: 2(332)871-536964 [place] [address] 12-29-2024 15:29-0400 Systolic blood pressure 118 mm[Hg] Dr. Alanna Blue MD Work Phone: 3(738)985-700164 [place] [address] 12-24-2024 15:06-0400 Body mass index (BMI) [Ratio] 25.4 kg/m2 Dr. Alanna Blue MD Work Phone: 3(200)396-491865 [place] [address] 12-24-2024 15:06-0400 Body weight 65.[address] Alanna Blue MD Work Phone: 4(291)759-899864 [place] [address] 12-24-2024 15:06-0400 Diastolic blood pressure 74 mm[Hg] Dr. Alanna Blue MD Work Phone: 1(396)281-719064 [place] [address] 12-24-2024 15:06-0400 Systolic blood pressure 128 mm[Hg] Dr. Alanna Blue MD Work Phone: 3(580)318-774964 [place] [address] 12-23-2024 14:25-0400 Body temperature 98.2 [degF] Dr. Alanna Blue MD Work Phone: [facility] 12-23-2024 14:25-0400 Diastolic blood pressure 63 mm[Hg] Dr. Alanna Blue MD Work Phone: [facility] 12-23-2024 14:25-0400 Heart rate 97 /min Dr. Alanna Blue MD Work Phone: 9(682)514-637665 [place] [address] 12-23-2024 14:25-0400 Respiratory rate 18 /min Dr. Alanna Blue MD Work Phone: 4(020)847-801064 [place] [address] 12-23-2024 14:25-0400 SaO2% (BldA) [Mass fraction] 98 % Dr. Alanna Blue MD Work Phone: 0(231)631-002665 [place] [address] 12-23-2024 14:25-0400 Systolic blood pressure 114 mm[Hg] Dr. Alanna Blue MD Work Phone: 6(812)362-585164 [place] [address] 12-23-2024 10:09-0400 Body height 160.[address] Alanna Blue MD Work Phone: 8(886)978-017964 [place] [address] 12-23-2024 10:09-0400 Body mass index (BMI) [Ratio] 25.3 kg/m2 Dr. Alanna Blue MD Work Phone: 7(440)639-922664 [place] [address] 12-23-2024 10:09-0400 Body weight 64.[address] Alanna Blue MD Work Phone: 6(909)027-932065 [place] [address] 12-22-2024 14:42-0400 Body mass index (BMI) [Ratio] 25.6 kg/m2 Dr. Alanna Blue MD Work Phone: 7(179)456-468365 [place] [address] 12-22-2024 14:42-0400 Body weight 65.[address] Alanna Blue MD Work Phone: 1(609)092-522065 [place] [address] 12-22-2024 14:42-0400 Diastolic blood pressure 70 mm[Hg] Dr. Alanna Blue MD Work Phone: 3(163)782-861864 [place] [address] 12-22-2024 14:42-0400 Systolic blood pressure 122 mm[Hg] Dr. Alanna Blue MD Work Phone: [facility] 12-03-2024 15:56-0400 Body mass index (BMI) [Ratio] 24.6 kg/m2 Dr. Alanna Blue MD Work Phone: [facility] 12-03-2024 15:56-0400 Body weight 63.[address] Alanna Blue MD Work Phone: [facility] 12-03-2024 15:56-0400 Diastolic blood pressure 71 mm[Hg] Dr. Alanna Blue MD Work Phone: [facility] 12-03-2024 15:56-0400 Systolic blood pressure 120 mm[Hg] Dr. Alanna Blue MD Work Phone: [facility] 11-05-2024 15:44-0500 Body mass index (BMI) [Ratio] 24.7 kg/m2 Dr. Alanna Blue MD Work Phone: [facility] 11-05-2024 15:44-0500 Body weight 63.[address] Alanna Blue MD Work Phone: [facility] 11-05-2024 15:44-0500 Diastolic blood pressure 81 mm[Hg] Dr. Alanna Blue MD Work Phone: [facility] 11-05-2024 15:44-0500 Systolic blood pressure 131 mm[Hg] Dr. Alanna Blue MD Work Phone: [facility] 10-08-2024 13:46-0500 Body mass index (BMI) [Ratio] 24 kg/m2 Dr. Alanna Blue MD Work Phone: [facility] 10-08-2024 13:46-0500 Body weight 61.[address] Alanna Blue MD Work Phone: [facility] 10-08-2024 13:46-0500 Diastolic blood pressure 84 mm[Hg] Dr. Alanna Blue MD Work Phone: [facility] 10-08-2024 13:46-0500 Systolic blood pressure 124 mm[Hg] Dr. Alanna Blue MD Work Phone: [facility] 09-09-2024 15:04-0500 Body mass index (BMI) [Ratio] 23.6 kg/m2 Dr. Alanna Blue MD Work Phone: [facility] 09-09-2024 15:04-0500 Body weight 60.[address] Alanna Blue MD Work Phone: [facility] 09-09-2024 15:04-0500 Diastolic blood pressure 73 mm[Hg] Dr. Alanna Blue MD Work Phone: [facility] 09-09-2024 15:04-0500 Systolic blood pressure 119 mm[Hg] Dr. Alanna Blue MD Work Phone: [facility] 08-10-2021 14:29-0500 Body mass index (BMI) [Ratio] 24.13 kg/m2 Andra Adkins MD Work Phone: [facility] 08-10-2021 14:29-0500 Body temperature 98.49 [degF] Andra Adkins MD Work Phone: [facility] 08-10-2021 14:29-0500 Body weight 61.78 kg Andra Adkins MD Work Phone: [facility] 08-10-2021 14:29-0500 Diastolic blood pressure 70 mm[Hg] Andra Adkins MD Work Phone: [facility] 08-10-2021 14:29-0500 Heart rate 89 /min Andra Adkins MD Work Phone: [facility] 08-10-2021 14:29-0500 Respiratory rate 15 /min Andra Adkins MD Work Phone: [facility] 08-10-2021 14:29-0500 SaO2% (BldA) [Mass fraction] 89 % Andra Adkins MD Work Phone: [facility] 08-10-2021 14:29-0500 Systolic blood pressure 130 mm[Hg] Andra Adkins MD Work Phone: [facility] 09-06-2020 11:22-0500 BMI (Body Mass Index) 26.04 kg/m2 [facility] 11:22-0500 Body Temperature 98.2 [degF] [facility] 09-06-2020 11:22-0500 Body weight 66.68 kg [facility] 09-06-2020 11:22-0500 BP Diastolic 81 mm[Hg] [facility] 09-06-2020 11:22-0500 BP Systolic 130 mm[Hg] [facility] 09-06-2020 11:22-0500 Pulse (Heart Rate) 84 /min [facility] 09-06-2020 11:22-0500 Pulse Oximetry 98 % [facility] 09-06-2020 11:22-0500 Respiratory Rate 16 /min [facility] Encounters Encounter Date Encounter Type Care Provider Facility Start: 03-17-2025 Evaluation and management of inpatient Alanna Blue Facility:[facility] Start: 03-17-2025 End: 03-17-[address] Rosy Albert MD -[facility] Work Phone: Start: 03-17-2025 End: 03-17-[address] Alanna Blue MD Work Phone: [facility] Work Phone: Start: 03-10-2025 End: 03-10-[address] Kareen Sands DO -[facility] Work Phone: Start: 03-10-2025 End: 03-10-[address] Alanna Blue MD Work Phone: [facility] Work Phone: Start: 03-04-2025 Non-patient / Non-visit Dr. Vamsi camarena MD -[facility] Start: 03-04-2025 End: 03-04-[address] Alanna Blue MD Work Phone: [facility] Work Phone: Start: 03-04-2025 End: 03-04-2025 Patient encounter procedure Mitali MARLEY -Ultrasound [facility] Work Phone: Start: 03-03-2025 End: 03-03-2025 Patient encounter procedure Sarah Blackwood CNM -[facility] Work Phone: Start: 03-03-2025 End: 03-04-[address] Alanna Blue MD Work Phone: [facility] Work Phone: Start: 03-03-2025 End: 03-03-2025 ambulatory Sarah Blackwood Facility:[facility] Start: 02-24-2025 End: 02-24-[address] Rosy Albert MD -[facility] Work Phone: Start: 02-24-2025 End: 02-24-[address] Alanna Blue MD Work Phone: [facility] Work Phone: Start: 02-17-2025 End: 02-17-[address] Alanna Blue MD Work Phone: [facility] Work Phone: Start: 02-17-2025 End: 02-17-[address] Kareen Sands DO -[facility] Work Phone: Start: 02-17-2025 End: 02-17-2025 Patient encounter procedure Sarah Blackwood CNM -[facility] Work Phone: Start: 02-17-2025 End: 02-17-[address] Alanna Blue MD Work Phone: [facility] Work Phone: Start: 02-17-2025 End: 02-17-2025 ambulatory Kareen Sands Facility:[facility] Start: 02-09-2025 End: 02-09-[address] Kareen Sands DO -[facility] Work Phone: Start: 02-09-2025 End: 02-09-[address] Alanna Blue MD Work Phone: [facility] Work Phone: Start: 02-03-2025 End: 02-03-2025 Patient encounter procedure Sarah Jaison AGUILERA -[facility] Work Phone: Start: 02-03-2025 End: 02-03-[address] Alanna Blue MD Work Phone: [facility] Work Phone: Start: 02-02-2025 End: 02-02-[address] Alanna Blue MD Work Phone: [facility] Work Phone: Start: 02-02-2025 End: 02-02-2025 Patient encounter procedure Tara Olvera PROGRAMMING INSTRUCTOR-C -Ultrasound [facility] Work Phone: Start: 02-02-2025 End: 02-02-2025 ambulatory Alanna Blue Facility:[facility] Start: 01-25-2025 Non-patient / Non-visit Dr. Vamsi camarena MD -[facility] Start: 01-25-2025 End: 01-25-[address] Alanna Blue MD Work Phone: [facility] Work Phone: Start: 01-25-2025 End: 01-25-2025 Patient encounter procedure Tara Olvera PROGRAMMING INSTRUCTOR-C -[facility] Work Phone: Start: 01-24-2025 End: 01-25-2025 ambulatory Alanna Blue Facility:[facility] Start: 01-24-2025 End: 01-24-[address] Kareen Sands DO -[facility] Work Phone: Start: 01-11-2025 End: 01-11-2025 ambulatory Alanna Blue Facility:[facility] Start: 01-11-2025 End: 01-11-2025 Patient encounter procedure Tara Olvera PROGRAMMING INSTRUCTOR-C -[facility] Work Phone: Start: 01-07-2025 End: 01-07-2025 Patient encounter procedure Mitali MARLEY -[facility] Work Phone: Start: 01-07-2025 End: 01-07-2025 ambulatory Alanna Blue Facility:[facility] Start: 01-03-2025 End: 01-03-[address] Alanna Blue MD Work Phone: [facility] Work Phone: Start: 01-03-2025 End: 01-03-2025 Patient encounter procedure Sarah Blackwood CNM -Laboratory Work Phone: Start: 01-03-2025 End: 01-03-2025 ambulatory Alanna Blue Facility:[facility] Start: 12-29-2024 End: 12-29-2024 Patient encounter procedure Tara Olvera PROGRAMMING INSTRUCTOR-C -[facility] Work Phone: Start: 12-29-2024 End: 12-29-[address] Alanna Blue MD Work Phone: [facility] Work Phone: Start: 12-29-2024 End: 12-29-2024 ambulatory Kareen Sands Facility:[facility] Start: 12-24-2024 End: 12-24-[address] Rosy Albert MD -[facility] Work Phone: Start: 12-24-2024 End: 12-24-2024 ambulatory Rosy Albert Facility:[facility] Start: 12-23-2024 ambulatory Vamsi Saenz Facility:[facility] Start: 12-23-2024 Non-patient / Non-visit Dr. Vamsi camarena MD -[facility] Start: 12-23-2024 End: 12-23-2024 Emergency department patient visit Dr. Alanna Blue MD Work Phone: -Emergency Department Work Phone: Start: 12-22-2024 End: 12-22-2024 Patient encounter procedure Tara WHIPPLE -[facility] Work Phone: Start: 12-22-2024 End: 12-22-2024 ambulatory Alanna Blue Facility:[facility] Start: 12-03-2024 End: 12-03-2024 Patient encounter procedure Sarah Blackwood CNM -[facility] Work Phone: Start: 12-03-2024 End: 12-03-2024 ambulatory Alanna Blue Facility:[facility] Start: 11-05-2024 End: 11-05-[address] Rosy Albert MD -[facility] Work Phone: Start: 11-05-2024 End: 11-05-2024 ambulatory Alanna Blue Facility:[facility] Start: 10-28-2024 End: 10-28-2024 ambulatory ALANNA BLUE [facility] Start: 10-08-2024 End: 10-08-[address] Kareen Sands DO -[facility] Work Phone: Start: 10-08-2024 End: 10-08-2024 ambulatory Kareen Sands Facility:[facility] Start: 09-09-2024 End: 09-09-[address] Kareen Sands DO -[facility] Work Phone: Start: 09-09-2024 End: 09-09-2024 ambulatory Kareen Sands Facility:[facility] Start: 08-13-2024 End: 08-13-2024 ambulatory Jasmin Moody Facility:[facility] Start: 08-13-2024 End: 11-22-2024 ambulatory [facility] Facility:[facility] Start: 07-30-2024 ambulatory Mayra Martinez Facility :[facility] Start: 08-07-2022 End: 08-07-2022 ambulatory [facility] Work Phone: Start: 08-07-2022 End: 08-07-2022 Patient encounter procedure [facility] Start: 08-10-2021 End: 08-10-2021 ambulatory ANDRA ADKINS [facility] Amb[facility] Start: 08-10-2021 End: 08-10-2021 Office outpatient visit 15 minutes Andra Adkins MD Work Phone: [facility] [place] Comment on above: Subcutaneous nodule of breast (Primary Dx) Start: 09-06-2020 End: 09-06-2020 Patient encounter procedure ANDRA ADKINS [facility] Start: 09-06-2020 End: 09-06-2020 Office outpatient new 30 minutes Jessica Cortez Work Phone: [facility] Comment on above: COVID-19 (Primary Dx ); Fever in other diseases Start: 08-14-2020 End: 08-14-2020 Patient encounter procedure TONE MORALES [facility] Start: 08-14-2020 End: 08-14-2020 Office outpatient new 30 minutes Tone Morales Work Phone: [facility] Comment on above: Metatarsalgia of rig ht foot (Primary Dx); Right foot pain Start: 02-03-2018 End: 02-03-2018 Ambulatory Andra Adkins Facility:[facility] Procedures Date Procedure Procedure Detail Performing Clinician Start: 03-04-2025 Ultrasound scan for growth Dr. Alanna Blue MD Work Phone: Start: 03-03-2025 Beta-hemolytic Streptococcus culture Dr. Alanna Blue MD Work Phone: Start: 02-02-2025 Ultrasound scan for growth Dr. Alanna Blue MD Work Phone: Start: 12-29-2024 Serologic test for syphilis Dr. Alanna Blue MD Work Phone: Start: 12-23-2024 CT angiography of ch est with contrast Dr. Alanna Blue MD Work Phone: Start: 12-23-[address] Alanna Blue MD Work Phone: Start: 08-07-2022 Plain chest X-ray Start: 11-22-2020 Adult depression scr eening assessment Andra Adkins MD Work Phone: Start: 11-22-2020 Microscopic observat ion [Identifier] in Cervix by Cyto stain Andra Adkins MD Work Phone: Start: 09-06-2020 COVID-19, MOLECULAR Chr istina Mita Cortez Work Phone: Start: 09-06-2020 COVID-19/INFLUENZA O RDER ALGORITHM Jessica Cortez Work Phone: Start: 08-11-2020 Adult depression scr eening assessment Tone Morales Plan of Treatment Date Care Activity Detail Author Start: 12-23-2024 [facility] Start: 11-23-2023 Screening for malign ant neoplasm of cervix Pap Smear [facility] Start: 11-22-2021 Depression screening using PHQ-9 (Patient Health Questionnaire 9) score Depression Screening (PHQ-2/9) [facility] Start: 11-22-2021 History and physical examination, annual for health maintenance Wellness Visit [facility] Start: 11-22-2021 Screening for Chlamy alek trachomatis Chlamydia Screening [facility] Start: 08-11-2021 Adolescent depressio n screening assessment Depression Screening (PHQ9) [facility] Start: 05-23-2021 Influenza vaccination Sequenti al Influenza Vaccine (#1) [facility] Start: 08-23-2020 End: 08-23-2020 Office Visit 08/23/2020 Office Visit Podiatry Tone Morales DPM [address] [place] [address] [phone] [facility] Start: 05-23-2020 Influenza vaccinatio n given Sequential Influenza Vaccine (#1) [facility] Start: 2016 Hepatitis C antibody , confirmatory test Hepatitis C Screening [facility] Start: 2016 Hepatitis C screening Hepatitis C Sc isaak [facility] Start: 2013 HIV screening HIV Screening [facility] Start: 2009 Vaccination for mireya n papillomavirus HPV Vaccines (1 - 2-dose series) [facility] Start: 2003 COVID-19 Vaccine (1) COVID-19 Vaccin e (1) [facility] Start: 2001 History and physical examination, annual for health maintenance Wellness Visit [facility] Start: 1998 Screening for Chlamy alek trachomatis Chlamydia Screening [facility] Start: 1998 Screening for malign ant neoplasm of cervix Pap Smear [facility] Start: 1998 Tetanus vaccination Tetanus: Every 1 0yrs [facility] CBC W Auto Different ial panel - Blood [facility] Measurement of gluco se 2 hours after glucose challenge for glucose tolerance test [facility] Patient Education DVT Complicati ons DVT Dc DVT Tx [facility] Work Phone: Patient referral [facility] Work Phone: Serologic test for syphilis [facility] Streptococcus agalac tiae [Presence] in Unspecified specimen by Organism specific culture [facility] End: 08-10-2022 Ultrasonography of breast US Breast Bilateral Complete Imaging Routine Subcutaneous nodule of breast 1 Occurrences starting 08/10/2021 until 08/10/2022 [facility] Work Phone: Comment on above: 1 Occurrences starti ng 08/10/2021 until 08/10/2022 Ultrasound scan for growth [facility] US.doppler Lower extremity vein [facility] US.doppler Lower extremity vein [facility] US.doppler Lower extremity vein [facility] End: 08-14-2021 X-ray of right foot XR Foot Right 3+ Views (Standard) Imaging Routine Metatarsalgia of right foot Right foot pain 1 Occurrences starting 08/14/2020 until 08/14/2021 [facility] Comment on above: 1 Occurrences starti ng 08/14/2020 until 08/14/2021 [facility] Immunizations Immunization Date Immunization Notes Care Provider Shruti shah 01-11-2025 tetanus toxoid, redu zahraa diphtheria toxoid, and acellular pertussis vaccine, adsorbed Dr. Alanna Blue MD Work Phone: [facility] Payers Date Payer Category Payer Unknown [id number] 2024 Self-pay 2024 Unknown [id number] 2020 Unknown [id number] 2020 Unknown [employer] PPO [id number] 2020-Present [id number] 1998 Unknown [id number] 1998 Unknown [id number] [id number] 1998 Unknown [id number] [id number] 1998 Unknown [id number] [id number] Unknown [id number] Unknown [employer]CIAL [employer]ME RCIAL MISCELLANEOUS [id number] Effective for all dates [address] [place] [address] [id number] Unknown [id number] [id number] Unknown [id number] [id number] Unknown [id number] [id number] Unknown [id number] [id number] Unknown [id number] [id number] Unknown [id number] [id number] Unknown [id number] [id number] Unknown [id number] [id number] Unknown [id number] [id number] Unknown [id number] 2.16.840.1.680438.3.579.2.462 Unknown [id number] 2.16.840.1.831608.3.579.2.462 Unknown [id number] 2.16.840.1.633217.3.579.2.462 Unknown [id number] 2.16840.1.616719.3.579.2.462 Unknown [id number] 2.16840.1.460475.3.579.2.462 Unknown [id number] 2.16840.1.631354.3.579.2.462 Unknown [id number] 2.16.840.1.978177.3.579.2.462 Unknown [id number] 2.16.840.1.135611.3.579.2.462 Unknown [id number] 2.16840.1.564730.3.579.2.462 Unknown [id number] 2.16.840.1.316207.3.579.2.462 Unknown [id number] 2.16.840.1.107396.3.579.2.462 Unknown [id number] 2.16.840.1.956055.3.579.2.462 Unknown [id number] 2.16.840.1.453266.3.579.2.462 Unknown [id number] 2.16.840.1.938362.3.579.2.462 Unknown [id number] 2.16.840.1.285775.3.579.2.462 Unknown [id number] 2.16.840.1.678570.3.579.2.462 Unknown [id number] 2.16.840.1.535734.3.579.2.462 Unknown [id number] 2.16.840.1.594156.3.579.2.462 Unknown [id number] 2.16.840.1.014737.3.579.2.462 Unknown [id number] 2.16.840.1.668382.3.579.2.462 Unknown [id number] 2.16.840.1.217959.3.579.2.462 Unknown [id number] 2.16.840.1.855235.3.579.2.462 Unknown [id number] 2.16.840.1.607455.3.579.2.462 Unknown [id number] 2.16.840.1.057365.3.579.2.462 Social History Date Type Detail Facility Start: 08-11-2020 End: 12-23-2024 Tobacco smoking status NHIS Never smoker [facility] Start: 08-11-2020 End: 09-06-2020 Tobacco use and exposure Never used [facility] Start: 08-11-2020 End: 08-11-2021 Alcohol intake Current drinker of alcohol (finding) [facility] Start: 08-11-2020 End: 11-22-2020 History SDOH Alcohol Frequency 2 [facility] Start: 08-11-2020 End: 11-22-2020 History SDOH Alcohol Std Drinks 99 [facility] Start: 2000 Sex Assigned At Not [facility] Exposure to SARS-CoV -2 (event) Not sure [facility] Start: 2000 Sex Assigned At Female [facility] Start: 12-23-2024 End: 01-06-2025 Sex Female (finding) [facility] Goals Date Patient Goal Desired Activity /State Clinical Notes 08-10-2021 to 03-07-2025 Note Date & Type Note Facility 03-07-2025 Radiology Diagnostic study note [facility] Imaging Services [address] [place], [place] [id number] OB Limited With Biometrics MR#: [id number] Acct: [id number] Name: ARMANDO CUENCA Rep #: [id number] : 2000 F 25 From: Ronnie London MD PCP: Dr. Alanna Blue MD Status: RE G CLI Study:OB Limited With Biometrics Date of Exam : 03/04/25 Exam# [id number] Ordering Dr: Tara Olvera NP PROGRAMMING INSTRUCTOR-C PROCEDURE: OB LIMITED WITH BIOMETRICS 03/04/2025 REASON FOR EXAM: GROWTH TECHNIQUE: OB LIMITED WITH BIOMETRICS COMPARISON: February 02, 2025. FINDINGS Number: 1 Position: Vertex Placental Position: Anterior and not low-lying Placental Abnormalities: No evidence of previa. DIMENSIONS: Biparietal Diameter: 8.9 cm: 35 weeks and 6 days: 34 percentile/ Head Circumference: 32.2 cm: 36 weeks and 2 days: 13 percentile./ Abdominal Circumference: 33.1 cm: 37 weeks and 0 days: 64 percentile/ Femur Length: 6.9 cm: 35 weeks and 3 days: 13 percentile/ ESTIMATED WEIGHT: 2957 g plus/-444 g ESTIMATED WEIGHT PERCENTILE (24+ weeks): 43rd ESTIMATED GESTATIONAL AGE: Baseline: 37 weeks and 0 days By Ultrasound: 36 weeks and 2 days ESTIMATED DATE OF DELIVERY: Baseline: March 25, 2025 By Ultrasound: March 30, 2025 BIOPHYSICAL ASSESSMENT: Amniotic Fluid Volume: 4.9 Amniotic Fluid Index: 17.8 (8-24 cm normal range) Cardiac Motion: 133 beats per minute (average) Trunk and Limb Motion: Present. MATERNAL ANATOMY: Adnexa: Neither maternal ovary is successfully identified. US/OB Limited With Biometrics IMPRESSION: Single live intrauterine gestation with a mean gestational age of 37 weeks and 3days. The measurements obtained today fall within the normal expected range. Reading Location: [facility] CC: PROGRAMMING INSTRUCTOR-C Tara Olvera; Dr. Alanna Blue MD ~ Milk Route Supervisor: Signed [facility] 02-24-2025 Progress note [facility] 02-24-2025 Progress note Note Date/Time February 24, 2025 2:47pm [facility] [address] [place] [address], [address] [place] [address] OFFICE VISIT Date of Service: 02/24/25 MR#: [id number] Acct: [id number] Name: ARMANDO CUENCA Rep #: [id number] : 2000 Provider: Dr. Darrell Albert MD Age/Sex: 24/F Location: [facility] [place] Status: Signed Intake Vital Signs 12/24/24 15:07 02/17/25 08:39 02/24/25 14:05 02/24/25 14:06 Height 5 ft 3 in 5 ft 3 in 5 ft 3 in 5 ft 3 in Weight: 146 lb BMI 25.8 BP 128/88 H Intake Visit Reasons: 36wk ob/nst Bumper Straightener Required: No Is patient in pain?: No Allergies No Known Allergies Allergy (Verified 02/24/25 14:04) Medications 3 ?Medication ?Instructions ?Recorded ?Confirmed ?Type Saccharomyces boulardii 250 mg 250 mg PO BID 08/16/22 02/24/25 History capsule (Daily Probiotic (S. boulardii)) diphenhydramine HCl 25 mg capsule 25 mg PO QHS PRN 05/1502/24/25 History (Benadryl) docosahexaenoic acid 200 mg mg PO 07/30/24 02/24/25 Hi story capsule ( DHA) enoxaparin 60 mg/0.6 mL 60 mg (0.6 mL) subcut Q12H 3 0 days 12/24/24 02/24/25 Rx subcutaneous syringe (Lovenox) #36 mL breast pump #1 ea 02/03/25 02/24/25 Rx Last Menstrual Period: 06/18/24 Zika: Zika virus screening: Negative : No PFSH PFSH Surgical History History of tonsillectomy Family History Father Hypertension Arthritis Grandfather Diabetes Grandfather Kidney disease Social History adopted: No household members: spouse current occupational status: employed current occupation: [employer] current occupational exposures/hazards: No pets and animals: Yes ( taking care litter box ) pets and animals: cat(s) and dog(s) history of recent travel: Yes ( - May ) out of state: Yes out of country: No sexually active: Yes Smoking Status: Never smoker alcohol intake: current alcohol intake frequency: holidays/special occasions only details: Not while substance use type: does not use well-balanced diet: daily or most days caffeine: Yes Type: coffee eating out: 1-3 times/week during the past year weight has: remained stable what type of physical activity do you participate in: walking, running and weight training frequency: 5-6 times per week duration: 30-45 minutes/day wander/sikh: Anglican seatbelt use: always do you feel safe at home: Yes additional social history: : 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 OB Visit JUHI Calculator Estimated Delivery Date Method Current WG Current Estimate 03/25/25 LMP (Certain) 35w 6d Expected Delivery Route/Plan Labor Preferences- CB/BF classes: yes labor support person: Nabor labor intervention preferences: [] pain management options preferred: open to epidural if requested cut cord/dad catch: cord : yes PP control planned: discussed discussed possible routes of delivery and associated risks: [] special requests: [] Specific Issue/Plans Covid status: [] Flu vaccine: declined Tdap vaccine: given Rhogam: na LARC form signed: yes Problem list reviewed and updated with the most current plan of care details and appropriate orders placed. Relevant counseling for the gestational age provided. Continue routine care and follow up unless otherwise noted in visit notes/problem list details Initial Weight: 129 lb Date -?-?-?--?-?-?-?-?-?-?-?-?- EGA Weight BP Urine Prot -?-?-?-?-?-?-?-?-?-?-?-?- Glucose FHR FuHt Pres Dilation -?-?-?-?-?-?-?-?-?-?-?-?- Effaced St Visit Note 08/13/24 -?-?-?-?-?-?-?-?-?-?-?-?- 8w 0d 129 lb 8 oz (+8 oz) 114/84 -?-?-?-?-?-?-?-?-?-?-?-?- 175 -?-?-?-?-?-?-?-?-?-?-?-?- LC 1.55 CRL con with LMP. declines nipt. 09/09/24 -?-?-?-?-?-?-?-?-?-?-?-?- 11w 6d 133 lb 8 oz (+4 lb 8 oz) 119/73 Negative -?-?-?-?-?-?-?-?-?-?-?-?- Negative 180 -?-?-?-?-?-?-?-?-?-?-?-?- JV- no complaint s today. plan new ob labs today. bedside scan reassuring. 10/08/24 -?-?-?-?-?-?-?-?-?-?-?-?- 16w 0d 136 lb 2 oz (+7 lb 2 oz) 124/84 Negative -?-?-?-?-?-?-?-?-?-?-?-?- Negative 145 -?-?-?-?-?-?-?-?-?-?-?-?- JV- no lof, vagi nal bleeding, or cramping. anatomy scan scheduled. no complaints today. 11/05/24 -?-?-?-?-?-?-?-?-?-?-?-?- 20w 0d 139 lb 6 oz (+10 lb 6 oz) 131/81 Negative -?-?-?-?-?-?-?-?-?-?-?-?- Negative 145 20 -?-?-?-?-?-?-?-?-?-?-?-?- SM- no vb occasi onal cramping reviewed labs declined afp 12/03/24 -?-?-?-?-?-?-?-?-?-?-?-?- 24w 0d 139 lb 2 oz (+10 lb 2 oz) 120/71 Negative -?-?-?-?-?-?-?-?-?-?-?-?- Negative 140 24 -?-?-?-?-?-?-?-?-?-?-?-?- KW- no vb/lof/ct x. good fm. KW- no vb/lof/ctx. good fm. discussed 28 week labs. 12/22/24 -?-?-?-?-?-?-?-?-?-?-?-?- 26w 5d 144 lb 8 oz (+15 lb 8 oz) 122/70 Negative -?-?--?-?-?-?-?-?-?-?-?-?- Negative 138 26 -?-?-?-?-?-?-?-?-?-?-?-?- -work in for l eft groin pain extending into thigh. Hurts to walk. Very tender with palpation. No redness. Doppler ordered. Good Fm. No vaginal or urinary symptoms. 12/24/24 -?-?-?-?-?-?-?-?-?-?-?-?- 27w 0d 144 lb (+15 lb) 128/74 Negative -?-?-?-?-?-?-?-?-?-?-?-?- Negative 140 -?-?-?-?-?-?-?-?-?-?-?-?- SM- seen for fu after DVT diagnosed- reviewed plan of care 12/29/24 -?-?-?--?-?-?-?-?-?-?-?-?- 27w 5d 142 lb 6 oz (+13 lb 6 oz) 118/68 Negative -?-?-?-?-?-?-?-?-?-?-?-?- Negative 138 -?-?-?-?-?-?-?-?-?-?-?-?- MH-NO VB, LOF. G ood FM. Groin pain improved. 28 wk labs pending. Larc. 01/11/25 -?-?-?-?-?-?-?-?-?-?-?-?- 29w 4d 144 lb 6 oz (+15 lb 6 oz) 118/74 Negative -?-?-?-?-?-?-?-?-?-?-?-?- Negative 142 29 -?-?-?-?-?-?-?-?-?-?-?-?- MH-NO VB, LOF. G ood Fm. Tdap. No longer w/groin pain. Doing well w/lovenox 01/24/25 -?-?-?-?-?-?-?-?-?-?-?-?- 31w 3d 143 lb 4 oz (+14 lb 4 oz) 132/78 Negative -?-?-?-?-?-?-?-?-?-?-?-?- Negative 13 31 -?-?-?-?-?-?-?-?-?-?-?-?- JV- no lof, vagi nal bleeding. has movement that is sporadic. has anterior placenta. doing better on lovenox. plan for weekly nsts starting next week 02/03/25 -?-?-?-?-?-?-?-?-?-?-?-?- 32w 6d 145 lb 2 oz (+16 lb 2 oz) 109/73 Negative -?-?-?-?-?-?-?-?-?-?-?-?- Negative 135 -?-?-?-?-?-?-?-?-?-?-?-?- KW- NST only. re active 02/09/25 -?-?-?-?-?-?-?-?-?-?-?-?- 33w 5d 146 lb (+17 lb) 132/80 Negative -?-?-?-?-?-?-?-?-?-?-?-?- Negative 130 -?-?-?-?-?-?-?-?-?-?-?-?- JV- no lof, vagi nal bleeding, or dec fm. taking lovenox for left groin DVT but now having tightness and tingling in the right calf. doppler ordered urgently 02/17/25 -?-?-?-?-?-?-?-?-?-?-?-?- 34w 6d 145 lb 4 oz (+16 lb 4 oz) 125/79 Negative -?-?-?-?-?-?-?-?-?-?-?-?- Negative 130 -?-?-?-?-?-?-?-?-?-?-?-?- KW- NST only. re active. will call if needs refills on lovenox 02/24/25 -?-?-?-?-?-?-?-?-?-?-?-?- 35w 6d 146 lb (+17 lb) 128/88 Negative -?-?-?-?-?-?-?-?-?-?-?-?- Negative 140 -?-?-?-?-?-?-?-?-?-?-?-?- SM- no vb lof go od fm no regular ctx ACOG First Trimester First Trimester: Discussed Second Trimester Second Trimester: Signs and Symptoms of Labor, Selecting a care provider, Reproductive Life Planning & Contreception and Care Planning; Discussed Tobacco Cessation, Discussed Depression/Anxiety and Discussed Intimate Partner Violence Third Trimester Third Trimester: Pain Management Plans, Labor support person(s), Immediate Larc, Circumcision preference, Signs and Symptoms of Preeclampsia, Infant Feeding No and Family Medical Leave or Disability Forms Office Procedures Non-stress Test Non-Stress Test Indications for Monitoring: Yes other (dvt) Heart Rate Baseline: 140 Heart Rate Variability: moderate Movement: Present Heart Rate Accelerations: Present Decelerations: Absent Contractions: Absent Impression: Yes Reactive Non-Stress Test Category 1 Results POC Urinalysis 2 Dip (Clinic) Office Urine Glucose Negative Last Edit by Rukhsana Pugh on 02/24/25 14: 24 Office Urine Protein Negative Last Edit by Rukhsana Pugh on 02/24/25 14: 24 Coding Level of Care Code OB Routine Diagnoses Acute deep vein thrombosis (DVT) of iliac vein of left lower extremity I82.422 Affected thrombotic vein of extremity: iliac DVT location: lower extremity Laterality: left Abnormal glucose affecting O99.810 Supervision of high risk in third trimester O09.93 Trimester: third trimester 35 weeks gestation of Z3A.35 Weeks of gestation: 35 weeks CPT Codes Non-Stress Test (98571) Assessment and Plan Assessment and Plan (1) Acute DVT (deep venous thrombosis): Status: Acute Qualifiers: Affected thrombotic vein of extremity: iliac DVT location: lower extremity Laterality: left Qualified Code(s): I82.422 - Acute embolism and thrombosis of left iliac vein Comment: Left groin: On lovenox. 32 & 36wk growth US Wkly NST at 34wk (2) Abnormal glucose affecting : Status: Acute Comment: passed 3 hour (3) Supervision of high-risk : Status: Acute Qualifiers: Trimester: third trimester Qualified Code(s): O09.93 - Supervision of high risk , unspecified, third trimester Comment: PRR , JUHI 03/25/25, aneesh Arango : Nabor (4) : Status: Acute Qualifiers: Weeks of gestation: 35 weeks Qualified Code(s): Z3A.35 - 35 weeks gestation of Orders: Orders POC Urinalysis 2 Dip (Clinic) Today OB NST Today I82.422 - Acute embolism and thrombosis of left iliac vein 02/24/25 2107 <Electronically signed by Rosy beatty MD> Date _ Rosy Albert MD [facility] Signature: Date (if applicable) CC: ~ [facility] Work Phone: 1(451) 861-981105-29-2025 Progress [facility] [address] [place] [address], [address] [place] [address] OFFICE VISIT Date of Service: 02/17/25 MR#: [id number] Acct: [id number] Name: ARMANDO CUENCA Rep #: [id number] : 2000 Provider: WILLY Blackwood Age/Sex: 24/F Location: [facility] [place] Status: Signed Intake Vital Signs 12/24/24 15:07 02/09/25 09:46 02/17/25 08:39 02/17/25 08:39 Height 5 ft 3 in 5 ft 3 in 5 ft 3 in 5 ft 3 in Weight: 145 lb 4 oz BMI 25.7 BP 125/79 H Intake Visit Reasons: 35wk NST ONLY Bumper Straightener Required: No Is patient in pain?: No Allergies No Known Allergies Allergy (Verified 02/17/25 08:39) Medications 3 ?Medication ?Instructions ?Recorded ?Confirmed ?Type Saccharomyces boulardii 250 mg 250 mg PO BID 08/16/22 02/17/25 History capsule (Daily Probiotic (S. boulardii)) diphenhydramine HCl 25 mg capsule 25 mg PO QHS PRN 05/1502/17/25 History (Benadryl) docosahexaenoic acid 200 mg mg PO 07/30/24 02/17/25 Hi story capsule ( DHA) enoxaparin 60 mg/0.6 mL 60 mg (0.6 mL) subcut Q12H 3 0 days 12/24/24 02/17/25 Rx subcutaneous syringe (Lovenox) #36 mL breast pump #1 ea 02/03/25 02/17/25 Rx Last Menstrual Period: 06/18/24 Zika: Zika virus screening: Negative : No PFSH PFSH Surgical History History of tonsillectomy Family History Father Hypertension Arthritis Grandfather Diabetes Grandfather Kidney disease Social History adopted: No household members: spouse current occupational status: employed 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 current occupational exposures/hazards: No pets and animals: Yes ( taking care litter box ) pets and animals: cat(s) and dog(s) history of recent travel: Yes ( - May ) out of state: Yes out of country: No sexually active: Yes Smoking Status: Never smoker alcohol intake: current alcohol intake frequency: holidays/special occasions only details: Not while substance use type: does not use well-balanced diet: daily or most days caffeine: Yes Type: coffee eating out: 1-3 times/week during the past year weight has: remained stable what type of physical activity do you participate in: walking, running and weight training frequency: 5-6 times per week duration: 30-45 minutes/day wander/sikh: Anglican seatbelt use: always do you feel safe at home: Yes 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 OB Visit JUHI Calculator Estimated Delivery Date Method Current WG Current Estimate 03/25/25 LMP (Certain) 34w 6d Expected Delivery Route/Plan Labor Preferences- CB/BF classes: yes labor support person: Nabor labor intervention preferences: [] pain management options preferred: open to epidural if requested cut cord/dad catch: cord : yes PP control planned: discussed discussed possible routes of delivery and associated risks: [] special requests: [] Specific Issue/Plans Covid status: [] Flu vaccine: declined Tdap vaccine: given Rhogam: na LARC form signed: yes Problem list reviewed and updated with the most current plan of care details and appropriate ordersplaced. Relevant counseling for the gestational age provided. Continue routine care and follow up unless otherwise noted in visit notes/problem list details Initial Weight: 129 lb Date -?--?-?-?-?-?-?-?-?-?-?-?- EGA Weight BP Urine Prot -?-?-?-?-?-?-?-?-?-?-?-?- Glucose FHR FuHt Pres Dilation -?-?-?-?-?-?-?-?-?-?-?-?- Effaced St Visit Note 08/13/24 -?-?-?-?-?-?-?-?-?-?-?-?- 8w 0d 129 lb 8 oz (+8 oz) 114/84 -?-?-?-?-?-?-?-?-?-?-?-?- 175 -?-?-?-?-?-?-?-?-?-?-?-?- LC 1.55 CRL con with LMP. declines nipt. 09/09/24 -?-?-?-?-?-?-?-?-?-?-?-?- 11w 6d 133 lb 8 oz (+4 lb 8 oz) 119/73 Negative -?-?-?-?-?-?-?-?-?-?-?-?- Negative 180 -?-?-?-?-?-?-?-?-?-?-?-?- JV- no complaint s today. plan new ob labs today. bedside scan reassuring. 10/08/24 -?-?-?-?-?-?-?-?-?-?-?-?- 16w 0d 136 lb 2 oz (+7 lb 2 oz) 124/84 Negative -?-?-?-?-?-?-?-?-?-?-?-?- Negative 145 -?-?-?-?-?-?-?-?-?-?-?-?- JV- no lof, vagi nal bleeding, or cramping. anatomy scan scheduled. no complaints today. 11/05/24 -?-?-?-?-?-?-?-?-?-?-?-?- 20w 0d 139 lb 6 oz (+10 lb 6 oz) 131/81 Negative -?-?-?-?-?-?-?-?-?-?-?-?- Negative 145 20 -?-?-?-?-?-?-?-?-?-?-?-?- SM- no vb occasi onal cramping reviewed labs declined afp 12/03/24 -?-?-?-?-?-?-?-?-?-?-?-?- 24w 0d 139 lb 2 oz (+10 lb 2 oz) 120/71 Negative -?-?-?-?-?-?-?-?-?-?-?-?- Negative 140 24 -?-?-?-?-?-?-?-?-?-?-?-?- KW- no vb/lof/ct x. good fm. KW- no vb/lof/ctx. good fm. discussed 28 week labs. 12/22/24 -?-?-?-?-?-?-?-?-?-?-?-?- 26w 5d 144 lb 8 oz (+15 lb 8 oz) 122/70 Negative -?-?-?-?-?-?-?-?-?-?-?-?- Negative 138 26 -?-?-?-?-?-?-?-?-?-?-?-?- -work in for l eft groin pain extending into thigh. Hurts to walk. Very tender with palpation. No redness. Doppler ordered. Good Fm. No vaginal or urinary symptoms. 12/24/24 -?-?-?-?-?-?-?-?-?-?-?-?- 27w 0d 144 lb (+15 lb) 128/74 Negative -?-?-?-?-?-?-?-?-?-?-?-?- Negative 140 -?-?-?-?-?-?-?-?-?-?-?-?- - seen for fu after DVT diagnosed- reviewed plan of care 12/29/24 -?--?-?-?-?-?-?-?-?-?-?-?- 27w 5d 142 lb 6 oz (+13 lb 6 oz) 118/68 Negative -?-?-?-?-?-?-?-?-?-?-?-?- Negative 138 -?-?-?-?-?-?-?-?-?-?-?-?- -NO VB, LOF. G ood FM. Groin pain improved. 28 wk labs pending. Larc. 01/11/25 -?-?-?-?-?-?-?-?-?-?-?-?- 29w 4d 144 lb 6 oz (+15 lb 6 oz) 118/74 Negative -?-?-?-?-?-?-?-?-?-?-?-?- Negative 142 29 -?-?-?-?-?-?-?-?-?-?-?-?- MH-NO VB, LOF. G ood Fm. Tdap. No longer w/groin pain. Doing well w/lovenox 01/24/25 -?-?-?-?-?-?-?-?-?-?-?-?- 31w 3d 143 lb 4 oz (+14 lb 4 oz) 132/78 Negative -?-?-?-?-?-?-?-?-?-?-?-?- Negative 13 31 -?-?-?-?-?-?-?-?-?-?-?-?- JV- no lof, vagi nal bleeding. has movement that is sporadic. has anterior placenta. doing better on lovenox. plan for weekly nsts starting next week 02/03/25 -?-?-?-?-?-?-?-?-?-?-?-?- 32w 6d 145 lb 2 oz (+16 lb 2 oz) 109/73 Negative -?-?-?-?-?-?-?-?-?-?-?-?- Negative 135 -?-?-?-?-?-?-?-?-?-?-?-?- KW- NST only. re active 02/09/25 -?-?-?-?-?-?-?-?-?-?-?-?- 33w 5d 146 lb (+17 lb) 132/80 Negative -?-?-?-?-?-?-?-?-?-?-?-?- Negative 130 -?-?-?-?-?-?-?-?-?-?-?-?- JV- no lof, vagi nal bleeding, or dec fm. taking lovenox for left groin DVT but now having tightness and tingling in the right calf. doppler ordered urgently 02/17/25 -?-?-?-?-?-?-?-?-?-?-?-?- 34w 6d 145 lb 4 oz (+16 lb 4 oz) 125/79 -?-?-?-?-?-?-?-?-?-?-?-?- 130 -?-?-?-?-?-?-?-?-?-?-?-?- KW- NST only. re active. will call if needs refills on lovenox ACOG First Trimester First Trimester: Discussed Second Trimester Second Trimester: Signs and Symptoms of Labor, Selecting a care provider, Reproductive Life Planning & Contreception and Care Planning; Discussed Tobacco Cessation, Discussed Depression/Anxiety and Discussed Intimate Partner Violence Third Trimester Third Trimester: Pain Management Plans, Labor support person(s), Immediate Larc, Circumcision preference, Signs and Symptoms of Preeclampsia, Feeding No and Family Medical Leave or Disability Forms ROS Const Reports system reviewed and no additional complaints, except as documented Eyes Reports system reviewed and no additional complaints, except as documented ENT Reports system reviewed and no additional complaints, except as documented Card Reports system reviewed and no additional complaints, except as documented Resp Reports system reviewed and no additional complaints, except as documented GI Reports system reviewed and no additional complaints, except as documented, Denies nausea and Denies vomiting Reports system reviewed and no additional complaints, except as documented Musc Reports system reviewed and no additional complaints, except as documented Skin/Breast Reports system reviewed and no additional complaints, except as documented Neuro Yes system reviewed and no additional complaints, except as documented Psych Reports system reviewed and no additional complaints, except as documented Endo Reports system reviewed and no additional complaints, except as documented Akshat/Lymph Reports system reviewed and no additional complaints, except as documented Aller/Immun Reports system reviewed and no additional complaints, except as documented Exam Const General: cooperative, healthy appearing and no acute distress Orientation: alert, awake and oriented x3 Neck Neck: normal visual inspection and full ROM Resp Effort & Inspection: normal respiratory effort, able to speak in complete sentences and symmetric chest movement GI Inspection: normal to inspection Palpation: soft and other Other: gravid Skin General: no rashes or lesions noted Neuro General: patient alert, patient awake and patient oriented x3 Cognition: normal cognition Speech: speech normal Gait: normal gait Motor: muscle tone normal throughout Extrem General: normal to inspection and full ROM Psych Appearance: grossly normal Mental Status: mental status grossly normal Mood: congruent mood Affect: normal affect Speech and Movement: speech and movement normal Attitude: cooperative Thought Process: normal Thought Content: normal Judgment: judgment good Office Procedures Non-stress Test Non-Stress Test Indications for Monitoring: Yes other (DVT) Heart Rate Baseline: 130 Heart Rate Variability: moderate Movement: Present Heart Rate Accelerations: Present Decelerations: Absent Contractions: Absent Impression: Yes Reactive Non-Stress Test Coding Level of Care Code OB Routine Diagnoses Acute deep vein thrombosis (DVT) of iliac vein of left lower extremity I82.422 Affected thrombotic vein of extremity: iliac DVT location: lower extremity Laterality: left Abnormal glucose affecting O99.810 Supervision of high risk in third trimester O09.93 Trimester: third trimester 34 weeks gestation of Z3A.34 Weeks of gestation: 34 weeks CPT Codes Non-Stress Test (87700) Assessment and Plan Assessment and Plan (1) Acute DVT (deep venous thrombosis): Status: Acute Qualifiers: Affected thrombotic vein of extremity: iliac DVT location: lower extremity Laterality: left Qualified Code(s): I82.422 - Acute embolism and thrombosis of left iliac vein Comment: Left groin: On lovenox. 32 & 36wk growth US Wkly NST at 34wk (2) Abnormal glucose affecting : Status: Acute Comment: passed 3 hour (3) Supervision of high-risk : Status: Acute Qualifiers: Trimester: third trimester Qualified Code(s): O09.93 - Supervision of high risk , unspecified, third trimester Comment: PRR , JUHI 03/25/25, aneesh Ravalli : [place] (4) : Status: Acute Qualifiers: Weeks of gestation: 34 weeks Qualified Code(s): Z3A.34 - 34 weeks gestation of Orders: Orders POC Urinalysis 2 Dip (Clinic) Today OB NST Today I82.422 - Acute embolism and thrombosis of left iliac vein Plan Details Additional Comments: ACOG trimester education reviewed and updated. see problem list details for updated plan management information and see below for orders placed atthis visit. GA appropriate handout given. 02/17/25 0855 s CNM> Date _ Sarah Jaison AGUILERA Cosigner Signature: Date (if applicable) CC: ~ [facility]05-14-2025 Radiology Diagnostic study note [facility] Imaging Services [address] [place], [place] [id number] OB Limited With Biometrics MR#: [id number] Acct: [id number] Name: ARMANDO CUENCA Rep #: [id number] : 2000 F 24 From: Ronnie London MD PCP: Dr. Alanna Blue MD Status: RE G CLI Study:OB Limited With Biometrics Date of Exam : 02/02/25 Exam# [id number] Ordering Dr: Tara Olvera PROGRAMMING INSTRUCTOR PROGRAMMING INSTRUCTOR-C PROCEDURE: OB LIMITED WITH BIOMETRICS 02/02/2025 REASON FOR EXAM: GROWTH TECHNIQUE: High resolution obstetric ultrasound performed using a 2D transducer. Standard views obtained, including biometry, anatomy survey, and Doppler studies. COMPARISON: None FINDINGS LMP: June 18, 2024. Number: 1 Position: Vertex Placental Position: Anterior and not low-lying Placental Abnormalities: None DIMENSIONS: Biparietal Diameter: 8.3 cm: 33 weeks and 2 days: 60 percentile/ Head Circumference: 30.1 cm: 33 weeks and 2 days: 29 percentile/ Abdominal Circumference: 30.3 cm: 34 weeks and 2 days: 88 percentile/ Femur Length: 6.2 cm: 32 weeks and 1 day: 24 percentile/ ESTIMATED WEIGHT: 2229 g plus/-234 g ESTIMATED WEIGHT PERCENTILE (24+ weeks): 68 ESTIMATED GESTATIONAL AGE: Baseline: 32 weeks and 5 days By Ultrasound: 33 weeks and 1 day ESTIMATED DATE OF DELIVERY: Baseline: March 25, 2025 By Ultrasound: March 22, 2024 BIOPHYSICAL ASSESSMENT: Amniotic Fluid Volume: 6.3 cm Amniotic Fluid Index: 16.9 (8-24 cm normal range) Cardiac Motion: 133 beats per minute (average) Trunk and Limb Motion: Present. MATERNAL ANATOMY: Adnexa: Neither maternal ovary is successfully identified. US/OB Limited With Biometrics IMPRESSION: Single live intrauterine gestation with a mean gestational age of 33 weeks and 1day. Reading Location: [id number] CC: SARABJIT Olvera; Dr. Alanna Blue MD ~ Milk Route Supervisor: Signed [facility]04-03-2025 Radiology Diagnostic study note [facility] Imaging Services [address] [place], [place] [id number] CTA Chest W/WO Contrast MR#: [id number] Acct: [id number] Name: ARMANDO CUENCA Rep #: [id number] : 2000 F 24 From: Pet er Peer PCP: Dr. Alanna Blue MD Status: RE G ER Study:CTA Chest W/WO Contrast Date of Exam: 12/23/24 Exam# [id number] Ordering Dr: Stanley Fontenot DO PROCEDURE: CTA CHEST W/WO CONTRAST 12/23/2024 REASON FOR EXAM: PE, WITH KNOWN PROXIMAL LEG DVT TECHNIQUE: CTA imaging of the chest without and with intravenous contrast. Coronal and Sagittal reconstruction series were provided. 3D, 3D post processing, 3D reconstructions, Maximum intensity projection (MIPs) Volume rendering and Shaded surface rendering was provided. CONTRAST: Isovue 370 VOLUME: 75 mL IV One or more dose reduction techniques were used (e.g., Automated exposure control, adjustment of the mA and/or kV according to patient size, use of iterative reconstruction technique). RADIATION DOSE SUMMARY: CTDlvol: 9.955 mGy DLP: 247.16 mGycm COMPARISON: None FINDINGS: Heart: Normal size. No right ventricular strain. Pulmonary Vessels: Unremarkable. No pulmonary embolism. Arch Vessels: Normal configuration. Lungs are clear. No pleural effusions. Limited images of the upper abdomen demonstrate no acute process. Other Findings: CT/CTA Chest W/WO Contrast IMPRESSION: No evidence of pulmonary embolism. Normal exam. [facility] CC: Dr. Stanley Gaytan DO; Dr. Alanna Blue MD ~ Milk Route Supervisor: Signed [facility]03-14-2025 Evaluation note* Diagnosis Onset Date Resolution Status Admit Date acute December 03 3:54pm Supervision of normal resolved December 03, 2024 3:54pm acute December 22 2:40pm Left inguinal pain resolved December 22, 2024 2:40pm Supervision of normal resolved December 22, 2024 2:40pm acute December 24 3:11pm Supervision of high-risk acute December 24, 2024 3:11pm Deep vein thrombosis, lower left extremity inactive December 24, 2024 3:11pm acute December 29 3:22pm Supervision of high-risk acute December 29, 2024 3:22pm Deep vein thrombosis, lower left extremity inactive December 29, 2024 3:22pm Acute DVT (deep venous thrombosis) acute January 07, 2025 3:24pm acute January 07 3:24pm Abnormal glucose affecting acute January 11, 2025 3:41pm Acute DVT (deep venous thrombosis) acute January 11, 2025 3:41pm acute January 11 3:41pm Supervision of high-risk acute January 11, 2025 3:41pm Abnormal glucose affecting acute January 24, 2025 10 :19am Acute DVT (deep venous thrombosis) acute January 24, 2025 10 :19am acute January 24, 2025 10:19am Supervision of high-risk acute January 24, 2025 10 :19am Abnormal glucose affecting acute February 03, 2025 8 :25am Acute DVT (deep venous thrombosis) acute February 03, 2025 8 :25am acute February 03, 2025 8:25am Supervision of high-risk acute February 03, 2025 8 :25am Abnormal glucose affecting acute February 09, 2025 9 :44am Acute DVT (deep venous thrombosis) acute February 09, 2025 9 :44am acute February 09, 2025 9:44am Supervision of high-risk acute February 09, 2025 9 :44am Abnormal glucose affecting acute February 17, 2025 8 :22am Acute DVT (deep venous thrombosis) acute February 17, 2025 8 :22am acute February 17, 2025 8:22am Supervision of high-risk acute February 17, 2025 8 :22am Abnormal glucose affecting acute February 24, 2025 1 :54pm Acute DVT (deep venous thrombosis) acute February 24, 2025 1 :54pm acute February 24, 2025 1:54pm Supervision of high-risk acute February 24, 2025 1 :54pm Abnormal glucose affecting acute March 03, 2025 11:09am Acute DVT (deep venous thrombosis) acute March 03, 2025 11:09am acute March 03 11:09am Supervision of high-risk acute March 03, 2025 11:09am [facility] Work Phone: 1([phone]) 754-357603-14-2025 Evaluation note* Diagnosis Onset Date Resolution Status Admit Date acute December 03 3:54pm Supervision of normal resolved December 03, 2024 3:54pm acute December 22 2:40pm Left inguinal pain resolved December 22, 2024 2:40pm Supervision of normal resolved December 22, 2024 2:40pm acute December 24 3:11pm Supervision of high-risk acute December 24, 2024 3:11pm Deep vein thrombosis, lower left extremity inactive December 24, 2024 3:11pm acute December 29 3:22pm Supervision of high-risk acute December 29, 2024 3:22pm Deep vein thrombosis, lower left extremity inactive December 29, 2024 3:22pm Acute DVT (deep venous thrombosis) acute January 07, 2025 3:24pm acute January 07 3:24pm Abnormal glucose affecting acute January 11, 2025 3:41pm Acute DVT (deep venous thrombosis) acute January 11, 2025 3:41pm acute January 11 3:41pm Supervision of high-risk acute January 11, 2025 3:41pm Abnormal glucose affecting acute January 24, 2025 10 :19am Acute DVT (deep venous thrombosis) acute January 24, 2025 10 :19am acute January 24, 2025 10:19am Supervision of high-risk acute January 24, 2025 10 :19am Abnormal glucose affecting acute February 03, 2025 8 :25am Acute DVT (deep venous thrombosis) acute February 03, 2025 8 :25am acute February 03, 2025 8:25am Supervision of high-risk acute February 03, 2025 8 :25am Abnormal glucose affecting acute February 09, 2025 9 :44am Acute DVT (deep venous thrombosis) acute February 09, 2025 9 :44am acute February 09, 2025 9:44am Supervision of high-risk acute February 09, 2025 9 :44am Abnormal glucose affecting acute February 17, 2025 8 :22am Acute DVT (deep venous thrombosis) acute February 17, 2025 8 :22am acute February 17, 2025 8:22am Supervision of high-risk acute February 17, 2025 8 :22am Abnormal glucose affecting acute February 24, 2025 1 :54pm Acute DVT (deep venous thrombosis) acute February 24, 2025 1 :54pm acute February 24, 2025 1:54pm Supervision of high-risk acute February 24, 2025 1 :54pm Abnormal glucose affecting acute March 03, 2025 11:09am Acute DVT (deep venous thrombosis) acute March 03, 2025 11:09am acute March 03 11:09am Supervision of high-risk acute March 03, 2025 11:09am Abnormal glucose affecting acute March 10, 2025 10:27am Acute DVT (deep venous thrombosis) acute March 10, 2025 10:27am acute March 10 10:27am Supervision of high-risk acute March 10, 2025 10:27am [facility] Work Phone: 1([phone]) 438-507803-14-2025 Evaluation note* Diagnosis Onset Date Resolution Status Admit Date acute December 03 3:54pm Supervision of normal resolved December 03, 2024 3:54pm acute December 22 2:40pm Left inguinal pain resolved December 22, 2024 2:40pm Supervision of normal resolved December 22, 2024 2:40pm acute December 24 3:11pm Supervision of high-risk acute December 24, 2024 3:11pm Deep vein thrombosis, lower left extremity inactive December 24, 2024 3:11pm acute December 29 3:22pm Supervision of high-risk acute December 29, 2024 3:22pm Deep vein thrombosis, lower left extremity inactive December 29, 2024 3:22pm Acute DVT (deep venous thrombosis) acute January 07, 2025 3:24pm acute January 07 3:24pm Abnormal glucose affecting acute January 11, 2025 3:41pm Acute DVT (deep venous thrombosis) acute January 11, 2025 3:41pm acute January 11 3:41pm Supervision of high-risk acute January 11, 2025 3:41pm Abnormal glucose affecting acute January 24, 2025 10 :19am Acute DVT (deep venous thrombosis) acute January 24, 2025 10 :19am acute January 24, 2025 10:19am Supervision of high-risk acute January 24, 2025 10 :19am Abnormal glucose affecting acute February 03, 2025 8 :25am Acute DVT (deep venous thrombosis) acute February 03, 2025 8 :25am acute February 03, 2025 8:25am Supervision of high-risk acute February 03, 2025 8 :25am Abnormal glucose affecting acute February 09, 2025 9 :44am Acute DVT (deep venous thrombosis) acute February 09, 2025 9 :44am acute February 09, 2025 9:44am Supervision of high-risk acute February 09, 2025 9 :44am Abnormal glucose affecting acute February 17, 2025 8 :22am Acute DVT (deep venous thrombosis) acute February 17, 2025 8 :22am acute February 17, 2025 8:22am Supervision of high-risk acute February 17, 2025 8 :22am Abnormal glucose affecting acute February 24, 2025 1 :54pm Acute DVT (deep venous thrombosis) acute February 24, 2025 1 :54pm acute February 24, 2025 1:54pm Supervision of high-risk acute February 24, 2025 1 :54pm Abnormal glucose affecting acute March 03, 2025 11:09am Acute DVT (deep venous thrombosis) acute March 03, 2025 11:09am acute March 03 11:09am Supervision of high-risk acute March 03, 2025 11:09am Abnormal glucose affecting acute March 10, 2025 10:27am Acute DVT (deep venous thrombosis) acute March 10, 2025 10:27am acute March 10 10:27am Supervision of high-risk acute March 10, 2025 10:27am Abnormal glucose affecting acute March 17, 2025 9:44am Acute DVT (deep venous thrombosis) acute March 17, 2025 9:44am acute March 17 9:44am Supervision of high-risk acute March 17, 2025 9:44am [facility] Work Phone: 1([phone] 297-974102-14-2025 Evaluation note* Diagnosis Onset Date Resolution Status Admit Date acute November 05, 2024 3:40pm Supervision of normal resolved November 05 3:40pm acute December 03 3:54pm Supervision of normal resolved December 03, 2024 3:54pm acute December 22 2:40pm Left inguinal pain resolved December 22, 2024 2:40pm Supervision of normal resolved December 22, 2024 2:40pm acute December 24 3:11pm Supervision of high-risk acute December 24, 2024 3:11pm Deep vein thrombosis, lower left extremity inactive December 24, 2024 3:11pm acute December 29 3:22pm Supervision of high-risk acute December 29, 2024 3:22pm Deep vein thrombosis, lower left extremity inactive December 29, 2024 3:22pm Acute DVT (deep venous thrombosis) acute January 07, 2025 3:24pm acute January 07 3:24pm Abnormal glucose affecting acute January 11, 2025 3:41pm Acute DVT (deep venous thrombosis) acute January 11, 2025 3:41pm acute January 11 3:41pm Supervision of high-risk acute January 11, 2025 3:41pm Abnormal glucose affecting acute January 24, 2025 10 :19am Acute DVT (deep venous thrombosis) acute January 24, 2025 10 :19am acute January 24, 2025 10:19am Supervision of high-risk acute January 24, 2025 10 :19am Abnormal glucose affecting acute February 03, 2025 8 :25am Acute DVT (deep venous thrombosis) acute February 03, 2025 8 :25am acute February 03, 2025 8:25am Supervision of high-risk acute February 03, 2025 8 :25am Abnormal glucose affecting acute February 09, 2025 9 :44am Acute DVT (deep venous thrombosis) acute February 09, 2025 9 :44am acute February 09, 2025 9:44am Supervision of high-risk acute February 09, 2025 9 :44am [facility] Work Phone: [phone] 664-266802-14-2025 Evaluation note* Diagnosis Onset Date Resolution Status Admit Date acute November 05, 2024 3:40pm Supervision of normal resolved November 05, 025 3:40pm acute December 03 3:54pm Supervision of normal resolved December 03, 2024 3:54pm acute December 22 2:40pm Left inguinal pain resolved December 22, 2024 2:40pm Supervision of normal resolved December 22, 2024 2:40pm acute December 24 3:11pm Supervision of high-risk acute December 24, 2024 3:11pm Deep vein thrombosis, lower left extremity inactive December 24, 2024 3:11pm acute December 29 3:22pm Supervision of high-risk acute December 29, 2024 3:22pm Deep vein thrombosis, lower left extremity inactive December 29, 2024 3:22pm Acute DVT (deep venous thrombosis) acute January 07, 2025 3:24pm acute January 07 3:24pm Abnormal glucose affecting acute January 11, 2025 3:41pm Acute DVT (deep venous thrombosis) acute January 11, 2025 3:41pm acute January 11 3:41pm Supervision of high-risk acute January 11, 2025 3:41pm Abnormal glucose affecting acute January 24, 2025 10 :19am Acute DVT (deep venous thrombosis) acute January 24, 2025 10 :19am acute January 24, 2025 10:19am Supervision of high-risk acute January 24, 2025 10 :19am Abnormal glucose affecting acute February 03, 2025 8 :25am Acute DVT (deep venous thrombosis) acute February 03, 2025 8 :25am acute February 03, 2025 8:25am Supervision of high-risk acute February 03, 2025 8 :25am Abnormal glucose affecting acute February 09, 2025 9 :44am Acute DVT (deep venous thrombosis) acute February 09, 2025 9 :44am acute February 09, 2025 9:44am Supervision of high-risk acute February 09, 2025 9 :44am Abnormal glucose affecting acute February 17, 2025 8 :22am Acute DVT (deep venous thrombosis) acute February 17, 2025 8 :22am acute February 17, 2025 8:22am Supervision of high-risk acute February 17, 2025 8 :22am [facility] Work Phone: 1([phone]) 412-536902-14-2025 Evaluation note* Diagnosis Onset Date Resolution Status Admit Date acute November 05, 2024 3:40pm Supervision of normal resolved November 05 3:40pm acute December 03 3:54pm Supervision of normal resolved December 03, 2024 3:54pm acute December 22 2:40pm Left inguinal pain resolved December 22, 2024 2:40pm Supervision of normal resolved December 22, 2024 2:40pm acute December 24 3:11pm Supervision of high-risk acute December 24, 2024 3:11pm Deep vein thrombosis, lower left extremity inactive December 24, 2024 3:11pm acute December 29 3:22pm Supervision of high-risk acute December 29, 2024 3:22pm Deep vein thrombosis, lower left extremity inactive December 29, 2024 3:22pm Acute DVT (deep venous thrombosis) acute January 07, 2025 3:24pm acute January 07 3:24pm Abnormal glucose affecting acute January 11, 2025 3:41pm Acute DVT (deep venous thrombosis) acute January 11, 2025 3:41pm acute January 11 3:41pm Supervision of high-risk acute January 11, 2025 3:41pm Abnormal glucose affecting acute January 24, 2025 10 :19am Acute DVT (deep venous thrombosis) acute January 24, 2025 10 :19am acute January 24, 2025 10:19am Supervision of high-risk acute January 24, 2025 10 :19am Abnormal glucose affecting acute February 03, 2025 8 :25am Acute DVT (deep venous thrombosis) acute February 03, 2025 8 :25am acute February 03, 2025 8:25am Supervision of high-risk acute February 03, 2025 8 :25am Abnormal glucose affecting acute February 09, 2025 9 :44am Acute DVT (deep venous thrombosis) acute February 09, 2025 9 :44am acute February 09, 2025 9:44am Supervision of high-risk acute February 09, 2025 9 :44am Abnormal glucose affecting acute February 17, 2025 8 :22am Acute DVT (deep venous thrombosis) acute February 17, 2025 8 :22am acute February 17, 2025 8:22am Supervision of high-risk acute February 17, 2025 8 :22am Abnormal glucose affecting acute February 24, 2025 1 :54pm Acute DVT (deep venous thrombosis) acute February 24, 2025 1 :54pm acute February 24, 2025 1:54pm Supervision of high-risk acute February 24, 2025 1 :54pm [facility] Work Phone: 1([phone] 225-337002-14-2025 Evaluation note* Diagnosis Onset Date Resolution Status Admit Date acute November 05, 2024 3:40pm Supervision of normal resolved November 05 3:40pm acute December 03 3:54pm Supervision of normal resolved December 03, 2024 3:54pm acute December 22 2:40pm Left inguinal pain resolved December 22, 2024 2:40pm Supervision of normal resolved December 22, 2024 2:40pm acute December 24 3:11pm Supervision of high-risk acute December 24, 2024 3:11pm Deep vein thrombosis, lower left extremity inactive December 24, 2024 3:11pm acute December 29 3:22pm Supervision of high-risk acute December 29, 2024 3:22pm Deep vein thrombosis, lower left extremity inactive December 29, 2024 3:22pm Acute DVT (deep venous thrombosis) acute January 07, 2025 3:24pm acute January 07 3:24pm Abnormal glucose affecting acute January 11, 2025 3:41pm Acute DVT (deep venous thrombosis) acute January 11, 2025 3:41pm acute January 11 3:41pm Supervision of high-risk acute January 11, 2025 3:41pm Abnormal glucose affecting acute January 24, 2025 10 :19am Acute DVT (deep venous thrombosis) acute January 24, 2025 10 :19am acute January 24, 2025 10:19am Supervision of high-risk acute January 24, 2025 10 :19am Abnormal glucose affecting acute February 03, 2025 8 :25am Acute DVT (deep venous thrombosis) acute February 03, 2025 8 :25am acute February 03, 2025 8:25am Supervision of high-risk acute February 03, 2025 8 :25am Abnormal glucose affecting acute February 09, 2025 9 :44am Acute DVT (deep venous thrombosis) acute February 09, 2025 9 :44am acute February 09, 2025 9:44am Supervision of high-risk acute February 09, 2025 9 :44am Abnormal glucose affecting acute February 17, 2025 8 :22am Acute DVT (deep venous thrombosis) acute February 17, 2025 8 :22am acute February 17, 2025 8:22am Supervision of high-risk acute February 17, 2025 8 :22am Abnormal glucose affecting acute February 24, 2025 1 :54pm Acute DVT (deep venous thrombosis) acute February 24, 2025 1 :54pm acute February 24, 2025 1:54pm Supervision of high-risk acute February 24, 2025 1 :54pm Abnormal glucose affecting acute March 03, 2025 11:09am Acute DVT (deep venous thrombosis) acute March 03, 2025 11:09am acute March 03 11:09am Supervision of high-risk acute March 03, 2025 11:09am [facility] Work Phone: [phone] 807-291701-17-2025 Evaluation note* Diagnosis Onset Date Resolution Status Admit Date acute October 08, 2024 1:41pm Supervision of normal resolved October 08 1:41pm acute November 05, 2024 3:40pm Supervision of normal resolved November 05, 025 3:40pm acute December 03 3:54pm Supervision of normal resolved December 03, 2024 3:54pm acute December 22 2:40pm Left inguinal pain resolved December 22, 2024 2:40pm Supervision of normal resolved December 22, 2024 2:40pm acute December 24 3:11pm Supervision of high-risk acute December 24, 2024 3:11pm Deep vein thrombosis, lower left extremity inactive December 24, 2024 3:11pm acute December 29 3:22pm Supervision of high-risk acute December 29, 2024 3:22pm Deep vein thrombosis, lower left extremity inactive December 29, 2024 3:22pm Acute DVT (deep venous thrombosis) acute January 07, 2025 3:24pm acute January 07 3:24pm Abnormal glucose affecting acute January 11, 2025 3:41pm Acute DVT (deep venous thrombosis) acute January 11, 2025 3:41pm acute January 11 3:41pm Supervision of high-risk acute January 11, 2025 3:41pm Abnormal glucose affecting acute January 24, 2025 10 :19am Acute DVT (deep venous thrombosis) acute January 24, 2025 10 :19am acute January 24, 2025 10:19am Supervision of high-risk acute January 24, 2025 10 :19am [facility] Work Phone: [phone] 723-443501-17-2025 Evaluation note* Diagnosis Onset Date Resolution Status Admit Date acute October 08, 2024 1:41pm Supervision of normal resolved October 08 1:41pm acute November 05, 2024 3:40pm Supervision of normal resolved November 05, 2 025 3:40pm acute December 03 3:54pm Supervision of normal resolved December 03, 2024 3:54pm acute December 22 2:40pm Left inguinal pain resolved December 22, 2024 2:40pm Supervision of normal resolved December 22, 2024 2:40pm acute December 24 3:11pm Supervision of high-risk acute December 24, 2024 3:11pm Deep vein thrombosis, lower left extremity inactive December 24, 2024 3:11pm acute December 29 3:22pm Supervision of high-risk acute December 29, 2024 3:22pm Deep vein thrombosis, lower left extremity inactive December 29, 2024 3:22pm Acute DVT (deep venous thrombosis) acute January 07, 2025 3:24pm acute January 07 3:24pm Abnormal glucose affecting acute January 11, 2025 3:41pm Acute DVT (deep venous thrombosis) acute January 11, 2025 3:41pm acute January 11 3:41pm Supervision of high-risk acute January 11, 2025 3:41pm Abnormal glucose affecting acute January 24, 2025 10 :19am Acute DVT (deep venous thrombosis) acute January 24, 2025 10 :19am acute January 24, 2025 10:19am Supervision of high-risk acute January 24, 2025 10 :19am Abnormal glucose affecting acute February 03, 2025 8 :25am Acute DVT (deep venous thrombosis) acute February 03, 2025 8 :25am acute February 03, 2025 8:25am Supervision of high-risk acute February 03, 2025 8 :25am [facility] Work Phone: [phone] 287-744412-19-2024 Evaluation note* Diagnosis Onset Date Resolution Status Admit Date acute September 09, 2024 3:01pm Supervision of normal acute September 09, 2 024 3:01pm acute October 08, 2024 1:41pm Supervision of normal acute October 08 1:41pm acute November 05, 2024 3:40pm Supervision of normal acute November 05, 2 025 3:40pm acute December 03 3:54pm Supervision of normal acute December 03, 2024 3:54pm Left inguinal pain acute December 22, 2024 2:40pm acute December 22 2:40pm Supervision of normal acute December 22, 2024 2:40pm [facility] Work Phone: [phone]) 698-819512-19-2024 Evaluation note* Diagnosis Onset Date Resolution Status Admit Date acute September 09, 2024 3:01pm Supervision of normal resolved September 09, 2 024 3:01pm acute October 08, 2024 1:41pm Supervision of normal resolved October 08 1:41pm acute November 05, 2024 3:40pm Supervision of normal resolved November 05, 025 3:40pm acute December 03 3:54pm Supervision of normal resolved December 03, 2024 3:54pm acute December 22 2:40pm Left inguinal pain resolved December 22, 2024 2:40pm Supervision of normal resolved December 22, 2024 2:40pm acute December 24 3:11pm Supervision of high-risk acute December 24, 2024 3:11pm Deep vein thrombosis, lower left extremity inactive December 24, 2024 3:11pm acute December 29 3:22pm Supervision of high-risk acute December 29, 2024 3:22pm Deep vein thrombosis, lower left extremity inactive December 29, 2024 3:22pm [facility] Work Phone: [phone]) 823-520311-19-2021 History of Present illness Narrative* Andra Adkins MD - 08/10/2021 2:39 PM EST Subjective Patient ID: Armando Aponte is a 21 y.o. female. Patient is concerned with new breast lump. She says she has noticed a non-tender fullness over the right upper chest. This has been present for a few weeks at least and has not changed in size. She started doing breast exam and also found a small nodule in the lower part of her left breast. She states she has no first degree relatives with breast cancer but does have a great aunt who has breast cancer. She denies skin changes or nipple discharge. The following portions of the patient's history were reviewed and updated as appropriate: allergies, current medications, past family history, past medical history, past social history, past surgicalhistory and problem list. Current Outpatient Medications: calcium-vitamin D (OS-DEEPA +D) 250-125 mg-unit Tab, Take 1 tablet by mouth 2 (two) times a day with meals ., Disp: , Rfl: fluticasone propionate (FLONASE) 50 mcg/actuation nasal spray, Instill 2 (two) sprays into each nostril daily ., Disp: 16 g, Rfl: 0 L.acid/L.casei/B.bif/B.jane/FOS (PROBIOTIC BLEND ORAL), Take by mouth ., Disp: , Rfl: norgestrel-ethinyl estradioL (LO/OVRAL) 0.3-30 mg-mcg per tablet, Take 1 (one) tablet by mouth daily ., Disp: 90 tablet, Rfl: 3 zinc sulfate (ZINCATE) 50 mg zinc (220 mg) capsule, Take 220 mg by mouth daily ., Disp: , Rfl: Review of Systems Constitutional: Negative for fatigue and fever. Hematological: Negative for adenopathy. Objective BP 130/70 (BP Location: Right arm, Patient Position: Sitting, BP Cuff Size: Adult) Pulse 89 Temp 98.5 F (36.9 C) (Temporal) Resp 15 Wt 61.8 kg (136 lb 3.2 oz) SpO2 (!) 89% BMI 24.13 kg/m Physical Exam Vitals and nursing note reviewed. 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 Chest: Breasts: Right: No axillary adenopathy or supraclavicular adenopathy. Left: No axillary adenopathy or supraclavicular adenopathy. Comments: Small fullness over rib of upper right chest without definitive borders, somewhat soft, both breasts have significant nodularity without any unusual or concerning features Lymphadenopathy: Cervical: No cervical adenopathy. Upper Body: Right upper body: No supraclavicular or axillary adenopathy. Left upper body: No supraclavicular or axillary adenopathy. Assessment/Plan: Diagnoses and all orders for this visit: Subcutaneous nodule of breast - US Breast Bilateral Complete; Future Patient assured that all findings seemed benign but ultrasound order given in the event that patient is concerned and wants reassurance that everything is normal. No follow-ups on file. Andra Adkins MD There are no Patient Instructions on file for this visit. documented in this encounterOhioHealthEvaluation note* Diagnosis Subcutaneous nodule of breast- Primary documented in this encounter [facility] noteNo assessment information availableWCrystal [facility] Work Phone: Hospital Discharge instructions Additional Instructions Follow-up with your HAND CROCHETER as well as vascular surgery. Return back to the ED if symptoms change or worsen. Lovenox is a blood thinner it increases spontaneous bleeding as well as bleeding with falls. You received your first this evening. Lovenox injection here in the emergency department. Take your next injection this evening.[facility] Work Phone: Progress note Author Sarah Blackwood [facility] Note Date/Time February 17, 2025 8:55a m [facility] [address] [place] [address], [address] [place] [address] OFFICE VISIT Date of Service: 02/17/25 MR#: [id number] Acct: [id number] Name: ARMANDO CUENCA Rep #: [id number] : 2000 Provider: WILLY Blackwood Age/Sex: 24/F Location: [facility] [place] Status: Signed Intake Vital Signs 12/24/24 15:07 02/09/25 09:46 02/17/25 08:39 02/17/25 08:39 Height 5 ft 3 in 5 ft 3 in 5 ft 3 in 5 ft 3 in Weight: 145 lb 4 oz BMI 25.7 BP 125/79 H Intake Visit Reasons: 35wk NST ONLY Bumper Straightener Required: No Is patient in pain?: No Allergies No Known Allergies Allergy (Verified 02/17/25 08:39) Medications 3 ?Medication ?Instructions ?Recorded ?Confirmed ?Type Saccharomyces boulardii 250 mg 250 mg PO BID 08/16/22 02/17/25 History capsule (Daily Probiotic (S. boulardii)) diphenhydramine HCl 25 mg capsule 25 mg PO QHS PRN 05/1502/17/25 History (Benadryl) docosahexaenoic acid 200 mg mg PO 07/30/24 02/17/25 Hi story capsule ( DHA) enoxaparin 60 mg/0.6 mL 60 mg (0.6 mL) subcut Q12H 3 0 days 12/24/24 02/17/25 Rx subcutaneous syringe (Lovenox) #36 mL breast pump #1 ea 02/03/25 02/17/25 Rx Last Menstrual Period: 06/18/24 Zika: Zika virus screening: Negative : No PFSH PFSH Surgical History History of tonsillectomy Family History Father Hypertension Arthritis Grandfather Diabetes Grandfather Kidney disease Social History adopted: No household members: spouse current occupational status: employed current occupation: [employer] current occupational exposures/hazards: No pets and animals: Yes ( taking care litter box ) pets and animals: cat(s) and dog(s) history of recent travel: Yes ( - May ) out of state: Yes out of country: No sexually active: Yes Smoking Status: Never smoker alcohol intake: current alcohol intake frequency: holidays/special occasions only details: Not while substance use type: does not use well-balanced diet: daily or most days caffeine: Yes Type: coffee eating out: 1-3 times/week during the past year weight has: remained stable what type of physical activity do you participate in: walking, running and weight training frequency: 5-6 times per week duration: 30-45 minutes/day wander/sikh: Anglican seatbelt use: always do you feel safe at home: Yes 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 OB Visit JUHI Calculator Estimated Delivery Date Method Current Current Estimate 03/25/25 LMP (Certain) 34w 6d Expected Delivery Route/Plan Labor Preferences- CB/BF classes: yes labor support person: Nabor labor intervention preferences: [] pain management options preferred: open to epidural if requested cut cord/dad catch: cord : yes PP control planned: discussed discussed possible routes of delivery and associated risks: [] special requests: [] Specific Issue/Plans Covid status: [] Flu vaccine: declined Tdap vaccine: given Rhogam: na LARC form signed: yes Problem list reviewed and updated with the most current plan of care details and appropriate orders placed. Relevant counseling for the gestational age provided. Continue routine care and follow up unless otherwise noted in visit notes/problem list details Initial Weight: 129 lb Date -?--?-?-?-?-?-?-?-?-?-?-?- EGA Weight BP Urine Prot -?-?-?-?-?-?-?-?-?-?-?-?- Glucose FHR FuHt Pres Dilation -?-?-?-?-?-?-?-?-?-?-?-?- Effaced St Visit Note 08/13/24 -?-?-?-?-?-?-?-?-?-?-?-?- 8w 0d 129 lb 8 oz (+8 oz) 114/84 -?-?-?-?-?-?-?-?-?-?-?-?- 175 -?-?-?-?-?-?-?-?-?-?-?-?- LC 1.55 CRL con with LMP. declines nipt. 09/09/24 -?-?-?-?-?-?-?-?-?-?-?-?- 11w 6d 133 lb 8 oz (+4 lb 8 oz) 119/73 Negative -?-?-?-?-?-?-?-?-?-?-?-?- Negative 180 -?-?-?-?-?-?-?-?-?-?-?-?- JV- no complaint s today. plan new ob labs today. bedside scan reassuring. 10/08/24 -?-?-?-?-?-?-?-?-?-?-?-?- 16w 0d 136 lb 2 oz (+7 lb 2 oz) 124/84 Negative -?-?-?-?-?-?-?-?-?-?-?-?- Negative 145 -?-?-?-?-?-?-?-?-?-?-?-?- JV- no lof, vagi nal bleeding, or cramping. anatomy scan scheduled. no complaints today. 11/05/24 -?-?-?-?-?-?-?-?-?-?-?-?- 20w 0d 139 lb 6 oz (+10 lb 6 oz) 131/81 Negative -?-?-?-?-?-?-?-?-?-?-?-?- Negative 145 20 -?-?-?-?-?-?-?-?-?-?-?-?- SM- no vb occasi onal cramping reviewed labs declined afp 12/03/24 -?-?-?-?-?-?-?-?-?-?-?-?- 24w 0d 139 lb 2 oz (+10 lb 2 oz) 120/71 Negative -?-?-?-?-?-?-?-?-?-?-?-?- Negative 140 24 -?-?-?-?-?-?-?-?-?-?-?-?- KW- no vb/lof/ct x. good fm. KW- no vb/lof/ctx. good fm. discussed 28 week labs. 12/22/24 -?-?-?-?-?-?-?-?-?-?-?-?- 26w 5d 144 lb 8 oz (+15 lb 8 oz) 122/70 Negative -?-?-?-?-?-?-?-?-?-?-?-?- Negative 138 26 -?-?-?-?-?-?-?-?-?-?-?-?- -work in for l eft groin pain extending into thigh. Hurts to walk. Very tender with palpation. No redness. Doppler ordered. Good Fm. No vaginal or urinary symptoms. 12/24/24 -?-?-?-?-?-?-?-?-?-?-?-?- 27w 0d 144 lb (+15 lb) 128/74 Negative -?-?-?-?-?-?-?-?-?-?-?-?- Negative 140 -?-?-?-?-?-?-?-?-?-?-?-?- SM- seen for fu after DVT diagnosed- reviewed plan of care 12/29/24 -?--?-?-?-?-?-?-?-?-?-?-?- 27w 5d 142 lb 6 oz (+13 lb 6 oz) 118/68 Negative -?-?-?-?-?-?-?-?-?-?-?-?- Negative 138 -?-?-?-?-?-?-?-?-?-?-?-?- MH-NO VB, LOF. G ood FM. Groin pain improved. 28 wk labs pending. Larc. 01/11/25 -?-?-?-?-?-?-?-?-?-?-?-?- 29w 4d 144 lb 6 oz (+15 lb 6 oz) 118/74 Negative -?-?-?-?-?-?-?-?-?-?-?-?- Negative 142 29 -?-?-?-?-?-?-?-?-?-?-?-?- MH-NO VB, LOF. G ood Fm. Tdap. No longer w/groin pain. Doing well w/lovenox 01/24/25 -?-?-?-?-?-?-?-?-?-?-?-?- 31w 3d 143 lb 4 oz (+14 lb 4 oz) 132/78 Negative -?-?-?-?-?-?-?-?-?-?-?-?- Negative 13 31 -?-?-?-?-?-?-?-?-?-?-?-?- JV- no lof, vagi nal bleeding. has movement that is sporadic. has anterior placenta. doing better on lovenox. plan for weekly nsts starting next week 02/03/25 -?-?-?-?-?-?-?-?-?-?-?-?- 32w 6d 145 lb 2 oz (+16 lb 2 oz) 109/73 Negative -?-?-?-?-?-?-?-?-?-?-?-?- Negative 135 -?-?-?-?-?-?-?-?-?-?-?-?- KW- NST only. re active 02/09/25 -?-?-?-?-?-?-?-?-?-?-?-?- 33w 5d 146 lb (+17 lb) 132/80 Negative -?-?-?-?-?-?-?-?-?-?-?-?- Negative 130 -?-?-?-?-?-?-?-?-?-?-?-?- JV- no lof, vagi nal bleeding, or dec fm. taking lovenox for left groin DVT but now having tightness and tingling in the right calf. doppler ordered urgently 02/17/25 -?-?-?-?-?-?-?-?-?-?-?-?- 34w 6d 145 lb 4 oz (+16 lb 4 oz) 125/79 -?-?-?-?-?-?-?-?-?-?-?-?- 130 -?-?-?-?-?-?-?-?-?-?-?-?- KW- NST only. re active. will call if needs refills on lovenox ACOG First Trimester First Trimester: Discussed Second Trimester Second Trimester: Signs and Symptoms of Labor, Selecting a care provider, Reproductive Life Planning & Contreception and Care Planning; Discussed Tobacco Cessation, Discussed Depression/Anxiety and Discussed Intimate Partner Violence Third Trimester Third Trimester: Pain Management Plans, Labor support person(s), Immediate Larc, Circumcision preference, Signs and Symptoms of Preeclampsia, Feeding No and Family Medical Leave or Disability Forms ROS Const Reports system reviewed and no additional complaints, except as documented Eyes Reports system reviewed and no additional complaints, except as documented ENT Reports system reviewed and no additional complaints, except as documented Card Reports system reviewed and no additional complaints, except as documented Resp Reports system reviewed and no additional complaints, except as documented GI Reports system reviewed and no additional complaints, except as documented, Denies nausea and Denies vomiting Reports system reviewed and no additional complaints, except as documented Musc Reports system reviewed and no additional complaints, except as documented Skin/Breast Reports system reviewed and no additional complaints, except as documented Neuro Yes system reviewed and no additional complaints, except as documented Psych Reports system reviewed and no additional complaints, except as documented Endo Reports system reviewed and no additional complaints, except as documented Akshat/Lymph Reports system reviewed and no additional complaints, except as documented Aller/Immun Reports system reviewed and no additional complaints, except as documented Exam Const General: cooperative, healthy appearing and no acute distress Orientation: alert, awake and oriented x3 Neck Neck: normal visual inspection and full ROM Resp Effort & Inspection: normal respiratory effort, able to speak in complete sentences and symmetric chest movement GI Inspection: normal to inspection Palpation: soft and other Other: gravid Skin General: no rashes or lesions noted Neuro General: patient alert, patient awake and patient oriented x3 Cognition: normal cognition Speech: speech normal Gait: normal gait Motor: muscle tone normal throughout Extrem General: normal to inspection and full ROM Psych Appearance: grossly normal Mental Status: mental status grossly normal Mood: congruent mood Affect: normal affect Speech and Movement: speech and movement normal Attitude: cooperative Thought Process: normal Thought Content: normal Judgment: judgment good Office Procedures Non-stress Test Non-Stress Test Indications for Monitoring: Yes other (DVT) Heart Rate Baseline: 130 Heart Rate Variability: moderate Movement: Present Heart Rate Accelerations: Present Decelerations: Absent Contractions: Absent Impression: Yes Reactive Non-Stress Test Coding Level of Care Code OB Routine Diagnoses Acute deep vein thrombosis (DVT) of iliac vein of left lower extremity I82.422 Affected thrombotic vein of extremity: iliac DVT location: lower extremity Laterality: left Abnormal glucose affecting O99.810 Supervision of high risk in third trimester O.93 Trimester: third trimester 34 weeks gestation of Z3A.34 Weeks of gestation: 34 weeks CPT Codes Non-Stress Test (38622) Assessment and Plan Assessment and Plan (1) Acute DVT (deep venous thrombosis): Status: Acute Qualifiers: Affected thrombotic vein of extremity: iliac DVT location: lower extremity Laterality: left Qualified Code(s): I82.422 - Acute embolism and thrombosis of left iliac vein Comment: Left groin: On lovenox. 32 & 36wk growth US Wkly NST at 34wk (2) Abnormal glucose affecting : Status: Acute Comment: passed 3 hour (3) Supervision of high-risk : Status: Acute Qualifiers: Trimester: third trimester Qualified Code(s): O09.93 - Supervision of high risk , unspecified, third trimester Comment: PRR , JUHI 03/25/25, boy Conchita : Nabor (4) : Status: Acute Qualifiers: Weeks of gestation: 34 weeks Qualified Code(s): Z3A.34 - 34 weeks gestation of Orders: Orders POC Urinalysis 2 Dip (Clinic) Today OB NST Today I82.422 - Acute embolism and thrombosis of left iliac vein Plan Details Additional Comments: ACOG trimester education reviewed and updated. see problem list details for updated plan management information and see below for orders placed at this visit. GA appropriate handout given. 02/17/25 0850 <Electronically signed by Sarah clemens CNM> Date _ Sarah Blackwood CNM Cosigner Signature: Date (if applicable) CC: ~ [facility] Work Phone: Reason for referral (narrative)No reason for referral information availableWCrystal Clinic Orthopedic Center Work Phone: Summary Purpose Family History No Family History Records Found Relationship Condition Age at Onset Recorded Date/T corazon father Hypertension Unknown Arthritis Unknown grandfather Diabetes mellitus Unknown grandfather Kidney disorder Unknown Advance Directives No Advanced Directives Records FoundDocuments on File Type Date Recorded Patient Foreign Banknote Teller Expl anation Advance Directives and Living Will Advance Directives and Living Will 08/11/2020 8:31 AM DOES NOT HAVE ONE Documents on File Type Date Recorded 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 No December 23, 2024 10:18am History of Present Illness * Tone Morales, OLIVIA - 08/14/2020 3:06 PM EST Subjective NEW PATIENT Complaint 2nd toe/joint pain and swelling after being on her feet all day or when wearing certain shoes. 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 Patient ID: Armando Aponte is a 20 y.o. female. HPI She did have a pretty good contusion (pics on her phone after being stepped on during . This did involve the MTPJ area. Has noticed stiffness in the area. This summer it started getting sore. It hurts to some degree everyday. Sometimes limits running. The following portions of the patient's history were reviewed and updated as appropriate: She has no past medical history on file. She does not have any pertinent problems on file. She has no past surgical history on file. Her family history includes No Known Problems in her father and mother. She reports that she has never smoked. She has never used smokeless tobacco. She reports current alcohol use. She reports that she does not use drugs. Current Outpatient Medications Medication Sig Dispense Refill metroNIDAZOLE (METROGEL) 0.75 % vaginal gel Insert into the vagina nightly for 5 days . 70 g 0 No current facility-administered medications for this visit. She has No Known Allergies.. Review of Systems Objective LE Physical Exam: VASCULAR: DP pulse palpable, bilaterally and PT pulse palpable, bilaterally. CFT < 3 sec to all digits bilateral lower extremities. Pedal hair growth present, bilaterally. No pallor on elevation or rubor ondependency. Skin temperature warm to warm from tibial tuberosity distally. Pedal edema is not notedbilaterally. NEUROLOGICAL: Light touch sensation intact to the level of the digits, bilaterally. Protective sensation 10/10, bilaterally,grossly intact, bilaterally. DERMATOLOGICAL: Skin is warm, dry and supple, B/L. No open wounds or maceration appreciated, bilaterally. MUSCULOSKELETAL: Muscle strength, 5/5, bilaterally. No gross deformities or previous amputations appreciated, bilaterally. AREA OF COMPLAINT: Right foot sore at the 2nd MTPJ. Dorsal. The plantar met is not very sore, and there is minimal pain w drawer. Physical Exam Assessment/Plan: Diagnoses and all orders for this visit: Metatarsalgia of right foot - XR Foot Right 3+ Views (Standard); Future Right foot pain - XR Foot Right 3+ Views (Standard); Future I discussed treatment plan for this condition. First, we start w Budin pad. I recommend starting conservatively and going from there * Eli Ramey MA - 08/14/2020 2:51 PM EST NEW PATIENT Complaint 2nd toe/joint pain and swelling after being on her feet all day or when wearing certain shoes. 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 NK exposure. Assessment & Plan 1. COVID-19 fluticasone propionate (FLONASE) 50 mcg/actuation nasal spray [id number]-KT-[id number] 60-15-400 mg Tab 2. Fever in other diseases Covid-19/Influenza Order Algorithm Return if symptoms worsen or fail to improve. Medical Decision Making Patient was advised that her covid test was positive. They were placed in quarantine for at least 10 days. Then the patient was encouraged to use capmist and flonase as needed to help with congestion. The patient was also instructed to followup with her PCP in 7-10 days. The patient was written a work note stating that they may not return for at least 10 days. Then they were also instructed to godirectly to the hospital if symptoms worsen such as: Developing shortness of breath, dizziness, chest pain, palpatations, or new confusion. The patient verbalized understanding and agreed with this plan of care. Additional Clinical Comments Discussed over the counter medications for symptomatic management and side effects of medications. Recommended taking all medications with food and to stop medications if they develop any signs of anallergic reaction. Educated patient and/or guardian about signs and symptoms that would warrant further immediate evaluation. Recommended that they should return to urgent care, make an appointment with their family physician, or go to the emergency room if symptoms persist or get acutely worse. Recommended follow upwithin the next week with their PCP or to get established with a PCP soon in order to follow up appropriately. Influenza Immunization Patient agreed to influenza immunization but wishes to postpone it at this time. Flu shot postponedin the chart under Health Maintenance. [facility] COVID-19 Mask Status: Does the patient have classic COVID-19 symptoms? Yes, the patient has COVID-19 symptoms, the patient WAS wearing a mask during the visit and I (the provider) WAS wearing full PPE (N95 mask, gown, gloves, and face shield) during the visit. Subjective 20 y.o. female presents with URI (Fever, Congestion, loss of taste and smell Sinus Friday night. NKexposure. ) HPI 20 year old female presents to the urgent care with complaints of loss of taste and smell which shenoticed on Friday. She did have some nasal and chest congestion and slight cough that started on Friday. 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 She denies nausea, vomiting, diarrhea, shortness of breath, chest pain, or headaches or any other symptoms associated with this illness. Review Of Systems Review of Systems See HPI Medical History History reviewed. No pertinent past medical history. History reviewed. No pertinent surgical history. Patient Active Problem List Diagnosis Dysmenorrhea Overweight with body mass index (BMI) of 26 to 26.9 in adult Social History Social History Tobacco Use Smoking status: Never Smoker Smokeless tobacco: Never Used Substance Use Topics Alcohol use: Yes Frequency: Monthly or less Drug use: Never Family History Family History Problem Relation Age of Onset No Known Problems Mother No Known Problems Father Objective Physical Exam BP 130/81 Pulse 84 Temp 98.2 F (36.8 C) Resp 16 Wt 66.7 kg (147 lb) LMP 08/12/2020 (ExactDate) SpO2 98% BMI 26.04 kg/m Vision/Hearing Exam:No exam data present Physical Exam Constitutional: General: She is not in acute distress. Appearance: Normal appearance. She is not ill-appearing, toxic-appearing or diaphoretic. HENT: Head: Normocephalic. Right Ear: External ear normal. Left Ear: External ear normal. Nose: Congestion present. Cardiovascular: Rate and Rhythm: Normal rate and regular rhythm. Pulmonary: Effort: Pulmonary effort is normal. No respiratory distress. Breath sounds: Normal breath sounds. No stridor. No wheezing, rhonchi or rales. Chest: Chest wall: No tenderness. Neurological: Mental Status: She is alert. Procedure Notes Procedures Results Recent Results (from the past 168 hour(s)) COVID-19, Molecular Collection Time: 09/06/20 12:14 PM Specimen: Nasopharyngeal; Swab Result Value Ref Range SARS-CoV-2 Detected (A) Not Detected No orders to display Orders Placed This Visit Orders Placed This Encounter Procedures Covid-19/Influenza Order Algorithm COVID-19, Molecular Medication List At End Of Visit Current Outpatient Medications Medication Sig Dispense Refill fluticasone propionate (FLONASE) 50 mcg/actuation nasal spray Instill 2 (two) sprays into each nostril daily . 16 g 0 czsxjyjwdlljjtn-RP-bqqrJYZmxjr 60-15-400 mg Tab Take 1 (one) tablet by mouth 4 (four) times a day as needed . 40 tablet 0 No current facility-administered medications for this visit. Patient Instructions PLAN: 1. Use flonase twice daily for at least 2 weeks. 2. Use capmist every 4-6 hours as needed to help with cough and congestion. 3. Increase fluid intake as much as you can. 4. Please follow-up with your PCP in 7-10 days or return to the urgent care if symptoms worsen or fail to improve. 5. STAY IN QUARANTINE FOR AT LEAST 10 DAYS. TO BE REMOVED FROM QUARANTINE YOU MUST HAVE THE FOLLOWING FULLFILLED: 1. 10 DAYS IN QUARANTINE. 2. COMPLETELY FEVER FREE WITHOUT THE USE OF TYLENOL OR MOTRIN FOR AT LEAST 24 HOURS. 3. SIGNIFICANT IMPROVEMENT IN YOUR SYMPTOMS. [facility] COVID-19 Post-swabbing Instructions We will do our best to update you as soon as we receive your test results, but if we had to send your test to be run at the lab, you may see the results on MyChart or receive a call from [facility] before we are able to contact you. You should receive a call from our COVID-19 results provider as soon as possible. If you test POSITIVE for COVID-19: Isolate until: - it has been 10 days since you developed symptoms AND - you have been without a fever (100.4 F) for at least 24 hours without the use of fever reducing medication AND - your symptoms are improving Isolation is when you test positive for COVID-19 and is meant to keep the infected person away fromall others, even in their own home. If you live with others, stay in a specific sick room or area and away from other people or animals, including pets. Use a separate bathroom, if available. Seek emergency medical care immediately if you develop worsening warning signs including: - trouble breathing - persistent pain or pressure in the chest - new confusion - inability to wake or stay awake - bluish lips or face It is not recommended by the CDC to have another COVID-19 test done in order to discontinue isolation or return to work/school. We can provide return to work and school documentation as needed. If you test NEGATIVE for COVID-19: Symptomatic for COVID-19 If you have COVID-19 symptoms (symptomatic) and you are under a 14 day quarantine because of significant exposure (which is defined as close contact with someone that has a laboratory confirmed infection from COVID-19 or a person that was diagnosed by a medical professional), then a negative COVID-19 test does not clear you from the 14 day quarantine. You were likely not clinically infectious at the time of the test. This does not mean that you will not get sick and develop symptoms. It is possible that you were in the early phase of the infection at the time of your test and you could be positive later. For these reasons: 1) If the test was due to having symptoms WITH significant exposure, you should remain in quarantine: - for the full 14 days AND - you have been without a fever (100.4 F) for at least 24 hours without the use of fever reducing medication AND - your symptoms are improving If you are unable to separate yourself completely from the COVID-19 positive person (i.e. parent caring for a child), CDC guidelines recommend you quarantine for 24 days (10 days from symptom onset of the COVID positive person PLUS 14 additional days). 2) If the test was due to symptoms WITHOUT significant exposure, you may return to work/school if: - you have been without a fever (100.4 F) for at least 24 hours without the use of fever reducing medication AND - your symptoms are improving Asymptomatic for COVID-19 If you do not have any COVID-19 symptoms (asymptomatic): 1) you and your provider may have decided together not to do asymptomatic COVID- 19 testing at this time (or your test is still pending). Your quarantine may end after 10 days if: - you remain without symptoms (without symptoms reducing medications) for the full 10 days since your last exposure to a known COVID-19 positive person - you continue to monitor symptoms for the full 14 days after exposure. If symptoms develop at any time during these 14 days, please self-isolate and contact your health care provider for further instructions as you may need further testing. 2) you and your provider may have decided together to do asymptomatic COVID-19 testing at this time. Your quarantine may end after 7 days if: - your COVID-19 test is done after day 5 (post exposure) - your COVID-19 test is negative (not detected) - you remain without symptoms (without symptom reducing medications) during your quarantine - you continue to monitor symptoms for the full 14 days after exposure. If symptoms develop at any time during these 14 days, please self-isolate and contact your health care provider for further instructions as you may need further testing. When Do I Self-Quarantine? You should quarantine if you have had a significant exposure which is defined as having been in close contact (as defined below) with someone that has a laboratory confirmed infection from COVID-19 or that person was diagnosed by a medical professional. This includes contact within 48 hours prior to when the COVID-19 positive person developed symptoms. - Quarantine is used to keep someone who might have been exposed to COVID-19 away from others. - Quarantine helps prevent spread of disease that can occur before a person knows they are sick or if they are infected with the virus without feeling symptoms. - People in quarantine should stay home, separate themselves from others, monitor their health, andfollow directions from their state or local health department. What counts as close contact? - You were within 6 feet of someone who has COVID-19 for at least 15 minutes - You provided care at home to someone who is sick with COVID-19 - You had direct physical contact with the person (touched, hugged, or kissed them) - You shared eating or drinking utensils - They sneezed, coughed, or somehow got respiratory droplets on you When and How Will I Get Results? Tests performed in the clinic will be available within 15-20 minutes from initiation of test. If your test was sent out to the lab for testing, it could take anywhere from 1-5 days after your specimen is collected. The provider/practice who placed the order for your test will notify you of your results. - If you have an active [employer] account, and your COVID-19 test is negative (not detected), then you will be notified through your [employer] account. You should call the urgent care if you have any further questions. - If your COVID-19 test is positive (detected), you will receive a phone call to discuss your results and answer any questions you might have at that time. Please make sure [facility] has your updated phone number so we can contact you. [facility] will notify the [place] [facility] of any positive results to comply with state regulations. What Happens After I Get Tested if I Develop Worsening COVID-19 Symptoms? All patients should self-quarantine at home until they receive their test results. While self-quarantining, contact your PCP or return to the urgent care if you develop any of the following: - A fever of 103 degrees F (39.4 C) or higher - A fever that lasts more than 3 days without medication - A fever that returns after being gone for more than 24 hours - Chest pain or difficulty breathing - A worsening of current symptoms For work concerns, please contact your employer's HR department. How Do I Self-Quarantine? - Stay home until 14 days after last exposure and maintain social distance (at least 6 feet) from others at all times - Avoid contact with people at higher risk for severe illness from COVID-19 - Self-monitor for symptoms: - Check temperature twice a day - Watch for fever (100.4F or higher), cough, shortness of breath, or other CDC recognized symptoms of COVID-19 If I test positive, what about those with which I have had close contact (household members, partners, close friends, etc)? Anyone with close contact (as defined above) within 48 hours prior to when the COVID-19 positive person developed symptoms should self-quarantine. This includes during the 10 day quarantine period. So, if your family is unable to isolate from you - they must wait your 10 days, plus additional quarantine as described below. If they develop symptoms - they should quarantine for the entire 14 days from their exposure to you. A negative test, while having symptoms, does not change this recommendation. If they do not develop symptoms and are no longer exposed to you: Without testing, quarantine can end after 10 days from the last exposure to a known positive COVID person. If they test negative, and their test was done at least 5 days from their last known COVID exposure, their quarantine can end after 7 days. They must continue to monitor symptoms daily for all 14 days. However, if at any time during those 14 days they develop symptoms you must self-isolate and follow up for further evaluation. What Do I Do If I am Sick? Stay Home: If you are sick, stay home from work, school, public places, and social gatherings Social Distance: maintain 6 feet of distance from other people. Monitor Your Symptoms: If you develop fever, shortness of breath, confusion, or any respiratory symptoms, please notify your doctor immediately Cover Your Cough: Cough and sneeze into your shirt sleeve or inner elbow. Do not cough into your hands or into the air. If available, cough into a tissue and throw it into a trash can. Wash Your Hands: Wash hands often with soap and warm water and/or alcohol based hand interface designer, scrubbing your hands for at least 20 seconds. Wash your hands after sneezing or coughing, after going to the bathroom, and before eating or drinking. Wear a Mask: Wear a face mask when around others. Always wear a face mask (if able) if you have to leave your home Don't Touch: avoid touching your eyes, nose, and mouth Don't Share: avoid sharing items with others as they can spread infection Call First: If you do need to seek urgent medical care, call the facility first to let them know you are on your way Other COVID Questions? CDC - https://www.cdc.gov/coronavirus/2019-ncov/index.html - https://www.cdc.gov/coronavirus/2019-ncov/xo-lnx-jjz-sick/quarantine.html [facility] - Website: https://coronavirus.[place].gov/wps/portal/gov/covid-19/home - Hotline: 401-1-TIF-[facility] (770-516-0575) [facility]: https://blog.[employer]/series/crwra-11-yopnmfpgmey-toolkit/ documented in this encounter Assessments Diagnosis Metatarsalgia of right foot- Primary Right foot pain Pain in soft tissues of limb Diagnosis COVID-19- Primary Fever in other diseases Instructions * Patient Instructions* Jessica Cortez CNP - 09/06/2020 12:20 PM EST PLAN: 1. Use flonase twice daily for at least 2 weeks. 2. Use capmist every 4-6 hours as needed to help with cough and congestion. 3. Increase fluid intake as much as you can. 4. Please follow-up with your PCP in 7-10 days or return to the urgent care if symptoms worsen or fail to improve. 5. STAY IN QUARANTINE FOR AT LEAST 10 DAYS. TO BE REMOVED FROM QUARANTINE YOU MUST HAVE THE FOLLOWING FULLFILLED: 1. 10 DAYS IN QUARANTINE. 2. COMPLETELY FEVER FREE WITHOUT THE USE OF TYLENOL OR MOTRIN FOR AT LEAST 24 HOURS. 3. SIGNIFICANT IMPROVEMENT IN YOUR SYMPTOMS. [facility] COVID-19 Post-swabbing Instructions We will do our best to update you as soon as we receive your test results, but if we had to send your test to be run at the lab, you may see the results on [employer] or receive a call from [facility] before we are able to contact you. You should receive a call from our COVID-19 results provider as soon as possible. If you test POSITIVE for COVID-19: Isolate until: - it has been 10 days since you developed symptoms AND - you have been without a fever (100.4 F) for at least 24 hours without the use of fever reducing medication AND - your symptoms are improving Isolation is when you test positive for COVID-19 and is meant to keep the infected person away fromall others, even in their own home. If you live with others, stay in a specific sick room or area and away from other people or animals, including pets. Use a separate bathroom, if available. Seek emergency medical care immediately if you develop worsening warning signs including: - trouble breathing - persistent pain or pressure in the chest - new confusion - inability to wake or stay awake - bluish lips or face It is not recommended by the CDC to have another COVID-19 test done in order to discontinue isolation or return to work/school. We can provide return to work and school documentation as needed. If you test NEGATIVE for COVID-19: Symptomatic for COVID-19 If you have COVID-19 symptoms (symptomatic) and you are under a 14 day quarantine because of significant exposure (which is defined as close contact with someone that has a laboratory confirmed infection from COVID-19 or a person that was diagnosed by a medical professional), then a negative COVID-19 test does not clear you from the 14 day quarantine. You were likely not clinically infectious at the time of the test. This does not mean that you will not get sick and develop symptoms. It is possible that you were in the early phase of the infection at the time of your test and you could be positive later. For these reasons: 1) If the test was due to having symptoms WITH significant exposure, you should remain in quarantine: - for the full 14 days AND - you have been without a fever (100.4 F) for at least 24 hours without the use of fever reducing medication AND - your symptoms are improving If you are unable to separate yourself completely from the COVID-19 positive person (i.e. parent caring for a child), CDC guidelines recommend you quarantine for 24 days (10 days from symptom onset of the COVID positive person PLUS 14 additional days). 2) If the test was due to symptoms WITHOUT significant exposure, you may return to work/school if: - you have been without a fever (100.4 F) for at least 24 hours without the use of fever reducing medication AND - your symptoms are improving Asymptomatic for COVID-19 If you do not have any COVID-19 symptoms (asymptomatic): 1) you and your provider may have decided together not to do asymptomatic COVID- 19 testing at this time (or your test is still pending). Your quarantine may end after 10 days if: - you remain without symptoms (without symptoms reducing medications) for the full 10 days since your last exposure to a known COVID-19 positive person - you continue to monitor symptoms for the full 14 days after exposure. If symptoms develop at any time during these 14 days, please self-isolate and contact your health care provider for further instructions as you may need further testing. 2) you and your provider may have decided together to do asymptomatic COVID-19 testing at this time. Your quarantine may end after 7 days if: - your COVID-19 test is done after day 5 (post exposure) - your COVID-19 test is negative (not detected) - you remain without symptoms (without symptom reducing medications) during your quarantine - you continue to monitor symptoms for the full 14 days after exposure. If symptoms develop at any time during these 14 days, please self-isolate and contact your health care provider for further instructions as you may need further testing. When Do I Self-Quarantine? You should quarantine if you have had a significant exposure which is defined as having been in close contact (as defined below) with someone that has a laboratory confirmed infection from COVID-19 or that person was diagnosed by a medical professional. This includes contact within 48 hours prior to when the COVID-19 positive person developed symptoms. - Quarantine is used to keep someone who might have been exposed to COVID-19 away from others. - Quarantine helps prevent spread of disease that can occur before a person knows they are sick or if they are infected with the virus without feeling symptoms. - People in quarantine should stay home, separate themselves from others, monitor their health, andfollow directions from their state or local health department. What counts as close contact? - You were within 6 feet of someone who has COVID-19 for at least 15 minutes - You provided care at home to someone who is sick with COVID-19 - You had direct physical contact with the person (touched, hugged, or kissed them) - You shared eating or drinking utensils - They sneezed, coughed, or somehow got respiratory droplets on you When and How Will I Get Results? Tests performed in the clinic will be available within 15-20 minutes from initiation of test. If your test was sent out to the lab for testing, it could take anywhere from 1-5 days after your specimen is collected. The provider/practice who placed the order for your test will notify you of your results. - If you have an active [employer] account, and your COVID-19 test is negative (not detected), then you will be notified through your [employer] account. You should call the urgent care if you have any further questions. - If your COVID-19 test is positive (detected), you will receive a phone call to discuss your results and answer any questions you might have at that time. Please make sure [facility] has your updated phone number so we can contact you. [facility] will notify the [facility] of any positive results to comply with state regulations. What Happens After I Get Tested if I Develop Worsening COVID-19 Symptoms? All patients should self-quarantine at home until they receive their test results. While self-quarantining, contact your PCP or return to the urgent care if you develop any of the following: - A fever of 103 degrees F (39.4 C) or higher - A fever that lasts more than 3 days without medication - A fever that returns after being gone for more than 24 hours - Chest pain or difficulty breathing - A worsening of current symptoms For work concerns, please contact your employer's HR department. How Do I Self-Quarantine? - Stay home until 14 days after last exposure and maintain social distance (at least 6 feet) from others at all times - Avoid contact with people at higher risk for severe illness from COVID-19 - Self-monitor for symptoms: - Check temperature twice a day - Watch for fever (100.4F or higher), cough, shortness of breath, or other CDC recognized symptoms of COVID-19 If I test positive, what about those with which I have had close contact (household members, partners, close friends, etc)? Anyone with close contact (as defined above) within 48 hours prior to when the COVID-19 positive person developed symptoms should self-quarantine. This includes during the 10 day quarantine period. So, if your family is unable to isolate from you - they must wait your 10 days, plus additional quarantine as described below. If they develop symptoms - they should quarantine for the entire 14 days from their exposure to you. A negative test, while having symptoms, does not change this recommendation. If they do not develop symptoms and are no longer exposed to you: Without testing, quarantine can end after 10 days from the last exposure to a known positive COVID person. If they test negative, and their test was done at least 5 days from their last known COVID exposure, their quarantine can end after 7 days. They must continue to monitor symptoms daily for all 14 days. However, if at any time during those 14 days they develop symptoms you must self-isolate and follow up for further evaluation. What Do I Do If I am Sick? Stay Home: If you are sick, stay home from work, school, public places, and social gatherings Social Distance: maintain 6 feet of distance from other people. Monitor Your Symptoms: If you develop fever, shortness of breath, confusion, or any respiratory symptoms, please notify your doctor immediately Cover Your Cough: Cough and sneeze into your shirt sleeve or inner elbow. Do not cough into your hands or into the air. If available, cough into a tissue and throw it into a trash can. Wash Your Hands: Wash hands often with soap and warm water and/or alcohol based hand interface designer, scrubbing your hands for at least 20 seconds. Wash your hands after sneezing or coughing, after going to the bathroom, and before eating or drinking. Wear a Mask: Wear a face mask when around others. Always wear a face mask (if able) if you have to leave your home Don't Touch: avoid touching your eyes, nose, and mouth Don't Share: avoid sharing items with others as they can spread infection Call First: If you do need to seek urgent medical care, call the facility first to let them know you are on your way Other COVID Questions? CDC - https://www.cdc.gov/coronavirus/2019-ncov/index.html - https://www.cdc.gov/coronavirus/2019-ncov/oc-jlt-zhk-sick/quarantine.html [place] [facility] - Website: https://coronavirus.[place].gov/wps/portal/gov/covid-19/home - Hotline: 446-6-INM-ODH (717-130-9660) [facility]: https://blog.Vocalocity.Ringleadr.com/series/xsebn-63-lzdlmgupbmz-toolkit/ documented in this encounter Reason for Referral Specialty Diagnoses / Procedures Referred By Emilie t Referred To Contact Diagnoses Subcutaneous nodule of breast Procedures US Breast Bilateral Complete Andra Adkins MD [address] [id number] Referral ID Status Reason Start Date Expiration Date V isits Requested Visits Authorized [id number] Authorized 08/10/2021 08/10/2022 1 1 Chief Complaint and Reason for Visit Chief Complaint Admit Date 12wk OB September 09, 2024 3:01pm 16 wk ob October 08, 2024 1 :41pm 20 wk ob November 05, 2024 3:40pm 24 wk ob December 03, 2024 3:5 4pm OB, low abd pain/upper thigh pain with w alking December 22, 2024 2:40pm leg pain December 23, 2024 10:0 8am Reason for Visit Admit Date September 09, 2024 3:01pm Supervision of normal September 09, 2024 3:01pm October 08, 2024 1 :41pm Supervision of normal October 08, 2024 1:41pm November 05, 2024 3:40pm Supervision of normal November 05, 2024 3:40pm December 03, 2024 3:5 4pm Supervision of normal December 032024 3:54pm Left inguinal pain December 22, 2024 2:40 pm December 22, 2024 2:40 pm Supervision of normal December 2:40pm Chief Complaint Admit Date 12wk OB September 09, 2024 3:01pm 16 wk ob October 08, 2024 1 :41pm 20 wk ob November 05, 2024 3:40pm 24 wk ob December 03, 2024 3:5 4pm OB, low abd pain/upper thigh pain with w alking December 22, 2024 2:40pm leg pain December 23, 2024 10:0 8am ER fu for blood clots December 24, 2024 3: 11pm 28 wk ob/glucose December 29, 2024 3:22 pm January 03, 2025 9:4 7am Reason for Visit Admit Date September 09, 2024 3:01pm Supervision of normal September 09, 2024 3:01pm October 08, 2024 1 :41pm Supervision of normal October 08, 2024 1:41pm November 05, 2024 3:40pm Supervision of normal November 05, 2024 3:40pm December 03, 2024 3:5 4pm Supervision of normal December 032024 3:54pm December 22, 2024 2:40 pm Left inguinal pain December 22, 2024 2:40 pm Supervision of normal December 2:40pm December 24, 2024 3:11 pm Supervision of high-risk December 24, 2024 3:11pm Deep vein thrombosis, lower left extremi ty December 24, 2024 3:11pm December 29, 2024 3:22 pm Supervision of high-risk December 29, 2024 3:22pm Deep vein thrombosis, lower left extremi ty December 29, 2024 3:22pm Chief Complaint Admit Date 16 wk ob October 08, 2024 1 :41pm 20 wk ob November 05, 2024 3:40pm 24 wk ob December 03, 2024 3:5 4pm OB, low abd pain/upper thigh pain with w alking December 22, 2024 2:40pm leg pain December 23, 2024 10:0 8am ER fu for blood clots December 24, 2024 3: 11pm 28 wk ob/glucose December 29, 2024 3:22 pm January 03, 2025 9:4 7am DVT in groin January 07, 2025 3:2 4pm 30 WK OB January 11, 2025 3:4 1pm 32wk ob/nst January 24, 2025 10:19a m LLQP January 25, 2025 8:03am Reason for Visit Admit Date October 08, 2024 1 :41pm Supervision of normal October 08, 2024 1:41pm November 05, 2024 3:40pm Supervision of normal November 05, 2024 3:40pm December 03, 2024 3:5 4pm Supervision of normal December 032024 3:54pm December 22, 2024 2:40 pm Left inguinal pain December 22, 2024 2:40 pm Supervision of normal December 2:40pm December 24, 2024 3:11 pm Supervision of high-risk December 24, 2024 3:11pm Deep vein thrombosis, lower left extremi ty December 24, 2024 3:11pm December 29, 2024 3:22 pm Supervision of high-risk December 29, 2024 3:22pm Deep vein thrombosis, lower left extremi ty December 29, 2024 3:22pm Acute DVT (deep venous thrombosis) January 07, 2025 3:24pm January 07, 2025 3:2 4pm Abnormal glucose affecting Apr 2024 3:41pm Acute DVT (deep venous thrombosis) January 11, 2025 3:41pm January 11, 2025 3:4 1pm Supervision of high-risk January 11, 2025 3:41pm Abnormal glucose affecting January 24, 2025 10:19am Acute DVT (deep venous thrombosis) January 242024 10:19am January 24, 2025 10:19a m Supervision of high-risk January 242024 10:19am Chief Complaint Admit Date 16 wk ob October 08, 2024 1 :41pm 20 wk ob November 05, 2024 3:40pm 24 wk ob December 03, 2024 3:5 4pm OB, low abd pain/upper thigh pain with w alking December 22, 2024 2:40pm leg pain December 23, 2024 10:0 8am ER fu for blood clots December 24, 2024 3: 11pm 28 wk ob/glucose December 29, 2024 3:22 pm January 03, 2025 9:4 7am DVT in groin January 07, 2025 3:2 4pm 30 WK OB January 11, 2025 3:4 1pm 32wk ob/nst January 24, 2025 10:19a m LLQP January 25, 2025 8:03am GROWTH, ACUTE DVT February 02, 2025 1 :09pm 33wk NST ONLY February 03, 2025 8:25a m Reason for Visit Admit Date October 08, 2024 1 :41pm Supervision of normal October 08, 2024 1:41pm November 05, 2024 3:40pm Supervision of normal November 05, 2024 3:40pm December 03, 2024 3:5 4pm Supervision of normal December 032024 3:54pm December 22, 2024 2:40 pm Left inguinal pain December 22, 2024 2:40 pm Supervision of normal December 2:40pm December 24, 2024 3:11 pm Supervision of high-risk December 24, 2024 3:11pm Deep vein thrombosis, lower left extremi ty December 24, 2024 3:11pm December 29, 2024 3:22 pm Supervision of high-risk December 29, 2024 3:22pm Deep vein thrombosis, lower left extremi ty December 29, 2024 3:22pm Acute DVT (deep venous thrombosis) January 07, 2025 3:24pm January 07, 2025 3:2 4pm Abnormal glucose affecting Apr 2024 3:41pm Acute DVT (deep venous thrombosis) January 11, 2025 3:41pm January 11, 2025 3:4 1pm Supervision of high-risk January 11, 2025 3:41pm Abnormal glucose affecting January 24, 2025 10:19am Acute DVT (deep venous thrombosis) January 242024 10:19am January 24, 2025 10:19a m Supervision of high-risk January 242024 10:19am Abnormal glucose affecting February 03, 2025 8:25am Acute DVT (deep venous thrombosis) January 202024 8:25am February 03, 2025 8:25a m Supervision of high-risk January 202024 8:25am Chief Complaint Admit Date 20 wk ob November 05, 2024 3:40pm 24 wk ob December 03, 2024 3:5 4pm OB, low abd pain/upper thigh pain with w alking December 22, 2024 2:40pm leg pain December 23, 2024 10:0 8am ER fu for blood clots December 24, 2024 3: 11pm 28 wk ob/glucose December 29, 2024 3:22 pm January 03, 2025 9:4 7am DVT in groin January 07, 2025 3:2 4pm 30 WK OB January 11, 2025 3:4 1pm 32wk ob/nst January 24, 2025 10:19a m LLQP January 25, 2025 8:03am GROWTH, ACUTE DVT February 02, 2025 1 :09pm 33wk NST ONLY February 03, 2025 8:25a m 34wk ob/nst February 09, 2025 9:44a m Reason for Visit Admit Date November 05, 2024 3:40pm Supervision of normal November 05, 2024 3:40pm December 03, 2024 3:5 4pm Supervision of normal December 032024 3:54pm December 22, 2024 2:40 pm Left inguinal pain December 22, 2024 2:40 pm Supervision of normal December 2:40pm December 24, 2024 3:11 pm Supervision of high-risk December 24, 2024 3:11pm Deep vein thrombosis, lower left extremi ty December 24, 2024 3:11pm December 29, 2024 3:22 pm Supervision of high-risk December 29, 2024 3:22pm Deep vein thrombosis, lower left extremi ty December 29, 2024 3:22pm Acute DVT (deep venous thrombosis) January 07, 2025 3:24pm January 07, 2025 3:2 4pm Abnormal glucose affecting Apr 2024 3:41pm Acute DVT (deep venous thrombosis) January 11, 2025 3:41pm January 11, 2025 3:4 1pm Supervision of high-risk January 11, 2025 3:41pm Abnormal glucose affecting January 24, 2025 10:19am Acute DVT (deep venous thrombosis) January 242024 10:19am January 24, 2025 10:19a m Supervision of high-risk January 242024 10:19am Abnormal glucose affecting February 03, 2025 8:25am Acute DVT (deep venous thrombosis) January 202024 8:25am February 03, 2025 8:25a m Supervision of high-risk January 202024 8:25am Abnormal glucose affecting February 09, 2025 9:44am Acute DVT (deep venous thrombosis) January 212024 9:44am February 09, 2025 9:44a m Supervision of high-risk January 212024 9:44am Chief Complaint Admit Date 20 wk ob November 05, 2024 3:40pm 24 wk ob December 03, 2024 3:5 4pm OB, low abd pain/upper thigh pain with w alking December 22, 2024 2:40pm leg pain December 23, 2024 10:0 8am ER fu for blood clots December 24, 2024 3: 11pm 28 wk ob/glucose December 29, 2024 3:22 pm January 03, 2025 9:4 7am DVT in groin January 07, 2025 3:2 4pm 30 WK OB January 11, 2025 3:4 1pm 32wk ob/nst January 24, 2025 10:19a m LLQP January 25, 2025 8:03am GROWTH, ACUTE DVT February 02, 2025 1 :09pm 33wk NST ONLY February 03, 2025 8:25a m 34wk ob/nst February 09, 2025 9:44a m 35wk NST ONLY February 17, 2025 8:22a m Reason for Visit Admit Date November 05, 2024 3:40pm Supervision of normal November 05, 2024 3:40pm December 03, 2024 3:5 4pm Supervision of normal December 032024 3:54pm December 22, 2024 2:40 pm Left inguinal pain December 22, 2024 2:40 pm Supervision of normal December 2:40pm December 24, 2024 3:11 pm Supervision of high-risk December 24, 2024 3:11pm Deep vein thrombosis, lower left extremi ty December 24, 2024 3:11pm December 29, 2024 3:22 pm Supervision of high-risk December 29, 2024 3:22pm Deep vein thrombosis, lower left extremi ty December 29, 2024 3:22pm Acute DVT (deep venous thrombosis) January 07, 2025 3:24pm January 07, 2025 3:2 4pm Abnormal glucose affecting Apr 2024 3:41pm Acute DVT (deep venous thrombosis) January 11, 2025 3:41pm January 11, 2025 3:4 1pm Supervision of high-risk January 11, 2025 3:41pm Abnormal glucose affecting January 24, 2025 10:19am Acute DVT (deep venous thrombosis) January 242024 10:19am January 24, 2025 10:19a m Supervision of high-risk January 242024 10:19am Abnormal glucose affecting February 03, 2025 8:25am Acute DVT (deep venous thrombosis) January 202024 8:25am February 03, 2025 8:25a m Supervision of high-risk January 202024 8:25am Abnormal glucose affecting February 09, 2025 9:44am Acute DVT (deep venous thrombosis) January 212024 9:44am February 09, 2025 9:44a m Supervision of high-risk January 212024 9:44am Abnormal glucose affecting February 17, 2025 8:22am Acute DVT (deep venous thrombosis) January 212024 8:22am February 17, 2025 8:22a m Supervision of high-risk January 212024 8:22am Chief Complaint Admit Date 20 wk ob November 05, 2024 3:40pm 24 wk ob December 03, 2024 3:5 4pm OB, low abd pain/upper thigh pain with w alking December 22, 2024 2:40pm leg pain December 23, 2024 10:0 8am ER fu for blood clots December 24, 2024 3: 11pm 28 wk ob/glucose December 29, 2024 3:22 pm January 03, 2025 9:4 7am DVT in groin January 07, 2025 3:2 4pm 30 WK OB January 11, 2025 3:4 1pm 32wk ob/nst January 24, 2025 10:19a m LLQP January 25, 2025 8:03am GROWTH, ACUTE DVT February 02, 2025 1 :09pm 33wk NST ONLY February 03, 2025 8:25a m 34wk ob/nst February 09, 2025 9:44a m 35wk NST ONLY February 17, 2025 8:22a m RIGHT LEG PAIN February 17, 2025 9:33a m Chief Complaint Admit Date 20 wk ob November 05, 2024 3:40pm 24 wk ob December 03, 2024 3:5 4pm OB, low abd pain/upper thigh pain with w alking December 22, 2024 2:40pm leg pain December 23, 2024 10:0 8am ER fu for blood clots December 24, 2024 3: 11pm 28 wk ob/glucose December 29, 2024 3:22 pm January 03, 2025 9:4 7am DVT in groin January 07, 2025 3:2 4pm 30 WK OB January 11, 2025 3:4 1pm 32wk ob/nst January 24, 2025 10:19a m LLQP January 25, 2025 8:03am GROWTH, ACUTE DVT February 02, 2025 1 :09pm 33wk NST ONLY February 03, 2025 8:25a m 34wk ob/nst February 09, 2025 9:44a m 35wk NST ONLY February 17, 2025 8:22a m RIGHT LEG PAIN February 17, 2025 9:33a m 36wk ob/nst February 24, 2025 1:54p m Reason for Visit Admit Date November 05, 2024 3:40pm Supervision of normal November 05, 2024 3:40pm December 03, 2024 3:5 4pm Supervision of normal December 032024 3:54pm December 22, 2024 2:40 pm Left inguinal pain December 22, 2024 2:40 pm Supervision of normal December 2:40pm December 24, 2024 3:11 pm Supervision of high-risk December 24, 2024 3:11pm Deep vein thrombosis, lower left extremi ty December 24, 2024 3:11pm December 29, 2024 3:22 pm Supervision of high-risk December 29, 2024 3:22pm Deep vein thrombosis, lower left extremi ty December 29, 2024 3:22pm Acute DVT (deep venous thrombosis) January 07, 2025 3:24pm January 07, 2025 3:2 4pm Abnormal glucose affecting Apr il 2024 3:41pm Acute DVT (deep venous thrombosis) January 11, 2025 3:41pm January 11, 2025 3:4 1pm Supervision of high-risk January 11, 2025 3:41pm Abnormal glucose affecting January 24, 2025 10:19am Acute DVT (deep venous thrombosis) January 242024 10:19am January 24, 2025 10:19a m Supervision of high-risk January 242024 10:19am Abnormal glucose affecting February 03, 2025 8:25am Acute DVT (deep venous thrombosis) January 202024 8:25am February 03, 2025 8:25a m Supervision of high-risk January 202024 8:25am Abnormal glucose affecting February 09, 2025 9:44am Acute DVT (deep venous thrombosis) January 212024 9:44am February 09, 2025 9:44a m Supervision of high-risk January 212024 9:44am Abnormal glucose affecting February 17, 2025 8:22am Acute DVT (deep venous thrombosis) January 212024 8:22am February 17, 2025 8:22a m Supervision of high-risk January 212024 8:22am Abnormal glucose affecting Efren 2024 1:54pm Acute DVT (deep venous thrombosis) February 24, 2025 1:54pm February 24, 2025 1:54p m Supervision of high-risk February 24, 2025 1:54pm Chief Complaint Admit Date 20 wk ob November 05, 2024 3:40pm 24 wk ob December 03, 2024 3:5 4pm OB, low abd pain/upper thigh pain with w alking December 22, 2024 2:40pm leg pain December 23, 2024 10:0 8am ER fu for blood clots December 24, 2024 3: 11pm 28 wk ob/glucose December 29, 2024 3:22 pm January 03, 2025 9:4 7am DVT in groin January 07, 2025 3:2 4pm 30 WK OB January 11, 2025 3:4 1pm 32wk ob/nst January 24, 2025 10:19a m LLQP January 25, 2025 8:03am GROWTH, ACUTE DVT February 02, 2025 1 :09pm 33wk NST ONLY February 03, 2025 8:25a m 34wk ob/nst February 09, 2025 9:44a m 35wk NST ONLY February 17, 2025 8:22a m RIGHT LEG PAIN February 17, 2025 9:33a m RT LEG PAIN February 17, 2025 9:46a m 36wk ob/nst February 24, 2025 1:54p m 37wk ob/nst March 03, 2025 11:0 9am Reason for Visit Admit Date November 05, 2024 3:40pm Supervision of normal November 05, 2024 3:40pm December 03, 2024 3:5 4pm Supervision of normal December 032024 3:54pm December 22, 2024 2:40 pm Left inguinal pain December 22, 2024 2:40 pm Supervision of normal December 2:40pm December 24, 2024 3:11 pm Supervision of high-risk December 24, 2024 3:11pm Deep vein thrombosis, lower left extremi ty December 24, 2024 3:11pm December 29, 2024 3:22 pm Supervision of high-risk December 29, 2024 3:22pm Deep vein thrombosis, lower left extremi ty December 29, 2024 3:22pm Acute DVT (deep venous thrombosis) January 07, 2025 3:24pm January 07, 2025 3:2 4pm Abnormal glucose affecting Apr 2024 3:41pm Acute DVT (deep venous thrombosis) January 11, 2025 3:41pm January 11, 2025 3:4 1pm Supervision of high-risk January 11, 2025 3:41pm Abnormal glucose affecting January 24, 2025 10:19am Acute DVT (deep venous thrombosis) January 242024 10:19am January 24, 2025 10:19a m Supervision of high-risk January 242024 10:19am Abnormal glucose affecting February 03, 2025 8:25am Acute DVT (deep venous thrombosis) January 202024 8:25am February 03, 2025 8:25a m Supervision of high-risk January 202024 8:25am Abnormal glucose affecting February 09, 2025 9:44am Acute DVT (deep venous thrombosis) January 212024 9:44am February 09, 2025 9:44a m Supervision of high-risk January 212024 9:44am Abnormal glucose affecting February 17, 2025 8:22am Acute DVT (deep venous thrombosis) January 212024 8:22am February 17, 2025 8:22a m Supervision of high-risk January 212024 8:22am Abnormal glucose affecting Feb 1:54pm Acute DVT (deep venous thrombosis) February 24, 2025 1:54pm February 24, 2025 1:54p m Supervision of high-risk February 24, 2025 1:54pm Abnormal glucose affecting Feb 11:09am Acute DVT (deep venous thrombosis) March 03, 2025 11:09am March 03, 2025 11:0 9am Supervision of high-risk March 03, 2025 11:09am Chief Complaint Admit Date 24 wk ob December 03, 2024 3:5 4pm OB, low abd pain/upper thigh pain with w alking December 22, 2024 2:40pm leg pain December 23, 2024 10:0 8am ER fu for blood clots December 24, 2024 3: 11pm 28 wk ob/glucose December 29, 2024 3:22 pm January 03, 2025 9:4 7am DVT in groin January 07, 2025 3:2 4pm 30 WK OB January 11, 2025 3:4 1pm 32wk ob/nst January 24, 2025 10:19a m LLQP January 25, 2025 8:03am GROWTH, ACUTE DVT February 02, 2025 1 :09pm 33wk NST ONLY February 03, 2025 8:25a m 34wk ob/nst February 09, 2025 9:44a m 35wk NST ONLY February 17, 2025 8:22a m RIGHT LEG PAIN February 17, 2025 9:33a m RT LEG PAIN February 17, 2025 9:46a m 36wk ob/nst February 24, 2025 1:54p m 37wk ob/nst March 03, 2025 11:0 9am GROWTH, ACUTE DVT March 04, 2025 1:06pm Reason for Visit Admit Date December 03, 2024 3:5 4pm Supervision of normal December 032024 3:54pm December 22, 2024 2:40 pm Left inguinal pain December 22, 2024 2:40 pm Supervision of normal December 2:40pm December 24, 2024 3:11 pm Supervision of high-risk December 24, 2024 3:11pm Deep vein thrombosis, lower left extremi ty December 24, 2024 3:11pm December 29, 2024 3:22 pm Supervision of high-risk December 29, 2024 3:22pm Deep vein thrombosis, lower left extremi ty December 29, 2024 3:22pm Acute DVT (deep venous thrombosis) January 07, 2025 3:24pm January 07, 2025 3:2 4pm Abnormal glucose affecting Apr 2024 3:41pm Acute DVT (deep venous thrombosis) January 11, 2025 3:41pm January 11, 2025 3:4 1pm Supervision of high-risk January 11, 2025 3:41pm Abnormal glucose affecting January 24, 2025 10:19am Acute DVT (deep venous thrombosis) January 242024 10:19am January 24, 2025 10:19a m Supervision of high-risk January 242024 10:19am Abnormal glucose affecting February 03, 2025 8:25am Acute DVT (deep venous thrombosis) January 202024 8:25am February 03, 2025 8:25a m Supervision of high-risk January 202024 8:25am Abnormal glucose affecting February 09, 2025 9:44am Acute DVT (deep venous thrombosis) January 212024 9:44am February 09, 2025 9:44a m Supervision of high-risk January 212024 9:44am Abnormal glucose affecting February 17, 2025 8:22am Acute DVT (deep venous thrombosis) January 212024 8:22am February 17, 2025 8:22a m Supervision of high-risk January 212024 8:22am Abnormal glucose affecting Feb 1:54pm Acute DVT (deep venous thrombosis) February 24, 2025 1:54pm February 24, 2025 1:54p m Supervision of high-risk February 24, 2025 1:54pm Abnormal glucose affecting Feb 11:09am Acute DVT (deep venous thrombosis) March 03, 2025 11:09am March 03, 2025 11:0 9am Supervision of high-risk March 03, 2025 11:09am Chief Complaint Admit Date 24 wk ob December 03, 2024 3:5 4pm OB, low abd pain/upper thigh pain with w alking December 22, 2024 2:40pm leg pain December 23, 2024 10:0 8am ER fu for blood clots December 24, 2024 3: 11pm 28 wk ob/glucose December 29, 2024 3:22 pm January 03, 2025 9:4 7am DVT in groin January 07, 2025 3:2 4pm 30 WK OB January 11, 2025 3:4 1pm 32wk ob/nst January 24, 2025 10:19a m LLQP January 25, 2025 8:03am GROWTH, ACUTE DVT February 02, 2025 1 :09pm 33wk NST ONLY February 03, 2025 8:25a m 34wk ob/nst February 09, 2025 9:44a m 35wk NST ONLY February 17, 2025 8:22a m RIGHT LEG PAIN February 17, 2025 9:33a m RT LEG PAIN February 17, 2025 9:46a m 36wk ob/nst February 24, 2025 1:54p m 37wk ob/nst March 03, 2025 11:0 9am GROWTH, ACUTE DVT March 04, 2025 1:06pm 38wk ob/nst March 10, 2025 10:2 7am Reason for Visit Admit Date December 03, 2024 3:5 4pm Supervision of normal December 032024 3:54pm December 22, 2024 2:40 pm Left inguinal pain December 22, 2024 2:40 pm Supervision of normal December 2:40pm December 24, 2024 3:11 pm Supervision of high-risk December 24, 2024 3:11pm Deep vein thrombosis, lower left extremi ty December 24, 2024 3:11pm December 29, 2024 3:22 pm Supervision of high-risk December 29, 2024 3:22pm Deep vein thrombosis, lower left extremi ty December 29, 2024 3:22pm Acute DVT (deep venous thrombosis) January 07, 2025 3:24pm January 07, 2025 3:2 4pm Abnormal glucose affecting Apr 2024 3:41pm Acute DVT (deep venous thrombosis) January 11, 2025 3:41pm January 11, 2025 3:4 1pm Supervision of high-risk January 11, 2025 3:41pm Abnormal glucose affecting January 24, 2025 10:19am Acute DVT (deep venous thrombosis) January 242024 10:19am January 24, 2025 10:19a m Supervision of high-risk January 242024 10:19am Abnormal glucose affecting February 03, 2025 8:25am Acute DVT (deep venous thrombosis) January 202024 8:25am February 03, 2025 8:25a m Supervision of high-risk January 202024 8:25am Abnormal glucose affecting February 09, 2025 9:44am Acute DVT (deep venous thrombosis) January 212024 9:44am February 09, 2025 9:44a m Supervision of high-risk January 212024 9:44am Abnormal glucose affecting February 17, 2025 8:22am Acute DVT (deep venous thrombosis) January 212024 8:22am February 17, 2025 8:22a m Supervision of high-risk January 212024 8:22am Abnormal glucose affecting Feb 1:54pm Acute DVT (deep venous thrombosis) February 24, 2025 1:54pm February 24, 2025 1:54p m Supervision of high-risk February 24, 2025 1:54pm Abnormal glucose affecting Feb 11:09am Acute DVT (deep venous thrombosis) March 03, 2025 11:09am March 03, 2025 11:0 9am Supervision of high-risk March 03, 2025 11:09am Abnormal glucose affecting Feb 10:27am Acute DVT (deep venous thrombosis) March 10, 2025 10:27am March 10, 2025 10:2 7am Supervision of high-risk March 10, 2025 10:27am Chief Complaint Admit Date 24 wk ob December 03, 2024 3:5 4pm OB, low abd pain/upper thigh pain with w alking December 22, 2024 2:40pm leg pain December 23, 2024 10:0 8am ER fu for blood clots December 24, 2024 3: 11pm 28 wk ob/glucose December 29, 2024 3:22 pm January 03, 2025 9:4 7am DVT in groin January 07, 2025 3:2 4pm 30 WK OB January 11, 2025 3:4 1pm 32wk ob/nst January 24, 2025 10:19a m LLQP January 25, 2025 8:03am GROWTH, ACUTE DVT February 02, 2025 1 :09pm 33wk NST ONLY February 03, 2025 8:25a m 34wk ob/nst February 09, 2025 9:44a m 35wk NST ONLY February 17, 2025 8:22a m RIGHT LEG PAIN February 17, 2025 9:33a m RT LEG PAIN February 17, 2025 9:46a m 36wk ob/nst February 24, 2025 1:54p m 37wk ob/nst March 03, 2025 11:0 9am GROWTH, ACUTE DVT March 04, 2025 1:06pm 38wk ob/nst March 10, 2025 10:2 7am 39wk ob/nst March 17, 2025 9:44 am Reason for Visit Admit Date December 03, 2024 3:5 4pm Supervision of normal December 032024 3:54pm December 22, 2024 2:40 pm Left inguinal pain December 22, 2024 2:40 pm Supervision of normal December 2:40pm December 24, 2024 3:11 pm Supervision of high-risk December 24, 2024 3:11pm Deep vein thrombosis, lower left extremi ty December 24, 2024 3:11pm December 29, 2024 3:22 pm Supervision of high-risk December 29, 2024 3:22pm Deep vein thrombosis, lower left extremi ty December 29, 2024 3:22pm Acute DVT (deep venous thrombosis) January 07, 2025 3:24pm January 07, 2025 3:2 4pm Abnormal glucose affecting Apr 2024 3:41pm Acute DVT (deep venous thrombosis) January 11, 2025 3:41pm January 11, 2025 3:4 1pm Supervision of high-risk January 11, 2025 3:41pm Abnormal glucose affecting January 24, 2025 10:19am Acute DVT (deep venous thrombosis) January 242024 10:19am January 24, 2025 10:19a m Supervision of high-risk January 242024 10:19am Abnormal glucose affecting February 03, 2025 8:25am Acute DVT (deep venous thrombosis) January 202024 8:25am February 03, 2025 8:25a m Supervision of high-risk January 202024 8:25am Abnormal glucose affecting February 09, 2025 9:44am Acute DVT (deep venous thrombosis) January 212024 9:44am February 09, 2025 9:44a m Supervision of high-risk January 212024 9:44am Abnormal glucose affecting February 17, 2025 8:22am Acute DVT (deep venous thrombosis) January 212024 8:22am February 17, 2025 8:22a m Supervision of high-risk January 212024 8:22am Abnormal glucose affecting Feb 1:54pm Acute DVT (deep venous thrombosis) February 24, 2025 1:54pm February 24, 2025 1:54p m Supervision of high-risk February 24, 2025 1:54pm Abnormal glucose affecting Feb 11:09am Acute DVT (deep venous thrombosis) March 03, 2025 11:09am March 03, 2025 11:0 9am Supervision of high-risk March 03, 2025 11:09am Abnormal glucose affecting Feb 10:27am Acute DVT (deep venous thrombosis) March 10, 2025 10:27am March 10, 2025 10:2 7am Supervision of high-risk March 10, 2025 10:27am Abnormal glucose affecting Feb 9:44am Acute DVT (deep venous thrombosis) March 17, 2025 9:44am March 17, 2025 9:44 am Supervision of high-risk March 17, 2025 9:44am Additional Source Comments INFORMATION SOURCE (unrecogn ized section and content) DATE CREATED AUTHOR 03/11/2018 [facility] DATE CREATED AUTHOR AUTHOR'S ORGANIZ ATION 08/14/2020 [facility] DATE CREATED AUTHOR AUTHOR'S ORGANIZ ATION [facility] DATE CREATED AUTHOR AUTHOR[facility]S [facility]IZ ATION [facility] [facility] DATE CREATED AUTHOR AUTHOR'S ORGANIZ ATION 10/31/2024 [facility] DATE CREATED AUTHOR AUTHOR'S ORGANIZ ATION 03/17/2025 [facility] Reason for Visit (unrecogniz ed section and content) Reason Comments Establish Care Reason Comments URI Fever, Congestion, l oss of taste and smell Sinus Friday night. NK exposure. Reason Comments Cyst On chest noticed 1 m onth ago, left breast poss lump , mammogram was done this year Care Teams (unrecognized sec tion and content) Rfid Technician Relationship Specialty Start Date End Date Andra Adkins MD [address] [place] [id number] PCP - General Family Medicine 08/11/20 Team Status: Active Member Role Status Dates Dr. Alanna Blue MD Primary Care Provider Active Team Status: Inactive Member Role Status Dates Dr. Alanna Blue MD Primary Care Provider Active Start: September 09, 2024 End: September 09, 2024 Dr. Alanna Blue MD Referring Provider Active Start: September 09, 2024 End: September 09, 2024 Dr. Kareen Sands DO Attending Provider Activ e Start: September 09, 2024 End: September 09, 2024 Team Status: Inactive Member Role Status Dates Dr. Alanna Blue MD Primary Care Provider Active Start: October 08, 2024 End: October 08, 2024 Dr. Alanna Blue MD Referring Provider Active Start: October 08, 2024 End: October 08, 2024 Dr. Kareen Sands DO Attending Provider Activ e Start: October 08, 2024 End: October 08, 2024 Team Status: Inactive Member Role Status Dates Dr. Alanna Blue MD Primary Care Provider Active Start: November 05, 2024 End: November 05, 2024 Dr. Alanna Blue MD Referring Provider Active Start: November 05, 2024 End: November 05, 2024 Dr. Rosy Albert MD Attending Provider Active Start: November 05, 2024 End: November 05, 2024 Team Status: Inactive Member Role Status Dates Dr. Alanna Blue MD Primary Care Provider Active Start: December 03, 2024 End: December 03, 2024 Dr. Alanna Blue MD Referring Provider Active Start: December 03, 2024 End: December 03, 2024 Sarah Blackwood CNM Attending Provider Active S tart: December 03, 2024 End: December 03, 2024 Team Status: Inactive Member Role Status Dates Dr. Alanna Blue MD Primary Care Provider Active Start: December 22, 2024 End: December 22, 2024 Dr. Alanna Blue MD Referring Provider Active Start: December 22, 2024 End: December 22, 2024 Tara Olvera NP, PROGRAMMING INSTRUCTOR-C Attending Provider Active Start: December 22, 2024 End: December 22, 2024 Team Status: Inactive Member Role Status Dates Dr. Alanna Blue MD Primary Care Provider Active Start: December 23, 2024 End: December 23, 2024 Dr. Stanley Gaytan DO Emergency Provider Activ e Start: December 23, 2024 End: December 23, 2024 Team Status: Inactive Member Role Status Dates Dr. Alanna Blue MD Primary Care Provider Active Start: December 23, 2024 End: December 23, 2024 Dr. Stanley Gaytan DO Attending Provider Activ e Start: December 23, 2024 End: December 23, 2024 Dr. Stanley Gaytan DO Emergency Provider Activ e Start: December 23, 2024 End: December 23, 2024 Team Status: Active Member Role Status Dates Dr. Alanna Blue MD Primary Care Provider Active Start: December 23, 2024 Dr. Vamsi Saenz MD Attending Provider Active S tart: December 23, 2024 Dr. Stanley Gaytan DO Referring Provider Activ e Start: December 23, 2024 Team Status: Inactive Member Role Status Dates Dr. Alanna Blue MD Primary Care Provider Active Start: December 24, 2024 End: December 24, 2024 Dr. Alanna Blue MD Referring Provider Active Start: December 24, 2024 End: December 24, 2024 Dr. Rosy Albert MD Attending Provider Active Start: December 24, 2024 End: December 24, 2024 Team Status: Inactive Member Role Status Dates Dr. Alanna Blue MD Primary Care Provider Active Start: December 29, 2024 End: December 29, 2024 Dr. Alanna Blue MD Referring Provider Active Start: December 29, 2024 End: December 29, 2024 Tara Olvera NP, PROGRAMMING INSTRUCTOR-C Attending Provider Active Start: December 29, 2024 End: December 29, 2024 Team Status: Inactive Member Role Status Dates Dr. Alanna Blue MD Primary Care Provider Active Start: December 29, 2024 End: December 29, 2024 Dr. Kareen Sands DO Attending Provider Activ e Start: December 29, 2024 End: December 29, 2024 Dr. Kareen Sands DO Referring Provider Activ e Start: December 29, 2024 End: December 29, 2024 Team Status: Active Member Role Status Dates Dr. Alanna Blue MD Primary Care Provider Active Start: January 03, 2025 Sarah Blackwood CNM Attending Provider Active S tart: January 03, 2025 Sarah Blackwood CNM Referring Provider Active S tart: January 03, 2025 Team Status: Inactive Member Role Status Dates Dr. Alanna Blue MD Primary Care Provider Active Start: January 03, 2025 End: January 03, 2025 Sarah Blackwood CNM Attending Provider Active S tart: January 03, 2025 End: January 03, 2025 Sarah Blackwood CNM Referring Provider Active S tart: January 03, 2025 End: January 03, 2025 Team Status: Inactive Member Role Status Dates Dr. Alanna Blue MD Primary Care Provider Active Start: January 07, 2025 End: January 07, 2025 Dr. Alanna Blue MD Referring Provider Active Start: January 07, 2025 End: January 07, 2025 DONELL Gagnon Attending Provider Active Star t: January 07, 2025 End: January 07, 2025 Team Status: Inactive Member Role Status Dates Dr. Alanna Blue MD Primary Care Provider Active Start: January 11, 2025 End: January 11, 2025 Dr. Alanna Blue MD Referring Provider Active Start: January 11, 2025 End: January 11, 2025 Tara Olvera PROGRAMMING INSTRUCTOR, PROGRAMMING INSTRUCTOR-C Attending Provider Active Start: January 11, 2025 End: January 11, 2025 Team Status: Inactive Member Role Status Dates Dr. Alanna Blue MD Primary Care Provider Active Start: January 24, 2025 End: January 24, 2025 Dr. Alanna Blue MD Referring Provider Active Start: January 24, 2025 End: January 24, 2025 Dr. Kareen Sands DO Attending Provider Activ e Start: January 24, 2025 End: January 24, 2025 Team Status: Inactive Member Role Status Dates Dr. Alanna Blue MD Primary Care Provider Active Start: January 25, 2025 End: January 25, 2025 Tara Olvera PROGRAMMING INSTRUCTOR, PROGRAMMING INSTRUCTOR-C Attending Provider Active Start: January 25, 2025 End: January 25, 2025 Tara Olvera PROGRAMMING INSTRUCTOR, PROGRAMMING INSTRUCTOR-C Referring Provider Active Start: January 25, 2025 End: January 25, 2025 Team Status: Active Member Role Status Dates Dr. Alanna Blue MD Primary Care Provider Active Start: January 25, 2025 Dr. Vamsi Saenz MD Attending Provider Active S tart: January 25, 2025 Team Status: Active Member Role Status Dates Dr. Alanna Blue MD Primary Care Provider Active Start: January 25, 2025 Dr. Vamsi Saenz MD Attending Provider Active S tart: January 25, 2025 Tara Olvera PROGRAMMING INSTRUCTOR, PROGRAMMING INSTRUCTOR-C Referring Provider Active Start: January 25, 2025 Team Status: Active Member Role Status Dates Dr. Alanna Blue MD Primary Care Provider Active Start: February 02, 2025 Tara Olvera PROGRAMMING INSTRUCTOR, PROGRAMMING INSTRUCTOR-C Attending Provider Active Start: February 02, 2025 Tara Olvera PROGRAMMING INSTRUCTOR, PROGRAMMING INSTRUCTOR-C Referring Provider Active Start: February 02, 2025 Team Status: Inactive Member Role Status Dates Dr. Alanna Blue MD Primary Care Provider Active Start: February 03, 2025 End: February 03, 2025 Dr. Alanna Blue MD Referring Provider Active Start: February 03, 2025 End: February 03, 2025 Sarah Blackwood CNM Attending Provider Active S tart: February 03, 2025 End: February 03, 2025 Team Status: Inactive Member Role Status Dates Dr. Alanna Blue MD Primary Care Provider Active Start: February 02, 2025 End: February 02, 2025 Tara Olvera PROGRAMMING INSTRUCTOR, PROGRAMMING INSTRUCTOR-C Attending Provider Active Start: February 02, 2025 End: February 02, 2025 Tara Olvera PROGRAMMING INSTRUCTOR, PROGRAMMING INSTRUCTOR-C Referring Provider Active Start: February 02, 2025 End: February 02, 2025 Team Status: Inactive Member Role Status Dates Dr. Alanna Blue MD Primary Care Provider Active Start: February 09, 2025 End: February 09, 2025 Dr. Alanna Blue MD Referring Provider Active Start: February 09, 2025 End: February 09, 2025 Dr. Kareen Sands DO Attending Provider Activ e Start: February 09, 2025 End: February 09, 2025 Team Status: Inactive Member Role Status Dates Dr. Alanna Blue MD Primary Care Provider Active Start: February 17, 2025 End: February 17, 2025 Dr. Alanna Blue MD Referring Provider Active Start: February 17, 2025 End: February 17, 2025 Sarah Blackwood CNM Attending Provider Active S tart: February 17, 2025 End: February 17, 2025 Team Status: Inactive Member Role Status Dates Dr. Alanna Blue MD Primary Care Provider Active Start: February 17, 2025 End: February 17, 2025 Dr. Kareen Sands DO Attending Provider Activ e Start: February 17, 2025 End: February 17, 2025 Dr. Kareen Sands DO Referring Provider Activ e Start: February 17, 2025 End: February 17, 2025 Team Status: Inactive Member Role Status Dates Dr. Alanna Blue MD Primary Care Provider Active Start: February 24, 2025 End: February 24, 2025 Dr. Alanna Blue MD Referring Provider Active Start: February 24, 2025 End: February 24, 2025 Dr. Rosy Albert MD Attending Provider Active Start: February 24, 2025 End: February 24, 2025 Team Status: Active Member Role Status Dates Dr. Loyd Marcus MD Attending Provider Active Start: February 17, 2025 Dr. Kareen Sands DO Referring Provider Activ e Start: February 17, 2025 Team Status: Inactive Member Role Status Dates Dr. Alanna Blue MD Primary Care Provider Active Start: March 03, 2025 End: March 03, 2025 Dr. Alanna Blue MD Referring Provider Active Start: March 03, 2025 End: March 03, 2025 Sarah Blackwood CNM Attending Provider Active S tart: March 03, 2025 End: March 03, 2025 Team Status: Inactive Member Role Status Dates Dr. Alanna Blue MD Primary Care Provider Active Start: March 03, 2025 End: March 03, 2025 Sarah Blackwood CNM Attending Provider Active S tart: March 03, 2025 End: March 03, 2025 Team Status: Active Member Role Status Dates Dr. Alanna Blue MD Primary Care Provider Active Start: March 04, 2025 Tara Olvera PROGRAMMING INSTRUCTOR, PROGRAMMING INSTRUCTOR-C Other Provider Active St art: March 04, 2025 DONELL Gagnon Attending Provider Active Star t: March 04, 2025 DONELL Gagnon Referring Provider Active Star t: March 04, 2025 Dr. Kareen Sands DO Other Provider Active Start: March 04, 2025 Team Status: Inactive Member Role Status Dates Dr. Alanna Blue MD Primary Care Provider Active Start: March 10, 2025 End: March 10, 2025 Dr. Alanna Blue MD Referring Provider Active Start: March 10, 2025 End: March 10, 2025 Dr. Kareen Sands DO Attending Provider Activ e Start: March 10, 2025 End: March 10, 2025 Team Status: Inactive Member Role Status Dates Dr. Alanna Blue MD Primary Care Provider Active Start: March 04, 2025 End: March 04, 2025 Tara Olvera PROGRAMMING INSTRUCTOR, PROGRAMMING INSTRUCTOR-C Other Provider Active St art: March 04, 2025 End: March 04, 2025 DONELL Gagnon Attending Provider Active Star t: March 04, 2025 End: March 04, 2025 DONELL Gagnon Referring Provider Active Star t: March 04, 2025 End: March 04, 2025 Dr. Kareen Sands DO Other Provider Active Start: March 04, 2025 End: March 04, 2025 Team Status: Active Member Role Status Dates Dr. Alanna Blue MD Primary Care Provider Active Start: March 04, 2025 Dr. Vamsi Saenz MD Attending Provider Active S tart: March 04, 2025 DONELL Gagnon Referring Provider Active Star t: March 04, 2025 Team Status: Inactive Member Role Status Dates Dr. Alanna Blue MD Primary Care Provider Active Start: March 17, 2025 End: March 17, 2025 Dr. Alanna Blue MD Referring Provider Active Start: March 17, 2025 End: March 17, 2025 Dr. Roys Albert MD Attending Provider Active Start: March 17, 2025 End: March 17, 2025 Goals (unrecognized section and content) Goals may be documented in a n alternate sectionGoals may be documented in an alternate sectionGoals may be documented in an alternate sectionGoals may be documented in an alternate sectionGoals may be documented in an alternate sectionGoals may be documented in an alternate sectionGoals may be documented in an alternate sectionGoals may be documented in an alternate sectionGoals may be documented in an alternate sectionGoals may be documented in an alternate sectionGoals may be documented in an alternate sectionGoals may be documented in an alternate sectionGoals may be documented in an alternate sectionGoals may be documented in an alternate sectionGoals may be documented in an alternate sectionGoals may be documented in an alternate section FOR RECORDS PERTAINING TO PATIENTS WHO ARE OR HAVE BEEN ENROLLED IN A CHEMICAL DEPENDENCY/SUBSTANCEABUSE PROGRAM, SOME INFORMATION MAY BE OMITTED. This clinical summary was aggregated from multiple sources. Caution should be exercised in using it in the provision of clinical care. This summary normalizes information from multiple sources, and as a consequence, information in this document may materially change the coding, format and clinical context of patient data. In addition, data may be omitted in some cases. CLINICAL DECISIONS SHOULD BE BASED ON THE PRIMARY CLINICAL RECORDS. [facility] [employer] [facility]. provides no warranty or guarantee of the accuracy or completeness of information in this document.
--- OUTSIDE RECORDS SUMMARY | 2025-03-17 22:13 | XMS RPT_ITS | CCD ---
Author Organization [facility] ion [facility] CliniSymd Care Team Providers Care Barrel Liner Name Role Phone Andra Adkins Unavailable Unavailable [...] Provider Dr. Alanna Blue MD Referring Provider [phone] Dr. Kareen Sands DO Attending Provider Dr. Rosy Albert MD Attending Provider Sarah Blackwood CNM Attending Provider Tara Shepherd Attending Provider [phone] Dr. Stanley Gaytan DO Emergency Provider Dr. Stanley Gaytan DO Attending Provider Dr. Vamsi Saenz MD Attending Provider [phone] Dr. Stanley Gaytan DO Referring Provider Dr. Kareen Sands DO Referring Provider Sarah Blackwood CNM Referring Provider [phone] Su NAVAS, Dr. Alanna Charles Primary Care Provider Su NAVAS, Dr. Alanna Charles Referring Provider Cinda Salvador DO, Dr. Mathur Attending Provider Mitali Thomas Attending Provider 1([facility])-[phone] [place] INFORMATICS CONSULTANT-C, Tara Referring Provider Su NAVAS, Dr. Alanna Charles Primary Care Provider Su NAVAS, Dr. Alanna Charles Referring Provider Dr. Kareen Sands DO Attending Provider Amrit NAVAS, Dr. Loyd Espana Attending Provider Su NAVAS, Dr. Alanna Charles Primary Care Provider [phone] Su NAVAS, Dr. Alanna Charles Referring Provider Roosevelt NAVAS, Dr. Gallegos Attending Provider Wade INFORMATICS CONSULTANT-C, Tara Other Provider Jake MARLEY, Mitali Referring Provider 1([facility])-[phone] Cinda Salvador DO, Dr. Mathur Other Provider [phone] Alanna Blue Primary Care Unavailable [place] INFORMATICS CONSULTANT, Tara Attending Unavailable [place] INFORMATICS CONSULTANT, Tara Referring Unavailable Kareen Sands Attending Unavailabl e Gitae Kareen Salvador Referring Unavailabl e Schpatricia, Alanna E Primary Care Unavailable Joseph, Mitali Attending Unavailable Joseph, Mitali Referring Unavailable SchAlanna gomez Primary Care Unavailable [place] INFORMATICS CONSULTANT, Tara Consulting Unavailable Kareen Sands Consulting Unavailabl e Stanley Gaytan Attending Unavailabl e Su, Alanna E Primary Care Unavailable Kareen Sands Referring Unavailabl e Vande Kareen Salvador Attending Unavailabl e Su, Alanna E Primary Care Unavailable VandKareen Pablo Consulting Unavailabl e Mitali Joseph Attending Unavailable Joseph, Mitali Referring Unavailable Schpatricia, Alanna E Primary Care Unavailable Schinner, Alanna E Primary Care Unavailable [place] INFORMATICS CONSULTANT, Tara Attending Unavailable [place] INFORMATICS CONSULTANT, Tara Referring Unavailable Schinner, Alanna E Primary [...] Care Unavailable Schinner, Alanna E Referring Unavailable [place] INFORMATICS CONSULTANT, Tara Attending Unavailable Kareen Sands Attending Unavailabl [...] Schinner, Alanna E Primary Care Unavailable Wade INFORMATICS CONSULTANTTara Referring Unavailable Mayra Martinez Attending Unavailable Schinner, [...] (1 source) azithromycin Drug Allergy 02-15-2012 Diarrhea [facility] Repository Medications Current Medications Medication Drug Class(es) [...] oral tablet (1 source) alpha-Adrenergic Agonist, Uncompetitive S-ugdrzo-W-aspartat e Receptor Antagonist, Sigma-1 Agonist Start: 09-06-2020 [...] Absolute Lymph 2.53 X10 3/uL Normal 0.83-4.51 [facility] Comment on above: Performed By: #### L 100.0100, BTS #### [facility] Laboratory [address] [place], [address] Absolute Neut 7.7 X10 3/uL Normal 2.0-7.7 [facility] Comment on above: Performed By: #### L 100.0100, BTS #### [facility] Laboratory [address] [place], [address] Basophils/100 WBC (Bld) 0.5 % Normal 0-1 [facility] Comment on above: Performed By: #### L 100.0100, BTS #### [facility] Laboratory [address] [place], [address] Eosinophils/100 WBC (Bld) 0.7 % Normal 0-5 [facility] Comment on above: Performed By: #### L 100.0100, BTS #### [facility] Laboratory [address] [place], [address] Erythrocyte distribution width (RBC) [Ratio] 13.1 % Normal 11.6-14.6 [facility] Comment on above: Performed By: #### L 100.0100, BTS #### [facility] Laboratory [address] [place], [address] Hematocrit (Bld) [Volume fraction] 39.7 % Normal 37-47 [facility] Comment on above: Performed By: #### L 100.0100, BTS #### [facility] Laboratory [address] [place], [address] Hemoglobin (Bld) [Mass/Vol] 14.2 g/dL Normal 12.0-15.0 [facility] Comment on above: Performed By: #### L 100.0100, BTS #### [facility] Laboratory [address] [place], [address] IG% 0.500 Normal 0.0-0.9 [facility] Comment on above: Result Comment: IG% - Immature Granulocytes (promyelocytes, myelocytes and metamyelocytes) > 1% indicates that a LEFT SHIFT is Present. Performed By: #### L 100.0100, BTS #### [facility] Laboratory [address] [place], [address] Lymphocytes/100 WBC (Bld) 22.9 % Normal 19-41 [facility] Comment on above: Performed By: #### L 100.0100, BTS #### [facility] Laboratory [address] [place], [address] MCH (RBC) [Entitic mass] 31.5 pg Normal 27.0-32.0 [facility] Comment on above: Performed By: #### L 100.0100, BTS #### [facility] Laboratory [address] [place], [address] MCHC (RBC) [Mass/Vol] 35.8 g/dL Normal 32-36 [facility] Comment on above: Performed By: #### L 100.0100, BTS #### [facility] Laboratory [address] [place], [address] MCV (RBC) [Entitic vol] 88.0 fL Normal 81-99 [facility] Comment on above: Performed By: #### L 100.0100, BTS #### [facility] [address] [place], [address] Monocytes/100 WBC (Bld) 6.2 % Normal 0-10 [facility] Comment on above: Performed By: #### L 100.0100, BTS #### [facility] Laboratory [address] [place], [address] Neutrophils/100 WBC (Bld) 69.2 % Normal 47-70 [facility] Comment on above: Performed By: #### L 100.0100, BTS #### [facility] Laboratory [address] [place], [address] Nucleated RBC (Bld) [#/Vol] 0 10*3/uL Normal 0-5 [facility] Comment on above: Performed By: #### L 100.0100, BTS #### [facility] [address] [place], [address] Platelet mean volume (Bld) [Entitic vol] 11.4 fL Normal 6.2-12.0 [facility] Comment on above: Performed By: #### L 100.0100, BTS #### [facility] Laboratory [address] [place], [address] Platelets (Bld) [#/Vol] 196 10*3/uL Normal 150-450 [facility] Comment on above: Performed By: #### L 100.0100, BTS #### [facility] Laboratory [address] [place], [address] RBC (Bld) [#/Vol] 4.51 10*6/uL Normal 4.2-5.4 [facility] Comment on above: Performed By: #### L 100.0100, BTS #### [facility] Laboratory [address] [place], [address] RDW SD 41.5 fl Normal 35.1-43.9 [facility] Comment on above: Performed By: #### L 100.0100, BTS #### [facility] Laboratory [address] [place], [address] WBC (Bld) [#/Vol] 11.0 10*3/uL Normal 4.4-11.0 [facility] Comment on above: Performed By: #### L 100.0100, BTS #### [facility] [address] [place], [address] Adjunct Professor Of Law Office Visit Reporton 03-17-2025 Adjunct Professor Of Law Office Visit Report [facility] [address], [address] [place] [address] OFFICE VISIT Date of Service: 03/17/25 MR#: [id number] Acct: [id number] Name: ARMANDO CUENCA Rep #: [id number] : 2000 Provider: Dr. Rosy enriquez MD Age/Sex: 25/F Location: [facility] Status: Signed Intake Vital Signs 12/24/24 15:07 03/10/25 10:37 03/17/25 09:52 03/17/25 09:54 Height 5 ft 3 in 5 ft 3 in 5 ft 3 in 5 ft 3 in Weight: 147 lb 8 oz BMI 26.1 BP 126/87 H Intake Visit Reasons: 39wk ob/nst Steamfitter Required: No Is patient in pain?: No [...] 5-6 times per week duration: 30-45 minutes/day wander/methodist: Hinduism seatbelt use: always do you feel safe at home: Yes additional social history: : [employer] - [employer] at [employer] History 1 Elective abortions Hx Para 0 [...] oz (+7 (more content not included)... Normal [facility] Syphilis Antibodieson 2024 Syphilis Abs Non-Reactive Normal Nonreactive [facility] Comment on above: Performed By: #### M 100.3400 #### [facility] Laboratory [address] [place], [place], [address] Type AND Screenon 03-17-2025 Ab SCREEN GEL Negative Normal [facility] Comment on above: Order Comment: Labor Performed By: #### L 100.0100, BTS #### [facility] Laboratory [address] [place], [place], [address] Laboratory - Chemistry and C hemistry - challengeOrdered By: Kareen Salvador on 03-10-2025 Glucose Ql (U) Negative [facility] Laboratory - UrinalysisOrder ed By: Kareen Beanrosmery on 03-10-2025 Protein Ql (U) Negative [facility] Adjunct Professor Of Law Office Visit Reporton 03-10-2025 Adjunct Professor Of Law Office Visit Report [facility] [address], [address] [place] [address] OFFICE VISIT Date of Service: 03/10/25 MR#: [id number] Acct: [id number] Name: ARMANDO CUENCA Rep #: [id number] : 2000 Provider: Dr. Kareen Fowler DO Age/Sex: 25/F Location: [facility] Status: Signed Intake Vital Signs 12/24/24 15:07 03/03/25 11:14 03/10/25 10:36 03/10/25 10:37 Height 5 ft 3 in 5 ft 3 in 5 ft 3 in 5 ft 3 in Weight: 147 lb 8 oz BMI 26.1 BP 129/84 H Intake Visit Reasons: 38wk ob/nst Steamfitter Required: No Is patient in pain?: No [...] occupational status: employed current occupation: [employer] current occupational exposures/hazards: No [...] 5-6 times per week duration: 30-45 minutes/day wandre/methodist: Hinduism seatbelt use: always do you feel safe at home: Yes 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 Normal [facility] Rule out Beta Strep (Grp. B) on 03-05-2025 DAWIT Group B Beta Streptococcus is not isolated. Normal [facility] Comment on above: Performed By: #### M 100.3400 #### [facility] Laboratory [address] [place], [place], [address] OB Limited With Biometricson 03-04-2025 OB Limited With Biometrics [facility] Imaging Services [address] [place], [place] [address] OB Limited With Biometrics MR#: [id number] Acct: [id number] Name: ARMANDO CUENCA Rep #: [id number] : 2000 F 25 From: Nathan kaba MD PCP: Dr. Alanna Blue MD Status: [facility] Study: OB Limited With Biometrics Date of Exam: 03/04 Exam# [id number] Ordering Dr: Tara Olvera INFORMATICS CONSULTANT INFORMATICS CONSULTANT -C PROCEDURE: OB LIMITED WITH BIOMETRICS 03/04/2025 [...] within the normal expected range. Reading Location: [place] [address] CC: SARABJIT Olvera; Dr. Alanna Blue MD Cue Worker: Signed Normal [facility] Venous Duplex US, Unilateral on 03-04-2025 Venous Duplex US, Unilateral [facility] Cardiovascular Services [address] [place] [address] Venous Duplex US, Unilateral 03/04/25 1356 MR#: [id number] Acct: [id number] Name: ARMANDO CUENCA Rep #: [id number] : 2000 25 From: Vamsi Saenz MD [...] Dictated: 03/04/25 1356 Date Transcribed: 03/14/25 1324 Cue Worker: Signed Normal [facility] Laboratory - Chemistry and C hemistry - challengeOrdered By: Sarah Blackwood on 03-03-2025 Glucose Ql (U) Negative [facility] Laboratory - UrinalysisOrder ed By: Sarah Blackwood on 03-03-2025 Protein Ql (U) Negative [facility] Screening beta-hemolytic Str eptococcus cultureOrdered By: Sarah Blackwood on 03-03-2025 Beta-hemolytic Streptococcus culture Group B Beta Streptococcus is not isolated. [facility] Laboratory - Chemistry and C hemistry - challengeOrdered By: Rosy Albert on 02-24-2025 Glucose Ql (U) Negative [facility] Laboratory - UrinalysisOrder ed By: Rosy Albert on 02-24-2025 Protein Ql (U) Negative [facility] Adjunct Professor Of Law Office Visit Reporton 02-24-2025 Adjunct Professor Of Law Office Visit Report [address], [address] [place] [address] OFFICE VISIT Date of Service: 02/24/25 MR#: [id number] Acct: [id number] Name: ARMANDO CUENCA Rep #: [id number] : 2000 Provider: Dr. Rosy enriquez MD Age/Sex: 24/F Location: [facility] Status: Signed Intake Vital Signs 12/24/24 15:07 02/17/25 08:39 02/24/25 14:05 02/24/25 14:06 Height 5 ft 3 in 5 ft 3 in 5 ft 3 in 5 ft 3 in Weight: 146 lb BMI 25.8 BP 128/88 H Intake Visit Reasons: 36wk ob/nst Steamfitter Required: No Is patient in pain?: No [...] 5-6 times per week duration: 30-45 minutes/day wander/methodist: Hinduism seatbelt use: always do you feel safe at home: Yes additional social history: : [employer] - [employer]ine [employer] History 1 Elective abortions Hx Para 0 [...] lb 2 (more content not included)... Normal [facility] Laboratory - Chemistry and C hemistry - challengeOrdered By: Sarah Blackwood on 02-17-2025 Glucose Ql (U) Negative [facility] Laboratory - UrinalysisOrder ed By: Sarah Blackwood on 02-17-2025 Protein Ql (U) Negative [facility] Adjunct Professor Of Law Office Visit Reporton 02-17-2025 Adjunct Professor Of Law Office Visit Report [facility] [address], [address] [place] [address] OFFICE VISIT Date of Service: 02/17/25 MR#: [id number] Acct: [id number] Name: ARMANDO CUENCA Rep #: [id number] : 2000 Provider: WILLY Haynes ams Age/Sex: 24/F Location: 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 Normal [facility] Venous Duplex US, Unilateral on 02-17-2025 Venous Duplex US, Unilateral [facility] Cardiovascular Services [address] [place] [address] Venous Duplex US, Unilateral 02/17/25 0946 MR#: [id number] Acct: [id number] Name: ARMANDO CUENCA Rep #: [id number] : 2000 24 From: Loyd Marcus MD [...] MD Date Dictated: 02/17/25945 Date Transcribed: 02/17/252154 Cue Worker: Signed Normal [facility] Venous duplex ultrasound rep ortOrdered By: Loyd Marcus on 02-17-2025 US Vein [facility] Cardiovascular Services [address] [place] [address] Venous Duplex US, Unilateral 02/17/25945 MR#: [id number] Acct: [id number] Name: ARMANDO CUENCA Rep #:[id number] : 2000 24 From: Loyd Marcus MD Attending Dr: Dr. Karene Sands DO Status: REG CLI Ordering Dr: [...] ~ Date Dictated: 02/17/25945 Date Transcribed: 02/17/252154 Cue Worker: Signed [facility] Other Laboratory - Chemistry and C hemistry - challengeOrdered By: Kareen Salvador on 02-09-2025 Glucose Ql (U) Negative [facility] Laboratory - UrinalysisOrder ed By: Kareen Salvador on 02-09-2025 Protein Ql (U) Negative [facility] Adjunct Professor Of Law Office Visit Reporton 02-09-2025 Adjunct Professor Of Law Office Visit Report [facility] [address] [place] [address], [address] [place] [address] OFFICE VISIT Date of Service: 02/09/25 MR#: [id number] Acct: [id number] Name: ARMANDO CUENCA Rep #: [id number] : 2000 Provider: Dr. Kareen Fowler DO Age/Sex: 24/F Location: [facility] Status: Signed Intake Vital Signs 12/24/24 15:07 02/03/25 08:37 02/09/25 09:46 02/09/25 09:46 Height 5 ft 3 in 5 ft 3 in 5 ft 3 in 5 ft 3 in Weight: 145 lb 2 oz 146 lb BMI 25.7 25.8 BP 109/73 132/80 H Intake Visit Reasons: 34wk ob/nst Steamfitter Required: No Is patient in pain?: No [...] occupational status: employed current occupation: [employer] current occupational exposures/hazards: No [...] 5-6 times per week duration: 30-45 minutes/day wander/methodist: Hinduism seatbelt use: always do you feel safe at home: Yes 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 Normal [facility] Laboratory - Chemistry and C hemistry - challengeOrdered By: Sarah Blackwood on 02-03-2025 Glucose Ql (U) Negative [facility] Laboratory - UrinalysisOrder ed By: Sarah Blackwood on 02-03-2025 Protein Ql (U) Negative [facility] Adjunct Professor Of Law Office Visit Reporton 02-03-2025 Adjunct Professor Of Law Office Visit Report [facility] [address], [address] [place] [address] OFFICE VISIT Date of Service: 02/03/25 MR#: [id number] Acct: [id number] Name: ARMANDO CUENCA Rep #: [id number] : 2000 Provider: WILLY Haynes ams Age/Sex: 24/F Location: [facility] Status: Signed Intake Vital Signs 12/24/24 15:07 01/24/25 10:23 02/03/25 08:37 Height 5 ft 3 in 5 ft 3 in 5 ft 3 in Weight: 145 lb 2 oz BMI 25.7 BP 109/73 Intake Visit Reasons: 33wk NST ONLY Chief Complaint: 33 Week NST only Steamfitter Required: No Is patient in pain?: No [...] 5-6 times per week duration: 30-45 minutes/day wander/methodist: Hinduism seatbelt use: always do you feel safe at home: Yes 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 Normal [facility] OB Limited With Biometricson 02-02-2025 OB Limited With Biometrics [facility] Imaging Services [address] [place] [address] OB Limited With Biometrics MR#: [id number] Acct: [id number] Name: ARMANDO CUENCA Rep #: [id number] : 2000 F 24 From: Nathan kaba MD PCP: Dr. Alanna Blue MD Status: REG CLI Study: OB Limited With Biometrics Date of Exam: 02/02 Exam# [id number] Ordering Dr: Tara Olvera INFORMATICS CONSULTANT INFORMATICS CONSULTANT -C PROCEDURE: OB LIMITED WITH BIOMETRICS 02/02/2025 [...] 33 weeks and 1 day. Reading Location: [id number] CC: SARABJIT Olvera; Dr. Alanna Blue MD Cue Worker: Signed Normal [facility] Venous Duplex US, Unilateral on 01-25-2025 Venous Duplex US, Unilateral [facility] Cardiovascular Services [address] [place] [address] Venous Duplex US, Unilateral 01/25/25 0812 MR#: [id number] Acct: [id number] Name: ARMANDO CUENCA Rep #: [id number] : 2000 24 From: Vamsi Saenz MD [...] 01/25/25 1010 Date Vamsi Saenz MD CC: INFORMATICS CONSULTANT-C Tara Olvera; Dr. Alanna Blue MD Date Dictated: 01/25/25 0812 Date Transcribed: 01/25/25 1010 Cue Worker: Signed Normal [facility] Venous duplex ultrasound rep ortOrdered By: Vamsi Saenz on 01-25-2025 US Vein [facility] Cardi[facility] Services [address] [place] [address] Venous Duplex US, Unilateral 01/25/25 0812 MR#: [id number] Acct: [id number] Name: ARMANDO CUECNA Rep #:[id number] : 2000 24 From: Vamsi Thompson Attending Dr: SARABJIT Richards Status: REG CLI Ordering Dr: Tara Olvera NP INFORMATICS CONSULTANT-C Da te: 01/25/25 Location: [facility] Sex: F [...] Dictated: 01/25/25 0812 Date Transcribed: 01/25/25 1010 Cue Worker: Signed [facility] Work Phone: Laboratory - Chemistry and C hemistry - challengeOrdered By: Kareen Salvador on 01-24-2025 Glucose Ql (U) Negative [facility] Laboratory - UrinalysisOrder ed By: Kareen Salvador on 01-24-2025 Protein Ql (U) Negative [facility] Adjunct Professor Of Law Office Visit Reporton 01-24-2025 Adjunct Professor Of Law Office Visit Report [facility], [address] [place] [address] OFFICE VISIT Date of Service: 01/24/25 MR#: [id number] Acct: [id number] Name: ARMANDO CUENCA Rep #: [id number] : 2000 Provider: Dr. Kareen Fowler DO Age/Sex: 24/F Location: [facility] Status: Signed Intake Vital Signs 12/03/24 15:56 12/24/24 15:07 01/11/25 15:43 01/24/25 10:20 01/24/25 10:23 Height 5 ft 3 in 5 ft 3 in 5 ft 3 in 5 ft 3 in 5 ft 3 in Weight: 143 lb 4 oz BMI 25.3 BP 132/78 H Intake Visit Reasons: 32wk ob/nst Steamfitter Required: No Is patient in pain?: No [...] occupational status: employed current occupation: [employer] current occupational exposures/hazards: No [...] 5-6 times per week duration: 30-45 minutes/day wander/methodist: Hinduism seatbelt use: always do you feel safe at home: Yes 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 Normal [facility] Laboratory - Chemistry and C hemistry - challengeOrdered By: Tara Olvera on 01-11-2025 Glucose Ql (U) Negative [facility] Laboratory - UrinalysisOrder ed By: Tara Olvera on 01-11-2025 Protein Ql (U) Negative [facility] Adjunct Professor Of Law Office Visit Reporton 01-11-2025 Adjunct Professor Of Law Office Visit Report [facility] [address], [address] [place] [address] OFFICE VISIT Date of Service: 01/11/25 MR#: [id number] Acct: [id number] Name: ARMANDO CUENCA Rep #: [id number] : 2000 Provider: SARABJIT whyte Age/Sex: 24/F Location: [facility] Status: Signed Intake Vital Signs 12/03/24 15:56 12/29/24 15:29 01/11/25 15:43 Height 5 ft 3 in 5 ft 3 in 5 ft 3 in Weight: 144 lb 6 oz BMI 25.5 BP 118/74 Intake Visit Reasons: 30 WK OB Chief Complaint: 30 Week OB Steamfitter Required: No Is patient in pain?: No [...] occupational status: employed current occupation: [employer] current occupational exposures/hazards: No [...] 5-6 times per week duration: 30-45 minutes/day wander/methodist: Hinduism seatbelt use: always do you feel safe at home: Yes 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 ?-?? (more content not included)... Normal [facility] MR/BMS.BVSon 01-07-2025 MR/BMS.BVS [facility] [address] [place], [place] [address] OFFICE VISIT Date of Service: 01/07/25 MR#: [id number] Acct: [id number] Name: ARMANDO CUENCA Rep #: [id number] [...] occupational status: employed current occupation: [employer] current occupational exposures/hazards: No [...] 5-6 times per week duration: 30-45 minutes/day wander/methodist: Hinduism seatbelt use: always do you feel safe at home: Yes additional social history: : [employer] - [employer] HPI HPI HPI: ARMANDO CUENCA, is a [...] hearing vo (more content not included)... Normal [facility] Gestational GTT 3HR 100gon 0 01-03-2025 3HR GTT- GEST. High [facility] Comment on above: Order Comment: Y Result [...] 01/03/25 1324 Performed By: #### L 500.4710 ####[facility] [address] [place], [address] Glucose tolerance 3 hours ge stational panelOrdered By: Sarah Blackowod on 01-03-2025 Gestational Glucose Tolerance Test See comment [facility] Comment on above: FASTING 80 Col: 12/21 [...] tolerance 3 hours gestational panel See comment [facility] Comment on above: FASTING 80 Col: 12/21 [...] Auto (Unsp spec) [#/Vol] 1.55 10*3/uL 0.83-4.51 [facility] Absolute neutrophil countOrd ered By: Sarah Blackwood on 12-29-2024 Neutrophils (Bld) [#/Vol] 6.4 10*3/uL 2.0-7.7 [facility] Automated lymphocyte count a s percentage of total leukocytesOrdered By: Sarah Blackwood on 12-29-2024 Lymphocytes/100 WBC Auto (Unsp spec) 17.7 % Low 19-41 [facility] Basophil percentageOrdered B y: Sarah Blackwood on 12-29-2024 Basophils/100 WBC (Bld) 0.5 % 0-1 [facility] CBC W/Diff, Automatedon Absolute Lymph 1.55 X10 3/uL Normal 0.83-4.51 [facility] Comment on above: Performed By: #### L 100.0100, L509.8002, L501.0250, L3890.6006 #### [facility] Laboratory [address] [place], [address] Absolute Neut 6.4 X10 3/uL Normal 2.0-7.7 [facility] Comment on above: Performed By: #### L 100.0100, L509.8002, L501.0250, L3890.6006 #### [facility] Laboratory [address] [place], [address] Basophils/100 WBC (Bld) 0.5 % Normal 0-1 [facility] Comment on above: Performed By: #### L 100.0100, L509.8002, L501.0250, L3890.6006 #### [facility] Laboratory [address] [place], [address] Eosinophils/100 WBC (Bld) 1.6 % Normal 0-5 [facility] Comment on above: Performed By: #### L 100.0100, L509.8002, L501.0250, L3890.6006 #### [facility] Laboratory [address] [place], [address] Erythrocyte distribution width (RBC) [Ratio] 12.1 % Normal 11.6-14.6 [facility] Comment on above: Performed By: #### L 100.0100, L509.8002, L501.0250, L3890.6006 #### [facility] Laboratory [address] [place], [address] Hematocrit (Bld) [Volume fraction] 34.9 % Low 37-47 [facility] Comment on above: Performed By: #### L 100.0100, L509.8002, L501.0250, L3890.6006 #### [facility] Laboratory [address] [place], [address] Hemoglobin (Bld) [Mass/Vol] 12.0 g/dL Normal 12.0-15.0 [facility] Comment on above: Performed By: #### L 100.0100, L509.8002, L501.0250, L3890.6006 #### [facility] Laboratory [address] [place], [address] IG% 0.700 Normal 0.0-0.9 [facility] Comment on above: Result Comment: IG% - Immature Granulocytes (promyelocytes, myelocytes and metamyelocytes) > 1% indicates that a LEFT SHIFT is Present. Performed By: #### L 100.0100, L509.8002, L501.0250, L3890.6006 #### [facility] Laboratory [address] [place], [address] Lymphocytes/100 WBC (Bld) 17.7 % Low 19-41 [facility] Comment on above: Performed By: #### L 100.0100, L509.8002, L501.0250, L3890.6006 #### [facility] Laboratory [address] [place], [address] MCH (RBC) [Entitic mass] 31.0 pg Normal 27.0-32.0 [facility] Comment on above: Performed By: #### L 100.0100, L509.8002, L501.0250, L3890.6006 #### [facility] Laboratory [address] [place], [address] MCHC (RBC) [Mass/Vol] 34.4 g/dL Normal 32-36 [facility] Comment on above: Performed By: #### L 100.0100, L509.8002, L501.0250, L3890.6006 #### [facility] Laboratory [address] [place], [address] MCV (RBC) [Entitic vol] 90.2 fL Normal 81-99 [facility] Comment on above: Performed By: #### L 100.0100, L509.8002, L501.0250, L3890.6006 #### [facility] Laboratory [address] [place], [address] Monocytes/100 WBC (Bld) 6.1 % Normal 0-10 [facility] Comment on above: Performed By: #### L 100.0100, L509.8002, L501.0250, L3890.6006 #### [facility] Laboratory [address] [place], [address] Neutrophils/100 WBC (Bld) 73.4 % High 47-70 [facility] Comment on above: Performed By: #### L 100.0100, L509.8002, L501.0250, L3890.6006 #### [facility] Laboratory [address] [place], [address] Nucleated RBC (Bld) [#/Vol] 0 10*3/uL Normal 0-5 [facility] Comment on above: Performed By: #### L 100.0100, L509.8002, L501.0250, L3890.6006 #### [facility] Laboratory [address] [place], [address] Platelet mean volume (Bld) [Entitic vol] 9.9 fL Normal 6.2-12.0 [facility] Comment on above: Performed By: #### L 100.0100, L509.8002, L501.0250, L3890.6006 #### [facility] Laboratory [address] [place], [address] Platelets (Bld) [#/Vol] 393 10*3/uL Normal 150-450 [facility] Comment on above: Performed By: #### L 100.0100, L509.8002, L501.0250, L3890.6006 #### [facility] Laboratory [address] [place], [address] RBC (Bld) [#/Vol] 3.87 10*6/uL Low 4.2-5.4 [facility] Comment on above: Performed By: #### L 100.0100, L509.8002, L501.0250, L3890.6006 #### [facility] Laboratory [address] [place], [address] RDW SD 39.8 fl Normal 35.1-43.9 [facility] Comment on above: Performed By: #### L 100.0100, L509.8002, L501.0250, L3890.6006 #### [facility] Laboratory [address] [place], [address] WBC (Bld) [#/Vol] 8.8 10*3/uL Normal 4.4-11.0 [facility] Comment on above: Performed By: #### L 100.0100, L509.8002, L501.0250, L3890.6006 #### [facility] Laboratory [address] [place], [address] Eosinophil percentageOrdered By: Sarah Blackwood on 12-29-2024 Eosinophils/100 WBC (Bld) 1.6 % 0-5 [facility] Erythrocyte distribution wid th (RBC) [Ratio]Ordered By: Sarah Blackwood on 12-29-2024 Erythrocyte distribution width (RBC) [Entitic vol] 39.8 fL 35.1-43.9 [facility] Erythrocyte distribution wid th ratioOrdered By: Sarah Blackwood on 12-29-2024 Erythrocyte distribution width (RBC) [Ratio] 12.1 % 11.6-14.6 [facility] Erythrocyte distribution wid th standard deviationOrdered By: Sarah Blackwood on 12-29-2024 Erythrocyte distribution width (RBC) [Ratio] 39.8 fl 35.1-43.9 [facility] Glucose Challenge Gest 1H 50 jesscia 12-29-2024 GLU GEST 50g 1H 152 mg/dL High 70-140 [facility] Comment on above: Performed By: #### L 100.0100, L509.8002, L501.0250, L3890.6006 #### [facility] Laboratory [address] [place], [place], [address] Glucose measurement at 2 liz rs post-dose gestational glucose tolerance testOrdered By: Sarah Blackwood on 12-29-2024 Glucose [Mass/Vol] 152 mg/dL High 70-140 [facility] HIVon 12-29-2024 HIV Non-Reactive Normal Nonreactive [facility] Comment on above: Result Comment: Non- Reactive Reactive Repeatedly reactive samples must be confirmed according to CDC recommended confirmatory algorithms. The subresults for either HIVAG or AHIV can be used as an aid in the selection of the confirmation algorithm for reactive samples. Send out specimens with Reactive results to [facility] for confirmation. Order the HIV antibody detection and differentiation: lc#[id number] Performed By: #### L 100.0100, L509.8002, L501.0250, L3890.6006 #### [facility] Laboratory [address] [place], [place], [address] Hematocrit Auto (Bld) [Volum e fraction]Ordered By: Sarah Blackwood on 12-29-2024 Hematocrit (Bld) [Volume fraction] 34.9 % Low 37-47 [facility] Hemoglobin measurementOrdere d By: Sarah Blackwood on 12-29-2024 Hemoglobin (Bld) [Mass/Vol] 12.0 g/dL 12.0-15.0 [facility] Immature granulocytes/100 WB C Auto (Bld)Ordered By: Sarah Blackwood on 12-29-2024 Immature granulocytes/100 WBC (Bld) 0.700 % 0.0-0.9 [facility] Comment on above: IG% - Immature Granu locytes (promyelocytes, myelocytes and metamyelocytes) > 1% indicates that a LEFT SHIFT is Present. Laboratory - Chemistry and C hemistry - challengeOrdered By: Tara Olvera on 12-29-2024 Glucose Ql (U) Negative [facility] Laboratory - UrinalysisOrder ed By: Tara Olvera on 12-29-2024 Protein Ql (U) Negative [facility] Lymphocytes Auto (Unsp spec) [#/Vol]Ordered By: Sarah Blackwood on 12-29-2024 Lymphocytes (Bld) [#/Vol] 1.55 10*3/uL 0.83-4.51 [facility] Lymphocytes/100 WBC Auto (Un sp spec)Ordered By: Sarah Blackwood on 12-29-2024 Lymphocytes/100 WBC (Bld) 17.7 % Low 19-41 [facility] MCV (mean corpuscular volume ) determinationOrdered By: Sarah Blackwood on 12-29-2024 MCV (RBC) [Entitic vol] 90.2 fL 81-99 [facility] Mean corpuscular hemoglobin (MCH) determinationOrdered By: Sarah Blackwood on 12-29-2024 MCH (RBC) [Entitic mass] 31.0 pg 27.0-32.0 [facility] Mean corpuscular hemoglobin concentration (MCHC) determinationOrdered By: Sarah Blackwood on 12-29-2024 MCHC (RBC) [Mass/Vol] 34.4 g/dL 32-36 [facility] Mean platelet volume determi nationOrdered By: Sarah Blackwood on 12-29-2024 Platelet mean volume (Bld) [Entitic vol] 9.9 fL 6.2-12.0 [facility] Monocyte percentageOrdered B y: Sarah Blackwood on 12-29-2024 Monocytes/100 WBC (Bld) 6.1 % 0-10 [facility] Neutrophil percentageOrdered By: Sarah Blackwood on 12-29-2024 Neutrophils/100 WBC (Bld) 73.4 % High 47-70 [facility] No Panel InformationOrdered By: Sarah Blackwood on 12-29-2024 HIV (1&2) Antibody Non-Reactive Nonreactive [facility] Comment on above: Non-ReactiveReactive Repeatedly reactive samples must be confirmed according to CDC recommended confirmatory algorithms. The subresults for either HIVAG or AHIV can be used as an aid in the selection of the confirmation algorithm for reactive samples.Send out specimens with Reactive results to [facility] for confirmation.Order the HIV antibody detection and differentiation: #[id number] Nucleated red blood cell per centageOrdered By: Sarah Blackwood on 12-29-2024 Nucleated RBC/100 WBC (Bld) [Ratio] 0 % 0-5 [facility] Adjunct Professor Of Law Office Visit Reporton 12-29-2024 Adjunct Professor Of Law Office Visit Report [facility], [address] [place] [address] OFFICE VISIT Date of Service: 12/29/24 MR#: [id number] Acct: [id number] Name: ARMANDO CUENCA Rep #: [id number] : 2000 Provider: SARABJIT whyte Age/Sex: 24/F Location: [facility] Status: Signed Intake Vital Signs 09/09/24 15:06 12/24/24 15:07 12/29/24 15:29 Height 5 ft 3 in 5 ft 3 in 5 ft 3 in Weight: 142 lb 6 oz BMI 25.2 BP 118/68 Intake Visit Reasons: 28 wk ob/glucose Chief Complaint: 28 Week OB/Glucose Steamfitter Required: No Is patient in pain?: No [...] occupational status: employed current occupation: [employer] current occupational exposures/hazards: No [...] 5-6 times per week duration: 30-45 minutes/day wander/methodist: Hinduism seatbelt use: always do you feel safe at home: Yes additional social history: : [employer] - [employer] History 1 Elective abortions Hx Para 0 [...] 12-29-2024 Platelets (Bld) [#/Vol] 393 10*3/uL 150-450 [facility] RBC Auto (Bld) [#/Vol]Ordere d By: Sarah Blackwood on 12-29-2024 RBC (Bld) [#/Vol] 3.87 10*6/uL Low 4.2-5.4 [facility] Syphilis Antibodieson 2024 Syphilis Abs Non-Reactive Normal Nonreactive [facility] Comment on above: Performed By: #### L 100.0100, L509.8002, L501.0250, L3890.6006 #### [facility] Laboratory [address] [place], [address] T. pallidum abOrdered By: William Blackwood on 12-29-2024 Syphilis Total Antibody Non-Reactive Nonreactiv e [facility] White blood cell (WBC) count Ordered By: Sarah Blackwood on 12-29-2024 WBC (Bld) [#/Vol] 8.8 10*3/uL 4.4-11.0 [facility] Laboratory - Chemistry and C hemistry - challengeOrdered By: Kareen Salvador on 12-24-2024 Glucose Ql (U) Negative [facility] Laboratory - UrinalysisOrder ed By: Kareen Salvador on 12-24-2024 Protein Ql (U) Negative [facility] Adjunct Professor Of Law Office Visit Reporton 12-24-2024 Adjunct Professor Of Law Office Visit Report [facility] [address], [address] [place] [address] OFFICE VISIT Date of Service: 12/24/24 MR#: [id number] Acct: [id number] Name: ARMANDO CUENCA Rep #: [id number] : 2000 Provider: Dr. Rosy enriquez MD Age/Sex: 24/F Location: [facility] [place] Status: Signed Intake Vital Signs 12/23/24 10:09 12/24/24 15:06 12/24/24 15:07 Height 5 ft 3 in 5 ft 3 in 5 ft 3 in Weight: 144 lb BMI 25.4 BP 128/74 H Intake Visit Reasons: ER fu for blood clots Steamfitter Required: No Is patient in pain?: No [...] 5-6 times per week duration: 30-45 minutes/day wander/methodist: Hinduism seatbelt use: always do you feel safe at home: Yes additional social history: : [employer] - [employer] History 1 Elective abortions Hx Para 0 [...] ?-???-???-???-???-? ??-???-???- (more content not included)... Normal [facility] Absolute lymphocyte countOrd ered By: Stanley Gaytan on 12-23-2024 Lymphocytes Auto (Unsp spec) [#/Vol] 1.45 10*3/uL 0.83-4.51 [facility] Absolute neutrophil countOrd ered By: Stanley Gaytan on 12-23-2024 Neutrophils (Bld) [#/Vol] 8.8 10*3/uL High 2.0-7.7 [facility] Anion gap in Serum or Plasma Ordered By: Stanley Gaytan on 12-23-2024 Anion gap [Moles/Vol] 10 mmol/L 5-15 [facility] Automated lymphocyte count a s percentage of total leukocytesOrdered By: tSanley Gaytan on 12-23-2024 Lymphocytes/100 WBC Auto (Unsp spec) 12.8 % Low 19-41 [facility] BUN/creatinine ratioOrdered By: [facility] on 12-23-2024 Urea nitrogen/Creatinine [Mass ratio] 11.9 mg/mg 10- [facility] Basic Metabolic Profile (BMP )on 12-23-2024 BUN/CRE 11.9 RATIO Normal - [facility] Comment on above: Performed By: #### L 500.4050, L500.2500, L503.7505 ####[facility] [address] [place], [address] Calcium [Mass/Vol] 8.8 mg/dL Normal 7.6-11.0 [facility] Comment on above: Performed By: #### L 500.4050, L500.2500, L503.7505 ####[facility] [address] [place], [address] Chloride [Moles/Vol] 104 mmol/L Normal 98-108 [facility] Comment on above: Performed By: #### L 500.4050, L500.2500, L503.7505 ####[facility] [address] [place], [address] CO2 [Moles/Vol] 21.7 mmol/L Normal 21.0-32.0 [facility] Comment on above: Performed By: #### L 500.4050, L500.2500, L503.7505 ####[facility] [address] [place], [address] Creatinine [Mass/Vol] 0.54 mg/dL Low 0.70-1.20 [facility] Comment on above: Performed By: #### L 500.4050, L500.2500, L503.7505 ####[facility] [address] [place], [address] ECRCL 143.02 ml/min Normal 50-250 [facility] Comment on above: Performed By: #### L 500.4050, L500.2500, L503.7505 ####[facility] [address] [place], [address] GAP 10 Normal 5-15 [facility] Comment on above: Performed By: #### L 500.4050, L500.2500, L503.7505 ####[facility] [address] [place], [address] GFR/1.73 sq M.predicted among non-blacks MDRD (S/P/Bld) [Vol rate/Area] 130 mL/min/{1.73_m2} Normal >60 [facility] Comment on above: Result Comment: mL/m in/1.73m2 CKD-EPI Creatinine Equation (2020) Performed By: #### L 500.4050, L500.2500, L503.7505 ####[facility] [address] [place], [address] Glucose [Mass/Vol] 82 mg/dL Normal 70-99 [facility] Comment on above: Performed By: #### L 500.4050, L500.2500, L503.7505 ####[facility] [address] [place], [address] Potassium [Moles/Vol] 3.8 mmol/L Normal 3.3-5.1 [facility] Comment on above: Performed By: #### L 500.4050, L500.2500, L503.7505 ####[facility] [address] [place], [address] Sodium [Moles/Vol] 136 mmol/L Normal 133-145 [facility] Comment on above: Performed By: #### L 500.4050, L500.2500, L503.7505 ####[facility] [address] [place], [address] Urea nitrogen [Mass/Vol] 6 mg/dL Normal 4-19 [facility] Comment on above: Performed By: #### L 500.4050, L500.2500, L503.7505 ####[facility] [address] [place], [address] Basophil percentageOrdered B y: Stanley Gaytan on 12-23-2024 Basophils/100 WBC (Bld) 0.4 % 0-1 [facility] Bilirubin, totalOrdered By: Stanley Gaytan on 12-23-2024 Bilirubin [Mass/Vol] 0.25 mg/dL 0.00-1.30 [facility] CBC W/Diff, Automatedon 04-0 -2024 Absolute Lymph 1.45 X10 3/uL Normal 0.83-4.51 [facility] Comment on above: Performed By: #### L 100.0100 #### [facility] Laboratory [address] [place], [address] Absolute Neut 8.8 X10 3/uL High 2.0-7.7 [facility] Comment on above: Performed By: #### L 100.0100 #### [facility] Laboratory [address] [place], [address] Basophils/100 WBC (Bld) 0.4 % Normal 0-1 [facility] Comment on above: Performed By: #### L 100.0100 #### [facility] Laboratory [address] [place], [address] Eosinophils/100 WBC (Bld) 0.5 % Normal 0-5 [facility] Comment on above: Performed By: #### L 100.0100 #### [facility] Laboratory [address] [place], [address] Erythrocyte distribution width (RBC) [Ratio] 12.6 % Normal 11.6-14.6 [facility] Comment on above: Performed By: #### L 100.0100 #### [facility] Laboratory [address] [place], [address] Hematocrit (Bld) [Volume fraction] 32.2 % Low 37-47 [facility] Comment on above: Performed By: #### L 100.0100 #### [facility] Laboratory [address] [place], [address] Hemoglobin (Bld) [Mass/Vol] 11.2 g/dL Low 12.0-15.0 [facility] Comment on above: Performed By: #### L 100.0100 #### [facility] Laboratory [address] [place], [address] IG% 0.700 Normal 0.0-0.9 [facility] Comment on above: Result Comment: IG% - Immature Granulocytes (promyelocytes, myelocytes and metamyelocytes) > 1% indicates that a LEFT SHIFT is Present. Performed By: #### L 100.0100 #### [facility] Laboratory [address] [place], [address] Lymphocytes/100 WBC (Bld) 12.8 % Low 19-41 [facility] Comment on above: Performed By: #### L 100.0100 #### [facility] Laboratory [address] [place], [address] MCH (RBC) [Entitic mass] 31.3 pg Normal 27.0-32.0 [facility] Comment on above: Performed By: #### L 100.0100 #### [facility] Laboratory [address] [place], [address] MCHC (RBC) [Mass/Vol] 34.8 g/dL Normal 32-36 [facility] Comment on above: Performed By: #### L 100.0100 #### [facility] Laboratory [address] [place], [address] MCV (RBC) [Entitic vol] 89.9 fL Normal 81-99 [facility] Comment on above: Performed By: #### L 100.0100 #### [facility] Laboratory [address] [place], [address] Monocytes/100 WBC (Bld) 7.8 % Normal 0-10 [facility] Comment on above: Performed By: #### L 100.0100 #### [facility] Laboratory [address] [place], [address] Neutrophils/100 WBC (Bld) 77.8 % High 47-70 [facility] Comment on above: Performed By: #### L 100.0100 #### [facility] [address] [place], [address] Nucleated RBC (Bld) [#/Vol] 0 10*3/uL Normal 0-5 [facility] Comment on above: Performed By: #### L 100.0100 #### [facility] Laboratory [address] [place], [address] Platelet mean volume (Bld) [Entitic vol] 10.3 fL Normal 6.2-12.0 [facility] Comment on above: Performed By: #### L 100.0100 #### [facility] Laboratory [address] [place], [address] Platelets (Bld) [#/Vol] 237 10*3/uL Normal 150-450 [facility] Comment on above: Performed By: #### L 100.0100 #### [facility] Laboratory [address] [place], [address] RBC (Bld) [#/Vol] 3.58 10*6/uL Low 4.2-5.4 [facility] Comment on above: Performed By: #### L 100.0100 #### [facility] Laboratory [address] [place], [address] RDW SD 41.5 fl Normal 35.1-43.9 [facility] Comment on above: Performed By: #### L 100.0100 #### [facility] Laboratory [address] [place], [address] WBC (Bld) [#/Vol] 11.3 10*3/uL High 4.4-11.0 [facility] Comment on above: Performed By: #### L 100.0100 #### [facility] Laboratory [address] [place], [address] CTA Chest W/WO Contraston CTA Chest W/WO Contrast [facility] Imaging Services [address] [place] [address] CTA Chest W/WO Contrast MR#: [id number] Acct: [id number] Name: ARMANDO CUENCA Rep #: [id number] : 2000 F 24 From: Satya Hurd DO PCP: Dr. Alanna Blue MD Status: [facility] ER Study: CTA Chest W/WO Contrast Date of Exam: 12/23/24 Exam# [id number] Ordering Dr: Rolando Gaytan DO PROCEDURE: CTA [...] of pulmonary embolism. Normal exam. Reading Location: REPLACED BY [facility] CC: Dr. Stanley Gaytan, ; Dr. Alanna Blue MD Cue Worker: Signed Normal [facility] Carbon dioxide, total [Moles /volume] in Central venous bloodOrdered By: Stanley Gaytan on 12-23-2024 CO2 [Moles/Vol] 21.7 mmol/L 21.0-32.0 [facility] Chloride assayOrdered By: Kelvin Gaytan on 12-23-2024 Chloride [Moles/Vol] 104 mmol/L 98-108 [facility] Comprehensive Metabolic Prof ilon 12-23-2024 Albumin [Mass/Vol] 3.4 g/dL Low 3.5-5.0 [facility] Comment on above: Performed By: #### M 100.3400 #### [facility] Laboratory [address] [place], [address] Albumin/Globulin [Mass ratio] 1.2 {ratio} Normal 0.9-2.4 [facility] Comment on above: Performed By: #### M 100.3400 #### [facility] Laboratory [address] [place], [address] ALK PHOS 76 U/L Normal 35-104 [facility] Comment on above: Performed By: #### M 100.3400 #### [facility] Laboratory [address] [place], [address] ALT [Catalytic activity/Vol] 7 U/L Normal <=34 [facility] Comment on above: Performed By: #### M 100.3400 #### [facility] Laboratory [address] [place], [address] AST [Catalytic activity/Vol] 14 U/L Normal <=31 [facility] Comment on above: Performed By: #### M 100.3400 #### [facility] Laboratory [address] [place], [address] Bilirubin [Mass/Vol] 0.25 mg/dL Normal 0.00-1.30 [facility] Comment on above: Performed By: #### M 100.3400 #### [facility] Laboratory [address] [place], [address] Globulin (S) [Mass/Vol] 2.9 g/dL Normal 2.2-4.2 [facility] Comment on above: Performed By: #### M 100.3400 #### [facility] Laboratory [address] [place], [address] T PROT 6.3 g/dL Normal 5.9-8.4 [facility] Comment on above: Performed By: #### M 100.3400 #### [facility] Laboratory [address] [place], [address] Emergency Department Summary on 12-23-2024 Emergency Department Summary [facility] Medical Records Department [address] [place] [address] Emergency Department Summary 12/23/24 MR#: [id number] Acct: [id number] Name: ARMANDO CUENCA Rep #: [id number] : 2000 24 From: Stanley Gaytan DO [...] time of the pain. She follows with [facility]. 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 Normal [facility] Eosinophil percentageOrdered By: Stanley Gaytan on 12-23-2024 Eosinophils/100 WBC (Bld) 0.5 % 0-5 [facility] Erythrocyte distribution wid th (RBC) [Ratio]Ordered By: Stanley Gaytan on 12-23-2024 Erythrocyte distribution width (RBC) [Entitic vol] 41.5 fL 35.1-43.9 [facility] Erythrocyte distribution wid th ratioOrdered By: Burdick Lukas on 12-23-2024 Erythrocyte distribution width (RBC) [Ratio] 12.6 % 11.6-14.6 [facility] Erythrocyte distribution wid th standard deviationOrdered By: Burdick Zahida Meredith on 12-23-2024 Erythrocyte distribution width (RBC) [Ratio] 41.5 fl 35.1-43.9 [facility] Estimation of creatinine cait aranceOrdered By: Stanley Gaytan on 12-23-2024 Estimated Creatinine Clearance Calc 143.02 ml/min 50-250 [facility] GFR/1.73 sq M.predicted kaylee g non-blacks MDRD (S/P/Bld) [Vol rate/Area]Ordered By: Stanley Gaytan on 12-23-2024 Estimated GFR (MDRD) Non-Af Amer 130 >60 [facility] Comment on above: mL/min/1.73m2 CKD-EP I Creatinine Equation (2020) Glomerular filtration rate ( GFR) estimation/1.73 sq m using serum, plasma, or whole bOrdered By: Stanleysolomon Gaytan on 12-23-2024 GFR/1.73 sq M.predicted among non-blacks MDRD (S/P/Bld) [Vol rate/Area] 130 mL/min/{1.73_m2} >60 [facility] Comment on above: mL/min/1.73m2 CKD-EP I Creatinine Equation (2020) Hematocrit Auto (Bld) [Volum e fraction]Ordered By: Stanley Gaytan on 12-23-2024 Hematocrit (Bld) [Volume fraction] 32.2 % Low 37-47 [facility] Hemoglobin measurementOrdere d By: Stanley Gaytan on 12-23-2024 Hemoglobin (Bld) [Mass/Vol] 11.2 g/dL Low 12.0-15.0 [facility] Immature granulocytes/100 WB C Auto (Bld)Ordered By: Stanley Gaytan on 12-23-2024 Immature granulocytes/100 WBC (Bld) 0.700 % 0.0-0.9 [facility] Comment on above: IG% - Immature Granu locytes (promyelocytes, myelocytes and metamyelocytes) > 1% indicates that a LEFT SHIFT is Present. L501.4021on 12-23-2024 Trop T High Sen < 6 Normal <=14 [facility] Comment on above: Performed By: #### L 501.4021 ####[facility] [address] [place], [place], [id number] L503.7505on 12-23-2024 Natriuretic peptide B (Bld) [Mass/Vol] 74 pg/mL Normal <=450 [facility] Comment on above: Result Comment: Hear t Failure Unlikely: < 300 pg/mL Heart Failure Likely < 50 Years: > 450 pg/mL 50-75 Years: > 900 pg/mL >75 Years: > 1800 pg/mL Performed By: #### M 100.3400 #### [facility] Laboratory [address] [place], [place], [id number] Laboratory - Chemistry and C hemistry - challengeOrdered By: Stanley JohnsonMasoud on 12-23-2024 AST [Catalytic activity/Vol] 14 U/L <32 [facility] Natriuretic peptide B (Bld) [Mass/Vol] 74 pg/mL <450 [facility] Comment on above: Heart Failure Unlike ly: < 300 pg/mLHeart Failure Likely< 50 Years: > 450 pg/mL50-75 Years: > 900 pg/mL>75 Years: > 1800 pg/mL Lymphocytes Auto (Unsp spec) [#/Vol]Ordered By: Stanley Gaytan on 12-23-2024 Lymphocytes (Bld) [#/Vol] 1.45 10*3/uL 0.83-4.51 [facility] Lymphocytes/100 WBC Auto (Un sp spec)Ordered By: Stanley Gaytan on 12-23-2024 Lymphocytes/100 WBC (Bld) 12.8 % Low 19-41 [facility] MCV (mean corpuscular volume ) determinationOrdered By: Stanley Gaytan on 12-23-2024 MCV (RBC) [Entitic vol] 89.9 fL 81-99 [facility] Mean corpuscular hemoglobin (MCH) determinationOrdered By: Stanley Gaytan on 12-23-2024 MCH (RBC) [Entitic mass] 31.3 pg 27.0-32.0 [facility] Mean corpuscular hemoglobin concentration (MCHC) determinationOrdered By: Stanley Gaytan on 12-23-2024 MCHC (RBC) [Mass/Vol] 34.8 g/dL 32-36 [facility] Mean platelet volume determi nationOrdered By: Stanley Gaytan on 12-23-2024 Platelet mean volume (Bld) [Entitic vol] 10.3 fL 6.2-12.0 [facility] Monocyte percentageOrdered B y: Stanley Gaytan on 12-23-2024 Monocytes/100 WBC (Bld) 7.8 % 0-10 [facility] Neutrophil percentageOrdered By: Stanley Gaytan on 12-23-2024 Neutrophils/100 WBC (Bld) 77.8 % High 47-70 [facility] Nucleated red blood cell per centageOrdered By: Stanley Gaytan on 12-23-2024 Nucleated RBC/100 WBC (Bld) [Ratio] 0 % 0-5 [facility] Platelet countOrdered By: Kelvin Gaytan on 12-23-2024 Platelets (Bld) [#/Vol] 237 10*3/uL 150-450 [facility] Potassium (Unsp spec) [Mass/ Vol]Ordered By: Stanley Gaytan on 12-23-2024 Potassium [Moles/Vol] 3.8 mmol/L 3.3-5.1 [facility] Potassium measurement (mass/ volume)Ordered By: Stanley Gaytan on 04-03-2025 Potassium (Unsp spec) [Mass/Vol] 3.8 mmol/L 3.3-5.1 [facility] RBC Auto (Bld) [#/Vol]Ordere d By: Stanley Gaytan on 12-23-2024 RBC (Bld) [#/Vol] 3.58 10*6/uL Low 4.2-5.4 [facility] Serum creatinine measurement (mass/volume)Ordered By: Stanley Gaytan on 12-23-2024 Creatinine [Mass/Vol] 0.54 mg/dL Low 0.70-1.20 [facility] Serum globulin measurementOr dered By: Stanley Gaytan on 12-23-2024 Globulin (S) [Mass/Vol] 2.9 g/dL 2.2-4.2 [facility] Serum glucose measurement (m ass/volume)Ordered By: Stanley Gaytan on 12-23-2024 Glucose [Mass/Vol] 82 mg/dL 70-99 [facility] Serum or plasma alanine chin otransferase (ALT) measurementOrdered By: Stanley Gaytan on 12-23-2024 ALT [Catalytic activity/Vol] 7 U/L <35 [facility] Serum or plasma albumin thomas urement (mass/volume)Ordered By: Stanley Meredith on 12-23-2024 Albumin [Mass/Vol] 3.4 g/dL Low 3.5-5.0 [facility] Serum or plasma albumin/glob ulin mass ratioOrdered By: Stanley Gaytan on 12-23-2024 Albumin/Globulin [Mass ratio] 1.2 {ratio} 0.9-2.4 [facility] Serum or plasma alkaline chris sphatase measurementOrdered By: Stanley Gaytan on 12-23-2024 ALP [Catalytic activity/Vol] 76 U/L 35-104 [facility] Serum or plasma calcium thomas urement (mass/volume)Ordered By: Stanley Meredith on 12-23-2024 Calcium [Mass/Vol] 8.8 mg/dL 7.6-11.0 [facility] Serum or plasma urea nitroge n measurement (mass/volume)Ordered By: Stanley Gaytan on 12-23-2024 Urea nitrogen [Mass/Vol] 6 mg/dL 4-19 [facility] Sodium levelOrdered By: Rolando Gaytan on 12-23-2024 Sodium [Moles/Vol] 136 mmol/L 133-145 [facility] Total proteinOrdered By: Nir Gaytan on 12-23-2024 Protein [Mass/Vol] 6.3 g/dL 5.9-8.4 [facility] Troponin T.cardiac High sens itivity method [Mass/Vol]Ordered By: Stanley Meredith on 12-23-2024 Troponin T High Sensitivity < 6 ng/L <14 [facility] Troponin T.cardiac [Mass/vol ume] in Serum or Plasma by High sensitivity methodOrdered By: Stanley Gaytan on 12-23-2024 Troponin T.cardiac High sensitivity method [Mass/Vol] < 6 ng/L <14 [facility] Venous Duplex US, Unilateral on 12-23-2024 Venous Duplex US, Unilateral [facility] Cardi[facility] Services [address] [place] [address] Venous Duplex US, Unilateral 12/23/24 1035 MR#: [id number] Acct: [id number] Name: ARMANDO CUENCA Rep #: [id number] : 2000 24 From: Vamsi Saenz MD [...] Date Dictated: 12/23/24 1035 Date Transcribed: 12/23/241629 Cue Worker: Signed Normal [facility] White blood cell (WBC) count Ordered By: Stanley Gaytan on 12-23-2024 WBC (Bld) [#/Vol] 11.3 10*3/uL High 4.4-11.0 [facility] Laboratory - Chemistry and C hemistry - challengeOrdered By: Tara Olvera on 12-22-2024 Bilirubin Ql (U) Negative [facility] Glucose Ql (U) Negative [facility] Ketones Ql (U) Large (80+) [facility] pH (U) 5.0 [pH] [facility] Specific gravity (U) [Rel density] 1.015 [facility] Urobilinogen (U) [Mass/Vol] Negative [facility] Laboratory - Hematology and Cell countsOrdered By: Tara Olvera on 12-22-2024 Hemoglobin Ql (U) Negative [facility] Laboratory - Specimen inform ationOrdered By: Tara Olvera on 12-22-2024 Clarity (U) Clear [facility] Color (U) Yellow [facility] Laboratory - UrinalysisOrder ed By: Tara Olvera on 12-22-2024 Nitrite Ql (U) Negative [facility] Protein Ql (U) Negative [facility] No Panel InformationOrdered By: Tara Olvera on 12-22-2024 Urine Leukocytes Negatve [facility] Urine Non-Hemolyzed Blood Negative [facility] Adjunct Professor Of Law Office Visit Reporton 12-22-2024 Adjunct Professor Of Law Office Visit Report [facility], [address] [place] [id number] OFFICE VISIT Date of Service: 12/22/24 MR#: [id number] Acct: [id number] Name: ARMANDO CUENCA Rep #: [id number] : 2000 Provider: SARABJIT whyte Age/Sex: 24/F Location: [facility] Status: Signed Intake Vital Signs 12/03/24 15:56 12/22/24 08:04 12/22/24 14:42 Height 5 ft 3 in 5 ft 3 in 5 ft 3 in Weight: 144 lb 8 oz BMI 25.6 BP 122/70 H Intake Visit Reasons: OB, low abd pain/upper thigh pain with walking Chief Complaint: 24 Week OB/ abd. 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 Normal [facility] Laboratory - Chemistry and C hemistry - challengeOrdered By: Sarah Blackwood on 12-03-2024 Glucose Ql (U) Negative [facility] Laboratory - UrinalysisOrder ed By: Sarah Blackwood on 12-03-2024 Protein Ql (U) Negative [facility] Adjunct Professor Of Law Office Visit Reporton 12-03-2024 Adjunct Professor Of Law Office Visit Report [facility] [address], [address] [place] [address] OFFICE VISIT Date of Service: 12/03/24 MR#: [id number] Acct: [id number] Name: ARMANDO CUENCA Rep #: [id number] : 2000 Provider: WILLY Haynes ams Age/Sex: 24/F Location: 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 Normal [facility] Laboratory - Chemistry and C hemistry - challengeOrdered By: Rosy Albert on 11-05-2024 Glucose Ql (U) Negative [facility] Laboratory - UrinalysisOrder ed By: Rosy Albert on 11-05-2024 Protein Ql (U) Negative [facility] Adjunct Professor Of Law Office Visit Reporton 11-05-2024 Adjunct Professor Of Law Office Visit Report [facility] [address], [address] [place] [address] OFFICE VISIT Date of Service: 11/05/24 MR#: [id number] Acct: [id number] Name: ARMANDO CUENCA Rep #: [id number] : 2000 Provider: Dr. Rosy enriquez MD Age/Sex: 24/F Location: [facility] Status: Signed Intake Vital Signs 08/13/24 11:21 10/08/24 13:46 11/05/24 15:44 11/05/24 15:45 Height 5 ft 3 in 5 ft 3 in 5 ft 3 in 5 ft 3 in Weight: 139 lb 6 oz BMI 24.7 BP 131/81 H Intake Visit Reasons: 20 wk ob Steamfitter Required: No Is patient in pain?: No [...] occupational status: employed current occupation: [employer] [place] [employer] current occupational exposures/hazards: No [...] 5-6 times per week duration: 30-45 minutes/day wander/methodist: Hinduism seatbelt use: always do you feel safe at home: Yes 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 ?-? (more content not included)... Normal [facility] Laboratory - Chemistry and C hemistry - challengeon 10-08-2024 Glucose Ql (U) Negative [facility] Laboratory - Urinalysison Protein Ql (U) Negative [facility] Adjunct Professor Of Law Office Visit Reporton 10-08-2024 Adjunct Professor Of Law Office Visit Report [facility], [address] [place] [address] OFFICE VISIT Date of Service: 10/08/24 MR#: [id number] Acct: [id number] Name: ARMANDO CUENCA Rep #: [id number] : 2000 Provider: Dr. Kareen Fowler DO Age/Sex: 24/F Location: [facility] Status: Signed Intake Vital Signs 08/13/24 11:21 09/09/24 15:06 10/08/24 13:46 10/08/24 13:46 Height 5 ft 3 in 5 ft 3 in 5 ft 3 in 5 ft 3 in Weight: 136 lb 2 oz BMI 24.0 BP 124/84 H Intake Visit Reasons: 16 wk ob Steamfitter Required: No Is patient in pain?: No [...] occupational status: employed current occupation: [employer] current occupational exposures/hazards: No [...] 5-6 times per week duration: 30-45 minutes/day wander/methodist: Hinduism seatbelt use: always do you feel safe at home: Yes 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 Normal [facility] Laboratory - Chemistry and C hemistry - challengeon 09-09-2024 Glucose Ql (U) Negative [facility] Laboratory - Urinalysison Protein Ql (U) Negative [facility] Adjunct Professor Of Law Office Visit Reporton 09-09-2024 Adjunct Professor Of Law Office Visit Report [facility] [address] [place] [address], [address] [place] [address] OFFICE VISIT Date of Service: 09/09/24 MR#: [id number] Acct: [id number] Name: JOELLENARMANDO ARIELLE Rep #: [id number] : 2000 Provider: Dr. 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 Normal [facility] Chlamydia/GC JIHAN aptimaon CHLAMY,NUC ACID Negative Normal Negative [facility] Comment on above: Performed By: #### M [id number] #### [facility] Laboratory [address] [place], [place], [id number] GC BY NUC ACID Negative Normal Negative [facility] Comment on above: Result Comment: Perf ormed at: =G - [facility] [address]Dontae jennings, [place] [id number] Hardware Press Operator: Glory Kong MD, Phone: [phone] Performed By: #### M 100.3400 #### [facility] Laboratory [address] [place], [address] Urine Cultureon 08-14-2024 URC Culture exhibits no growth. Normal [facility] Comment on above: Performed By: #### M 100.3400 #### [facility] Laboratory [address] [place], [address] CBC W/Diff, Automatedon 07-24 Absolute Lymph 1.80 X10 3/uL Normal 0.83-4.51 [facility] Comment on above: Performed By: #### L 100.0100, L509.4005, L3890.6005, BTS, L3890.6100, L509.8000, L3890.6300 ####[facility] [address] [place], [address] Absolute Neut 7.0 X10 3/uL Normal 2.0-7.7 [facility] Comment on above: Performed By: #### L 100.0100, L509.4005, L3890.6005, BTS, L3890.6100, L509.8000, L3890.6300 ####[facility] [address] [place], [address] Basophils/100 WBC (Bld) 0.4 % Normal 0-1 [facility] Comment on above: Performed By: #### L 100.0100, L509.4005, L3890.6005, BTS, L3890.6100, L509.8000, L3890.6300 ####[facility] [address] [place], [address] Eosinophils/100 WBC (Bld) 0.6 % Normal 0-5 [facility] Comment on above: Performed By: #### L 100.0100, L509.4005, L3890.6005, BTS, L3890.6100, L509.8000, L3890.6300 ####[facility] [address] [place], [address] Erythrocyte distribution width (RBC) [Ratio] 11.4 % Low 11.6-14.6 [facility] Comment on above: Performed By: #### L 100.0100, L509.4005, L3890.6005, BTS, L3890.6100, L509.8000, L3890.6300 ####[facility] [address] [place], [address] Hematocrit (Bld) [Volume fraction] 42.5 % Normal 37-47 [facility] [facility] Comment on above: Performed By: #### L 100.0100, L509.4005, L3890.6005, BTS, L3890.6100, L509.8000, L3890.6300 ####[facility] [address] [place], [address] Hemoglobin (Bld) [Mass/Vol] 15.1 g/dL High 12.0-15.0 [facility] Comment on above: Performed By: #### L 100.0100, L509.4005, L3890.6005, BTS, L3890.6100, L509.8000, L3890.6300 ####[facility] [address] [place], [address] IG% 0.400 Normal 0.0-0.9 [facility] Comment on above: Result Comment: IG% - Immature Granulocytes (promyelocytes, myelocytes and metamyelocytes) > 1% indicates that a LEFT SHIFT is Present. Performed By: #### L 100.0100, L509.4005, L3890.6005, BTS, L3890.6100, L509.8000, L3890.6300 ####[facility] [address] [place], [address] Lymphocytes/100 WBC (Bld) 18.8 % Low 19-41 [facility] Comment on above: Performed By: #### L 100.0100, L509.4005, L3890.6005, BTS, L3890.6100, L509.8000, L3890.6300 ####[facility] [address] [place], [address] MCH (RBC) [Entitic mass] 30.8 pg Normal 27.0-32.0 [facility] Comment on above: Performed By: #### L 100.0100, L509.4005, L3890.6005, BTS, L3890.6100, L509.8000, L3890.6300 ####[facility] [address] [place], [address] MCHC (RBC) [Mass/Vol] 35.5 g/dL Normal 32-36 [facility] Comment on above: Performed By: #### L 100.0100, L509.4005, L3890.6005, BTS, L3890.6100, L509.8000, L3890.6300 ####[facility] [address] [place], [address] MCV (RBC) [Entitic vol] 86.7 fL Normal 81-99 [facility] Comment on above: Performed By: #### L 100.0100, L509.4005, L3890.6005, BTS, L3890.6100, L509.8000, L3890.6300 ####[facility] [address] [place], [address] Monocytes/100 WBC (Bld) 6.7 % Normal 0-10 [facility] Comment on above: Performed By: #### L 100.0100, L509.4005, L3890.6005, BTS, L3890.6100, L509.8000, L3890.6300 ####[facility] [address] [place], [address] Neutrophils/100 WBC (Bld) 73.1 % High 47-70 [facility] Comment on above: Performed By: #### L 100.0100, L509.4005, L3890.6005, BTS, L3890.6100, L509.8000, L3890.6300 ####[facility] [address] [place], [address] Nucleated RBC (Bld) [#/Vol] 0 10*3/uL Normal 0-5 [facility] Comment on above: Performed By: #### L 100.0100, L509.4005, L3890.6005, BTS, L3890.6100, L509.8000, L3890.6300 ####[facility] [address] [place], [address] Platelet mean volume (Bld) [Entitic vol] 9.5 fL Normal 6.2-12.0 [facility] Comment on above: Performed By: #### L 100.0100, L509.4005, L3890.6005, BTS, L3890.6100, L509.8000, L3890.6300 ####[facility] [address] [place], [address] Platelets (Bld) [#/Vol] 320 10*3/uL Normal 150-450 [facility] Comment on above: Performed By: #### L 100.0100, L509.4005, L3890.6005, BTS, L3890.6100, L509.8000, L3890.6300 ####[facility] [address] [place], [address] RBC (Bld) [#/Vol] 4.90 10*6/uL Normal 4.2-5.4 [facility] Comment on above: Performed By: #### L 100.0100, L509.4005, L3890.6005, BTS, L3890.6100, L509.8000, L3890.6300 ####[facility] [address] [place], [place], [phone]) RDW SD 35.9 fl Normal 35.1-43.9 [facility] Comment on above: Performed By: #### L 100.0100, L509.4005, L3890.6005, BTS, L3890.6100, L509.8000, L3890.6300 ####[facility] [address] [place], [place], [id number] WBC (Bld) [#/Vol] 9.6 10*3/uL Normal 4.4-11.0 [facility] Comment on above: Performed By: #### L 100.0100, L509.4005, L3890.6005, BTS, L3890.6100, L509.8000, L3890.6300 ####[facility] [address] [place], [place], [id number] HIV - WCHon 08-13-2024 HIV Non-Reactive [facility] Comment on above: Order Comment: Reaso n for Exam: Performed By: #### L 100.0100, L509.4005, L3890.6005, BTS, L3890.6100, L509.8000, L3890.6300 ####[facility] [address] [place], [address] Hepatitis B Surface Antigeno n 08-13-2024 HEP B Surf Ag Non-Reactive Normal [facility] Comment on above: Order Comment: Reaso n for Exam: Performed By: #### L 100.0100, L509.4005, L3890.6005, BTS, L3890.6100, L509.8000, L3890.6300 ####[facility] [address] [place], [place], [id number] Hepatitis C Antibodyon 08-13 Hepatitis C AB Non-Reactive Normal Nonreactive [facility] Comment on above: Order Comment: Reaso n for Exam: Result Comment: Non Reactive: < 0.8 Equivocal: >/= 0.8 to < 1.0 Reactive: >/= 1.[address] [facility] requires that a reactive/equivocal HCV antibody result be sent out for confirmation. HCV Quant by PCR testing. Performed By: #### L 100.0100, L509.4005, L3890.6005, BTS, L3890.6100, L509.8000, L3890.6300 ####[facility] [address] [place], [place], [id number] L509.8000on 08-13-2024 Syphilis Abs Non-Reactive Normal [facility] Comment on above: Order Comment: Reaso n for Exam: Performed By: #### L 100.0100, L509.4005, L3890.6005, BTS, L3890.6100, L509.8000, L3890.6300 ####[facility] [address] [place], [place], [address] Adjunct Professor Of Law Office Visit Reporton 08-13-2024 Adjunct Professor Of Law Office Visit Report [facility] [address], [address] [place] [address] OFFICE VISIT Date of Service: 08/13/24 MR#: [id number] Acct: [id number] Name: ARMANDO CUENCA Rep #: [id number] : 2000 Provider: WILLY roche Age/Sex: 24/F Location: [facility] Status: Signed Intake Vital Signs 08/13/24 11:21 Height 5 ft 3 in Weight: 129 lb 8 oz BMI 22.9 BP 114/84 H Intake Visit Reasons: New OB, LMP 06/18, JUHI 03/25/25 Chief Complaint: NOB Steamfitter Required: No Is patient in pain?: No [...] occupational status: employed current occupation: [employer] current occupational exposures/hazards: No [...] 5-6 times per week duration: 30-45 minutes/day wander/methodist: Hinduism seatbelt use: always do you feel safe at home: Yes additional social history: : [employer] - [employer] History 1 Elective abortions Hx Para 0 [...] history of (more content not included)... Normal [facility] Rubella IgGon 08-13-2024 Rubella IgG Reactive Normal Nonreactive [facility] Comment on above: Order Comment: Reaso n for Exam: Result Comment: Anti body Results Interpretation of Immune Status Non Reactive Presumed Non-Immune Equivocal Equivocal Reactive Presumed Immune Performed By: #### L 100.0100, L509.4005, L3890.6005, BTS, L3890.6100, L509.8000, L3890.6300 ####[facility] [address] [place], [place], [id number] Type AND Screenon 08-13-2024 Ab SCREEN GEL Negative [facility] Comment on above: Order Comment: PN Performed By: #### L 100.0100, L509.4005, L3890.6005, BTS, L3890.6100, L509.8000, L3890.6300 ####[facility] [address] [place], [place], [id number] ABO and Rh group Nom (Bld) Blood group A Rh(D) positive Normal [facility] Comment on above: Order Comment: PN Performed By: #### L 100.0100, L509.4005, L3890.6005, BTS, L3890.6100, L509.8000, L3890.6300 ####[facility] [address] [place], [place], [id number] Absolute lymphocyte counton 08-07-2022 Lymphocytes Auto (Unsp spec) [#/Vol] 1.36 10*3/uL 0.83-4.51 [facility] Work Phone: Basophil percentageon 2021 Basophils/100 WBC (Bld) 1.0 % 0-1 [facility] Work Phone: Bilirubin [Mass/Vol] 0.40 mg/dL 0.20-1.00 [facility] Work Phone: Comment on above: For patients on eltr ombopag therapy, use of Dimension Quinlan TBIL is not recommended. Chloride [Moles/Vol] 104 mmol/L 98-107 [facility] Work Phone: Eosinophils/100 WBC (Bld) 1.9 % 0-5 [facility] Work Phone: Glucose [Mass/Vol] 75 mg/dL 74-106 [facility] Work Phone: Neutrophils (Bld) [#/Vol] 2.9 10*3/uL 2.0-7.7 [facility] Work Phone: Neutrophils/100 WBC (Bld) 56.0 % 47-70 [facility] Work Phone: Potassium [Moles/Vol] 3.4 mmol/L 3.5-5.1 [facility] Work Phone: Protein [Mass/Vol] 7.4 g/dL 6.4-8.2 [facility] Work Phone: Sodium [Moles/Vol] 139 mmol/L 136-145 [facility] Work Phone: WBC (Bld) [#/Vol] 5.2 10*3/uL 4.4-11.0 [facility] Work Phone: Blood erythrocytes count (nu mber/volume)on 08-07-2022 RBC (Bld) [#/Vol] 5.10 10*6/uL 4.2-5.4 [facility] Work Phone: Blood hemoglobin measurement (mass/volume)on 08-07-2022 Hemoglobin (Bld) [Mass/Vol] 15.6 g/dL 12.0-15.0 [facility] Work Phone: Blood lymphocytes/100 leukoc yteson 08-07-2022 Lymphocytes/100 WBC (Bld) 26.1 % 19-41 [facility] Work Phone: Blood monocytes/100 leukocyt eson 08-07-2022 Monocytes/100 WBC (Bld) 14.8 % 0-10 [facility] Work Phone: Blood platelet mean volumeon 08-07-2022 Platelet mean volume (Bld) [Entitic vol] 11.0 fL 6.2-12.0 [facility] Work Phone: Determination of erythrocyte mean corpuscular volume (MCV)on 08-07-2022 MCV (RBC) [Entitic vol] 92.0 fL 81-99 [facility] Work Phone: Hematocrit Auto (Bld) [Volum e fraction]on 08-07-2022 Hematocrit (Bld) [Volume fraction] 46.9 % 37-47 [facility] Work Phone: Iron measurement (mass/mass) on 08-07-2022 Iron (Unsp spec) [Mass/Mass] 34 ug/dL 50-170 [facility] Work Phone: Laboratory - Chemistry and C hemistry - challengeon 08-07-2022 ALP [Catalytic activity/Vol] 45 U/L 45-117 [facility] Work Phone: ALT [Catalytic activity/Vol] 16 U/L 13-56 [facility] Work Phone: CO2 [Moles/Vol] 26.0 mmol/L 21.0-32.0 [facility] Work Phone: Cobalamin (Vitamin B12) [Mass/Vol] 961 pg/mL 211-911 [facility] Work Phone: Free T4 [Mass/Vol] 0.84 ng/dL 0.76-1.46 [facility] Work Phone: Globulin (S) [Mass/Vol] 3.4 g/dL 2.2-4.2 [facility] Work Phone: Transferrin [Mass/Vol] 266 mg/dL 192-364 Wo s[facility] Work Phone: Comment on above: Performed at: [address] [id number] Director: Lan Soto PhD, Phone: [phone] Urea nitrogen/Creatinine [Mass ratio] 12.0 mg/mg 10-20 [facility] Work Phone: Laboratory - Hematology and Cell countson 08-07-2022 Erythrocyte distribution width (RBC) [Entitic vol] 42.1 fL 35.1-43.9 [facility] Work Phone: Erythrocyte distribution width (RBC) [Ratio] 12.3 % 11.6-14.6 [facility] Work Phone: Immature granulocytes/100 WBC (Bld) 0.200 % 0.0-0.9 [facility] Work Phone: Comment on above: IG% - Immature Granu locytes (promyelocytes, myelocytes and metamyelocytes) > 1% indicates that a LEFT SHIFT is Present. MCH (RBC) [Entitic mass] 30.6 pg 27.0-32.0 [facility] Work Phone: Nucleated RBC/100 WBC (Bld) [Ratio] 0 % 0-5 [facility] Work Phone: MCHC Auto (RBC) [Mass/Vol]on 08-07-2022 MCHC (RBC) [Mass/Vol] 33.3 g/dL 32-36 [facility] Work Phone: No Panel Informationon 08-07 Estimated GFR (MDRD) Amer 122 mL/min >60 [facility] Work Phone: Comment on above: GFR Calc Estimated GFR (MDRD) Non-Af Amer 101 mL/min >60 [facility] Work Phone: Comment on above: Non- GFR Calc Thyroid Stimulating Hormone (TSH) 3.02 uIU/mL 0.358-3.74 [facility] Work Phone: Total Iron Binding Capacity 363 ug/dL 250-450 [facility] Work Phone: Vitamin D 25-Hydroxy 38.2 ng/mL [facility] Work Phone: Comment on above: Vitamin D 25(OH) Sta tus Range Deficiency <20 ng/mL (50nmol/L) Insufficiency 20 - 30 ng/mL (50 - 75 nmol/L) Sufficiency 30 - 100 ng/mL (75 - 250 nmol/L) Toxicity >100 ng/mL (>250 nmol/L) Platelets bldon 08-07-2022 Platelets (Bld) [#/Vol] 274 10*3/uL 150-450 [facility] Work Phone: Serum or plasma albumin thomas urement (mass/volume)on 08-07-2022 Albumin [Mass/Vol] 4.0 g/dL 3.2-5.0 [facility] Work Phone: Serum or plasma albumin/glob ulin mass ratioon 08-07-2022 Albumin/Globulin [Mass ratio] 1.2 {ratio} 0.9-2.4 [facility] Work Phone: Serum or plasma calcium thomas urement (mass/volume)on 08-07-2022 Calcium [Mass/Vol] 8.9 mg/dL 8.5-10.1 [facility] Work Phone: Serum or plasma creatinine m easurement (mass/volume)on 08-07-2022 Creatinine [Mass/Vol] 0.75 mg/dL 0.55-1.02 [facility] Work Phone: Comment on above: The validity of the calculated GFR & GFRAA in patients over 70 years has not been determined. Clinical correlation is essential. Serum or plasma ferritin kristan surement (mass/volume)on 08-07-2022 Ferritin [Mass/Vol] 60 ng/mL 8-252 [facility] Work Phone: Serum or plasma iron saturat ion measurement (mass fraction)on 08-07-2022 Iron saturation [Mass fraction] 9.4 % 15.0-55.0 [facility] Work Phone: Serum or plasma urea nitroge n measurement (mass/volume)on 08-07-2022 Urea nitrogen [Mass/Vol] 9 mg/dL 7-18 [facility] Work Phone: Thin prep Papanicolaou smear with manual screeningon 08-07-2022 Thin prep Papanicolaou smear with manual screening 13 U/L 15-37 [facility] Work Phone: Thin prep Papanicolaou smear with manual screening 9 5-15 [facility] Work Phone: COVID-19, MOLECULARon 2019 SARS-COV-2 (GUTIERREZ ID) Detected Abnormal Not Detected [facility] Comment on above: Result Comment: [...] at the following links: For Healthcare Providers: https://www.fda.gov/media/649101/download For Patients: https://www.fda.gov/media/469568/download COVID-19, Molecularon 2019 Interpretation and review of laboratory results Abnormal [facility] SARS-CoV-2 Detected Abnormal Not Detected [facility] Comment on above: This test [...] at the following links: For Healthcare Providers: https://www.fda.gov/media/466422/download For Patients: https://www.fda.gov/media/508616/download FOOT RT 3 VIEWSon 02-03-2018 FOOT RT [address] [facility] Patient: ARMANDO APONTE Rodrigo. . JUL[place] Hoang [address] Admit Date: 02/03/18 /Age: 4 2000 ED Physician:MARIIA Guillory RADIOLOGY REQUISITION Attending Physician: Andra Adkins MD [facility] Rec #: [id number] RIGHT FOOT X-RAYS 02/03/2018 CLINICAL DATA: Injured foot 3 weeks ago with pain and fullness fourth distalmeatarsal. Concernfor Lisfranc injury. FINDINGS: Upright 3-view series. No comparisons. Lisfranc joint is normallyalined. The plantararch is preserved. There is no stress reaction or fracture in the foot. IMPRESSION: Negative x-rays of the right foot with preserved Lisfranc joint and plantararc. Authenticated on: 02/03/18 [id number]: 02/03/18 1445T: 02/03/18Job ID# [id number]: Andra Adkins MD Normal [facility] Vital Signs Date Time Vital Sign Value Performing Clinician Facility 03-17-2025 09:54-0400 Body height 160.[address] Alanna Blue MD Work Phone: [facility] 03-17-2025 09:52-0400 Body mass index (BMI) [Ratio] 26.1 kg/m2 Dr. Alanna Blue MD Work Phone: 7(157)430-556564 [place] [address] 03-17-2025 09:52-0400 Body weight 66.[address] Alanna Blue MD Work Phone: 5(340)612-506864 [place] [address] 03-17-2025 09:52-0400 Diastolic blood pressure 87 mm[Hg] Dr. Alanna Blue MD Work Phone: 7(258)107-196175 [place] [address] 03-17-2025 09:52-0400 Systolic blood pressure 126 mm[Hg] Dr. Alanna Blue MD Work Phone: 9(206)506-738575 [place] [address] 03-10-2025 10:37-0400 Body height 160.[address] Alanna Blue MD Work Phone: 0(050)851-684275 [place] [address] 03-10-2025 10:36-0400 Body mass index (BMI) [Ratio] 26.1 kg/m2 Dr. Alanna Blue MD Work Phone: 2(312)533-725775 [place] [address] 03-10-2025 10:36-0400 Body weight 66.[address] Alanna Blue MD Work Phone: 7(447)672-277475 [place] [address] 03-10-2025 10:36-0400 Diastolic blood pressure 84 mm[Hg] Dr. Alanna Blue MD Work Phone: 9(528)144-311475 [place] [address] 03-10-2025 10:36-0400 Systolic blood pressure 129 mm[Hg] Dr. Alanna Blue MD Work Phone: 7(834)335-603975 [place] [address] 03-03-2025 11:14-0400 Body height 160.[address] Alanna Blue MD Work Phone: 7(481)918-856175 [place] [address] 03-03-2025 11:11-0400 Body mass index (BMI) [Ratio] 26.2 kg/m2 Dr. Alanna Blue MD Work Phone: 0(436)027-349175 [place] [address] 03-03-2025 11:11-0400 Body weight 67.[address] Alanna Blue MD Work Phone: 4(615)950-398075 [place] [address] 03-03-2025 11:11-0400 Diastolic blood pressure 76 mm[Hg] Dr. Alanna Blue MD Work Phone: [facility] 03-03-2025 11:11-0400 Systolic blood pressure 129 mm[Hg] Dr. Alanna Blue MD Work Phone: [facility] 02-24-2025 14:06-0400 Body height 160.[address] Alanna Blue MD Work Phone: [facility] 02-24-2025 14:05-0400 Body mass index (BMI) [Ratio] 25.8 kg/m2 Dr. Alanna Blue MD Work Phone: 5(415)924-120264 [place] [address] 02-24-2025 14:05-0400 Body weight 66.[address] Alanna Blue MD Work Phone: 5(696)664-775464 [place] [address] 02-24-2025 14:05-0400 Diastolic blood pressure 88 mm[Hg] Dr. Alanna Blue MD Work Phone: 3(488)617-361664 [place] [address] 02-24-2025 14:05-0400 Systolic blood pressure 128 mm[Hg] Dr. Alanna Blue MD Work Phone: 5(948)525-935764 [place] [address] 02-17-2025 08:39-0400 Body height 160.[address] Alanna Blue MD Work Phone: 4(609)752-987164 [place] [address] 02-17-2025 08:39-0400 Body mass index (BMI) [Ratio] 25.7 kg/m2 Dr. Alanna Blue MD Work Phone: [facility] 02-17-2025 08:39-0400 Body weight 65.[address] Alanna Blue MD Work Phone: [facility] 02-17-2025 08:39-0400 Diastolic blood pressure 79 mm[Hg] Dr. Alanna Blue MD Work Phone: [facility] 02-17-2025 08:39-0400 Systolic blood pressure 125 mm[Hg] Dr. Alanna Blue MD Work Phone: 3(238)184-232664 [place] [address] 02-09-2025 09:46-0400 Body height 160.[address] Alanna Blue MD Work Phone: 3(702)741-205575 [place] [address] 02-09-2025 09:46-0400 Body mass index (BMI) [Ratio] 25.8 kg/m2 Dr. Alanna Blue MD Work Phone: 0(995)817-034375 [place] [address] 02-09-2025 09:46-0400 Body weight 66.[address] Alanna Blue MD Work Phone: 7(372)176-799975 [place] [address] 02-09-2025 09:46-0400 Diastolic blood pressure 80 mm[Hg] Dr. Alanna Blue MD Work Phone: 4(704)387-020975 [place] [address] 02-09-2025 09:46-0400 Systolic blood pressure 132 mm[Hg] Dr. Alanna Blue MD Work Phone: 2(690)641-428975 [place] [address] 02-03-2025 08:37-0400 Body height 160.[address] Alanna Blue MD Work Phone: 9(865)137-043075 [place] [address] 02-03-2025 08:37-0400 Body mass index (BMI) [Ratio] 25.7 kg/m2 Dr. Alanna Blue MD Work Phone: 8(676)090-473375 [place] [address] 02-03-2025 08:37-0400 Body weight 65.[address] Alanna Blue MD Work Phone: 0(590)876-583275 [place] [address] 02-03-2025 08:37-0400 Diastolic blood pressure 73 mm[Hg] Dr. Alanna Blue MD Work Phone: 6(859)530-190175 [place] [address] 02-03-2025 08:37-0400 Systolic blood pressure 109 mm[Hg] Dr. Alanna Blue MD Work Phone: 5(994)595-835375 [place] [address] 01-24-2025 10:23-0400 Body height 160.[address] Alanna Blue MD Work Phone: 0(359)687-502175 [place] [address] 01-24-2025 10:20-0400 Body mass index (BMI) [Ratio] 25.3 kg/m2 Dr. Alanna Blue MD Work Phone: [facility] 01-24-2025 10:20-0400 Body weight 64.[address] Alanna Blue MD Work Phone: [facility] 01-24-2025 10:20-0400 Diastolic blood pressure 78 mm[Hg] Dr. Alanna Blue MD Work Phone: [facility] 01-24-2025 10:20-0400 Systolic blood pressure 132 mm[Hg] Dr. Alanna Blue MD Work Phone: [facility] 01-11-2025 15:43-0400 Body mass index (BMI) [Ratio] 25.5 kg/m2 Dr. Alanna Blue MD Work Phone: 3(894)693-382064 [place] [address] 01-11-2025 15:43-0400 Body weight 65.[address] Alanna Blue MD Work Phone: 7(255)669-937864 [place] [address] 01-11-2025 15:43-0400 Diastolic blood pressure 74 mm[Hg] Dr. Alanna Blue MD Work Phone: [facility] 01-11-2025 15:43-0400 Systolic blood pressure 118 mm[Hg] Dr. Alanna Blue MD Work Phone: [facility] 01-07-2025 15:31-0400 Body temperature 98.6 [degF] Dr. Alanna Blue MD Work Phone: [facility] 01-07-2025 15:31-0400 Body weight 64.[address] Alanna Blue MD Work Phone: [facility] 01-07-2025 15:31-0400 Diastolic blood pressure 65 mm[Hg] Dr. Alanna Blue MD Work Phone: [facility] 01-07-2025 15:31-0400 Heart rate 78 /min Dr. Alanna Blue MD Work Phone: [facility] 01-07-2025 15:31-0400 Respiratory rate 16 /min Dr. Alanna Blue MD Work Phone: [facility] 01-07-2025 15:31-0400 SaO2% (BldA) [Mass fraction] 100 % Dr. Alanna Blue MD Work Phone: 7(692)021-334264 [place] [address] 01-07-2025 15:31-0400 Systolic blood pressure 107 mm[Hg] Dr. Alanna Blue MD Work Phone: 5(484)634-911575 [place] [address] 12-29-2024 15:29-0400 Body height 160.[address] Alanna Blue MD Work Phone: 4(720)202-669875 [place] [address] 12-29-2024 15:29-0400 Body mass index (BMI) [Ratio] 25.2 kg/m2 Dr. Alanna Blue MD Work Phone: 6(631)103-214775 [place] [address] 12-29-2024 15:29-0400 Body weight 64.[address] Alanna Blue MD Work Phone: 4(785)135-993475 [place] [address] 12-29-2024 15:29-0400 Diastolic blood pressure 68 mm[Hg] Dr. Alanna Blue MD Work Phone: 8(955)545-955375 [place] [address] 12-29-2024 15:29-0400 Systolic blood pressure 118 mm[Hg] Dr. Alanna Blue MD Work Phone: 6(155)207-100075 [place] [address] 12-24-2024 15:06-0400 Body mass index (BMI) [Ratio] 25.4 kg/m2 Dr. Alanna Blue MD Work Phone: 4(829)594-216264 [place] [address] 12-24-2024 15:06-0400 Body weight 65.[address] Alanna Blue MD Work Phone: 1(945)943-550875 [place] [address] 12-24-2024 15:06-0400 Diastolic blood pressure 74 mm[Hg] Dr. Alanna Blue MD Work Phone: 1(092)926-352975 [place] [address] 12-24-2024 15:06-0400 Systolic blood pressure 128 mm[Hg] Dr. Alanna Blue MD Work Phone: 1(256)093-431475 [place] [address] 12-23-2024 14:25-0400 Body temperature 98.2 [degF] Dr. Alanna Blue MD Work Phone: [facility] 12-23-2024 14:25-0400 Diastolic blood pressure 63 mm[Hg] Dr. Alanna Blue MD Work Phone: [facility] 12-23-2024 14:25-0400 Heart rate 97 /min Dr. Alanna Blue MD Work Phone: 5(198)682-326164 [place] [address] 12-23-2024 14:25-0400 Respiratory rate 18 /min Dr. Alanna Blue MD Work Phone: 7(921)727-047575 [place] [address] 12-23-2024 14:25-0400 SaO2% (BldA) [Mass fraction] 98 % Dr. Alanna Blue MD Work Phone: 2(459)595-131864 [place] [address] 12-23-2024 14:25-0400 Systolic blood pressure 114 mm[Hg] Dr. Alanna Blue MD Work Phone: 0(457)283-254075 [place] [address] 12-23-2024 10:09-0400 Body height 160.[address] Alanna Blue MD Work Phone: 8(208)523-623675 [place] [address] 12-23-2024 10:09-0400 Body mass index (BMI) [Ratio] 25.3 kg/m2 Dr. Alanna Blue MD Work Phone: 3(127)281-966975 [place] [address] 12-23-2024 10:09-0400 Body weight 64.[address] Alanna Blue MD Work Phone: 9(656)837-956664 [place] [address] 12-22-2024 14:42-0400 Body mass index (BMI) [Ratio] 25.6 kg/m2 Dr. Alanna Blue MD Work Phone: 0(243)968-389864 [place] [address] 12-22-2024 14:42-0400 Body weight 65.[address] Alanna Blue MD Work Phone: 1(730)778-253164 [place] [address] 12-22-2024 14:42-0400 Diastolic blood pressure 70 mm[Hg] Dr. Alanna Blue MD Work Phone: 6(865)715-553575 [place] [address] 12-22-2024 14:42-0400 Systolic blood pressure 122 mm[Hg] Dr. Alanna Blue MD Work Phone: [facility] 12-03-2024 15:56-0400 Body mass index (BMI) [Ratio] 24.6 kg/m2 Dr. Alanna Blue MD Work Phone: [facility] 12-03-2024 15:56-0400 Body weight 63.[address] Alanna Blue MD Work Phone: [facility] 12-03-2024 15:56-0400 Diastolic blood pressure 71 mm[Hg] Dr. Alanna Blue MD Work Phone: [facility] 12-03-2024 15:56-0400 Systolic blood pressure 120 mm[Hg] Dr. Alanna Blue MD Work Phone: [facility] 11-05-2024 15:44-0500 Body mass index (BMI) [Ratio] 24.7 kg/m2 Dr. Alanna Blue MD Work Phone: [facility] 11-05-2024 15:44-0500 Body weight 63.[address] Alanna Blue MD Work Phone: [facility] 11-05-2024 15:44-0500 Diastolic blood pressure 81 mm[Hg] Dr. Alanna Blue MD Work Phone: [facility] 11-05-2024 15:44-0500 Systolic blood pressure 131 mm[Hg] Dr. Alanna Blue MD Work Phone: [facility] 10-08-2024 13:46-0500 Body mass index (BMI) [Ratio] 24 kg/m2 Dr. Alanna Blue MD Work Phone: [facility] 10-08-2024 13:46-0500 Body weight 61.[address] Alanna Blue MD Work Phone: [facility] 10-08-2024 13:46-0500 Diastolic blood pressure 84 mm[Hg] Dr. Alanna Blue MD Work Phone: [facility] 10-08-2024 13:46-0500 Systolic blood pressure 124 mm[Hg] Dr. Alanna Blue MD Work Phone: [facility] 09-09-2024 15:04-0500 Body mass index (BMI) [Ratio] 23.6 kg/m2 Dr. Alanna Blue MD Work Phone: [facility] 09-09-2024 15:04-0500 Body weight 60.[address] Alanna Blue MD Work Phone: [facility] 09-09-2024 15:04-0500 Diastolic blood pressure 73 mm[Hg] Dr. Alanna Blue MD Work Phone: [facility] 09-09-2024 15:04-0500 Systolic blood pressure 119 mm[Hg] Dr. Alanna Blue MD Work Phone: [facility] 08-10-2021 14:29-0500 Body mass index (BMI) [Ratio] 24.13 kg/m2 Andra Adkins MD Work Phone: [facility] 08-10-2021 14:29-0500 Body temperature 98.49 [degF] Andra Adkins MD Work Phone: [facility] 08-10-2021 14:29-0500 Body weight 61.78 kg Andra Adkins MD Work Phone: [facility] 08-10-2021 14:29-0500 Diastolic blood pressure 70 mm[Hg] Andra Adkins MD Work Phone: [facility] 08-10-2021 14:29-0500 Heart rate 89 /min Andra Adkins MD Work Phone: [facility] 08-10-2021 14:29-0500 Respiratory rate 15 /min Andra Adkins MD Work Phone: [facility] 08-10-2021 14:29-0500 SaO2% (BldA) [Mass fraction] 89 % Andra Adkins MD Work Phone: [facility] 08-10-2021 14:29-0500 Systolic blood pressure 130 mm[Hg] Andra Adkins MD Work Phone: [facility] 09-06-2020 11:22-0500 BMI (Body Mass Index) 26.04 kg/m2 [facility] 11:22-0500 Body Temperature 98.2 [degF] [facility] 09-06-2020 11:22-0500 Body weight 66.68 kg [facility] 09-06-2020 11:22-0500 BP Diastolic 81 mm[Hg] [facility] 09-06-2020 11:22-0500 BP Systolic 130 mm[Hg] [facility] 09-06-2020 11:22-0500 Pulse (Heart Rate) 84 /min [facility] 09-06-2020 11:22-0500 Pulse Oximetry 98 % [facility] 09-06-2020 11:22-0500 Respiratory Rate 16 /min [facility] Encounters Encounter Date Encounter Type Care Provider Facility Start: 03-17-2025 Evaluation and management of inpatient Alanna Blue Facility:[facility] Start: 03-17-2025 End: 03-17-[address] Rosy Albert MD -[facility] Work Phone: Start: 03-17-2025 End: 03-17-[address] Alanna Blue MD Work Phone: [facility] Work Phone: Start: 03-10-2025 End: 03-10-[address] Kareen Sands DO -[facility] Work Phone: Start: 03-10-2025 End: 03-10-[address] Alanna Blue MD Work Phone: [facility] Work Phone: Start: 03-04-2025 Non-patient / Non-visit Dr. Vamsi camarena MD -[facility] Start: 03-04-2025 End: 03-04-[address] Alanna Blue MD Work Phone: [facility] Work Phone: Start: 03-04-2025 End: 03-04-2025 Patient encounter procedure Mitali MARLEY -Ultrasound [facility] Work Phone: Start: 03-03-2025 End: 03-03-2025 Patient encounter procedure Sarah Blackwood CNM -[facility] Work Phone: Start: 03-03-2025 End: 03-04-[address] Alanna Blue MD Work Phone: [facility] Work Phone: Start: 03-03-2025 End: 03-03-2025 ambulatory Sarah Blackwood Facility:[facility] Start: 02-24-2025 End: 02-24-[address] Rosy Albert MD -[facility] Work Phone: Start: 02-24-2025 End: 02-24-[address] Alanna Bleu MD Work Phone: [facility] Work Phone: Start: 02-17-2025 End: 02-17-[address] Alanna Blue MD Work Phone: [facility] Work Phone: Start: 02-17-2025 End: 02-17-[address] Kareen Sands DO -[facility] Work Phone: Start: 02-17-2025 End: 02-17-2025 Patient encounter procedure Sarah Blackwood CNM -[facility] Work Phone: Start: 02-17-2025 End: 02-17-[address] Alanna Blue MD Work Phone: [facility] Work Phone: Start: 02-17-2025 End: 02-17-2025 ambulatory Kareen Sands Facility:[facility] Start: 02-09-2025 End: 02-09-[address] Kareen Sands DO -[facility] Work Phone: Start: 02-09-2025 End: 02-09-[address] Alanna Blue MD Work Phone: [facility] Work Phone: Start: 02-03-2025 End: 02-03-2025 Patient encounter procedure Sarah Jaison AGUILERA -[facility] Work Phone: Start: 02-03-2025 End: 02-03-[address] Alanna Blue MD Work Phone: [facility] Work Phone: Start: 02-02-2025 End: 02-02-[address] Alanna Blue MD Work Phone: [facility] Work Phone: Start: 02-02-2025 End: 02-02-2025 Patient encounter procedure Tara Olvera INFORMATICS CONSULTANT-C -Ultrasound [facility] Work Phone: Start: 02-02-2025 End: 02-02-2025 ambulatory Alanna Blue Facility:[facility] Start: 01-25-2025 Non-patient / Non-visit Dr. Vamsi camarena MD -[facility] Start: 01-25-2025 End: 01-25-[address] Alanna Blue MD Work Phone: [facility] Work Phone: Start: 01-25-2025 End: 01-25-2025 Patient encounter procedure Tara Olvera INFORMATICS CONSULTANT-C -Cardiovascular Services Work Phone: Start: 01-24-2025 End: 01-25-2025 ambulatory Alanna Blue Facility:[facility] Start: 01-24-2025 End: 01-24-[address] Kareen Sands DO -[facility] Work Phone: Start: 01-11-2025 End: 01-11-2025 ambulatory Alanna Blue Facility:[facility] Start: 01-11-2025 End: 01-11-2025 Patient encounter procedure Tara Olvera INFORMATICS CONSULTANT-C -[facility] Work Phone: Start: 01-07-2025 End: 01-07-2025 Patient encounter procedure Mitali MARLEY -[facility] Work Phone: Start: 01-07-2025 End: 01-07-2025 ambulatory Alanna Blue Facility:[facility] Start: 01-03-2025 End: 01-03-[address] Alanna Blue MD Work Phone: [facility] Work Phone: Start: 01-03-2025 End: 01-03-2025 Patient encounter procedure Sarah Blackwood CNM -Laboratory Work Phone: Start: 01-03-2025 End: 01-03-2025 ambulatory Alanna Blue Facility:[facility] Start: 12-29-2024 End: 12-29-2024 Patient encounter procedure Tara Olvera INFORMATICS CONSULTANT-C -[facility] Work Phone: Start: 12-29-2024 End: 12-29-[address] Alanna Blue MD Work Phone: [facility] Work Phone: Start: 12-29-2024 End: 12-29-2024 ambulatory Kareen Sands Facility:[facility] Start: 12-24-2024 End: 12-24-[address] Rosy Albert MD -[facility] Work Phone: Start: 12-24-2024 End: 12-24-2024 ambulatory Rosy Albert Facility:[facility] Start: 12-23-2024 ambulatory Vamsi Saenz Facility:[facility] Start: 12-23-2024 Non-patient / Non-visit Dr. Vamsi camarena MD -[facility] Start: 12-23-2024 End: 12-23-2024 Emergency department patient visit Dr. Alanna Blue MD Work Phone: -Emergency Department Work Phone: Start: 12-22-2024 End: 12-22-2024 Patient encounter procedure Tara WHIPPLE -[facility] Work Phone: Start: 12-22-2024 End: 12-22-2024 ambulatory Alanna Blue Facility:[facility] Start: 12-03-2024 End: 12-03-2024 Patient encounter procedure Sarah Blackwood CNM -[facility] Work Phone: Start: 12-03-2024 End: 12-03-2024 ambulatory Alanna Blue Facility:[facility] Start: 11-05-2024 End: 11-05-[address] Rosy Albert MD -[facility] Work Phone: Start: 11-05-2024 End: 11-05-2024 ambulatory Alanna Blue Facility:[facility] Start: 10-28-2024 End: 10-28-2024 ambulatory ALANNA BLUE [facility] Start: 10-08-2024 End: 10-08-[address] Kareen Sands DO -[facility] Work Phone: Start: 10-08-2024 End: 10-08-2024 ambulatory Kareen Sands Facility:[facility] Start: 09-09-2024 End: 09-09-[address] Kareen Sands DO -[facility] Work Phone: Start: 09-09-2024 End: 09-09-2024 ambulatory Kareen Sands Facility:[facility] Start: 08-13-2024 End: 08-13-2024 ambulatory Jasmin Moody Facility:[facility] Start: 08-13-2024 End: 11-22-2024 ambulatory [facility] Facility:[facility] Start: 07-30-2024 ambulatory Mayra Martinez Facility :[facility] Start: 08-07-2022 End: 08-07-2022 ambulatory [facility] Work Phone: Start: 08-07-2022 End: 08-07-2022 Patient encounter procedure [facility] Start: 08-10-2021 End: 08-10-2021 ambulatory ANDRA ADKINS [facility] Start: 08-10-2021 End: 08-10-2021 Office outpatient visit 15 minutes Andra Adkins MD Work Phone: [facility] [place] Comment on above: Subcutaneous nodule of breast (Primary Dx) Start: 09-06-2020 End: 09-06-2020 Patient encounter procedure ANDRA ADKINS [facility] Start: 09-06-2020 End: 09-06-2020 Office outpatient new 30 minutes Jessica Cortez Work Phone: [facility] Comment on above: COVID-19 (Primary Dx ); Fever in other diseases Start: 08-14-2020 End: 08-14-2020 Patient encounter procedure TONE MORALES [facility] Start: 08-14-2020 End: 08-14-2020 Office outpatient new 30 minutes Tone Morales Work Phone: [facility] Comment on above: Metatarsalgia of rig ht foot (Primary Dx); Right foot pain Start: 02-03-2018 End: 02-03-2018 Ambulatory Andra Adkins Facility:[facility] Procedures Date Procedure Procedure Detail Performing Clinician [...] Date Care Activity Detail Author Start: 12-23-2024 [facility] Start: 11-23-2023 Screening for malign ant neoplasm of cervix Pap Smear [facility] Start: 11-22-2021 Depression screening using PHQ-9 (Patient Health Questionnaire 9) score Depression Screening (PHQ-2/9) [facility] Start: 11-22-2021 History and physical examination, annual for health maintenance Wellness Visit [facility] Start: 11-22-2021 Screening for Chlamy alek trachomatis Chlamydia Screening [facility] Start: 08-11-2021 Adolescent depressio n screening assessment Depression Screening (PHQ9) [facility] Start: 05-23-2021 Influenza vaccination Sequenti al Influenza Vaccine (#1) [facility] Start: 08-23-2020 End: 08-23-2020 Office Visit 08/23/2020 Office Visit Podiatry Tone Morales DPM [address] [place] [address] [phone] [facility] Start: 05-23-2020 Influenza vaccinatio n given Sequential Influenza Vaccine (#1) [facility] Start: 2016 Hepatitis C antibody , confirmatory test Hepatitis C Screening [facility] Start: 2016 Hepatitis C screening Hepatitis C Sc isaak [facility] Start: 2013 HIV screening HIV Screening [facility] Start: 2009 Vaccination for mireya n papillomavirus HPV Vaccines (1 - 2-dose series) [facility] Start: 2003 COVID-19 Vaccine (1) COVID-19 Vaccin e (1) [facility] Start: 2001 History and physical examination, annual for health maintenance Wellness Visit [facility] Start: 1998 Screening for Chlamy alek trachomatis Chlamydia Screening [facility] Start: 1998 Screening for malign ant neoplasm of cervix Pap Smear [facility] Start: 1998 Tetanus vaccination Tetanus: Every [address] [facility] CBC W Auto Different ial panel - Blood [facility] Measurement of gluco se 2 hours after glucose challenge for glucose tolerance test [facility] Patient Education DVT Complicati ons DVT Dc DVT Tx [facility] Work Phone: Patient referral [facility] Work Phone: Serologic test for syphilis [facility] Streptococcus agalac tiae [Presence] in Unspecified specimen by Organism specific culture [facility] End: 08-10-2022 Ultrasonography of breast US Breast Bilateral Complete Imaging Routine Subcutaneous nodule of breast 1 Occurrences starting 08/10/2021 until 08/10/[address] [facility] Work Phone: Comment on above: 1 Occurrences starti ng 08/10/2021 until 08/10/2022 Ultrasound scan for growth [facility] US.doppler Lower extremity vein [facility] US.doppler Lower extremity vein [facility] US.doppler Lower extremity vein [facility] End: 08-14-2021 X-ray of right foot XR Foot Right 3+ Views (Standard) Imaging Routine Metatarsalgia of right foot Right foot pain 1 Occurrences starting 08/14/2020 until 08/14/[address] [facility] Comment on above: 1 Occurrences starti ng 08/14/2020 until 08/14/2021 [facility] Immunizations Immunization Date Immunization Notes Care Provider Shruti shah 01-11-2025 tetanus toxoid, redu zahraa diphtheria toxoid, and acellular pertussis vaccine, adsorbed Dr. Alanna Blue MD Work Phone: [facility] Payers Date Payer Category Payer Unknown [id number] 2024 Self-pay 2024 Unknown [id number] 2020 Unknown [id number] 2020 Unknown [employer] S UPER[employer] PPO [id number] 2020-Present [id number]. [id number] 1998 Unknown [id number] 2.16.840.1.872446.3.579.2.903 1998 Unknown [id number] 2.16.840.1.869405.3.579.2.903 1998 Unknown [id number] 2.16.840.1.479846.3.579.2.903 1998 Unknown [id number] 2.16.840.1.274133.3.579.2.479 Unknown [id number] Unknown COMMERCIAL COMME RCIAL MISCELLANEOUS [id number] Effective for all dates [address] [place] [address] 1.2.840.356952.1.13.385.2.7.3. [id number] Unknown [id number] 2.16.840.1.792179.3.579.2.462 Unknown [id number] 2.16.840.1.762491.3.579.2.462 Unknown [id number] 2.16.840.1.580810.3.579.2.462 Unknown [id number] 2.16.840.1.160872.3.579.2.462 Unknown [id number] 2.16.840.1.289953.3.579.2.462 Unknown [id number] 2.16.840.1.418343.3.579.2.462 Unknown [id number] 2.16.840.1.807859.3.579.2.462 Unknown [id number] 2.16.840.1.545369.3.579.2.462 Unknown [id number] 2.16.840.1.402303.3.579.2.462 Unknown [id number] 2.16.840.1.070724.3.579.2.462 Unknown [id number] 2.16.840.1.067476.3.579.2.462 Unknown [id number] 2.16.840.1.669865.3.579.2.462 Unknown [id number] 2.16840.1.659151.3.579.2.462 Unknown [id number] 2.16840.1.002355.3.579.2.462 Unknown [id number] 2.16840.1.400986.3.579.2.462 Unknown [id number] 2.16.840.1.184972.3.579.2.462 Unknown [id number] 2.16.840.1.658790.3.579.2.462 Unknown [id number] 2.16840.1.252192.3.579.2.462 Unknown [id number] 2.16.840.1.078811.3.579.2.462 Unknown [id number] 2.16.840.1.690835.3.579.2.462 Unknown [id number] 2.16.840.1.564438.3.579.2.462 Unknown [id number] 2.16.840.1.224311.3.579.2.462 Unknown [id number] 2.16.840.1.576290.3.579.2.462 Unknown [id number] 2.16.840.1.433675.3.579.2.462 Unknown [id number] 2.16.840.1.297653.3.579.2.462 Unknown [id number] 2.16.840.1.519180.3.579.2.462 Unknown [id number] 2.16.840.1.692235.3.579.2.462 Unknown [id number] 2.16.840.1.946160.3.579.2.462 Unknown [id number] 2.16.840.1.224523.3.579.2.462 Unknown [id number] 2.16.840.1.421204.3.579.2.462 Unknown [id number] 2.16.840.1.457915.3.579.2.462 Unknown [id number] 2.16.840.1.693465.3.579.2.462 Unknown [id number] 2.16.840.1.976981.3.579.2.462 Social History Date Type Detail Facility Start: 08-11-2020 End: 12-23-2024 Tobacco smoking status NHIS Never smoker [facility] Start: 08-11-2020 End: 09-06-2020 Tobacco use and exposure Never used [facility] Start: 08-11-2020 End: 08-11-2021 Alcohol intake Current drinker of alcohol (finding) [facility] Start: 08-11-2020 End: 11-22-2020 History SDOH Alcohol Frequency [address] [facility] Start: 08-11-2020 End: 11-22-2020 History SDOH Alcohol Std Drinks [address] [facility] Start: 1998 Sex Assigned At Not on file [facility] Exposure to SARS-CoV -2 (event) Not sure [facility] Start: 2000 Sex Assigned At Female [facility] Start: 12-23-2024 End: 01-06-2025 Sex Female (finding) [facility] Goals Date Patient Goal Desired Activity /State Clinical Notes 08-10-2021 to 03-07-2025 Note Date & Type Note Facility 03-07-2025 Radiology Diagnostic study note [facility] Imaging Services [address] [place], [place] [id number] OB Limited With Biometrics MR#: [id number] Acct: [id number] Name: ARMANDO CUENCA Rep #: [id number] : 2000 F 25 From: Ronnie London MD PCP: Dr. Alanna Blue MD Status: RE G CLI Study:OB Limited With Biometrics Date of Exam : 03/04/25 Exam# [id number] Ordering Dr: Tara Olvera NP INFORMATICS CONSULTANT-C PROCEDURE: OB LIMITED WITH BIOMETRICS 03/04/2025 REASON [...] within the normal expected range. Reading Location: [facility] CC: INFORMATICS CONSULTANT-C Tara Olvera; Dr. Alanna Blue MD ~ Cue Worker: Signed [facility] 02-24-2025 Progress note [facility] 02-24-2025 Progress note Note Date/Time February 24, 2025 2:47pm [facility] [address] [place] [address], [address] [place] [address] OFFICE VISIT Date of Service: 02/24/25 MR#: [id number] Acct: [id number] Name: ARMANDO CUENCA Rep #: [id number] : 2000 Provider: Dr. 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 Is patient in pain?: No [...] occupational status: employed current occupation: [employer] current occupational exposures/hazards: No [...] 5-6 times per week duration: 30-45 minutes/day wander/methodist: Hinduism seatbelt use: always do you feel safe at home: Yes additional social history: : [employer] - [employer] History 1 Elective abortions Hx Para 0 [...] gestation: 35 weeks CPT Codes Non-Stress Test (98583) Assessment and Plan Assessment and Plan (1) [...] and thrombosis of left iliac vein 02/24/25 [id number] <Electronically signed by Rosy beatty MD> Date _ Rosy Albert MD [facility] Signature: Date (if applicable) CC: ~ [facility] Work Phone: 1(964) 724-702605-29-2025 Progress [facility] Care [address] [place] [address], [address] [place] [address] OFFICE VISIT Date of Service: 02/17/25 MR#: [id number] Acct: [id number] Name: ARMANDO CUENCA Rep #: [id number] : 2000 Provider: WILLY Blackwood Age/Sex: 24/F Location: [facility] Status: Signed Intake Vital Signs 12/24/24 15:07 02/09/25 09:46 02/17/25 08:39 02/17/25 08:39 Height 5 ft 3 in 5 ft 3 in 5 ft 3 in 5 ft 3 in Weight: 145 lb 4 oz BMI 25.7 BP 125/79 H Intake Visit Reasons: 35wk NST ONLY Steamfitter Required: No Is patient in pain?: No [...] 5-6 times per week duration: 30-45 minutes/day wander/methodist: Hinduism seatbelt use: always do you feel safe at home: Yes additional social history: : [employer] - [employer]ine [employer] at [employer] History 1 Elective abortions Hx Para 0 [...] gestation: 34 weeks CPT Codes Non-Stress Test (83123) Assessment and Plan Assessment and Plan (1) [...] trimester Comment: PRR , JUHI 03/25/25, aneesh [place] : Nabor (4) : Status: Acute Qualifiers: [...] Cosigner Signature: Date (if applicable) CC: ~ [facility]05-14-2025 Radiology Diagnostic study note [facility] Imaging Services [address] [place], [place] [address] OB Limited With Biometrics MR#: [id number] Acct: [id number] Name: ARMANDO CUENCA Rep #: [id number] : 2000 F 24 From: Ronnie London MD PCP: Dr. Alanna Blue MD Status: RE G CLI Study:OB Limited With Biometrics Date of Exam : 02/02/25 Exam# [id number] Ordering Dr: Tara Olvera INFORMATICS CONSULTANT INFORMATICS CONSULTANT-C PROCEDURE: OB LIMITED WITH BIOMETRICS 02/02/2025 REASON [...] of 33 weeks and 1day. Reading Location: [id number] CC: SARABJIT Olvera; Dr. Alanna Blue MD ~ Cue Worker: Signed [facility]04-03-2025 Radiology Diagnostic study note [facility] Imaging Services [address] [place], [place] [address] CTA Chest W/WO Contrast MR#: [id number] Acct: [id number] Name: ARMANDO CUENCA Rep #: [id number] : 2000 F 24 From: Pet er Peer PCP: Dr. Alanna Blue MD Status: RE G ER Study:CTA Chest W/WO Contrast Date of Exam: 12/23/24 Exam# [id number] Ordering Dr: Stanley Fontenot DO PROCEDURE: CTA [...] of pulmonary embolism. Normal exam. Reading [facility] CC: Dr. Stanley Gaytan DO; Dr. Alanna Blue MD ~ Cue Worker: Signed [facility]03-14-2025 Evaluation note* Diagnosis Onset Date Resolution Status [...] of high-risk acute March 03, 2025 11:09am [facility] Work Phone: 1(319) 372-669503-14-2025 Evaluation note* Diagnosis Onset Date Resolution Status [...] of high-risk acute March 10, 2025 10:27am [facility] Work Phone: 1(672) 306-358103-14-2025 Evaluation note* Diagnosis Onset Date Resolution Status [...] of high-risk acute March 17, 2025 9:44am [facility] Work Phone: 1(909) 459-750502-14-2025 Evaluation note* Diagnosis Onset Date Resolution Status [...] high-risk acute February 09, 2025 9 :44am [facility] Work Phone: 1(979) 235-720302-14-2025 Evaluation note* Diagnosis Onset Date Resolution Status [...] high-risk acute February 17, 2025 8 :22am [facility] Work Phone: 1(124) 178-612402-14-2025 Evaluation note* Diagnosis Onset Date Resolution Status [...] high-risk acute February 24, 2025 1 :54pm [facility] Work Phone: 1([phone]) 276-162602-14-2025 Evaluation note* Diagnosis Onset Date Resolution Status [...] of high-risk acute March 03, 2025 11:09am [facility] Work Phone: 1(532) 982-992401-17-2025 Evaluation note* Diagnosis Onset Date Resolution Status [...] high-risk acute January 24, 2025 10 :19am [facility] Work Phone: 1([phone]) 941-574901-17-2025 Evaluation note* Diagnosis Onset Date Resolution Status [...] high-risk acute February 03, 2025 8 :25am [facility] Work Phone: [phone]) 642-645812-19-2024 Evaluation note* Diagnosis Onset Date Resolution Status [...] of normal acute December 22, 2024 2:40pm [facility] Work Phone: 1([phone] 175-503612-19-2024 Evaluation note* Diagnosis Onset Date Resolution Status [...] left extremity inactive December 29, 2024 3:22pm [facility] Work Phone: 1([phone]) 420-541211-19-2021 History of Present illness Narrative* Andra Adkins [...] Physical Exam Vitals and nursing note reviewed. 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 Chest: Breasts: Right: No [...] [facility] Work Phone: Hospital Discharge instructions Additional Instructions Follow-up with your BODY FORMER as well as vascular surgery. Return back to the ED if symptoms change or worsen. Lovenox is a blood thinner it increases spontaneous bleeding as well as bleeding with falls. You received your first this evening. Lovenox injection here in the emergency department. Take your next injection this evening.[facility] Work Phone: Progress note Author Sarah Blackwood [facility] Note Date/Time February 17, 2025 8:55a m [facility] [address] [place] [address], [address] [place] [address] OFFICE VISIT Date of Service: 02/17/25 MR#: [id number] Acct: [id number] Name: ARMANDO CUENCA Rep #: [id number] : 2000 Provider: WILLY Blackwood Age/Sex: 24/F Location: [facility] Status: Signed Intake Vital Signs 12/24/24 15:07 02/09/25 09:46 02/17/25 08:39 02/17/25 08:39 Height 5 ft 3 in 5 ft 3 in 5 ft 3 in 5 ft 3 in Weight: 145 lb 4 oz BMI 25.7 BP 125/79 H Intake Visit Reasons: 35wk NST ONLY Steamfitter Required: No Is patient in pain?: No [...] occupational status: employed current occupation: [employer] current occupational exposures/hazards: No [...] 5-6 times per week duration: 30-45 minutes/day wander/methodist: Hinduism seatbelt use: always do you feel safe at home: Yes additional social history: : [employer]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 GA appropriate handout given. 02/17/25 0893 <Electronically signed by Sarah clemens CNM> Date _ Sarah Blackwood CNM Cosigner Signature: Date (if applicable) CC: ~ [facility] Work Phone: Reason for referral (narrative)No reason for referral information availableWGrant Hospital Work Phone: Summary Purpose Family History No Family History Records Found Relationship Condition Age at Onset Recorded Date/T corazon father Hypertension Unknown Arthritis Unknown grandfather Diabetes mellitus Unknown grandfather Kidney disorder Unknown Advance Directives No Advanced Directives Records FoundDocuments on File Type Date Recorded Patient Research Staff Member Expl anation Advance Directives and Living Will Advance Directives and Living Will 08/11/2020 8:31 AM DOES NOT HAVE ONE Documents on File Type Date Recorded Patient Research Staff Member Expl anation Advance Directives and Living Will Advance Directives and Living Will 08/11/2020 8:31 AM DOES NOT HAVE ONE Advance Directive Response Recorded Date/ Time Living Will No December 23, 2024 10:18am Do you have a Healthcare Power of Cotton Opener? 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 Location: Armando Aponte [address] [place] [address], [address] [facility] [id number] Date Of : Date Of Visit: 2000 09/06/2020 MRN# Provider: [id number] Jessica Cortez CNP Chief Complaint Patient presents with URI Fever, Congestion, loss of taste and smell Sinus Friday night. NK exposure. Assessment & Plan 1. COVID-19 fluticasone propionate (FLONASE) 50 mcg/actuation nasal spray ikqjfbvtlkbmhye-IL-kmwaVZSoqpe 60-15-400 mg Tab 2. Fever in other [...] that started on Friday. 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 She [...] each nostril daily . 16 g 0 ndrxngydecydmtt-FC-vnktQGVgxxv 60-15-400 mg Tab Take 1 (one) tablet [...] HOURS. 3. SIGNIFICANT IMPROVEMENT IN YOUR SYMPTOMS. [facility] COVID-19 Post-swabbing Instructions We will do our best to update you as soon as we receive your test results, but if we had to send your test to be run at the lab, you may see the results on MyChart or receive a call from [facility] before we are able to contact you. [...] results. - If you have an active [employer] account, and your COVID-19 test is negative (not detected), then you will be notified through your [employer] account. You should call the urgent care if you have any further questions. - If your COVID-19 test is positive (detected), you will receive a phone call to discuss your results and answer any questions you might have at that time. Please make sure [facility] has your updated phone number so we can contact you. [facility] will notify the [place] [facility] of any positive results to comply with [...] and warm water and/or alcohol based hand drapery supervisor, scrubbing your hands for at least 20 [...] Other COVID Questions? CDC - https://www.cdc.gov/coronavirus/2019-ncov/index.html - https://www.cdc.gov/coronavirus/2019-ncov/af-cix-ypt-sick/quarantine.html [facility] - Website: https://coronavirus.[place].gov/wps/portal/gov/covid-19/home - Hotline: 688-9-XSS-[facility] (509-931-6109) [facility]: https://blog.DOZ/series/whaph-17-hxtrdficetb-toolkit/ documented in this encounter Assessments Diagnosis Metatarsalgia [...] HOURS. 3. SIGNIFICANT IMPROVEMENT IN YOUR SYMPTOMS. [facility] COVID-19 Post-swabbing Instructions We will do our best to update you as soon as we receive your test results, but if we had to send your test to be run at the lab, you may see the results on [employer] or receive a call from [facility] before we are able to contact you. [...] results. - If you have an active [employer] account, and your COVID-19 test is negative (not detected), then you will be notified through your [employer] account. You should call the urgent care if you have any further questions. - If your COVID-19 test is positive (detected), you will receive a phone call to discuss your results and answer any questions you might have at that time. Please make sure [facility] has your updated phone number so we can contact you. [facility] will notify the [facility] of any positive results to comply with [...] and warm water and/or alcohol based hand drapery supervisor, scrubbing your hands for at least 20 [...] Other COVID Questions? CDC - https://www.cdc.gov/coronavirus/2019-ncov/index.html - https://www.cdc.gov/coronavirus/2019-ncov/du-fnb-hbt-sick/quarantine.html [place] [facility] - Website: https://coronavirus.[place].gov/wps/portal/gov/covid-19/home - Hotline: 538-0-IYE-ODH (246-701-3125) [facility]: https://blog.Cyvera.DisplayLink/series/guovh-10-oqcypmrsgvo-toolkit/ documented in this encounter Reason for Referral Specialty Diagnoses / Procedures Referred By Emilie t Referred To Contact Diagnoses Subcutaneous nodule of breast Procedures US Breast Bilateral Complete Andra Adkins MD [address] [id number] Referral ID Status Reason Start Date Expiration Date V isits Requested Visits Authorized [id number] Authorized 08/10/2021 08/10/2022 1 1 Chief Complaint [...] section and content) DATE CREATED AUTHOR 03/11/2018 [facility] DATE CREATED AUTHOR AUTHOR'S ORGANIZ ATION 08/14/2020 [facility] DATE CREATED AUTHOR AUTHOR'S ORGANIZ ATION 09/07/2020 [facility] DATE CREATED AUTHOR AUTHOR'S ORGANIZ ATION [facility] DATE CREATED AUTHOR AUTHOR'S ORGANIZ ATION 10/31/2024 [facility] DATE CREATED AUTHOR AUTHOR'S ORGANIZ ATION 03/17/2025 [facility] Reason for Visit (unrecogniz ed section and content) Reason Comments Establish Care Reason Comments URI Fever, Congestion, l oss of taste and smell Sinus Friday night. NK exposure. Reason Comments Cyst On chest noticed 1 m onth ago, left breast poss lump , mammogram was done this year Care Teams (unrecognized sec tion and content) Barrel Liner Relationship Specialty Start Date End Date Adnra Adkins MD [address] [place] [id number] PCP - General Family Medicine 08/11/20 Team [...] End: December 22, 2024 Tara Olvera NP, INFORMATICS CONSULTANT-C Attending Provider Active Start: December 22, 2024 [...] End: December 29, 2024 Tara Olvera NP, INFORMATICS CONSULTANT-C Attending Provider Active Start: December 29, 2024 [...] 2025 End: January 11, 2025 Tara Olvera INFORMATICS CONSULTANT, INFORMATICS CONSULTANT-C Attending Provider Active Start: January 11, 2025 [...] 2025 End: January 25, 2025 Tara Olvera INFORMATICS CONSULTANT, INFORMATICS CONSULTANT-C Attending Provider Active Start: January 25, 2025 End: January 25, 2025 Tara Olvera INFORMATICS CONSULTANT, INFORMATICS CONSULTANT-C Referring Provider Active Start: January 25, 2025 [...] S tart: January 25, 2025 Tara Olvera INFORMATICS CONSULTANT, INFORMATICS CONSULTANT-C Referring Provider Active Start: January 25, 2025 Team Status: Active Member Role Status Dates Dr. Alanna Blue MD Primary Care Provider Active Start: February 02, 2025 Tara Olvera INFORMATICS CONSULTANT, INFORMATICS CONSULTANT-C Attending Provider Active Start: February 02, 2025 Tara Olvera INFORMATICS CONSULTANT, INFORMATICS CONSULTANT-C Referring Provider Active Start: February 02, 2025 [...] 2025 End: February 02, 2025 Tara Olvera INFORMATICS CONSULTANT, INFORMATICS CONSULTANT-C Attending Provider Active Start: February 02, 2025 End: February 02, 2025 Tara Olvera INFORMATICS CONSULTANT, INFORMATICS CONSULTANT-C Referring Provider Active Start: February 02, 2025 [...] Active Start: March 04, 2025 Tara Olvera INFORMATICS CONSULTANT, INFORMATICS CONSULTANT-C Other Provider Active St art: March 04, [...] 2025 End: March 04, 2025 Tara Olvera INFORMATICS CONSULTANT, INFORMATICS CONSULTANT-C Other Provider Active St art: March 04, [...] 17, 2025 End: March 17, 2025 Dr. Rosy Albert MD Attending Provider Active Start: March [...] BE BASED ON THE PRIMARY CLINICAL RECORDS. [facility]. provides no warranty or guarantee of the accuracy or completeness of information in this document.
[2025-03-18] VITALS (53 sets, daily range): BP systolic 94–134; BP diastolic 51–82; PULSE 62–127; RESP 16–20; TEMP 36.4–38.2; O2SAT 72–100
[2025-03-18] MEDS: miSOPROStol 25 MCG TABLET VAGINAL (00:44)
[2025-03-18] MEDS: LACTATED RINGERS 500 ML 999 ML IV (02:58)
--- NOTE | 2025-03-18 05:24 | HP.PCM.OB_ITS ---
HPI - General General Date of Admission: 03/17/25 HPI Narrative ARMANDO CUENCA, is a 25 F who presents for IOL secondary to history of dvt in groin during no vb lof goo dfm nor egular ctx Maternal Data Information JUHI Calculator Estimated Delivery Date Method Current WG Current Estimate 03/25/25 LMP (Certain) 39w 0d PFSH PFSH Home Medications ?Medication ?Instructions ?Recorded ?Last Taken ?Type docosahexaenoic acid 200 mg mg PO 07/30/24 0 03/16/25 History capsule ( DHA) enoxaparin 60 mg/0.6 mL 60 mg (0.6 mL) subcut Q12H D VT in 12/24/24 03/16/25 Rx subcutaneous syringe (Lovenox) 30 days #36 m L breast pump #1 ea 02/03/25 Unknown Rx Allergy/AdvReac Type Severity Reaction Status Date / Time No Known Allergies Allergy Verified 03/17/25 19:27 Family History Father Hypertension Arthritis Grandfather Diabetes Grandfather Kidney disease Surgical History History of tonsillectomy Social History adopted: No household members: spouse current occupational status: employed 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 current occupational exposures/hazards: No pets and animals: Yes ( taking care litter box ) pets and animals: cat(s) and dog(s) history of recent travel: Yes ( - May ) out of state: Yes out of country: No sexually active: Yes Smoking Status: Never smoker alcohol intake: current alcohol intake frequency: holidays/special occasions only details: Not while substance use type: does not use well-balanced diet: daily or most days caffeine: Yes Type: coffee eating out: 1-3 times/week during the past year weight has: remained stable what type of physical activity do you participate in: walking, running and weight training frequency: 5-6 times per week duration: 30-45 minutes/day wander/nondenominational: Congregation seatbelt use: always do you feel safe at home: Yes additional 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 history: : 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 [employer] History 1 Elective abortions Hx Para 0 Spontaneous abortions Hx # Term Pregnancies Ectopic pregnancies Hx # Pregnancies Multiple births # of living children Visit Details Expected Delivery Route/Plan Labor Preferences- CB/BF classes: yes labor support person: Nabor labor intervention preferences: [] pain management options preferred: open to epidural if requested cut cord/dad catch: cord : yes PP control planned: discussed discussed possible routes of delivery and associated risks: [] special requests: [] Plans Covid status: [] Flu vaccine: declined Tdap vaccine: given Rhogam: na LARC form signed: yes Problem list reviewed and updated with the most current plan of care details and appropriate orders placed. Relevant counseling for the gestational age provided. Continue routine care and follow up unless otherwise noted in visit notes/problem list details OB Flowsheet Initial Weight: 129 lb Date -?-?-?-?-?-?-?-?-?-?-?-?- EGA Weight BP Urine Prot -?-?-?-?-?-?-?-?-?-?-?-?- Glucose FHR FuHt Pres Dilation -?-?-?-?-?-?-?-?-?-?-?-?- Effaced St Visit Note 08/13/24 -?-?-?-?-?-?-?-?-?-?-?-?- 8w 0d 129 lb 8 oz (+8 oz) 114/84 -?-?-?-?-?-?-?-?-?-?-?-?- 175 -?-?-?-?-?-?-?-?-?-?-?-?- LC 1.55 CRL con with LMP. declines nipt. 09/09/24 -?-?-?-?-?-?-?-?-?-?-?-?- 11w 6d 133 lb 8 oz (+4 lb 8 oz) 119/73 Negative -?-?-?-?-?-?-?-?-?-?-?-?- Negative 180 -?-?-?-?-?-?-?-?-?-?-?-?- JV- no complaint s today. plan new ob labs today. bedside scan reassuring. 10/08/24 -?-?-?-?-?-?-?-?-?-?-?-?- 16w 0d 136 lb 2 oz (+7 lb 2 oz) 124/84 Negative -?-?-?-?-?-?-?-?-?-?-?-?- Negative 145 -?-?-?-?-?-?-?-?-?-?-?-?- JV- no lof, vagi nal bleeding, or cramping. anatomy scan scheduled. no complaints today. 11/05/24 -?-?-?-?-?-?-?-?-?-?-?-?- 20w 0d 139 lb 6 oz (+10 lb 6 oz) 131/81 Negative -?-?-?-?-?-?-?-?-?-?-?-?- Negative 145 20 -?-?-?-?-?-?-?-?-?-?-?-?- SM- no vb occasi onal cramping reviewed labs declined afp 12/03/24 -?-?-?-?--?-?-?-?-?-?-?-?- 24w 0d 139 lb 2 oz (+10 lb 2 oz) 120/71 Negative -?-?-?-?-?-?-?-?-?-?-?-?- Negative 140 24 -?-?-?-?-?-?-?-?-?-?-?-?- KW- no vb/lof/ct x. good fm. KW- no vb/lof/ctx. good fm. discussed 28 week labs. 12/22/24 -?-?-?-?-?-?-?-?-?-?-?-?- 26w 5d 144 lb 8 oz (+15 lb 8 oz) 122/70 Negative -?-?-?-?-?-?-?-?-?-?-?-?- Negative 138 26 -?-?-?-?-?-?-?-?-?-?-?-?- -work in for l eft groin pain extending into thigh. Hurts to walk. Very tender with palpation. No redness. Doppler ordered. Good Fm. No vaginal or urinary symptoms. 12/24/24 -?-?-?-?-?-?-?-?-?-?-?-?- 27w 0d 144 lb (+15 lb) 128/74 Negative -?-?-?-?-?-?-?-?-?-?-?-?- Negative 140 -?-?-?-?-?-?-?-?-?-?-?-?- - seen for fu after DVT diagnosed- reviewed plan of care 12/29/24 -?-?-?-?-?-?-?-?-?-?-?-?- 27w 5d 142 lb 6 oz (+13 lb 6 oz) 118/68 Negative -?-?-?-?-?-?-?-?-?-?-?-?- Negative 138 -?-?-?-?-?-?-?-?-?-?-?-?- -NO VB, LOF. G ood FM. Groin pain improved. 28 wk labs pending. Larc. 01/11/25 -?-?-?-?-?-?-?-?-?-?-?-?- 29w 4d 144 lb 6 oz (+15 lb 6 oz) 118/74 Negative -?-?-?-?-?-?-?-?-?-?-?-?- Negative 142 29 -?-?-?-?-?-?-?-?-?-?-?-?- -NO VB, LOF. G ood Fm. Tdap. No longer w/groin pain. Doing well w/lovenox 01/24/25 -?-?-?-?-?-?-?-?-?-?-?-?- 31w 3d 143 lb 4 oz (+14 lb 4 oz) 132/78 Negative -?-?-?-?-?-?-?-?-?-?-?-?- Negative 13 31 -?-?-?-?-?-?-?-?-?-?-?-?- JV- no lof, vagi nal bleeding. has movement that is sporadic. has ante rior placenta. doing better on lovenox. plan for weekly nsts starting next week 02/03/25 -?-?-?-?-?-?-?-?-?-?-?-?- 32w 6d 145 lb 2 oz (+16 lb 2 oz) 109/73 Negative -?-?-?-?-?-?-?-?-?-?-?-?- Negative 135 -?-?-?-?-?-?-?-?-?-?-?-?- KW- NST only. re active 02/09/25 -?-?-?-?-?-?-?-?-?-?-?-?- 33w 5d 146 lb (+17 lb) 132/80 Negative -?-?-?-?-?-?-?-?-?-?-?-?- Negative 130 -?-?-?-?-?-?-?-?-?-?-?-?- JV- no lof, vagi nal bleeding, or dec fm. taking lovenox for left groin DVT but now having tightness and tingling in the right calf. doppler ordered urgently 02/17/25 -?-?-?-?-?-?-?-?-?-?-?-?- 34w 6d 145 lb 4 oz (+16 lb 4 oz) 125/79 Negative -?-?-?-?-?-?-?-?-?-?-?-?- Negative 130 -?-?-?-?-?-?-?-?-?-?-?-?- KW- NST only. re active. will call if needs refills on lovenox 02/24/25 -?-?-?-?-?-?-?-?-?-?-?-?- 35w 6d 146 lb (+17 lb) 128/88 Negative -?-?-?-?-?-?-?-?-?-?-?-?- Negative 140 -?-?-?-?-?-?-?-?-?-?-?-?- SM- no vb lof go od fm no regular ctx 03/03/25 -?-?-?-?-?-?-?-?-?-?-?-?- 36w 6d 148 lb (+19 lb) 129/76 Negative -?-?-?-?-?-?-?-?-?-?-?-?- Negative 145 36 Cephalic 0 -?-?-?-?-?-?-?-?-?-?-?-?- MH-Reactive NST. No Reg CTX, VB or LOF. Good Fm. 03/10/25 -?-?-?-?-?-?-?-?-?-?-?-?- 37w 6d 147 lb 8 oz (+18 lb 8 oz) 129/84 Negative -?-?-?-?-?-?-?-?-?-?--?-?- Negative 140 37 Cephalic -?-?-?-?-?-?-?-?-?-?-?-?- JV- NST reactive . IOL set up for night for cytotec. will recheck cervix next visit 03/17/25 -?-?-?-?-?-?-?-?-?-?-?-?- 38w 6d 147 lb 8 oz (+18 lb 8 oz) 126/87 Negative -?-?-?-?-?-?-?-?-?-?-?-?- Negative 140 38 0 -?-?-?-?-?-?-?-?-?-?-?-?- SM- no vb lof go od fm no reuglar ctx IOL tonight NST FHR Rate Baby A Baseline: 130 Variability:: Moderate Accelerations:: 15 x 15 Decelerations:: None NST Reactive:: Yes FHR Category:: Category I Uterine Activity:: q3-5 ROS Constitutional Constitutional: Reports systems reviewed and no addt'l complaints, except as documented ENT HEENT: Reports systems reviewed and no addt'l complaints, except as documented Cardiovascular Cardiovascular: Reports systems reviewed and no addt'l complaints, except as documented Respiratory/Chest Respiratory/Chest: Reports systems reviewed and no addt'l complaints, except as documented Gastrointestinal Gastrointestinal: Reports systems reviewed and no addt'l complaints, except as documented and nausea; Denies abdominal pain Genitourinary Genitourinary: Reports systems reviewed and no addt'l complaints, except as documented, contractions Details: present and frequency (regular ) and movement Details: present Musculoskeletal Musculoskeletal: Reports systems reviewed and no addt'l complaints, except as documented Integumentary Integumentary: Reports as per HPI Neurologic Neurologic: Reports systems reviewed and no addt'l complaints, except as documented Endocrine Endocrinology: Reports systems reviewed and no addt'l complaints, except as documented Vital Signs Vital Signs Vital Signs: 03/17/25 19:20 03/17/25 19:20 03/17/25 19:21 Temperature Temperature Source Pulse Rate 92 92 Respiratory Rate Blood Pressure 124/79 H BP Systolic 124 BP Diastolic 79 Pulse Ox 03/17/25 19:21 03/17/25 19:21 03/17/25 19:21 Temperature Temperature Source Temporal Pulse Rate Respiratory Rate 16 Blood Pressure BP Systolic BP Diastolic Pulse Ox 99 03/17/25 19:21 03/17/25 20:33 03/17/25 20:33 Temperature 98.1 F Temperature Source Temporal Pulse Rate Respiratory Rate Blood Pressure 129/76 H BP Systolic 129 BP Diastolic 76 Pulse Ox 03/17/25 20:33 03/17/25 20:33 03/17/25 20:33 Temperature Temperature Source Pulse Rate 75 Respiratory Rate 16 Blood Pressure BP Systolic BP Diastolic Pulse Ox 97 03/17/25 20:33 03/18/25 00:40 03/18/25 00:40 Temperature 98.2 F Temperature Source Temporal Pulse Rate Respiratory Rate Blood Pressure 128/71 H BP Systolic 128 BP Diastolic 71 Pulse Ox 03/18/25 00:40 03/18/25 00:40 03/18/25 00:40 Temperature 97.9 F Temperature Source Pulse Rate 65 Respiratory Rate 16 Blood Pressure BP Systolic BP Diastolic Pulse Ox Weight Weight: 152 lb 3.2 oz Body Mass Index (BMI) 26.9 Physical Exam Const alert, oriented x3 and healthy appearing Constitutional Narrative: uncomfortable with contractions HEENT normocephalic and moist oral mucous membranes Head and Scalp: atraumatic Neck full ROM, no lymphadenopathy, supple and thyroid normal General: trachea midline Thyroid: thyroid normal Lymph Lymphatic: no lymphadenopathy noted Chest inspection of chest normal Resp normal respiratory effort Cardio regular rate GI soft to palpation and non-tender GI Narrative: gravid Inspection: gravid external exam normal Bimanual Exam - Vag & Uterus: uterus non-tender Manual OB Exam: estimated gestational size appropriate, presentation cephalic, dilated, effaced and station Extremity normal to inspection General Extremity: Negative for edema Skin no rashes or lesions noted Neuro deep tendon reflexes 2+ bilaterally Motor Exam: strength 5/5 throughout and clonus absent Psych mental status grossly normal Labs Labs Labs: Blood Type A POSITIVE Antibody Screen NEGATIVE Hct 39.7 % (37-47) Hgb 14.2 g/dL (12.0-15.0) Obstetrics Ultrasound Syphilis Total Ab Nonreactive (Nonreactive) Rubella IgG Antibody Reactive (Nonreactive) Hep Bs Antigen Non-Reactive (Nonreactive) Hepatitis C Antibody Non-Reactive (Nonreactive) Chlamydia DNA (JIHAN) Negative (Negative) N.gonorrhoeae DNA (JIHAN) Negative (Negative) HIV 1&2 Antibody Nonreactive (Nonreactive) Glucose 1 Hr 50 gm 152 mg/dL (70-140) H Gest Glucose Tolerance MG/DL Assessment & Plan (1) Acute DVT (deep venous thrombosis): QUALIFIERS: DVT location: lower extremity Affected thrombotic vein of extremity: iliac Laterality: left Qualified Code(s): I82.422 - Acute embolism and thrombosis of left iliac vein COMMENT: hold lovenox while in labor, scds in labor, restart lovenox 6 hours-12 hours depending on regional anesthesia and delivery modality. Left groin: On lovenox. 32 & 36wk growth US Wkly NST at 34wk (2) Abnormal glucose affecting : COMMENT: passed 3 hour (3) Supervision of high-risk : QUALIFIERS: Trimester: third trimester Qualified Code(s): O09.93 - Supervision of high risk , unspecified, third trimester COMMENT: PRR , JUHI 03/25/25, boy Conchita : Nabor (4) : QUALIFIERS: Weeks of gestation: 38 weeks Qualified Code(s): Z3A.38 - 38 weeks gestation of COMMENT: GBS neg (5) Encounter for induction of labor: PLAN: Plan Patient presents IOL, plan management for with cytotec. Pain management: plans epidural. GBS negative. Management of any complications: dvt I have reviewed the [facility] and made any clinically relevant updates.
[2025-03-18] MEDS: Lactated Ringers 1,000 ML 999 ML IV (07:36)
[2025-03-18] MEDS: fentaNYL-bupivacaine (epidural) 100 ML BAG EPIDURAL ×2 (08:10→12:55)
[2025-03-18] MEDS: Lactated Ringers 1,000 ML 50 ML IV (10:52)
--- NOTE | 2025-03-18 13:04 | PN.OBGYN_ITS ---
Subjective Subjective pt is comfortable with epidural. current tracing: FHT: mild to Moderate variability reactive, 2 late decelerations, overall category II tracing [place]: q 1-2 min Contractions cx: 7/90/0 bloody show present A/P: fluid bolus now. if more late decelerations will administer terbutaline. Objective Data Objective Data Vital Signs: Vital Signs Temp Pulse Resp BP Pulse Ox 98.3 F 72 16 107/66 99 03/18/25 12:08 03/18/25 12:08 03/18/25 12:08 03/18/25 12:08 03/18/25 12:08 Weight: 152 lb 3.2 oz Body Mass Index (BMI) 26.9 Intake & Output: Intake and Output for Last 24 Hours 03/16/25 03/17/25 03/18/25 23:59 23:59 23:59 Intake Total 1330.83 / 1330.83 Output Total 600 / 600 Balance 730.83 / 730.83 Lab / Micro Data 03/17/25 19:25 Labs: Laboratory Results - last 24 hr 03/17/25 19:25: WBC 11.0, RBC 4.51, Hgb 14.2, Hct 39.7, MCV 88.0, MCH 31.5, MCHC 35.8, RDW Std Deviation 41.5, RDW Coeff of Robby 13.1, Plt Count 196, MPV 11.4, Immature Gran % (Auto) 0.500, Neut % (Auto) 69.2, Lymph % (Auto) 22.9, [place] % (Auto) 6.2, Eos % (Auto) 0.7, Baso % (Auto) 0.5, Absolute Neuts (auto) 7.7, Absolute Lymphs (auto) 2.53, Nucleated RBC % 0, Syphilis Total Ab Nonreactive, Blood Type A POSITIVE, Antibody Screen NEGATIVE
[2025-03-18] MEDS: Lactated Ringers 1,000 ML 200 ML IV (14:03)
[2025-03-18] MEDS: Oxytocin 15 Units/NS 250ml 15 UNITS/250 ML IV.SOLN 334 UNITS IV (18:00)
--- NOTE | 2025-03-18 18:17 | OB.VAGDELI_ITS ---
Assessment & Plan (1) Encounter for induction of labor: (2) Acute DVT (deep venous thrombosis): QUALIFIERS: DVT location: lower extremity Affected thrombotic vein of extremity: iliac Laterality: left Qualified Code(s): I82.422 - Acute embolism and thrombosis of left iliac vein COMMENT: hold lovenox while in labor, scds in labor, restart lovenox 6 hours-12 hours depending on regional anesthesia and delivery modality. Left groin: On lovenox. 32 & 36wk growth US Wkly NST at 34wk (3) Abnormal glucose affecting : COMMENT: passed 3 hour (4) Supervision of high-risk : QUALIFIERS: Trimester: third trimester Qualified Code(s): O09.93 - Supervision of high risk , unspecified, third trimester COMMENT: PRR , JUHI 03/25/25, aneesh Arango : Nabor (5) : QUALIFIERS: Weeks of gestation: 38 weeks Qualified Code(s): Z3A.38 - 38 weeks gestation of COMMENT: GBS neg Maternal Data Information JUHI Calculator Estimated Delivery Date Method Current WG Current Estimate 03/25/25 LMP (Certain) 39w 0d Final JUHI: 03/25/25 Gestational age: 39 weeks 0 days Vaginal Delivery Maternal Presentation Maternal Presentation: Medically Indicated Induction Type of Induction: Cytotec Medical Reason for Induction: Other (DVT in on lovenox) Vaginal Delivery Information Procedure Performed: Spontaneous Vaginal Delivery Surgeon/Practitioner: Kareen Sands Date of Procedure: 03/18/25 Pre-Procedure Diagnosis: 25 y/o @ 39 weeks 0 days, history of DVT during the Post-Procedure Diagnosis: 25 y/o @ 39 weeks 0 days, history of DVT during the Type of anesthesia: Epidural Estimated Blood Loss: 300cc Time of Delivery: 17:56 Findings Description of procedure: Patient began pushing and delivered the head in the RAMY presentation. The head was delivered atraumatically. The anterior and posterior shoulders delivered without complication followed by the rest of the and the infant was place d on the maternal abdomen. Delayed cord clamping was employed for approximately 60 seconds. Cord was clamped and cut and gentle traction was applied to the cord and the placenta delivered spontaneously immediately following it was noted to be intact with three-vessel cord. The perineum and vagina were inspected and noted to have a 1st degree perineal laceration. This was repaired using a 3-0 vi cryl. EBL was 300cc. Patient and tolerated delivery well. 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
--- NOTE | 2025-03-18 18:25 | DCINST_ITS ---
Discharge Instructions Diet Discharge Diet: No restrictions DC O2, CPAP, BIPAP needs Home O2 Discharge instructions: No Dressing / Incision Discharge Activity: Return to Normal Activity, May Not Drive (while taking narcotic pain medications.) and May Shower May resume sexual activity in: 4-6 weeks Dressing / Incision Call your doctor if your incision/area has: Continuous Slow Oozing, Sudden Increased Bleeding, Increased Pain/ Swelling, Increased Redness and Foul Smelling Discharge Follow Up Care Please Follow Up With: Kareen Sands, When: Call [phone] to make an appointment with your doctor in 6 weeks. If you had elevated blood pressure or 4th degree laceration, you will need to be seen in 2 weeks. Test Results: Test results from this visit will be discussed in further detail at your follow- up appointment, if applicable. Discharge Plan Admission Admit Date/Time: 03/17/25 19:12 Attending Provider: Kareen Sands Primary Care Provider: Wyatt Blue Discharge Orders/Prescriptions Prescriptions: No Action DHA 200 mg capsule PO enoxaparin [Lovenox] 60 mg/0.6 mL syringe 60 mg subcut Q12H 30 Days Qty: 36 10RF (DME) breast pump Device See Rx Instructions .Route Qty: 1 0RF Rx Instructions: As directed Referrals / Follow Up: Wyatt Blue MD [Primary Care Provider] -
[2025-03-18] MEDS: Oxytocin 15 Units/NS 250ml 15 UNITS/250 ML IV.SOLN 83 UNITS IV (18:30)
[2025-03-19] MEDS: Enoxaparin 40 MG/0.4 ML Syringe SC (00:01)
[2025-03-19 04:26] VITALS: BP 123/94; PULSE 93; RESP 16; TEMP 36.4; O2SAT 98
[2025-03-19 04:27] VITALS: PULSE 103; O2SAT 98
[2025-03-19] MEDS: SELF ADMINISTRATION OF MEDS 1 EACH NOTE ×3 (04:58→23:04)
[2025-03-19] MEDS: Benzocaine/Lanolin/Aloe Vera 85 GM Spray 1 SPRAY TOPICAL (05:01)
[2025-03-19] MEDS: Ibuprofen 600 MG Tablet PO ×2 (06:11→16:45)
[2025-03-19 08:14] VITALS: BP 115/67; PULSE 85; PULSE 89; PULSE 91; RESP 16; TEMP 36.3; O2SAT 97
--- NOTE | 2025-03-19 09:32 | PCM.PN.OB ---
Subjective Subjective Patient doing well without complaints. Tolerating PO. Ambulating and voiding without difficulty. Feeding well. Denies chest pain, shortness of breath, calf pain/swelling, fevers, chills, lightheadedness. Objective Data Objective Data Vital Signs: Vital Signs Temp Pulse Resp BP Pulse Ox O2 Del Method 97.4 F L 89 16 115/67 97 Room Air 03/19/25 08:14 03/19/25 08:14 03/19/25 08:14 03/19/25 08:14 03/19/25 08:14 03/19/25 08:14 Oxygen Delivery Method Room Air Weight: 152 lb 3.2 oz Body Mass Index (BMI) 26.9 Intake & Output: Intake and Output for Last 24 Hours 03/17/25 03/18/25 03/19/25 23:59 23:59 23:59 Intake Total 3763.45 / 3763.45 Output Total 3300 / 3300 600 / 600 Balance 463.45 / 463.45 -600 / -600 Lab / Micro Data 03/17/25 19:25 ROS Constitutional Constitutional: Denies chills, fatigue, fever(s), poor appetite or weakness Eyes Eyes: Denies blurry vision, change in vision, seeing flashes or spots in vision ENT HEENT: Denies dizziness, headache(s), loss taste/smell or sore throat Cardiovascular Cardiovascular: Denies chest pain, dizziness, dyspnea, irregular heart rhythm, palpitations or rapid heart rate Respiratory/Chest Respiratory/Chest: Denies chest tightness, cough, dyspnea or breast pain Gastrointestinal Gastrointestinal: Denies abdominal pain, constipation or vomiting Genitourinary Genitourinary: Denies dysuria or flank pain Musculoskeletal Musculoskeletal: Denies difficulty walking, joint pain, limited range of motion or numbness Neurologic Neurologic: Denies abnormal movements, abnormal speech, dizziness, numbness, seizure-like activity or syncope Psychiatric Psychiatric: Denies anxiety, behavioral changes, change in appetite, confusion, depression or suicidal thoughts Physical Exam Const alert, oriented x3 and no apparent distress General Appearance: cooperative and comfortable Resp normal respiratory effort Cardio regular rate GI normal to inspection, nondistended, normoactive bowel sounds GI Narrative: uterus is firm below umbilicus Palpation: soft Back/Spine no CVA tenderness and thoraco-lumbar ROM normal Extremity normal to inspection, no clubbing, cyanosis or edema, no calf tenderness and no pedal edema Psych mental status grossly normal, thought process normal, cooperative, affect normal, speech normal, activity/motor behavior normal, denies homicidal ideation and denies suicidal ideation Assessment & Plan (1) Vaginal delivery: COMMENT: JV- baby aneesh Arango 03/18/25 (2) Acute DVT (deep venous thrombosis): QUALIFIERS: DVT location: lower extremity Affected thrombotic vein of extremity: iliac Laterality: left Qualified Code(s): I82.422 - Acute embolism and thrombosis of left iliac vein COMMENT: hold lovenox while in labor, scds in labor, restart lovenox 6 hours-12 hours depending on regional anesthesia and delivery modality. Left groin: On lovenox. 32 & 36wk growth US Wkly NST at 34wk (3) Abnormal glucose affecting : COMMENT: passed 3 hour (4) Supervision of high-risk : QUALIFIERS: Trimester: third trimester Qualified Code(s): O09.93 - Supervision of high risk , unspecified, third trimester COMMENT: PRR , JUHI 03/25/25, aneesh Arango : Nabor PLAN: Plan s/p PPD # 1 1. routine post delivery care 2. breast feeding- support given 3. rh positive 4. rubella immune 5. DVT in - vascular recommends full anticoagulation for 6 weeks .
[2025-03-19] MEDS: Enoxaparin 60 MG/0.6 ML Syringe SC ×2 (12:26→23:03)
[2025-03-19] MEDS: Dibucaine 30 GM Tube 1 APPLIC TOPICAL (12:27)
[2025-03-19 12:37] VITALS: BP 120/72; PULSE 82; PULSE 84; PULSE 87; RESP 16; TEMP 36.3; O2SAT 97; O2SAT 98
[2025-03-19 16:34] VITALS: BP 129/80; PULSE 79; PULSE 80; RESP 16; TEMP 36.4; O2SAT 100
[2025-03-19 20:54] VITALS: BP 120/68; PULSE 73; PULSE 76; RESP 16; TEMP 36.2; O2SAT 97; O2SAT 98
[2025-03-20 02:51] VITALS: BP 117/77; PULSE 75; RESP 16; TEMP 36.2; O2SAT 97
[2025-03-20 02:52] VITALS: BP 117/77; PULSE 71
[2025-03-20] MEDS: Ibuprofen 600 MG Tablet PO (03:00)
[2025-03-20 08:52] VITALS: BP 110/76; PULSE 71; PULSE 72; RESP 16; TEMP 36.1; O2SAT 98
--- NOTE | 2025-03-20 09:51 | DS.PCM_ITS ---
Providers Date of Admission: 03/17/25 Primary Care Physician: Dr. Wyatt Blue MD Reason For Visit: VAGINAL DELIVERY Diagnosis Discharge Diagnosis (1) Vaginal delivery: Status: Acute Code(s): O80 - Encounter for full-term uncomplicated delivery (2) Acute DVT (deep venous thrombosis): Status: Acute Code(s): I82.409 - Acute embolism and thrombosis of unspecified deep veins of unspecified lower extremity Qualifiers: Affected thrombotic vein of extremity: iliac DVT location: lower extremity Laterality: left Qualified Code(s): I82.422 - Acute embolism and thrombosis of left iliac vein (3) Abnormal glucose affecting : Status: Acute Code(s): O99.810 - Abnormal glucose complicating (4) Supervision of high-risk : Status: Acute Code(s): O09.90 - Supervision of high risk , unspecified, unspecified trimester Qualifiers: Trimester: third trimester Qualified Code(s): O09.93 - Supervision of high risk , unspecified, third trimester Plan s/p PPD # 1 1. routine post delivery care 2. breast feeding- support given 3. rh positive 4. rubella immune 5. DVT in - vascular recommends full anticoagulation for 6 weeks . Medications at Discharge Home Medications docosahexaenoic acid 200 mg capsule ( DHA) mg PO 07/30/24 enoxaparin 60 mg/0.6 mL subcutaneous syringe (Lovenox) 60 mg (0.6 mL) subcut Q12H DVT in 30 days #36 mL 12/24/24 breast pump #1 ea 02/03/25 sertraline 50 mg tablet (Zoloft) 50 mg PO QDAY #30 tabs 03/24/25 ondansetron 4 mg disintegrating tablet 4 mg PO Q6H PRN nausea and vomiting #7 tabs 03/25/25 clindamycin HCl 300 mg capsule (Cleocin HCl) 300 mg PO Q6H #28 CAPSULES 03/26/25 Hospital Course Operations None Procedures - (vaginal delivery ) Summary of Care Provided Minutes Spent on Discharge: 10 Hospital Course: The patient was admitted for IOL the evening of March 17. She delivered a viable male infant on 03/18 without complications. On day #1 she was bleeding moderately and baby required attention from the brand development manager for constipation. on day #2, the baby was voiding well and Kaya's bleeding slowed down. the decision was made to discharge to home. Physical Exam Const alert, oriented x3 and no apparent distress General Appearance: cooperative and comfortable Resp normal respiratory effort Cardio regular rate GI normal to inspection, nondistended, normoactive bowel sounds GI Narrative: uterus is firm below umbilicus Palpation: soft Back/Spine no CVA tenderness and thoraco-lumbar ROM normal Extremity normal to inspection, no clubbing, cyanosis or edema, no calf tenderness and no pedal edema Psych mental status grossly normal, thought process normal, cooperative, affect normal, speech normal, activity/motor behavior normal, denies homicidal ideation and denies suicidal ideation Weight / BMI Weight Weight: 152 lb 3.2 oz Body Mass Index (BMI) 26.9 ABG / Lab / Microbiology Data 03/17/25 19:25 D/C Instructions Discharge Diet: No restrictions May resume sexual activity in: 4-6 weeks Call your doctor if your incision/area has: Continuous Slow Oozing, Sudden Increased Bleeding, Increased Pain/ Swelling, Increased Redness and Foul Smelling Discharge DC O2, CPAP, BIPAP Needs Home O2 Discharge instructions: No Please Follow Up With: Kareen Sands, When: Call [phone] to make an appointment with your doctor in 6 weeks. If you had elevated blood pressure or 4th degree laceration, you will need to be seen in 2 weeks. Meaningful Use Info Meaningful Use Meaningful Use Diagnoses (Choose all that apply): None applicable Ischemic Stroke Statin Dosing Therapy Reference: STATIN DOSE THERAPY REFERENCE: * Patients > 75 years receive moderate or high dose statin therapy. * Patients 75 years or YOUNGER should receive HIGH intensity statin dose unless contraindicated. You will be required to document reason for non-treatment if statin daily dose does not meet guidelines. HIGH DOSE STATIN THERAPY DAILY Atorvastatin > than or = to 40 mg Rosuvastatin > than or = to 20 mg Amlodipine + Atorvastatin > than or = to 2.5/40 mg Ezetimibe + Simvastatin 10/80 mg Simvastatin 80mg Discharge Plan Admission Admit Date/Time: 03/17/25 19:12 Primary Reason for Your Visit: Vaginal delivery Attending Provider: Kareen Sands Primary Care Provider: Wyatt Blue Instructions Patient Instructions: After a Vaginal Delivery (WP), Breastfeed Holds, Breastfeed Common Questions Discharge Orders/Prescriptions Prescriptions: Continued DHA 200 mg capsule PO enoxaparin [Lovenox] 60 mg/0.6 mL syringe 60 mg subcut Q12H 30 Days Qty: 36 10RF No Action (DME) breast pump Device See Rx Instructions .Route Qty: 1 0RF Rx Instructions: As directed ondansetron 4 mg tablet,disintegrating 4 mg PO Q6H PRN (Reason: nausea and vomiting) Qty: 7 0RF clindamycin HCl [Cleocin HCl] 300 mg capsule 300 mg PO Q6H Qty: 28 0RF sertraline [Zoloft] 50 mg tablet 50 mg PO QDAY Qty: 30 12RF Referrals / Follow Up: Wyatt Blue MD [Primary Care Provider] - Disposition Disposition (needs filled in before D/C Order can be placed): Home, Self Care
[2025-03-20] MEDS: Enoxaparin 60 MG/0.6 ML Syringe SC (11:15)
[2025-03-20 14:03] VITALS: BP 119/72; PULSE 85; PULSE 93; RESP 16; TEMP 36.6; O2SAT 97
== END 2025-03-20 14:30 | disposition home or self-care (01) | DRG 806 ==
PROVIDERS: Obstetrics & Gynecology; Admitting Provider Obstetrics & Gynecology; PCP Family Medicine; Referring Provider Obstetrics & Gynecology; Visit Provider Obstetrics & Gynecology
DX: O22.33 Deep phlebothrombosis in pregnancy, third trimester (principal); Z37.0 Single live birth; I82.422 Acute embolism and thrombosis of left iliac vein; O99.814 Abnormal glucose complicating childbirth; O76 Abnormality in fetal heart rate and rhythm complicating labor and delivery; O70.0 First degree perineal laceration during delivery; Z3A.39 39 weeks gestation of pregnancy; Z79.01 Long term (current) use of anticoagulants
CPT/HCPCS: 59025; 59050; 85025; 86780; 86850; 86900; 86901; 99221; G0378

== ENCOUNTER 2025-03-25 09:46 | Emergency (ER) | payer BC, SELFPAY ==
[2025-03-25] VITALS (10 sets, daily range): BP systolic 89–123; BP diastolic 62–85; PULSE 74–97; RESP 12–17; TEMP 36.6; O2SAT 97–100; BMI 22.6
[2025-03-25 11:08] LABS: Hematocrit 47.8 % (37-47); Hemoglobin 16.9 g/dL (12.0-15.0); Immature Granulocytes Count 0.050 X10^3/uL (0.0-0.0); Mean Corp Hgb Conc 35.4 g/dL (32-36); Mean Corpuscular Volume 87.9 fL (81-99); Mean Platelet Vol. 10.1 fl (6.2-12.0); NRBC Flagged by Analyzer 0 % (0-5); Platelet Count 357 K/mm3 (150-450); RBC Distribution Width CV 12.6 % (11.6-14.6); RBC Distribution Width SD 40.4 fl (35.1-43.9); Red Blood Count 5.44 M/mm3 (4.2-5.4); White Blood Count 7.5 K/mm3 (4.4-11.0)
[2025-03-25 11:35] LABS: AST(SGOT) 16 U/L (<=31); Alanine Aminotransfer ALT/SGPT 17 U/L (<=34); Albumin, Serum 4.2 g/dL (3.5-5.0); Alkaline Phosphatase 139 U/L (35-104); Anion Gap 12 (5-15); BUN 10 mg/dL (4-19); BUN/Creat Ratio 16.5 RATIO (10-20); Calcium,Total 10.1 mg/dL (7.6-11.0); Carbon Dioxide 26.1 mmol/L (21.0-32.0); Chloride 103 mmol/L (98-108); Estimated Creatinine Clearance 114.60 ml/min (50-250); Globulin 3.6 g/dL (2.2-4.2); Glucose 77 mg/dL (70-99); Lipase 30 U/L (13-75); Potassium 3.6 mmol/L (3.3-5.1)
[2025-03-25 11:41] LABS: Mucous, Urine 0 SEEN /hpf (<or=2+); Red Blood Cells-Urine 0 SEEN /hpf (0-5); Squamous Epithelial Cells - UA 0 SEEN /hpf (5-10)
[2025-03-25 11:43] LABS: Color, Urine Yellow (Yellow); Glucose, Dipstick Normal (Normal); Ketone-Dipstick Negative (Negative); Leukocyte Esterase-Dipstick 500 /ul (Negative); Nitrite-Dipstick Negative (Negative); Occult Blood-Urine 250 /ul (Negative); Protein-Dipstick 15 mg/dl (Negative); Specific Gravity, Urine 1.005 (1.002-1.030); Urine Bilirubin Dipstick Negative (Negative)
[2025-03-25 12:08] LABS: hCG Titer Quant., Serum 34 mIU/mL (<9 non-preg)
[2025-03-25] MEDS: 0.9% Normal Saline (1000mL) 1,000 ML 999 ML IV ×2 (12:26→15:11)
[2025-03-25 13:18] LABS: Free T3 2.5 pg/mL (2.18-3.98)
== END 2025-03-25 16:30 | disposition home or self-care (01) ==
PROVIDERS: Emergency Provider Emergency Medicine; PCP Family Medicine; Visit Provider Emergency Medicine
DX: O72.2 Delayed and secondary postpartum hemorrhage (principal); O99.893 Other specified diseases and conditions complicating puerperium; R10.9 Unspecified abdominal pain; R55 Syncope and collapse; O99.285 Endocrine, nutritional and metabolic diseases complicating the puerperium; E86.0 Dehydration; Z79.01 Long term (current) use of anticoagulants; Z86.718 Personal history of other venous thrombosis and embolism
CPT/HCPCS: 76830; 80053; 81001; 83690; 84439; 84443; 84481; 84702; 85025; 93005; 96361; 96374; 99283; J2405

== ENCOUNTER 2025-03-26 09:25 | Emergency (ER) | payer BC, SELFPAY ==
[2025-03-26 09:25] VITALS: BP 116/83; PULSE 146; PULSE 149; RESP 16; TEMP 37.9; O2SAT 97; BMI 23.4
[2025-03-26 09:53] VITALS: TEMP 38.2
[2025-03-26 10:32] LABS: Hematocrit 43.4 % (37-47); Hemoglobin 15.4 g/dL (12.0-15.0); Immature Granulocytes Count 0.040 X10^3/uL (0.0-0.0); Mean Corp Hgb Conc 35.5 g/dL (32-36); Mean Corpuscular Volume 88.2 fL (81-99); Mean Platelet Vol. 9.9 fl (6.2-12.0); NRBC Flagged by Analyzer 0 % (0-5); Platelet Count 292 K/mm3 (150-450); RBC Distribution Width CV 12.4 % (11.6-14.6); RBC Distribution Width SD 40.2 fl (35.1-43.9); Red Blood Count 4.92 M/mm3 (4.2-5.4); White Blood Count 9.7 K/mm3 (4.4-11.0)
[2025-03-26 11:34] LABS: Anion Gap 12 (5-15); BUN 6 mg/dL (4-19); BUN/Creat Ratio 8.5 RATIO (10-20); Calcium,Total 8.6 mg/dL (7.6-11.0); Carbon Dioxide 22.2 mmol/L (21.0-32.0); Chloride 103 mmol/L (98-108); Estimated Creatinine Clearance 98.46 ml/min (50-250); Glucose 109 mg/dL (70-99); Potassium 3.3 mmol/L (3.3-5.1)
[2025-03-26 12:02] LABS: Mucous, Urine 0 SEEN /hpf (<or=2+); Red Blood Cells-Urine 0 SEEN /hpf (0-5); Squamous Epithelial Cells - UA 0 SEEN /hpf (5-10)
[2025-03-26 12:04] LABS: Color, Urine Yellow (Yellow); Glucose, Dipstick Normal (Normal); Ketone-Dipstick 15 mg/dl (Negative); Leukocyte Esterase-Dipstick 500 /ul (Negative); Nitrite-Dipstick Negative (Negative); Occult Blood-Urine 250 /ul (Negative); Protein-Dipstick 15 mg/dl (Negative); Specific Gravity, Urine 1.005 (1.002-1.030); Urine Bilirubin Dipstick Negative (Negative)
[2025-03-26 12:38] VITALS: BP 95/60; PULSE 97; RESP 16; TEMP 37.8; O2SAT 97
== END 2025-03-26 12:49 | disposition home or self-care (01) ==
PROVIDERS: Emergency Provider Emergency Medicine; PCP Family Medicine; Visit Provider Emergency Medicine
DX: O86.12 Endometritis following delivery (principal); O99.893 Other specified diseases and conditions complicating puerperium; R51.9 Headache, unspecified; Z79.01 Long term (current) use of anticoagulants; Z86.718 Personal history of other venous thrombosis and embolism; Z79.899 Other long term (current) drug therapy
CPT/HCPCS: 71046; 80048; 81001; 85025; 87086; 96374; 99282; A4216

== ENCOUNTER → 2025-03-28 | Outpatient (CLI) | payer BC, SELFPAY | END | disposition home or self-care (01) | LOC: OPUS 12:28 | PROVIDERS: PCP Family Medicine; Referring Provider Obstetrics & Gynecology; Visit Provider Obstetrics & Gynecology | DX: N93.9 Abnormal uterine and vaginal bleeding, unspecified (principal) | CPT/HCPCS: 76856 ==

== ENCOUNTER 2025-03-29 10:55 | Day surgery (SDC) | payer BC, SELFPAY ==
[2025-03-29] VITALS (9 sets, daily range): BP systolic 103–116; BP diastolic 55–82; PULSE 55–77; RESP 12–16; TEMP 36.3–36.6; O2SAT 95–100; BMI 22.8
[2025-03-29] MEDS: Lactated Ringers 1,000 ML 15 ML IV (12:31)
[2025-03-29 12:44] LABS: Hematocrit 42.7 % (37-47); Hemoglobin 15.1 g/dL (12.0-15.0); Mean Corp Hgb Conc 35.4 g/dL (32-36); Mean Corpuscular Volume 88.0 fL (81-99); Mean Platelet Vol. 10.1 fl (6.2-12.0); Platelet Count 261 K/mm3 (150-450); RBC Distribution Width CV 12.7 % (11.6-14.6); RBC Distribution Width SD 40.6 fl (35.1-43.9); Red Blood Count 4.85 M/mm3 (4.2-5.4); White Blood Count 6.1 K/mm3 (4.4-11.0)
[2025-03-29] MEDS: Cefotetan 2 GM in 0.9% Normal Saline (100mL MB+) 100 ML IV (13:00)
--- NOTE | 2025-03-29 13:00 | EMB_PTH ---
PATIENT: ARMANDO CUENCA LOC: [facility] [place] U#:[id number] AGE/SX: 25/F ROOM: RE03/29/[address]: Dr. Kareen Sands DO : 2000 BED: DIS: 03/29/2025 SPEC #: [id number] RECD: 03/29/25 17:50 STATUS: MARÍA SIOBHAN #: [id number] MILAGRO: 03/29/25 13:[address]: Kareen Sands DEPT: SURGICAL PATHOLOGY RECD BY: Maria Del Carmen Moreno ENTERED: 03/30/25 09:49 SP TYPE: ENDOM BX/C MARCELINO DR: Dr. Wyatt Blue MD Tissues: Endometrium, NOS Procedures: Surgery Specimen Level IV HEADER OPERATION: Dilation and curettage, suction PRE-OP DIAGNOSIS: Retained products of conception TISSUE SUBMITTED: A- Endometrial curettings MICROSCOPIC DIAGNOSIS A. 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 GROSS DESCRIPTION A. Received in formalin labeled with the patient's name and date of . Designated as endometrial curettings is a 47 g, 10.5 x 7.1 x 1.5 cm aggregate of clotted blood, flecks of thomas-pink tissue and mucoid material. Customer Engagement Representative sections are submitted in 3 cassettes. CO 03/30/2025 CPT:54025
--- NOTE | 2025-03-29 13:16 | PCM.PRE.AN2 ---
ASA Classification* ASA Classification ASA Classification: 2 Assessment & Plan Anesthesia* Anesthesia Assessment Anesthesia Assessment: Discussed sedation and/or anesthesia options, risks, benefits, and alternatives with patient/parents/legal guardian/POA. Questions invited. The patient/parents/legal guardian/POA seems to understand and agrees to proceed with anesthesia plan. Reviewed the physical assessment, medical history, allergy history and patient home medications list prior to surgery/procedure/anesthetic and documented any changes. Performed airway and anesthesia risk assessments. Anesthesia Type Anesthesia Type: MAC History Source History Obtained from:: Patient and Chart Anesthesia Focused Assessment* Temperature: 97.9 F Pulse Rate: 77 Blood Pressure: 103/55 Respiratory Rate: 16 Pulse Ox: 100 Oxygen Delivery Method: Room Air Airway Assessment Mouth opens: >3 cm Mallampati Score: II Teeth Condition: Intact Neck Range of motion (ROM): Full ROM Labs Anesthesia Preop lab: CBC WBC 6.1 K/mm3 (4.4-11.0) 03/29/25 12:25 03/29/25 RBC 4.85 M/mm3 (4.2-5.4) 03/29/25 12:25 03/29/25 Hgb 15.1 g/dL (12.0-15.0) H 03/29/25 12:25 03/29/25 Hct 42.7 % (37-47) 03/29/25 12:25 03/29/25 Plt Count 261 K/mm3 (150-450) 03/29/25 12:25 03/29/25 CHEMISTRY Potassium 3.3 mmol/L (3.3-5.1) 03/26/25 09:38 03/26/25 Sodium 137 mmol/L (133-145) 03/26/25 09:38 03/26/25 BUN 6 mg/dL (4-19) 03/26/25 09:38 03/26/25 Creatinine 0.71 mg/dL (0.70-1.20) 03/26/25 09:38 03/26/25 Glucose 109 mg/dL (70-99) H 03/26/25 09:38 03/26/25 TSH 2.500 uIU/mL (0.300-4.200) 03/25/25 10:05 03/25/25 COAG HCG, Quant 34 mIU/mL (<9 non-preg) H 03/25/25 10:05 03/25/25 Pre-Assessment Diagnosis/Proposed Procedure Planned Operative Procedure(s): Dilation and Curettage, Suction Anesthesia History Anesthesia History - exchange consultant: Anesthesia History - exchange consultant Hx Hospitalization Yes: 03/2025 childbirth 03/29/25 12:02 Any Problems With Anesthesia No 03/29/25 12:02 Cholinesterase deficiency No 03/29/25 12:02 You/Your Family Experience No 03/29/25 12:02 fever (hyperthermia) with Relationship Recent Exposure to Contagious No 03/29/25 12:10 Disease Does patient have nerve No 03/29/25 12:02 stimulator Patient instructed to have device shut off --Does patient have Pacemaker No 03/29/25 12:13 or ICD? When Was Last Pacemaker Check QUESTION #4 FULL TEXT: You/Your Family Experience fever (hyperthermia) with Anesthesia Last Oral Intake Last Oral intake: Last Oral Intake NPO since 02:00 03/29/25 12:13 Meds taken in AM with sips of No 03/29/25 12:13 water? Meds patient instructed to take am of surgery Any additional information?: Yes NPO since: 02:00 (Patient water at 2 AM.) PONV PONV - exchange consultant: PONV - exchange consultant Female Yes 03/29/25 12:02 HX of Motion Sickness Yes 03/29/25 12:02 HX of N/V After Surgery No 03/29/25 12:02 Non-Smoker Yes 03/29/25 12:02 Duration of Surgery greater No 03/29/25 12:02 than 60 minutes Number of Risk Factors 3 03/29/25 12:02 PONV Score Moderate Risk 03/29/25 12:02 Height & Weight Height & Weight: Anesthesia: Height & Weight Height 5 ft 3 in 03/29/25 12:13 Weight: 58.513 kg 03/29/25 12:13 Body Mass Index (BMI) 22.8 03/29/25 12:13 Respiratory Assessment Respiratory Assessment - exchange consultant: Respiratory Tract Infection Hx - exchange consultant Hx Respiratory Tract Infection No 03/29/25 12:02 STOP Sleep Apnea STOP Sleep Apnea - exchange consultant: STOP Sleep Apnea - exchange consultant Hx Hypertension No 03/29/25 12:02 Hx Sleep Apnea No 03/29/25 12:02 CPAP BIPAP Do you snore loudly (louder No 03/29/25 12:02 than talking or can be heard Do you often feel tired/ No 03/29/25 12:02 fatigued/ sleepy during daytime? Has anyone observed you stop No 03/29/25 12:02 breathing during sleep? STOP Results Negative 03/29/25 12:02 QUESTION #5 FULL TEXT : Do you snore loudly (louder than talking or can be heard through closed doors)? Tobacco Use History Tobacco Use History - exchange consultant: Tobacco Use History - exchange consultant Tobacco Use Smoking Status Never smoker 03/29/25 12:02 Hx Tobacco Use No 03/29/25 12:02 Years Smoking Packs Smoked per Day Smoking Cessation Date was within the last 15 years Hx Smoking Cessation Date Hx Smoking Cessation Counseling Hematologic Medial History Hematologic Hx - exchange consultant: Hematologic Medical Hx - data virtualization consultant Hx of Blood Transfusion No 03/29/25 12:02 Hx of Transfusion in last 3 No 03/29/25 12:02 Months Date of Last Transfusion (if within last 3 months) Ever experience any problems No 03/29/25 12:02 with transfusion(s)? Specify any problems Hx of Preganancy in last 3 Yes 03/29/25 12:02 Months Nurse Filling Out Transfusion MGRIFFITH 03/29/25 12:02 & Questions: Date: 03/29/25 03/29/25 12:02 Time: 12:04 03/29/25 12:02 Patient unable to answer at this time (ie. confused, unrespo /Reproduction History /Reproductive History - exchange consultant: /Reproductive Hx- exchange consultant Hx Now No 03/29/25 12:02 Gestational Age (in weeks): EDC: Hx Hx Para Hx Section SAB Yes 03/29/25 12:02 Active Medications Active Medications: Current Medications Generic Name Dose Route Start Last Admin Trade Name Freq PRN Reason Stop Dose Admin Cefotetan Disodium 2 gm/ 100 mls @ 200 mls/hr 03/29/25 13:00 Sodium Chloride IV 03/29/25 13:29 INTRAOP ONE Lactated Ringer's 1,000 mls @ 15 mls/hr 03/29/25 11:00 03/29/25 12:31 IV 15 mls/hr .Q48H BIRDIE Administration PFSH Medical History Syncope Non-smoker Hx of deep vein thrombosis during Home Medications ?Medication ?Instructions ?Recorded ?Last Taken ?Type enoxaparin 60 mg/0.6 mL 60 mg (0.6 mL) subcut Q12H DVT in 12/24/24 03/28/25 Rx subcutaneous syringe (Lovenox) 30 days #36 mL breast pump #1 ea 02/03/25 Unknown Rx sertraline 50 mg tablet (Zoloft) 50 mg PO QDAY #30 tabs 03/24/25 Unknown Rx ondansetron 4 mg disintegrating 4 mg PO Q6H PRN nausea and 03/25/25 Unknown Rx tablet vomiting #7 tabs doxycycline hyclate 100 mg capsule 100 mg PO BID #20 caps 03/28/25 03/28/25 Rx pink stork vitamin 2 tab PO DAILY 03/29/25 03/28/25 History Allergy/AdvReac Type Severity Reaction Status Date / Time latex Allergy Intermediate Rash Verified 03/29/25 11:55 Family History Father Hypertension Arthritis Grandfather Diabetes Grandfather Kidney disease Surgical History History of tonsillectomy Social History adopted: No household members: spouse current occupational status: employed 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 current occupational exposures/hazards: No pets and animals: Yes ( taking care litter box ) pets and animals: cat(s) and dog(s) history of recent travel: Yes ( - May ) out of state: Yes out of country: No sexually active: Yes Smoking Status: Never smoker alcohol intake: current alcohol intake frequency: holidays/special occasions only details: Not while substance use type: does not use well-balanced diet: daily or most days caffeine: Yes Type: coffee eating out: 1-3 times/week during the past year weight has: remained stable what type of physical activity do you participate in: walking, running and weight training frequency: 5-6 times per week duration: 30-45 minutes/day wander/sikhism: Rastafari seatbelt use: always do you feel safe at home: Yes 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
--- NOTE | 2025-03-29 14:28 | HP.PCM.OB_ITS ---
HPI - General HPI Narrative ARMANDO CUENCA, is a 25 F y/o who presents to [facility] for a suction D&C following a vaginal delivery 2 weeks ago. She is on lovenox for history of DVT and noticed that her bleeding was becoming heavier rather than electronic publisher. Ultrasound shows a 2 cm endometrial thickening that is concerning for retained products of conception. [facility] Medical History Syncope Non-smoker Hx of deep vein thrombosis during Home Medications ?Medication ?Instructions ?Recorded ?Last Taken ?Type enoxaparin 60 mg/0.6 mL 60 mg (0.6 mL) subcut Q12H D VT in 12/24/24 03/28/25 Rx subcutaneous syringe (Lovenox) 30 days #36 m L breast pump #1 ea 02/03/25 Unknown Rx sertraline 50 mg tablet (Zoloft) 50 mg PO QDAY #30 tab s 03/24/25 Unknown Rx ondansetron 4 mg disintegrating 4 mg PO Q6H PRN nausea and 03/25/25 Unknown Rx tablet vomiting #7 tabs doxycycline hyclate 100 mg capsule 100 mg PO BID #20 c aps 03/28/25 03/28/25 Rx pink stork vitamin 2 tab PO DAILY 03/29/25 0 03/28/25 History Allergy/AdvReac Type Severity Reaction Status Date / Time latex Allergy Intermediate Rash Verified 03/29/25 11:55 Family History Father Hypertension Arthritis Grandfather Diabetes Grandfather Kidney disease Surgical History History of tonsillectomy Social History adopted: No household members: spouse current occupational status: employed 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 current occupational exposures/hazards: No pets and animals: Yes ( taking care litter box ) pets and animals: cat(s) and dog(s) history of recent travel: Yes ( - May ) out of state: Yes out of country: No sexually active: Yes Smoking Status: Never smoker alcohol intake: current alcohol intake frequency: holidays/special occasions only details: Not while substance use type: does not use well-balanced diet: daily or most days caffeine: Yes Type: coffee eating out: 1-3 times/week during the past year weight has: remained stable what type of physical activity do you participate in: walking, running and weight training frequency: 5-6 times per week duration: 30-45 minutes/day wander/baptist: [employer] seatbelt use: always do you feel safe at home: Yes 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 Date Name GA/Weeks Outcome Route Bth Weight Infant Gen Labor Lgth Anesthesia Del Locatn Provider FOB 03/18/25 [facility] 39 live - full term Male epid ural H Kareen Mora Delivery Date: 03/18/25 Last Updated by: Dannielle Chowdhury see problem list for complications. ROS Constitutional Constitutional: Denies change in weight, fatigue, fever(s), headache(s), poor appetite or weakness Eyes Eyes: Denies blurry vision, change in vision, seeing flashes or spots in vision ENT HEENT: Denies dizziness, headache(s), loss taste/smell or sore throat Cardiovascular Cardiovascular: Denies chest pain, dizziness, dyspnea, irregular heart rhythm, leg edema, palpitations, rapid heart rate or vomiting Respiratory/Chest Respiratory/Chest: Denies chest tightness, cough, dyspnea or breast pain Gastrointestinal Gastrointestinal: Denies abdominal pain, anorexia, constipation, cramping, diarrhea, hemorrhoids, vomiting or weight changes Genitourinary Genitourinary: Denies dysuria, flank pain, genital lesions, genital pain, urinary frequency or urinary urgency Musculoskeletal Musculoskeletal: Denies back pain, difficulty walking, joint pain, limited range of motion, muscle cramps or numbness Integumentary Integumentary: Denies lesions or unusual bruising Neurologic Neurologic: Denies abnormal movements, abnormal speech, dizziness, numbness, seizure-like activity or syncope Psychiatric Psychiatric: Denies anxiety, behavioral changes, change in appetite, change in libido, cognitive impairment, confusion, depression, difficulty concentrating, hallucinations or suicidal thoughts Endocrine Endocrinology: Denies excessive sweating, polydipsia or polyuria Hematologic/Lymphatic Hematologic/Lymphatic: Denies easy bleeding, easy bruising or lymphadenopathy Allergic/Immunologic Allergic/Immunologic: Denies itchy eyes, lip swelling, seasonal rhinorrhea, rhinitis, throat swelling, tongue swelling, eczemia, wheezing or asthma Vital Signs Vital Signs Vital Signs: 03/29/25 12:10 03/29/25 12:13 03/29/25 13:24 Temperature 97.9 F 97.9 F Temperature Source Temporal Pulse Rate 77 77 Respiratory Rate 16 16 Respiratory Pattern Normal Blood Pressure 103/55 L 103/55 L Blood Pressure Mean 71 Blood Pressure Source Monitor Blood Pressure Position Semi-Fowlers Blood Pressure Location Right Arm Pulse Ox 100 100 Oxygen Delivery Method Room Air Room Air Weight Weight: 129 lb Body Mass Index (BMI) 22.8 Physical Exam Const alert, oriented x3, no apparent distress and healthy appearing General Appearance: cooperative; Negative for anxious Resp normal respiratory effort Effort and Inspection: able to speak in complete sentences GI soft to palpation and non-tender Palpation: soft; Negative for tender Back/Spine no CVA tenderness Extremity normal to inspection, full ROM and no clubbing, cyanosis or edema General Extremity: Negative for calf tenderness or edema Skin Lesions: no lesions Rashes: no rashes Psych mental status grossly normal Labs Labs Labs: Blood Type A POSITIVE Antibody Screen NEGATIVE Hct 42.7 % (37-47) Hgb 15.1 g/dL (12.0-15.0) H Obstetrics Ultrasound Syphilis Total Ab Nonreactive (Nonreactive) Rubella IgG Antibody Reactive (Nonreactive) Hep Bs Antigen Non-Reactive (Nonreactive) Hepatitis C Antibody Non-Reactive (Nonreactive) Chlamydia DNA (JIHAN) Negative (Negative) N.gonorrhoeae DNA (JIHAN) Negative (Negative) HIV 1&2 Antibody Nonreactive (Nonreactive) Glucose 1 Hr 50 gm 152 mg/dL (70-140) H Gest Glucose Tolerance MG/DL Assessment & Plan (1) Retained products of conception after delivery with complications: PLAN: After discussing the patient's diagnosis and treatment plan options, patient wishes to proceed with surgical management. I have discussed with the patient the risks, benefits, and alternatives of the procedure which include but are not limited to risks of anesthesia, bleeding, infection, possible damage to bowel, bladder, or surrounding vasculature which could lead to additional surgery to evaluate any complications. Patient agrees to procedure and wishes to proceed. ACOG/uptodate references given for additional information regarding procedure. plan is for a suction dilation and curettage.
--- NOTE | 2025-03-29 14:31 | PCM.DC ---
Discharge Instructions Diet Discharge Diet: No restrictions DC O2, CPAP, BIPAP needs Home O2 Discharge instructions: No Dressing / Incision Discharge Activity: Return to Normal Activity, May Shower and May Take a Tub Bath (after 1 week) May resume sexual activity in: 1-2 weeks Weight Bearing Status: Weight bearing as tolerated Lifting Restrictions: none Dressing / Incision Call your doctor if you observe: Fever of 101 or Higher, Using more than 1 pad per hour, Shortness of breath and Uncontrolled pain Follow Up Care Please Follow Up With: Kareen Sands DO When: Call [phone] to schedule appointment. Test Results: Test results from this visit will be discussed in further detail at your follow-up appointment, if applicable. Discharge Plan Admission Primary Reason for Your Visit: dilation and curettage Attending Provider: Kareen Sands Primary Care Provider: Wyatt Blue Instructions Print Language: Marshallese Discharge Orders/Prescriptions Prescriptions: Continued enoxaparin [Lovenox] 60 mg/0.6 mL syringe 60 mg subcut Q12H 30 Days Qty: 36 10RF (DME) breast pump Device See Rx Instructions .Route Qty: 1 0RF Rx Instructions: As directed pink stork vitamin 2 tab PO DAILY ondansetron 4 mg tablet,disintegrating 4 mg PO Q6H PRN (Reason: nausea and vomiting) Qty: 7 0RF sertraline [Zoloft] 50 mg tablet 50 mg PO QDAY Qty: 30 12RF doxycycline hyclate 100 mg capsule 100 mg PO BID Qty: 20 0RF Referrals / Follow Up: Wyatt Blue MD [Primary Care Provider] - Disposition Disposition (needs filled in before D/C Order can be placed): Home, Self Care
[2025-03-29] MEDS: Lactated Ringers 500 ML IV (14:36)
[2025-03-29] MEDS: Midazolam 2 MG/2 ML Syringe IV (14:38)
--- NOTE | 2025-03-29 14:45 | PCM.OPRPT ---
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 still pump operator: No Type of Anesthesia: MAC/Supplemental RN Documented Start/Stop Times: Operation Date: 03/29/25 13:00 Case Time Into Pre-Op 03/29/25 10:57 Anesthesia Start 03/29/25 14:36 Into Room 03/29/25 14:36 Out of Pre-Op 03/29/25 14:36 Procedure Start 03/29/25 14:52 Procedure End 03/29/25 15:10 Procedure Start Time: 14:52 Procedure Stop Time: 15:10 Select all DRAINS/GRAFTS/IMPLANTS that apply: None Estimated Blood Loss: 30cc Specimen collected: Yes Description of specimen(s) removed: endometrial curetting's/products of conception Description of surgery: Patient was taken to the operating room and placed under MAC local anesthesia. She was prepped and draped in the normal sterile fashion the dorsal lithotomy position. Bladder was drained of clear urine and anterior lip of the cervix was grasped and the uterus sounded to 13cm. Cervix was progressively dilated to allow passage of a size 10 suction curette. Progressive passes were made removing the retained products of conception without complication. Sharp curettage confirmed complete removal of the retained products. All instruments were removed from the vagina and excellent hemostasis was noted and the patient was taken to recovery in stable condition. IM methergine and pitocin were given to help contract the uterus. The perineum incision was found to have a slight opening from her prior laceration following her delivery. This was repaired with a figure of 8 3-0 vicryl suture. Surgical Findings: small amount of products of conception removed. Complications Complications: No Admit VTE Documentation VTE Present on Admission: No VTE Mechan Device Prophylaxis: SCD's VTE Pharm Prophylaxis ordered?: No
[2025-03-29] MEDS: fentaNYL 250mcg vial 100 ML 100 MCG IV (14:48)
[2025-03-29] MEDS: dexMEDEtomidine 200 MCG/2 ML ML 40 MCG IV (14:56)
[2025-03-29] MEDS: Lidocaine 1% (20 ml mdv) 20 ML Vial (15:00)
--- NOTE | 2025-03-29 15:18 | PCM.POST.ANE ---
Anesthesia: Postop Eval I Current Vital Signs Temperature: 97.9 F Pulse Rate: 57 Blood Pressure: 111/73 Respiratory Rate: 12 Pulse Ox: 98 Oxygen Delivery Method: Room Air Assessment Airway patent: Yes Spontaneous unlabored respirations: Yes Mental status: Awake and Calm nausea: No Vomiting: No Anesthesia Complication: No Fluid Hydration Crystalloid volume administer (ml): 800 Total IV fluid infused: 800 Progress Note Anesthesia document: Postop Eval 1 completed: Yes
[2025-03-29] MEDS: Ketorolac 30 MG/ML Syringe IM (15:29)
--- NOTE | 2025-03-30 00:33 | POSTOPAN2_ITS ---
Anesthesia Postop Eval I Sum Postop Eval Completion status Anesthesia document: Postop Eval 1 completed: Yes Anesthesia Postop Eval I Summary Anesthesia Postop Eval I Summary: Anesthesia Postop Eval I: Assessment Summary Airway patent Yes 03/29/25 15:18 [email or web address] Spontaneous unlabored Yes 03/29/25 15:18 [email or web address] respirations Mental status Awake,Calm 03/29/25 15:18 [email or web address] nausea No 03/29/25 15:18 [email or web address] Vomiting No 03/29/25 15:18 [email or web address] Anesthesia Postop Eval I: Fluid Summary Crystalloid volume administer 800 03/29/25 15:18 [email or web address] (ml) Colloids volume administered ( ml) Blood Product volume administered (ml) Total IV fluid infused 800 03/29/25 15:18 [email or web address] [email or web address] Anesthesia Postop Eval I: Summary Notes Anesthesia Complication No 03/29/25 15:18 [email or web address] [email or web address] Anesthesia Complication Comment: Post-operative progress note Anesthesia: Postop Eval II Evaluation Mental status: Awake and Calm Pain Level: 1 nausea: No Vomiting: No Complications Anesthesia Complication: No
--- NOTE | 2025-03-30 00:33 | PCM.POSTANE2 ---
Anesthesia Postop Eval I Sum Postop Eval Completion status Anesthesia document: Postop Eval 1 completed: Yes Anesthesia Postop Eval I Summary Anesthesia Postop Eval I Summary: Anesthesia Postop Eval I: Assessment Summary Airway patent Yes 03/29/25 15:18 BINDERY MACHINE FEEDER [email or web address] Spontaneous unlabored Yes 03/29/25 15:18 BINDERY MACHINE FEEDER [email or web address] respirations Mental status Awake,Calm 03/29/25 15:18 BINDERY MACHINE FEEDER [email or web address] nausea No 03/29/25 15:18 BINDERY MACHINE FEEDER [email or web address] Vomiting No 03/29/25 15:18 BINDERY MACHINE FEEDER [email or web address] Anesthesia Postop Eval I: Fluid Summary Crystalloid volume administer 800 03/29/25 15:18 BINDERY MACHINE FEEDER [email or web address] (ml) Colloids volume administered ( ml) Blood Product volume administered (ml) Total IV fluid infused 800 03/29/25 15:18 BINDERY MACHINE FEEDER [email or web address] Anesthesia Postop Eval I: Summary Notes Anesthesia Complication No 03/29/25 15:18 BINDERY MACHINE FEEDER [email or web address] Anesthesia Complication Comment: Post-operative progress note Anesthesia: Postop Eval II Evaluation Mental status: Awake and Calm Pain Level: 1 nausea: No Vomiting: No Complications Anesthesia Complication: No
== END 2025-03-29 16:28 | disposition home or self-care (01) ==
LOC: SDC 10:57 → AC 10:58
PROVIDERS: PCP Family Medicine; Referring Provider Obstetrics & Gynecology; Visit Provider Obstetrics & Gynecology
PROC: (CPT 59160; principal; 2025-03-29 12:45)
DX: O72.2 Delayed and secondary postpartum hemorrhage (principal); Z79.01 Long term (current) use of anticoagulants; Z86.718 Personal history of other venous thrombosis and embolism
CPT/HCPCS: 59160; 00940; 85027; 86850; 86900; 86901; 88305; J2405

== ENCOUNTER → 2025-06-28 | Outpatient (CLI) | payer BC, SELFPAY ==
--- NOTE | 2025-06-28 13:07 | VDLE_ITS ---
Reason For Study Reason For Study: Left leg pain RIGHT LEFT CFV is compressible, spontaneous, phasic, competent GSV is normal. and demonstrates normal augmentation. EIV normal venous flow. Procedure CFV is partially compressible with bright This is a venous duplex using B-mode, color flow and intraluminal echoes consistent with Chronic DVT. spectral Doppler. Normal venous flow. Exam performed in department. FV is compressible, spontaneous, phasic, competent A preliminary report was called and/or faxed to Jake and demonstrates normal augmentation. PA. POP V is compressible, spontaneous, phasic, competent and demonstrates normal augmentation. T/P Trunk is compressible. PTV is compressible. LT PerV is compressible. VL/Venous Duplex US, Unilateral Interpretation Summary Chronic deep vein thrombosis noted in the left common femoral vein. Ordering Physician: Mitali Joseph Referring Physician: Wyatt Blue Performed By: Bhavani Camacho RVT
--- NOTE | 2025-06-28 13:07 | VDLE_ITS ---
Reason For Study Reason For Study: Left leg pain RIGHT LEFT CFV is compressible, spontaneous, phasic, competent GSV is normal. and demonstrates normal augmentation. EIV normal venous flow. Procedure CFV is partially compressible with bright This is a venous duplex using B-mode, color flow and intraluminal echoes consistent with Chronic DVT. spectral Doppler. Normal venous flow. Exam performed in department. FV is compressible, spontaneous, phasic, competent A preliminary report was called and/or faxed to Jake and demonstrates normal augmentation. PA. POP V is compressible, spontaneous, phasic, competent and demonstrates normal augmentation. T/P Trunk is compressible. PTV is compressible. LT PerV is compressible. VL/Venous Duplex US, Unilateral Interpretation Summary Chronic deep vein thrombosis noted in the left common femoral vein. Ordering Physician: Mitali Joseph Referring Physician: Wytat Blue Performed By: Bhavani Camacho RVT
[2025-06-30 15:09] LABS: ANTINUCLEAR ANTIBODIES DIRECT Negative (Negative)
[2025-07-04 17:08] LABS: Anti-Cardiolipin Ab, IgA, Qn < 9 APL U/mL (0-11); Anti-Cardiolipin Ab, IgG, Qn < 9 GPL U/mL (0-14); Anti-Cardiolipin Ab, IgM, Qn 12 MPL U/mL (0-12); Anti-Thrombin 3 AG, Immunol 110 % (72-124); Antithrombin 3 Function 88 % (75-135); Beta-2-Glycoprotein I IgA <9 (0-25); Beta-2-Glycoprotein I IgG <9 (0-20); Beta-2-Glycoprotein I IgM <9 (0-32); Complement CH50 35 U/mL (>41); Dilute Russell Viper Venom 38.9 sec (0.0-47.0); Interpretation Comment: (.); PTT-LA 36.4 sec (0.0-43.5); Protein C, Functional 115 % (73-180); Protein S, Funtional 29 % (63-140)
== END | disposition home or self-care (01) ==
PROVIDERS: PCP Family Medicine; Referring Provider Physician Assistant; Visit Provider Physician Assistant
DX: M79.605 Pain in left leg (principal); Z86.718 Personal history of other venous thrombosis and embolism
CPT/HCPCS: 36415; 81240; 81241; 85300; 85301; 85303; 85305; 85306; 85652; 86038; 86146; 86147; 86160; 86162; 86225; 93971